=== PATIENT | male | born 1945 | race Caucasian/White ===

== ENCOUNTER 2018-11-04 13:15 | Inpatient (IN) | payer MEDICARE, OTHER ==
[~2018-11-04] VITALS: Ht 185.4 cm; Wt 93.4 kg
[2018-11-04] MEDS ORDERED: DILTIAZEM 25 MG INJ ONE (14:34)
[2018-11-04] MEDS ORDERED: SOD CHLORIDE 0.9% 500 ML IV STA (14:35)
[2018-11-04] MEDS ORDERED: ENOXAPARIN 80 MG/0.8 ML SYG SC STA (14:35)
--- NOTE | 2018-11-04 14:39 | ERD ---
ER Documentation Chief Complaint Chief Complaint PT MORE CONFUSED THAN NORMAL, A0X2, BILATERAL 2+ PITTING LLE HPI This is a 73-year-old male who has a multi-month history of gradual worsening of mental status with confusion. The says over the past couple of days he has been getting more confused. He is having a hard time doing basic activities of daily living, gets confused about what commands mean such as turn off the lig hts. Patient was found to be in A. fib with RVR here in the states that she thinks that he may have had that in the past. She is also complaining him having a chronic cough ROS All systems reviewed and are negative except as per history of present illness. Medications Home Meds Reported Medications Tamsulosin Hcl* (Tamsulosin Hcl*) 0.4 Mg Cap.er.24h, 0.8 MG PO HS, CAP 11/04/18 Discontinued Reported Medications [Unk] No Conflict Check 08/18/09 Allergies Allergies: Coded Allergies: Sulfa (Sulfonamide Antibiotics) (Verified Allergy, Mild, 11/04/18) tetracycline (Verified Allergy, Mild, 11/04/18) PMhx/Soc History of Surgery: Yes (CARDIAC STENT) Hx Neurological Disorder: No Hx Respiratory Disorders: No Hx Cardiac Disorders: Yes Hx Miscellaneous Medical Probl: No Hx Alcohol Use: Yes (OCCASIONALLY) Hx Substance Use: No Hx Tobacco Use: No FmHx Family History: No coronary disease Physical Exam Vitals Vital Signs Date Temp Pulse Resp B/P (MAP) Pulse Ox O2 O2 Flow FiO2 Time Delivery Rate 11/04/18 102 25 128/92 97 Nasal 15:00 (104) Cannula 11/04/18 106 25 137/116 100 Room Air 14:50 (123) 11/04/18 Nasal 2 14:15 Cannula 11/04/18 98.2 66 18 112/55 93 13:18 (74) Physical Exam Const: Well-developed, well-nourished Head: Atraumatic, normocephalic Eyes: Normal Conjunctiva, PERRLA, EOMI, normal sclera, no nystagmus ENT: Normal External Ears, Nose and Mouth, moist mucus membranes. Neck: Full range of motion. No meningismus, no lymphadenopathy. Resp: Clear to auscultation bilaterally, no wheezing, rhonchi, rales Cardio: Irregular rate and rhythm, no murmurs, S1 S2 present] Abd: Soft, non tender x 4, non distended. Normal bowel sounds, no guarding or rebound, no pulsitile abdominal masses or bruits Skin: No petechiae or rashes, no ecchymosis , no maculopapular rash Back: No midline or flank tenderness Ext: No cyanosis, or edema, FROM x 4, normal inspection, neurovascularly intact x 4 Neur: Awake and alert oriented but thinks it is 1989, STR 5/5 x 4, sensation intact x 4, no focal findings, cerebellum intact Psych: Normal Mood and Affect Result Diagram: 11/04/18 1443 11/04/18 1443 Results 24 hrs Laboratory Tests Test 11/04/18 14:43 White Blood Count 10.6 10^3/ul Red Blood Count 4.58 10^6/ul Hemoglobin 13.9 g/dl Hematocrit 42.9 % Mean Corpuscular Volume 93.7 fl Mean Corpuscular Hemoglobin 30.3 pg Mean Corpuscular Hemoglobin Concent 32.4 g/dl Red Cell Distribution Width 14.8 % Platelet Count 158 10^3/UL Mean Platelet Volume 11.7 fl Immature Granulocytes % 0.500 % Neutrophils % 82.2 % Lymphocytes % 6.5 % Monocytes % 10.1 % Eosinophils % 0.3 % Basophils % 0.4 % Nucleated Red Blood Cells % 0.0 /100WBC Immature Granulocytes # 0.050 10^3/ul Neutrophils # 8.8 10^3/ul Lymphocytes # 0.7 10^3/ul Monocytes # 1.1 10^3/ul Eosinophils # 0.0 10^3/ul Basophils # 0.0 10^3/ul Nucleated Red Blood Cells # 0.0 10^3/ul Prothrombin Time 16.0 Sec Prothrombin Time Ratio 1.3 INR International Normalized Ratio 1.27 Activated Partial Thromboplast Time 31.9 Sec Sodium Level 142 mmol/L Potassium Level 4.8 mmol/L Chloride Level 109 mmol/L Carbon Dioxide Level 25 mmol/L Anion Gap 8 Blood Urea Nitrogen 49 mg/dl Creatinine 1.68 mg/dl Est Glomerular Filtrat Rate mL/min mL/min Glucose Level 112 mg/dl Calcium Level 9.8 mg/dl Total Bilirubin 1.2 mg/dl Direct Bilirubin 0.00 mg/dl Indirect Bilirubin 1.2 mg/dl Aspartate Amino Transf (AST/SGOT) 23 IU/L Alanine Aminotransferase (ALT/SGPT) 37 IU/L Alkaline Phosphatase 69 IU/L Troponin I 0.026 ng/ml B-Type Natriuretic Peptide 61902 PG/ML Total Protein 6.5 g/dl Albumin 3.9 g/dl Globulin 2.60 g/dl Albumin/Globulin Ratio 1.50 Current Medications Medications Dose Sig/Karin Start Time Status Last (Trade) Ordered Route PRN Stop Time Admin Dose Reason Admin Sodium 500 ml @ Q1H STAT 11/04/18 DC 11/04/18 Chloride 500 mls/hr IV 14:35 14:48 11/04/18 15:34 Enoxaparin 90 mg ONCE STAT 11/04/18 DC 11/04/18 Sodium SC 14:35 14:47 (Lovenox) 11/04/18 14:37 Diltiazem 20 mg ONCE ONCE 11/04/18 DC 11/04/18 HCl IV 15:00 14:48 (Cardizem Iv) 11/04/18 15:01 Diltiazem 125 ml @ [id number] IV 11/04/18 11/04/18 HCl 10 mls/hr 15:00 15:40 Procedures/MDM EKG: Rate/Rhythm: A. fib with RVR QRS, ST, QT: NORMAL [place], QRS, QT] Impression: A. fib with RVR Patient: KENNEDY DUKE : 1945 Age: 73 Sex: M MR #: [id number] DOS: 11/04/18 1435 Ordering MD: MCKENZIE RUIZ DO Location: E/R Room/Bed: PROCEDURE: CT Brain without contrast. CLINICAL INDICATION: Altered mental status. TECHNIQUE: A CT of the brain without contrast was performed utilizing axial sections from the skull base through the vertex. One or more the following does reduction techniques were utilized: Automated exposure control, adjustment of the mA/ or kV according to patient's size, or use of iterative reconstruction technique. Total exam CTDIvol is 36 MGy and DLP is 634 mGy-cm. DICOM images are available. COMPARISON: None available. FINDINGS: The ventricles and sulci are mildly to moderately prominent indicative of volume loss. Partially empty sella turcica is noted. There is no intracranial hemorrhage, mass effect or midline shift. No abnormal intra-axial or extra-ax ial fluid collections are seen. The lake/white matter differentiation is preserved. Small old lacunar infarct is noted in the right lentiform nucleus. There are mild foci of hypoattenuation in the white matter, which are nonspecific in etiology but likely reflect chronic small vessel ischemic ch anges. There are mild intracranial vascular calcifications consistent with atherosclerosis. The visualized paranasal sinuses demonstrate focal mucoid secretion in the left sphenoid sinus. The mastoid air cells are essentially clear. IMPRESSION: 1. No acute intracranial hemorrhage, transcortical infarction or mass effect. 2. Mild intracranial atherosclerosis and chronic small vessel ischemic changes. 3. Partially empty sella turcica. 4. Small old lacunar infarct in the right lentiform nucleus. 5. Mild to moderate generalized cerebral volume loss. RPTAT: UU .Gregory Tsai MD, MD Date Time Electronically viewed and signed by .Gregory Tsai MD, MD on 11/04/2018 15:49 .N/ CC: MCKENZIE RUIZ DO [id number] Patient: KENNEDY DUKE : 1945 Age: 73 Sex: M MR #: [id number] DOS: 11/04/18 1435 Ordering MD: MCKENZIE RUIZ DO Location: E/R Room/Bed: PROCEDURE: XR Chest. CLINICAL INDICATION: Chest pain TECHNIQUE: A single portable view of the chest was obtained. COMPARISON: None FINDINGS: The aorta is tortuous and atherosclerotic. The cardiomediastinal silhouette is otherwise moderately enlarged. The lungs and pleural spaces are clear. The soft tissues and osseous structures demonstrate benign age related senescent changes. IMPRESSION: No acute cardiopulmonary disease. Moderate cardiomegaly. RPTAT: HPNM Marty Meraz Physician Date Time Electronically viewed and signed by Marty Meraz Physician on 11/04/2018 15:42 / CC: MCKENZIE RUIZ DO [id number] Patient be admitted for new onset A. fib with RVR as well as mental status changes. I will admit to PCP He is given Cardizem 20 mg IV bolus followed by Cardizem 10 mg an hour drip to control his heart rate. EKG: Rate/Rhythm: A. fib with RVR QRS, ST, QT: NORMAL [place], QRS, QT] Impression: A. fib with RVR EKG: Rate/Rhythm: A. fib QRS, ST, QT: NORMAL [place], QRS, QT] Impression: A. fib Departure Diagnosis: Primary Impression: Atrial fibrillation with RVR Additional Impression: Altered mental status Altered mental status type: unspecified Qualified Codes: R41.82 - Altered mental status, unspecified Condition: Stable MCKENZIE RUIZ DO Nov 04, 2018 14:39
[2018-11-04] MEDS ORDERED: DILTIAZEM 25 MG INJ IV ONE (15:00)
[2018-11-04] MEDS ORDERED: DILTIAZEM-D5W 125MG/125ML DRIP 125 ML IV SCH ×2 (15:00→18:00)
[2018-11-04] MEDS ORDERED: LOSA50TA14 PO (16:32)
[2018-11-04] MEDS ORDERED: TAMS0.4C2 PO (16:32)
[2018-11-04] MEDS ORDERED: LANS30CA PO (16:33)
[2018-11-04] MEDS ORDERED: GABA400C14 PO (16:33)
[2018-11-04] MEDS ORDERED: SIMV40TA2 PO (16:34)
[2018-11-04] MEDS ORDERED: FINA5TAB4 PO (16:34)
[2018-11-04] MEDS ORDERED: VITAMIN B12 INJ INJ (16:42)
[2018-11-04] MEDS ORDERED: METHYLPREDNISOLONE 125 MG INJ IV ONE (17:30)
[2018-11-04] MEDS ORDERED: NACL 0.9% 3 ML SYG IV SCH (17:30)
[2018-11-04] MEDS ORDERED: ONDANSETRON 4 MG TAB PO PRN (17:30)
[2018-11-04] MEDS ORDERED: ONDANSETRON 4 MG INJ IV PRN (17:30)
[2018-11-04] MEDS ORDERED: HYDROCODONE/APAP (5/325) TAB PO PRN (17:30)
[2018-11-04] MEDS ORDERED: ACETAMINOPHEN 325 MG TAB PO PRN ×2 (17:30)
--- NOTE | 2018-11-04 17:46 | HP ---
Date/Time of Note Date/Time of Note DATE: 11/04/18 TIME: 17:31 Assessment/Plan VTE Prophylaxis SCD applied (from Ns): No SCD contraindicated: low risk/ambulating Pharmacological prophylaxis: heparin Lines/Catheters IV Catheter Type (from Nrs): Saline Lock Assessment/Plan Problems: (1) Atrial fibrillation with RVR Status: Acute Comment: And had this episode last year which was brief and self-limited by the time he was seen in my office was already in normal sinus rhythm after being having been picked up at [facility]. I will have cardiology see him. Please note he does have a history of coronary disease I do not believe that this represents acute coronary syndrome. He will have echocardiogram in the evaluation. Dr. Pickett will see him in cardiac consultation (2) Altered mental status Status: Acute Comment: This is been slowly progressive over time. It has been steadily worsening and the family is now at a point where they are very concerned. He has had prior imaging studies been going to go ahead and get these repeated and have him seen in formal neurologic consultation to evaluate him and come up with a set of recommendations and plans. Qualifiers: Altered mental status type: unspecified Qualified Codes: R41.82 - Altered mental status, unspecified (3) History of subdural hematoma (post traumatic) Status: Chronic Comment: Had a traumatic brain injury with concussion at one time as well as a subdural that resolved. Then repeat his imaging studies now. (4) History of concussion Status: Chronic Comment: As above. (5) B12 deficiency Status: Chronic Comment: Has been receiving supplementation for this chronically. We will go ahead and check his level but will also give him a dose of medication. (6) Essential hypertension Status: Chronic Comment: Adequate control however we will adjust based on what we need to do for rate control for the atrial fibrillation (7) Benign prostatic hyperplasia Status: Chronic Comment: Continue with treatment. Qualifiers: Lower urinary tract symptom presence: symptoms present Lower urinary tract symptom detail: urinary hesitancy Qualified Codes: N40.1 - Benign prostatic hyperplasia with lower urinary tract symptoms; R39.11 - Hesitancy of micturition (8) Hyperlipidemia Status: Chronic Comment: Maintain statin therapy Qualifiers: Hyperlipidemia type: pure hypercholesterolemia Qualified Codes: E78.00 - Pure hypercholesterolemia, unspecified (9) Asthma, moderate persistent Status: Chronic Comment: Place him back on his medications for this he will have 1 dose of steroids. He will also be seen by pulmonary especially evaluation for this chronic cough. I have been trying to get him into pulmonary as an outpatient consultation Qualifiers: Asthma complication type: with acute exacerbation Qualified Codes: J45.41 - Moderate persistent asthma with (acute) exacerbation (10) Abnormal chest CT Status: Chronic Comment: Repeat study Result Diagram: 11/04/18 1443 11/04/18 1443 Results 24hrs Laboratory Tests Test 11/04/18 14:43 White Blood Count 10.6 Red Blood Count 4.58 L Hemoglobin 13.9 L Hematocrit 42.9 Mean Corpuscular Volume 93.7 Mean Corpuscular Hemoglobin 30.3 Mean Corpuscular Hemoglobin Concent 32.4 Red Cell Distribution Width 14.8 H Platelet Count 158 Mean Platelet Volume 11.7 H Immature Granulocytes % 0.500 H Neutrophils % 82.2 H Lymphocytes % 6.5 L Monocytes % 10.1 Eosinophils % 0.3 Basophils % 0.4 Nucleated Red Blood Cells % 0.0 Immature Granulocytes # 0.050 H Neutrophils # 8.8 H Lymphocytes # 0.7 L Monocytes # 1.1 H Eosinophils # 0.0 Basophils # 0.0 Nucleated Red Blood Cells # 0.0 Prothrombin Time 16.0 H Prothrombin Time Ratio 1.3 INR International Normalized Ratio 1.27 Activated Partial Thromboplast Time 31.9 Sodium Level 142 Potassium Level 4.8 Chloride Level 109 Carbon Dioxide Level 25 Anion Gap 8 Blood Urea Nitrogen 49 H Creatinine 1.68 H Est Glomerular Filtrat Rate mL/min Glucose Level 112 Calcium Level 9.8 Total Bilirubin 1.2 Direct Bilirubin 0.00 Indirect Bilirubin 1.2 H Aspartate Amino Transf (AST/SGOT) 23 Alanine Aminotransferase (ALT/SGPT) 37 Alkaline Phosphatase 69 Troponin I 0.026 B-Type Natriuretic Peptide 99876 H Total Protein 6.5 Albumin 3.9 Globulin 2.60 Albumin/Globulin Ratio 1.50 CC: Hal Pickett DO; KHADIJAH KU; CORBIN HERRERA MD, [facility] ; HPI/ROS Admit Date/Time Admit Date/Time November 04 2018 Hx of Present Illness This is the first recent [facility] admission for this 73-year-old right-handed male. He had a history of atrial fibrillation was actually advised of this after emergency room visit at [facility] last year. This was short lived and spontaneously resolved. In addition to this he has had persistent cough and was actually referred for pulmonary evaluation due to left lower lobe pleural thickening and subpleural nodularity with a nodular infiltrate in the right middle lobe inferior performed at [facility]. In addition to this he has had a slowly progressive decline in intellectual function and had actually been seen by [address] our [address] colleagues [address] 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 These note he did have a remote history of a modest B12 deficiency in the past which has been on regular replacement therapy. Since he is coming in with atrial fibrillation with rapid ventricular response, I am going to cease the opportunity to take care of that and trying progress with the workups of the other issues as well and is efficiently as possible ROS Constitutional: no complaints (Denies fevers chills or sweats) Eyes: no complaints ENT: no complaints Respiratory: cough (Cough and some dyspnea on exertion) Cardiovascular: palpitations Gastrointestinal: no complaints Genitourinary: other (Symptoms of prostatic hypertrophy) Musculoskeletal: no complaints Skin: no complaints Neurologic: confusion Endocrine: no complaints Lymphatic: no complaints Psychological: anxiety PMH/Family/Social Past Medical History Medical History: coronary artery disease, diverticulitis, GERD, high cholesterol, hypertension, other (History of 1 prior episode of atrial fibrillation; asthma persistent moderate; abnormal CT scan of the chest; benign prostatic hypertrophy as post fall with left rib fracture x2; recurrent staph infections of the skin; history of subdural hematoma; vitreous separation OU; psoriasis; migraine syndrome; chronic tinnitus; colonic polyposis) Medications Current Medications Diltiazem HCl 125 ml @ 10 mls/hr [id number] IV Last administered on 11/04/18at 15:40; Admin Dose 10 MLS/HR; Start 11/04/18 at 15:00 Ondansetron HCl (Zofran Inj) 4 mg ER BRIDGE PRN IV NAUSEA/VOMITING; Start 11/04/18 at 17:30; Stop 11/05/18 at 17:29 Acetaminophen (Tylenol Tab) 650 mg ER BRIDGE PRN PO .MILD PAIN 1-3 OR TEMP; Start 11/04/18 at 17:30; Stop 11/05/18 at 17:29 IV Flush (NS 3 ml) 3 ml PER PROTOCOL IV ; Start 11/04/18 at 17:30; Status UNV Lorazepam (Ativan) 0.5 mg Q8H PRN PO .ANXIETY; Start 11/04/18 at 17:30; Status UNV Ondansetron HCl (Zofran Tab) 4 mg Q6H PRN PO NAUSEA/VOMITING; Start 11/04/18 at 17:30; Status UNV Aspirin (Aspirin) 81 mg DAILY PO ; Start 11/05/18 at 09:00; Status UNV Methylprednisolone Sodium Succinate (Solu-Medrol) 60 mg ONCE ONCE IV ; Start 11/04/18 at 17:30; Stop 11/04/18 at 17:31; Status UNV Acetaminophen (Tylenol Tab) 650 mg Q6H PRN PO .PAIN 1-3 OR TEMP; Start 11/04/18 at 17:30; Status UNV Acetaminophen/ Hydrocodone Bitart (Castana (5/325)) 1 tab Q6H PRN PO .PAIN 4-6; Start 11/04/18 at 17:30; Status UNV Docusate Sodium (Colace) 100 mg Q12H PRN PO .CONSTIPATION; Start 11/04/18 at 17:30; Status UNV Famotidine (Pepcid) 20 mg Q12 PO ; Start 11/04/18 at 21:00; Status UNV Heparin Sodium (Porcine) (Heparin (5000 Units/1ml)) 5,000 unit Q12 SC ; Start 11/04/18 at 21:00; Status UNV Metoprolol Tartrate (Lopressor) 25 mg BID PO ; Start 11/04/18 at 21:00; Status UNV Finasteride (Proscar) 5 mg DAILY PO ; Start 11/05/18 at 09:00; Status UNV Gabapentin (Neurontin) 400 mg QHS PO ; Start 11/04/18 at 21:00; Status UNV Losartan Potassium (Cozaar) 50 mg DAILY PO ; Start 11/05/18 at 09:00; Status UNV Tamsulosin HCl (Flomax) 0.8 mg HS PO ; Start 11/04/18 at 21:00; Status UNV Atorvastatin Calcium (Lipitor) 40 mg QHS PO ; Start 11/04/18 at 21:00; Status UNV Cyanocobalamin (Vitamin B12 Inj) 1,000 mcg ONCE ONCE IM ; Start 11/04/18 at 17:30; Stop 11/04/18 at 17:31; Status UNV Coded Allergies: Sulfa (Sulfonamide Antibiotics) (Verified Allergy, Mild, 11/04/18) tetracycline (Verified Allergy, Mild, 11/04/18) Past Surgical History Past Surgical Hx: other (Status post right hemicolectomy; status post hemorrhoidectomy; status post PCI with stenting of 2 vessels July 2004; st atus post tonsillectomy; status post heel spur) Family History Significant Family History: heart disease, cancer (:), diabetes Social History Born in [facility]. Raised in [place]. Masters in electrical engineering. [employer] with 2-1/2 years experience. 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 Alcohol Use: rarely Smoking Status: Never smoker Drug Use: none Exam/Review of Systems Vital Signs Vitals Vital Signs Date Temp Pulse Resp B/P (MAP) Pulse Ox O2 O2 Flow FiO2 Time Delivery Rate 11/04/18 115 17 145/118 97 Room Air 17:25 (127) 11/04/18 2 14:15 11/04/18 98.2 13:18 Exam Constitutional: alert Psych: anxiety Head: normocephalic, atraumatic Eyes: nl conjunctiva, EOMI, nl lids Neck: supple, non-tender Respiratory: normal air movement, wheezing Cardiovascular: nl pulses, irregular rhythm Gastrointestinal: soft, nl liver, spleen, non-tender Neurological: [employer] II-XII intact, nl mental status, nl speech, nl strength CHRIS RUBIN MD Nov 04, 2018 17:43
--- NOTE | 2018-11-04 17:58 | CONS ---
Assessment/Plan Assessment/Plan Hospital Course (Demo Recall) Atrial fibrillation with rapid ventricular rates, improving Acute kidney injury Coronary artery disease with history of PCI Cough Hypertension Lower extremity edema -Patient presents with multiple complaints and found to be in atrial fibrillation with rapid ventricular rates. This is improved after IV Cardizem. I would increase dose of p.o. Lopressor, titrate IV Cardizem to maintain heart rate less than 110. In review of history and physical, patient with history of traumatic subdural hematoma. Will need to clarify timeframe as well as fall risk in regards to chronic anticoagulation. -Patient with lower extremity edema bilaterally, patient also with renal dysfunction. Would hold off on diuretics at the current time or any nephrotoxic medications given denies dyspnea currently, chest x-ray with no evidence of significant volume overload as well as normal oxygen saturation on room air -We will check echocardiogram. -Telemetry monitoring Consultation Date/Type/Reason Admit Date/Time November 04 2018 Type of Consult Cardiology Reason for Consultation Atrial fibrillation Date/Time of Note DATE: 11/04/18 TIME: 17:51 Hx of Present Illness This is a 73-year-old male with past medical history of coronary artery disease, brief atrial fibrillation a year ago, hypertension who presents with progressive worsening forgetfulness and mental status, fatigue and cough. Patient denies any chest pain, palpitations or dizziness. He does admit he is more forgetful. He does also complain of increased lower extremity swelling. In the emergency room, patient found to be in atrial fibrillation with rapid ventricular rates and acute kidney injury. He denies any current fevers or chills. His cough is wet but nonproductive. 12 point review of systems was performed with all pertinent positives and negatives mentioned above and all else is negative Past Medical History Subdural hematoma Medical History: coronary artery disease, GERD, hypertension Home Meds Reported Medications [Vitamin B12 Inj] No Conflict Check, 1 ML INJ DAILY INJECT 1ML-FOR 7 DAYS DAILY (LAST INJECTION 11/04/18-FOR 7 DAYS), THEN INJECT Q7D- FOR 3 WEEKS(START DAY 11/05/18),THEN ONCE A MONTH. 11/04/18 Simvastatin* (Zocor*) 40 Mg Tablet, 40 MG PO DAILY, #30 TAB 11/04/18 Finasteride* (Finasteride*) 5 Mg Tablet, 5 MG PO DAILY, TAB 11/04/18 Gabapentin* (Gabapentin*) 400 Mg Capsule, 400 MG PO QHS, #90 CAP 11/04/18 Lansoprazole* (Lansoprazole*) 30 Mg Capsule.dr, 30 MG PO DAILY, CAP 11/04/18 Losartan Potassium* (Losartan Potassium*) 50 Mg Tablet, 50 MG PO DAILY, TAB 11/04/18 Tamsulosin Hcl* (Tamsulosin Hcl*) 0.4 Mg Cap.er.24h, 0.8 MG PO HS, CAP 11/04/18 Discontinued Reported Medications [Unk] No Conflict Check 08/18/09 Medications Current Medications Diltiazem HCl 125 ml @ 10 mls/hr [id number] IV Last administered on 11/04/18at 15:40; Admin Dose 10 MLS/HR; Start 11/04/18 at 15:00 Ondansetron HCl (Zofran Inj) 4 mg ER BRIDGE PRN IV NAUSEA/VOMITING; Start 11/04/18 at 17:30; Stop 11/05/18 at 17:29 Acetaminophen (Tylenol Tab) 650 mg ER BRIDGE PRN PO .MILD PAIN 1-3 OR TEMP; Start 11/04/18 at 17:30; Stop 11/05/18 at 17:29 IV Flush (NS 3 ml) 3 ml PER PROTOCOL IV ; Start 11/04/18 at 17:30; Status UNV Lorazepam (Ativan) 0.5 mg Q8H PRN PO .ANXIETY; Start 11/04/18 at 17:30 Ondansetron HCl (Zofran Tab) 4 mg Q6H PRN PO NAUSEA/VOMITING; Start 11/04/18 at 17:30; Status UNV Aspirin (Aspirin) 81 mg DAILY PO ; Start 11/05/18 at 09:00 Methylprednisolone Sodium Succinate (Solu-Medrol) 60 mg ONCE ONCE IV ; Start 11/04/18 at 17:30; Stop 11/04/18 at 17:31; Status UNV Acetaminophen (Tylenol Tab) 650 mg Q6H PRN PO .PAIN 1-3 OR TEMP; Start 11/04/18 at 17:30 Acetaminophen/ Hydrocodone Bitart ([place] (5/325)) 1 tab Q6H PRN PO .PAIN 4-6; Start 11/04/18 at 17:30 Docusate Sodium (Colace) 100 mg Q12H PRN PO .CONSTIPATION; Start 11/04/18 at 17:30 Famotidine (Pepcid) 20 mg Q12 PO ; Start 11/04/18 at 21:00 Heparin Sodium (Porcine) (Heparin (5000 Units/1ml)) 5,000 unit Q12 SC ; Start 11/04/18 at 21:00 Metoprolol Tartrate (Lopressor) 25 mg BID PO ; Start 11/04/18 at 21:00; Status UNV Finasteride (Proscar) 5 mg DAILY PO ; Start 11/05/18 at 09:00 Gabapentin (Neurontin) 400 mg QHS PO ; Start 11/04/18 at 21:00; Status UNV Losartan Potassium (Cozaar) 50 mg DAILY PO ; Start 11/05/18 at 09:00; Status UNV Tamsulosin HCl (Flomax) 0.8 mg HS PO ; Start 11/04/18 at 21:00; Status UNV Atorvastatin Calcium (Lipitor) 40 mg QHS PO ; Start 11/04/18 at 21:00 Cyanocobalamin (Vitamin B12 Inj) 1,000 mcg ONCE ONCE IM ; Start 11/04/18 at 22: 00; Stop 11/04/18 at 22:01 Montelukast Sodium (Singulair) 10 mg QHS PO ; Start 11/04/18 at 21:00; Status UNV Fluticasone/ Vilanterol (Breo Ellipta 100-25 Mcg Inh) 1 inh DAILY INH ; Start 11/04/18 at 18:00; Status UNV Tiotropium [place] (Spiriva) 1 inh QAM INH ; Start 11/04/18 at 18:00; Status UNV Allergies: Coded Allergies: Sulfa (Sulfonamide Antibiotics) (Verified Allergy, Mild, 11/04/18) tetracycline (Verified Allergy, Mild, 11/04/18) Past Surgical History Past Surgical Hx: other (Status post right hemicolectomy; status post hemorrhoidectomy; status post PCI with stenting of 2 vessels July 2004; status post tonsillectomy; status post heel spur) Social History Alcohol Use: rarely Smoking Status: Never smoker Drug Use: none Exam/Review of Systems Vital Signs Vitals Vital Signs Date Temp Pulse Resp B/P (MAP) Pulse Ox O2 O2 Flow FiO2 Time Delivery Rate 11/04/18 115 17 145/118 97 Room Air 17:25 (127) 11/04/18 2 14:15 11/04/18 98.2 13:18 Exam Constitutional: alert, oriented (To person and place, no apparent distress, forgetful after extensive question asking) Head: normocephalic Respiratory: other (Coarse breath sounds bilaterally, no wheezing) Cardiovascular: irregular rhythm (S1-S2 heard) Gastrointestinal: soft, non-tender, bowel sounds Extremities: edema Labs Result Diagram: 11/04/18 1443 11/04/18 1443 Results 24hrs Laboratory Tests Test 11/04/18 14:43 White Blood Count 10.6 Red Blood Count 4.58 L Hemoglobin 13.9 L Hematocrit 42.9 Mean Corpuscular Volume 93.7 Mean Corpuscular Hemoglobin 30.3 Mean Corpuscular Hemoglobin Concent 32.4 Red Cell Distribution Width 14.8 H Platelet Count 158 Mean Platelet Volume 11.7 H Immature Granulocytes % 0.500 H Neutrophils % 82.2 H Lymphocytes % 6.5 L Monocytes % 10.1 Eosinophils % 0.3 Basophils % 0.4 Nucleated Red Blood Cells % 0.0 Immature Granulocytes # 0.050 H Neutrophils # 8.8 H Lymphocytes # 0.7 L Monocytes # 1.1 H Eosinophils # 0.0 Basophils # 0.0 Nucleated Red Blood Cells # 0.0 Prothrombin Time 16.0 H Prothrombin Time Ratio 1.3 INR International Normalized Ratio 1.27 Activated Partial Thromboplast Time 31.9 Sodium Level 142 Potassium Level 4.8 Chloride Level 109 Carbon Dioxide Level 25 Anion Gap 8 Blood Urea Nitrogen 49 H Creatinine 1.68 H Est Glomerular Filtrat Rate mL/min Glucose Level 112 Calcium Level 9.8 Total Bilirubin 1.2 Direct Bilirubin 0.00 Indirect Bilirubin 1.2 H Aspartate Amino Transf (AST/SGOT) 23 Alanine Aminotransferase (ALT/SGPT) 37 Alkaline Phosphatase 69 Troponin I 0.026 B-Type Natriuretic Peptide 32667 H Total Protein 6.5 Albumin 3.9 Globulin 2.60 Albumin/Globulin Ratio 1.50 Imaging Imaging ECG with atrial fibrillation with ventricular rate of 109 bpm, QRS 96 ms, nonspecific ST abnormalities Medications Medications Current Medications Diltiazem HCl 125 ml @ 10 mls/hr [id number] IV Last administered on 11/04/18at 15:40; Admin Dose 10 MLS/HR; Start 11/04/18 at 15:00 Ondansetron HCl (Zofran Inj) 4 mg ER BRIDGE PRN IV NAUSEA/VOMITING; Start 11/04/18 at 17:30; Stop 11/05/18 at 17:29 Acetaminophen (Tylenol Tab) 650 mg ER BRIDGE PRN PO .MILD PAIN 1-3 OR TEMP; Sta rt 11/04/18 at 17:30; Stop 11/05/18 at 17:29 IV Flush (NS 3 ml) 3 ml PER PROTOCOL IV ; Start 11/04/18 at 17:30; Status UNV Lorazepam (Ativan) 0.5 mg Q8H PRN PO .ANXIETY; Start 11/04/18 at 17:30 Ondansetron HCl (Zofran Tab) 4 mg Q6H PRN PO NAUSEA/VOMITING; Start 11/04/18 at 17:30; Status UNV Aspirin (Aspirin) 81 mg DAILY PO ; Start 11/05/18 at 09:00 Methylprednisolone Sodium Succinate (Solu-Medrol) 60 mg ONCE ONCE IV ; Start 11/04/18 at 17:30; Stop 11/04/18 at 17:31; Status UNV Acetaminophen (Tylenol Tab) 650 mg Q6H PRN PO .PAIN 1-3 OR TEMP; Start 11/04/18 at 17:30 Acetaminophen/ Hydrocodone Bitart ([place] (5/325)) 1 tab Q6H PRN PO .PAIN 4-6; Start 11/04/18 at 17:30 Docusate Sodium (Colace) 100 mg Q12H PRN PO .CONSTIPATION; Start 11/04/18 at 17:30 Famotidine (Pepcid) 20 mg Q12 PO ; Start 11/04/18 at 21:00 Heparin Sodium (Porcine) (Heparin (5000 Units/1ml)) 5,000 unit Q12 SC ; Start 11/04/18 at 21:00 Metoprolol Tartrate (Lopressor) 25 mg BID PO ; Start 11/04/18 at 21:00; Status UNV Finasteride (Proscar) 5 mg DAILY PO ; Start 11/05/18 at 09:00 Gabapentin (Neurontin) 400 mg QHS PO ; Start 11/04/18 at 21:00; Status UNV Losartan Potassium (Cozaar) 50 mg DAILY PO ; Start 11/05/18 at 09:00; Status UNV Tamsulosin HCl (Flomax) 0.8 mg HS PO ; Start 11/04/18 at 21:00; Status UNV Atorvastatin Calcium (Lipitor) 40 mg QHS PO ; Start 11/04/18 at 21:00 Cyanocobalamin (Vitamin B12 Inj) 1,000 mcg ONCE ONCE IM ; Start 11/04/18 at 22:00; Stop 11/04/18 at 22:01 Montelukast Sodium (Singulair) 10 mg QHS PO ; Start 11/04/18 at 21:00; Status UNV Fluticasone/ Vilanterol (Breo Ellipta 100-25 Mcg Inh) 1 inh DAILY INH ; Start 11/04/18 at 18:00; Status UNV Tiotropium [place] (Spiriva) 1 inh QAM INH ; Start 11/04/18 at 18:00; Status UNV Hal Pickett DO Nov 04, 2018 17:58
[2018-11-04] MEDS ORDERED: NICARDipine HCL 30 MG CAPSULE PO ONE (18:30)
[2018-11-04] MEDS: METOPROLOL 25 MG TAB PO SCH (18:41)
[2018-11-04] MEDS ORDERED: METOPROLOL 25 MG TAB PO SCH ×2 (21:00)
[2018-11-04] MEDS: GABAPENTIN 400 MG CAP PO SCH (21:51)
[2018-11-04] MEDS: FAMOTIDINE 20 MG TAB PO SCH (21:51)
[2018-11-04] MEDS: ATORVASTATIN 40 MG TAB PO SCH (21:51)
[2018-11-04] MEDS: MONTELUKAST 10 MG TAB PO SCH (21:51)
[2018-11-04] MEDS: TAMSULOSIN (SR) 0.4 MG CAP PO SCH (21:52)
[2018-11-04] MEDS ORDERED: CYANOCOBALAMIN 1000 MCG INJ IM ONE (22:00)
[2018-11-04] MEDS: HEPARIN 5,000 UNIT/1 ML VIAL SC SCH (23:34)
[2018-11-04] MEDS: TIOTROPIUM 18 MCG CAPSULE INHA DEV INH SCH (23:54)
[2018-11-04] MEDS: FLUTICASONE/VILANTEROL 100-25 INH SCH (23:54)
[2018-11-05] VITALS (11 sets, daily range): BP systolic 100–136; BP diastolic 59–91; PULSE 59–113; RESP 17–18; Ht 185.4 cm; Wt 93.4 kg
[2018-11-05] MEDS: METOPROLOL 25 MG TAB PO SCH ×5 (05:00→21:33)
[2018-11-05] MEDS ORDERED: LORAZEPAM 2 MG INJ ONE (05:07)
[2018-11-05] MEDS ORDERED: LORAZEPAM 2 MG INJ IV ONE (05:30)
[2018-11-05] MEDS ORDERED: HALOPERIDOL 5 MG INJ IM ONE (05:30)
[2018-11-05] MEDS: FAMOTIDINE 20 MG TAB PO SCH ×2 (09:00→20:19)
[2018-11-05] MEDS: TIOTROPIUM 18 MCG CAPSULE INHA DEV INH SCH (09:00)
[2018-11-05] MEDS: FLUTICASONE/VILANTEROL 100-25 INH SCH (09:00)
[2018-11-05] MEDS: ASPIRIN 81 MG TAB PO SCH (09:00)
[2018-11-05] MEDS: HEPARIN 5,000 UNIT/1 ML VIAL SC SCH ×2 (09:00→20:42)
[2018-11-05] MEDS: FINASTERIDE 5 MG TAB PO SCH (09:00)
[2018-11-05] MEDS: LOSARTAN 50 MG TAB PO SCH (09:00)
--- NOTE | 2018-11-05 11:11 | CONS ---
Assessment/Plan Assessment/Plan Assessment/Plan (Daily) Chest x-ray was reviewed which is totally clear. Assessment recommendations; 1. Patient admitted with confusion with a history of dementia and some shortness of breath which likely is on the basis of A. fib with RVR with significant clinical improvement after heart rate is controlled now. 2. Other comorbidities include history of dementia, hypertension, BPH, CAD. 3. Likely underlying mild chronic renal insufficiency. Continue current supportive care. Further recommendations per civil estimator. Currently there is no acute pulmonary pathology. Consultation Date/Type/Reason Admit Date/Time November 04 2018 Date of Consultation: Nov 05, 2018 Type of Consult Pulmonary Patient is a 73-year-old male who was admitted to the hospital with confusion, patient was found to be in A. fib with RVR, patient was started on Cardizem with significant reduction in heart rate. By the time I saw the patient in the room, patient is noncommunicative apparently due to underlying advanced dementia. Patient did not appear to be in any distress whatsoever. History was obtained from medical records. Past medical history; 1. History of chronic atrial fibrillation. 2. Dementia. 3. BPH. 4. Hypertension. 5. CAD. 6. History of gastroesophageal reflux disease. Medications; reviewed. Allergies; as outlined above. Family history, social history, occupational history is not available. Review of system; unable to be obtained. Patient though remains awake and responsive. Appears confused. General exam; elderly male, currently no distress. Awake and responsive but unable to provide any meaningful history by himself. Date/Time of Note DATE: 11/05/18 TIME: 11:07 Past Medical History Medical History: coronary artery disease, diverticulitis, GERD, high cholesterol, hypertension, other (History of 1 prior episode of atrial fibrillation; asthma persistent moderate; abnormal CT scan of the chest; benign prostatic hypertrophy as post fall with left rib fracture x2; recurrent staph infections of the skin; history of subdural hematoma; vitreous separation OU; psoriasis; migraine syndrome; chronic tinnitus; colonic polyposis) Home Meds Reported Medications [Vitamin B12 Inj] No Conflict Check, 1 ML INJ DAILY INJECT 1ML-FOR 7 DAYS DAILY (LAST INJECTION 11/04/18-FOR 7 DAYS), THEN INJECT Q7D- FOR 3 WEEKS(START DAY 11/05/18),THEN ONCE A MONTH. 11/04/18 Simvastatin* (Zocor*) 40 Mg Tablet, 40 MG PO DAILY, #30 TAB 11/04/18 Finasteride* (Finasteride*) 5 Mg Tablet, 5 MG PO DAILY, TAB 11/04/18 Gabapentin* (Gabapentin*) 400 Mg Capsule, 400 MG PO QHS, #90 CAP 11/04/18 Lansoprazole* (Lansoprazole*) 30 Mg Capsule.dr, 30 MG PO DAILY, CAP 11/04/18 Losartan Potassium* (Losartan Potassium*) 50 Mg Tablet, 50 MG PO DAILY, TAB 11/04/18 Tamsulosin Hcl* (Tamsulosin Hcl*) 0.4 Mg Cap.er.24h, 0.8 MG PO HS, CAP 11/04/18 Discontinued Reported Medications [Unk] No Conflict Check 08/18/09 Medications Current Medications IV Flush (NS 3 ml) 3 ml PER PROTOCOL IV ; Start 11/04/18 at 17:30 Lorazepam (Ativan) 0.5 mg Q8H PRN PO .ANXIETY; Start 11/04/18 at 17:30 Ondansetron HCl (Zofran Tab) 4 mg Q6H PRN PO NAUSEA/VOMITING; Start 11/04/18 at 17:30 Aspirin (Aspirin) 81 mg DAILY PO ; Start 11/05/18 at 09:00 Acetaminophen (Tylenol Tab) 650 mg Q6H PRN PO .PAIN 1-3 OR TEMP; Start 11/04/18 at 17:30 Acetaminophen/ Hydrocodone Bitart ([place] (5/325)) 1 tab Q6H PRN PO .PAIN 4-6; Start 11/04/18 at 17:30 Docusate Sodium (Colace) 100 mg Q12H PRN PO .CONSTIPATION; Start 11/04/18 at 17:30 Famotidine (Pepcid) 20 mg Q12 PO Last administered on 11/04/18at 21:51; Admin Dose 20 MG; Start 11/04/18 at 21:00 Heparin Sodium (Porcine) (Heparin (5000 Units/1ml)) 5,000 unit Q12 SC Last administered on 11/04/18at 23:34; Admin Dose 5,000 UNIT; Start 11/04/18 at 21:00 Finasteride (Proscar) 5 mg DAILY PO ; Start 11/05/18 at 09:00 Gabapentin (Neurontin) 400 mg QHS PO Last administered on 11/04/18 21:51; Admin Dose 400 MG; Start 11/04/18 at 21:00 Losartan Potassium (Cozaar) 50 mg DAILY PO ; Start 11/05/18 at 09:00 Tamsulosin HCl (Flomax) 0.8 mg HS PO Last administered on 11/04/18 21:52; Admin Dose 0.8 MG; Start 11/04/18 at 21:00 Atorvastatin Calcium (Lipitor) 40 mg QHS PO Last administered on 11/04/18 21:51; Admin Dose 40 MG; Start 11/04/18 at 21:00 Montelukast Sodium (Singulair) 10 mg QHS PO Last administered on 11/04/18 21:51; Admin Dose 10 MG; Start 11/04/18 at 21:00 Fluticasone/ Vilanterol (Breo Ellipta 100-25 Mcg Inh) 1 inh DAILY INH Last administered on 11/04/18at 23:54; Admin Dose 1 INH; Start 11/04/18 at 18:00 Tiotropium [place] (Spiriva) 1 inh QAM INH Last administered on 11/04/18 23:54; Admin Dose 1 INH; Start 11/04/18 at 18:00 Diltiazem HCl 125 ml @ 5 mls/hr TITRATE IV ; Start 11/04/18 at 18:00 Metoprolol Tartrate (Lopressor) 50 mg Q8 PO Last administered on 11/04/18at 18:41; Admin Dose 50 MG; Start 11/04/18 at 18:20 Miscellaneous Information Patients own medicat... BID@10,16 XX ; Start 11/05/18 at 10:00 Allergies: Coded Allergies: Sulfa (Sulfonamide Antibiotics) (Verified Allergy, Mild, 11/04/18) tetracycline (Verified Allergy, Mild, 11/04/18) Past Surgical History Past Surgical Hx: other (Status post right hemicolectomy; status post hemorrhoidectomy; status post PCI with stenting of 2 vessels July 2004; status post tonsillectomy; status post heel spur) Social History Alcohol Use: rarely Smoking Status: Never smoker Drug Use: none Exam/Review of Systems Exam Vitals Vital Signs Date Temp Pulse Resp B/P (MAP) Pulse Ox O2 O2 Flow FiO2 Time Delivery Rate 11/05/18 97.8 78 18 111/59 97 Room Air 07:12 (76) 11/05/18 2.0 00:30 Intake and Output 11/04/18 11/04/18 11/05/18 1515:00 23:00 07:00 IntakeIntake Total 365 ml BalanceBalance 365 ml Exam HEENT exam; supple neck, no JVD. No lymphadenopathy. Midline trachea. No thyromegaly. Patient has fair dentition. Chest exam; diminished but clear breath sounds. S1-S2 audible, no murmurs. Regular rhythm. Abdomen exam; soft, no organomegaly. Bowel sounds audible. Extremity exam; no peripheral edema clubbing. SENIOR JAVASCRIPT DEVELOPER exam; he is awake and moves all 4 extremities on command. No focal motor deficit. Results Result Diagram: 11/04/18 1443 11/04/18 1443 Results 24hrs Laboratory Tests Test 11/04/18 14:43 11/04/18 17:26 11/04/18 17:49 11/04/18 23:40 White Blood Count 10.6 Red Blood Count 4.58 L Hemoglobin 13.9 L Hematocrit 42.9 Mean Corpuscular 93.7 Volume Mean Corpuscular 30.3 Hemoglobin Mean Corpuscular 32.4 Hemoglobin Concent Red Cell 14.8 H Distribution Width Platelet Count 158 Mean Platelet Volume 11.7 H Immature 0.500 H Granulocytes % Neutrophils % 82.2 H Lymphocytes % 6.5 L Monocytes % 10.1 Eosinophils % 0.3 Basophils % 0.4 Nucleated Red Blood 0.0 Cells % Immature 0.050 H Granulocytes # Neutrophils # 8.8 H Lymphocytes # 0.7 L Monocytes # 1.1 H Eosinophils # 0.0 Basophils # 0.0 Nucleated Red Blood 0.0 Cells # Prothrombin Time 16.0 H Prothrombin Time 1.3 Ratio INR International 1.27 Normalized Ratio Activated 31.9 Partial Thromboplast Time Sodium Level 142 Potassium Level 4.8 Chloride Level 109 Carbon Dioxide Level 25 Anion Gap 8 Blood Urea Nitrogen 49 H Creatinine 1.68 H Est Glomerular Filtrat Rate mL/min Glucose Level 112 Calcium Level 9.8 Total Bilirubin 1.2 Direct Bilirubin 0.00 Indirect Bilirubin 1.2 H Aspartate Amino 23 Transf (AST/SGOT) Alanine 37 Aminotransferase (AL T/SGPT) Alkaline Phosphatase 69 Troponin I 0.026 0.027 0.031 B-Type Natriuretic 89451 H Peptide Total Protein 6.5 Albumin 3.9 Globulin 2.60 Albumin/Globulin 1.50 Ratio Urine Color MARIANA Urine Clarity CLEAR Urine pH 5.0 Urine Specific 1.029 [place] Urine Ketones TRACE A Urine Nitrite NEGATIVE Urine Bilirubin NEGATIVE Urine Urobilinogen 1+ H Urine Leukocyte NEGATIVE Esterase Urine Microscopic 1 RBC Urine Microscopic 1 WBC Urine Mucus FEW A Urine Hemoglobin NEGATIVE Urine Glucose NEGATIVE Urine Total Protein 2+ H Creatine Kinase 78 74 Creatine Kinase 2.2 2.1 Index Creatinine Kinase MB 1.68 1.59 (Mass) Vitamin B12 Level > 1000 H Thyroid Stimulating 1.120 Hormone (TSH) Medications Medication Current Medications IV Flush (NS 3 ml) 3 ml PER PROTOCOL IV ; Start 11/04/18 at 17:30 Lorazepam (Ativan) 0.5 mg Q8H PRN PO .ANXIETY; Start 11/04/18 at 17:30 Ondansetron HCl (Zofran Tab) 4 mg Q6H PRN PO NAUSEA/VOMITING; Start 11/04/18 at 17:30 Aspirin (Aspirin) 81 mg DAILY PO ; Start 11/05/18 at 09:00 Acetaminophen (Tylenol Tab) 650 mg Q6H PRN PO .PAIN 1-3 OR TEMP; Start 11/04/18 at 17:30 Acetaminophen/ Hydrocodone Bitart ([place] (5/325)) 1 tab Q6H PRN PO .PAIN 4-6; Start 11/04/18 at 17:30 Docusate Sodium (Colace) 100 mg Q12H PRN PO .CONSTIPATION; Start 11/04/18 at 17:30 Famotidine (Pepcid) 20 mg Q12 PO Last administered on 11/04/18at 21:51; Admin Dose 20 MG; Start 11/04/18 at 21:00 Heparin Sodium (Porcine) (Heparin (5000 Units/1ml)) 5,000 unit Q12 SC Last administered on 11/04/18at 23:34; Admin Dose 5,000 UNIT; Start 11/04/18 at 21:00 Finasteride (Proscar) 5 mg DAILY PO ; Start 11/05/18 at 09:00 Gabapentin (Neurontin) 400 mg QHS PO Last administered on 11/04/18at 21:51; Admin Dose 400 MG; Start 11/04/18 at 21:00 Losartan Potassium (Cozaar) 50 mg DAILY PO ; Start 11/05/18 at 09:00 Tamsulosin HCl (Flomax) 0.8 mg HS PO Last administered on 11/04/18 21:52; Admin Dose 0.8 MG; Start 11/04/18 at 21:00 Atorvastatin Calcium (Lipitor) 40 mg QHS PO Last administered on 11/04/18 21:51; Admin Dose 40 MG; Start 11/04/18 at 21:00 Montelukast Sodium (Singulair) 10 mg QHS PO Last administered on 11/04/18 21:51; Admin Dose 10 MG; Start 11/04/18 at 21:00 Fluticasone/ Vilanterol (Breo Ellipta 100-25 Mcg Inh) 1 inh DAILY INH Last administered on 11/04/18 23:54; Admin Dose 1 INH; Start 11/04/18 at 18:00 Tiotropium [place] (Spiriva) 1 inh QAM INH Last administered on 11/04/18 23:54; Admin Dose 1 INH; Start 11/04/18 at 18:00 Diltiazem HCl 125 ml @ 5 mls/hr TITRATE IV ; Start 11/04/18 at 18:00 Metoprolol Tartrate (Lopressor) 50 mg Q8 PO Last administered on 11/04/18at 18:41; Admin Dose 50 MG; Start 11/04/18 at 18:20 Miscellaneous Information Patients own medicat... BID@10,16 XX ; Start 11/05/18 at 10:00 DEBBIE PEARSON Nov 05, 2018 11:11
--- NOTE | 2018-11-05 12:23 | CONS ---
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 for which neurology is consulted. The clinical picture suggests a mild dementia w/ superimposed acute encephalopathy.. There is likely an underlying depression that is contributing.. CTH is notable for mild to moderate global volume loss P: Await MRI brain for further characterization TSH, B12 levels Repeat CXR to revaluate for pneumonia [place] as necessary Limit daytime sedating medications where possible PT/OT/ST as necessary Continued medical management per primary Will follow clinically, to recommend neurologic studies, as necessary Consultation Date/Type/Reason Admit Date/Time November 04 2018 Type of Consult Neurology Reason for Consultation ams Requesting Provider: CHRIS RUBIN MD Date/Time of Note DATE: 11/05/18 TIME: 12:23 Hx of Present Illness 73 yo M with hx of afib, cognitive decline, and other comorbidities who presented to the ED for evaluation of an abnormal heart rhythm History was obtained from and chart review. The endorses that his cognitive decline started around 5 years ago, where he had issues with his memory, etc. Then around 2 years ago, he began to struggle with depression, which caused him to become less active and partake in fewer activities with his . Several months ago, he reportedly started having "lung problems" for which he has some workup. The states that he initially came to the hospital for an irregularity with his heart rhythm, though notes that today that the pt is much more sleepy than usual, for which she is concerned. It is elsewhere noted: Hx of Present Illness This is the first recent [facility] admission for this 73-year-old right-handed male. He had a history of atrial fibrillation was actually advised of this after emergency room visit at [facility] last year. This was short lived and spontaneously resolved. In addition to this he has had persistent cough and was actually referred for pulmonary evaluation due to left lower lobe pleural thickening and subpleural no dularity with a nodular infiltrate in the right middle lobe inferior performed at [facility]. In addition to this he has had a slowly progressive decline in intellectual function and had actually been seen by [address] of our neurology colleagues [address]. 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 These note he did have a remote history of a modest B12 deficiency in the past which has been on regular replacement therapy. Since he is coming in with atrial fibrillation with rapid ventricular response, I am going to cease the opportunity to take care of that and trying progress with the workups of the other issues as well and is efficiently as possible unable to obtain d/t pt ams Exam/Review of Systems Exam Vitals Vital Signs Date Temp Pulse Resp B/P (MAP) Pulse Ox O2 O2 Flow FiO2 Time Delivery Rate 11/05/18 97.9 113 18 136/91 95 Nasal 11:53 (106) Cannula 11/05/18 2.0 00:30 Intake and Output 11/04/18 11/04/18 11/05/18 1515:00 23:00 07:00 IntakeIntake Total 365 ml BalanceBalance 365 ml Exam PE: Gen Appearance: No apparent distress. On 2 pt wrist restraints with sitter at bedside HEENT: Normocephalic; on nasal cannula Cardiovascular: Regular rate Respiratory: Lung sounds with crackles bilaterally; productive cough Abdomen: Soft Extremities: Dry NE: The patient was lethargic and nonverbal. Opens eyes to voice. Is able to track; unable to follow commands. Cranial nerve examination was limited by mental status. Pupils were equal and reactive to light. There was no afferent pupillary defect. Funduscopic examination was limited. Face was grossly symmetric, w/ present corneal and cough reflexes. Tone was normal. Muscle bulk was normal. I did not see fasciculations. The patient had spontaneous movement of all extremities, symmetrically. Coordination and gait testing was limited by mental status. Arm and leg reflexes were within normal limits and symmetric. Almonte's sign was absent. Plantar responses were flexor. Results Result Diagram: 11/04/18 1443 11/04/18 1443 Results 24hrs Laboratory Tests Test 11/04/18 14:43 11/04/18 17:26 11/04/18 17:49 11/04/18 23:40 White Blood Count 10.6 Red Blood Count 4.58 L Hemoglobin 13.9 L Hematocrit 42.9 Mean Corpuscular 93.7 Volume Mean Corpuscular 30.3 Hemoglobin Mean Corpuscular 32.4 Hemoglobin Concent Red Cell 14.8 H Distribution Width Platelet Count 158 Mean Platelet Volume 11.7 H Immature 0.500 H Granulocytes % Neutrophils % 82.2 H Lymphocytes % 6.5 L Monocytes % 10.1 Eosinophils % 0.3 Basophils % 0.4 Nucleated Red Blood 0.0 Cells % Immature 0.050 H Granulocytes # Neutrophils # 8.8 H Lymphocytes # 0.7 L Monocytes # 1.1 H Eosinophils # 0.0 Basophils # 0.0 Nucleated Red Blood 0.0 Cells # Prothrombin Time 16.0 H Prothrombin Time 1.3 Ratio INR International 1.27 Normalized Ratio Activated 31.9 Partial Thromboplast Time Sodium Level 142 Potassium Level 4.8 Chloride Level 109 Carbon Dioxide Level 25 Anion Gap 8 Blood Urea Nitrogen 49 H Creatinine 1.68 H Est Glomerular Filtrat Rate mL/min Glucose Level 112 Calcium Level 9.8 Total Bilirubin 1.2 Direct Bilirubin 0.00 Indirect Bilirubin 1.2 H Aspartate Amino 23 Transf (AST/SGOT) Alanine 37 Aminotransferase (AL T/SGPT) Alkaline Phosphatase 69 Troponin I 0.026 0.027 0.031 B-Type Natriuretic 01860 H Peptide Total Protein 6.5 Albumin 3.9 Globulin 2.60 Albumin/Globulin 1.50 Ratio Urine Color MARIANA Urine Clarity CLEAR Urine pH 5.0 Urine Specific 1.029 [place] Urine Ketones TRACE A Urine Nitrite NEGATIVE Urine Bilirubin NEGATIVE Urine Urobilinogen 1+ H Urine Leukocyte NEGATIVE Esterase Urine Microscopic 1 RBC Urine Microscopic 1 WBC Urine Mucus FEW A Urine Hemoglobin NEGATIVE Urine Glucose NEGATIVE Urine Total Protein 2+ H Creatine Kinase 78 74 Creatine Kinase 2.2 2.1 Index Creatinine Kinase MB 1.68 1.59 (Mass) Vitamin B12 Level > 1000 H Thyroid Stimulating 1.120 Hormone (TSH) Medications Medication Current Medications IV Flush (NS 3 ml) 3 ml PER PROTOCOL IV ; Start 11/04/18 at 17:30 Lorazepam (Ativan) 0.5 mg Q8H PRN PO .ANXIETY; Start 11/04/18 at 17:30 Ondansetron HCl (Zofran Tab) 4 mg Q6H PRN PO NAUSEA/VOMITING; Start 11/04/18 at 17:30 Aspirin (Aspirin) 81 mg DAILY PO ; Start 11/05/18 at 09:00 Acetaminophen (Tylenol Tab) 650 mg Q6H PRN PO .PAIN 1-3 OR TEMP; Start 11/04/18 at 17:30 Acetaminophen/ Hydrocodone Bitart ([place] (5/325)) 1 tab Q6H PRN PO .PAIN 4-6; Start 11/04/18 at 17:30 Docusate Sodium (Colace) 100 mg Q12H PRN PO .CONSTIPATION; Start 11/04/18 at 17:30 Famotidine (Pepcid) 20 mg Q12 PO Last administered on 11/04/18 21:51; Admin Dose 20 MG; Start 11/04/18 at 21:00 Heparin Sodium (Porcine) (Heparin (5000 Units/1ml)) 5,000 unit Q12 SC Last administered on 11/04/18 23:34; Admin Dose 5,000 UNIT; Start 11/04/18 at 21:00 Finasteride (Proscar) 5 mg DAILY PO ; Start 11/05/18 at 09:00 Gabapentin (Neurontin) 400 mg QHS PO Last administered on 11/04/18 21:51; Admin Dose 400 MG; Start 11/04/18 at 21:00 Losartan Potassium (Cozaar) 50 mg DAILY PO ; Start 11/05/18 at 09:00 Tamsulosin HCl (Flomax) 0.8 mg HS PO Last administered on 11/04/18 21:52; Admin Dose 0.8 MG; Start 11/04/18 at 21:00 Atorvastatin Calcium (Lipitor) 40 mg QHS PO Last administered on 11/04/18 21:51; Admin Dose 40 MG; Start 11/04/18 at 21:00 Montelukast Sodium (Singulair) 10 mg QHS PO Last administered on 11/04/18 21:51; Admin Dose 10 MG; Start 11/04/18 at 21:00 Fluticasone/ Vilanterol (Breo Ellipta 100-25 Mcg Inh) 1 inh DAILY INH Last administered on 11/04/18 23:54; Admin Dose 1 INH; Start 11/04/18 at 18:00 Tiotropium [place] (Spiriva) 1 inh QAM INH Last administered on 11/04/18 23:54; Admin Dose 1 INH; Start 11/04/18 at 18:00 Diltiazem HCl 125 ml @ 5 mls/hr TITRATE IV ; Start 11/04/18 at 18:00 Metoprolol Tartrate (Lopressor) 50 mg Q8 PO Last administered on 11/04/18at 18:41; Admin Dose 50 MG; Start 11/04/18 at 18:20 Miscellaneous Information Patients own medicat... BID@10,16 XX ; Start 11/05/18 at 10:00 Past Medical History reviewed Medical History: coronary artery disease, diverticulitis, GERD, high cholesterol, hypertension, other (History of 1 prior episode of atrial fibrillation; asthma persistent moderate; abnormal CT scan of the chest; benign prostatic hypertrophy as post fall with left rib fracture x2; recurrent staph infections of the skin; history of subdural hematoma; vitreous separation OU; psoriasis; migraine syndrome; chronic tinnitus; colonic polyposis) Home Meds Reported Medications [Vitamin B12 Inj] No Conflict Check, 1 ML INJ DAILY INJECT 1ML-FOR 7 DAYS DAILY (LAST INJECTION 11/04/18-FOR 7 DAYS), THEN INJECT Q7D- FOR 3 WEEKS(START DAY 11/05/18),THEN ONCE A MONTH. 11/04/18 Simvastatin* (Zocor*) 40 Mg Tablet, 40 MG PO DAILY, #30 TAB 11/04/18 Finasteride* (Finasteride*) 5 Mg Tablet, 5 MG PO DAILY, TAB 11/04/18 Gabapentin* (Gabapentin*) 400 Mg Capsule, 400 MG PO QHS, #90 CAP 11/04/18 Lansoprazole* (Lansoprazole*) 30 Mg Capsule.dr, 30 MG PO DAILY, CAP 11/04/18 Losartan Potassium* (Losartan Potassium*) 50 Mg Tablet, 50 MG PO DAILY, TAB 11/04/18 Tamsulosin Hcl* (Tamsulosin Hcl*) 0.4 Mg Cap.er.24h, 0.8 MG PO HS, CAP 11/04/18 Discontinued Reported Medications [Unk] No Conflict Check 08/18/09 Medications Current Medications IV Flush (NS 3 ml) 3 ml PER PROTOCOL IV ; Start 11/04/18 at 17:30 Lorazepam (Ativan) 0.5 mg Q8H PRN PO .ANXIETY; Start 11/04/18 at 17:30 Ondansetron HCl (Zofran Tab) 4 mg Q6H PRN PO NAUSEA/VOMITING; Start 11/04/18 at 17:30 Aspirin (Aspirin) 81 mg DAILY PO ; Start 11/05/18 at 09:00 Acetaminophen (Tylenol Tab) 650 mg Q6H PRN PO .PAIN 1-3 OR TEMP; Start 11/04/18 at 17:30 Acetaminophen/ Hydrocodone Bitart ([place] (5/325)) 1 tab Q6H PRN PO .PAIN 4-6; Start 11/04/18 at 17:30 Docusate Sodium (Colace) 100 mg Q12H PRN PO .CONSTIPATION; Start 11/04/18 at 17:30 Famotidine (Pepcid) 20 mg Q12 PO Last administered on 11/04/18 21:51; Admin Dose 20 MG; Start 11/04/18 at 21:00 Heparin Sodium (Porcine) (Heparin (5000 Units/1ml)) 5,000 unit Q12 SC Last administered on 11/04/18 23:34; Admin Dose 5,000 UNIT; Start 11/04/18 at 21:00 Finasteride (Proscar) 5 mg DAILY PO ; Start 11/05/18 at 09:00 Gabapentin (Neurontin) 400 mg QHS PO Last administered on 11/04/18 21:51; Admin Dose 400 MG; Start 11/04/18 at 21:00 Losartan Potassium (Cozaar) 50 mg DAILY PO ; Start 11/05/18 at 09:00 Tamsulosin HCl (Flomax) 0.8 mg HS PO Last administered on 11/04/18 21:52; Admin Dose 0.8 MG; Start 11/04/18 at 21:00 Atorvastatin Calcium (Lipitor) 40 mg QHS PO Last administered on 11/04/18 21:51; Admin Dose 40 MG; Start 11/04/18 at 21:00 Montelukast Sodium (Singulair) 10 mg QHS PO Last administered on 11/04/18 21:51; Admin Dose 10 MG; Start 11/04/18 at 21:00 Fluticasone/ Vilanterol (Breo Ellipta 100-25 Mcg Inh) 1 inh DAILY INH Last a dministered on 11/04/18 23:54; Admin Dose 1 INH; Start 11/04/18 at 18:00 Tiotropium [place] (Spiriva) 1 inh QAM INH Last administered on 3/26/19at 23:54; Admin Dose 1 INH; Start 11/04/18 at 18:00 Diltiazem HCl 125 ml @ 5 mls/hr TITRATE IV ; Start 11/04/18 at 18:00 Metoprolol Tartrate (Lopressor) 50 mg Q8 PO Last administered on 11/04/18at 18:41; Admin Dose 50 MG; Start 11/04/18 at 18:20 Miscellaneous Information Patients own medicat... BID@10,16 XX ; Start 11/05/18 at 10:00 Allergies: Coded Allergies: Sulfa (Sulfonamide Antibiotics) (Verified Allergy, Mild, 11/04/18) tetracycline (Verified Allergy, Mild, 11/04/18) Past Surgical History reviewed Past Surgical Hx: other (Status post right hemicolectomy; status post hemorrhoidectomy; status post PCI with stenting of 2 vessels July 2004; status post tonsillectomy; status post heel spur) Social History reviewed Alcohol Use: rarely Smoking Status: Never smoker Drug Use: none VÍCTOR MARIE NP Nov 05, 2018 12:23 KHADIJAH KU Nov 05, 2018 14:32
[2018-11-05] MEDS: ACETYLCYSTEINE 600 MG CAP PO SCH ×2 (13:30→20:20)
--- NOTE | 2018-11-05 13:33 | PN ---
Date/Time of Note Date/Time of Note DATE: 11/05/18 TIME: 13:30 Assessment/Plan VTE Prophylaxis SCD applied (from Ns): No SCD contraindicated: low risk/ambulating Pharmacological prophylaxis: LMWH, heparin Lines/Catheters IV Catheter Type (from Nrs): Saline Lock Assessment/Plan Problems: (1) Altered mental status Status: Acute Comment: CT scan of the brain and MRI scan of the brain are unrevealing. The patient is presently sedated but had been somewhat combative. 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 Rate is controlled (3) Asthma, moderate persistent Status: Chronic Comment: Adequate control, awaiting pulmonary input. In addition awaiting repeat follow-up CT scan Qualifiers: Asthma complication type: with acute exacerbation Qualified Codes: J45.41 - Moderate persistent asthma with (acute) exacerbation (4) B12 deficiency Status: Chronic Comment: Adequately replaced (5) Benign prostatic hyperplasia Status: Chronic Comment: Stable on treatment Qualifiers: Lower urinary tract symptom presence: symptoms present Lower urinary tract symptom detail: urinary hesitancy Qualified Codes: N40.1 - Benign prostatic hyperplasia with lower urinary tract symptoms; R39.11 - Hesitancy of micturition (6) Hyperlipidemia Status: Chronic Comment: On medical therapy Qualifiers: Hyperlipidemia type: pure hypercholesterolemia Qualified Codes: E78.00 - Pure hypercholesterolemia, unspecified (7) Essential hypertension Status: Chronic Comment: Adequate control (8) Abnormal chest CT Status: Chronic Comment: Awaiting follow-up CT scan Result Diagram: 11/04/18 1443 11/04/18 1443 Results 24hrs Laboratory Tests Test 11/04/18 14:43 11/04/18 17:26 11/04/18 17:49 11/04/18 23:40 White Blood Count 10.6 Red Blood Count 4.58 L Hemoglobin 13.9 L Hematocrit 42.9 Mean Corpuscular 93.7 Volume Mean Corpuscular 30.3 Hemoglobin Mean Corpuscular 32.4 Hemoglobin Concent Red Cell 14.8 H Distribution Width Platelet Count 158 Mean Platelet Volume 11.7 H Immature 0.500 H Granulocytes % Neutrophils % 82.2 H Lymphocytes % 6.5 L Monocytes % 10.1 Eosinophils % 0.3 Basophils % 0.4 Nucleated Red Blood 0.0 Cells % Immature 0.050 H Granulocytes # Neutrophils # 8.8 H Lymphocytes # 0.7 L Monocytes # 1.1 H Eosinophils # 0.0 Basophils # 0.0 Nucleated Red Blood 0.0 Cells # Prothrombin Time 16.0 H Prothrombin Time 1.3 Ratio INR International 1.27 Normalized Ratio Activated 31.9 Partial Thromboplast Time Sodium Level 142 Potassium Level 4.8 Chloride Level 109 Carbon Dioxide Level 25 Anion Gap 8 Blood Urea Nitrogen 49 H Creatinine 1.68 H Est Glomerular Filtrat Rate mL/min Glucose Level 112 Calcium Level 9.8 Total Bilirubin 1.2 Direct Bilirubin 0.00 Indirect Bilirubin 1.2 H Aspartate Amino 23 Transf (AST/SGOT) Alanine 37 Aminotransferase (AL T/SGPT) Alkaline Phosphatase 69 Troponin I 0.026 0.027 0.031 B-Type Natriuretic 60781 H Peptide Total Protein 6.5 Albumin 3.9 Globulin 2.60 Albumin/Globulin 1.50 Ratio Urine Color MARIANA Urine Clarity CLEAR Urine pH 5.0 Urine Specific 1.029 [place] Urine Ketones TRACE A Urine Nitrite NEGATIVE Urine Bilirubin NEGATIVE Urine Urobilinogen 1+ H Urine Leukocyte NEGATIVE Esterase Urine Microscopic 1 RBC Urine Microscopic 1 WBC Urine Mucus FEW A Urine Hemoglobin NEGATIVE Urine Glucose NEGATIVE Urine Total Protein 2+ H Creatine Kinase 78 74 Creatine Kinase 2.2 2.1 Index Creatinine Kinase MB 1.68 1.59 (Mass) Vitamin B12 Level > 1000 H Thyroid Stimulating 1.120 Hormone (TSH) Subjective 24 Hr Interval Summary Free Text/Dictation [facility] and is now sedated and nonverbal Exam/Review of Systems Exam Vitals Vital Signs Date Temp Pulse Resp B/P (MAP) Pulse Ox O2 O2 Flow FiO2 Time Delivery Rate 11/05/18 97.9 113 18 136/91 95 Nasal 11:53 (106) Cannula 11/05/18 2.0 00:30 Intake and Output 11/04/18 11/04/18 11/05/18 1515:00 23:00 07:00 IntakeIntake Total 365 ml BalanceBalance 365 ml Exam Sedated male Constitutional: non-verbal Respiratory: clear to auscultation, normal air movement Cardiovascular: nl pulses, irregular rhythm Gastrointestinal: soft, nl liver, spleen, non-tender Results Results 24hrs Laboratory Tests Test 11/04/18 14:43 11/04/18 17:26 11/04/18 17:49 11/04/18 23:40 White Blood Count 10.6 Red Blood Count 4.58 L Hemoglobin 13.9 L Hematocrit 42.9 Mean Corpuscular 93.7 Volume Mean Corpuscular 30.3 Hemoglobin Mean Corpuscular 32.4 Hemoglobin Concent Red Cell 14.8 H Distribution Width Platelet Count 158 Mean Platelet Volume 11.7 H Immature 0.500 H Granulocytes % Neutrophils % 82.2 H Lymphocytes % 6.5 L Monocytes % 10.1 Eosinophils % 0.3 Basophils % 0.4 Nucleated Red Blood 0.0 Cells % Immature 0.050 H Granulocytes # Neutrophils # 8.8 H Lymphocytes # 0.7 L Monocytes # 1.1 H Eosinophils # 0.0 Basophils # 0.0 Nucleated Red Blood 0.0 Cells # Prothrombin Time 16.0 H Prothrombin Time 1.3 Ratio INR International 1.27 Normalized Ratio Activated 31.9 Partial Thromboplast Time Sodium Level 142 Potassium Level 4.8 Chloride Level 109 Carbon Dioxide Level 25 Anion Gap 8 Blood Urea Nitrogen 49 H Creatinine 1.68 H Est Glomerular Filtrat Rate mL/min Glucose Level 112 Calcium Level 9.8 Total Bilirubin 1.2 Direct Bilirubin 0.00 Indirect Bilirubin 1.2 H Aspartate Amino 23 Transf (AST/SGOT) Alanine 37 Aminotransferase (AL T/SGPT) Alkaline Phosphatase 69 Troponin I 0.026 0.027 0.031 B-Type Natriuretic 87730 H Peptide Total Protein 6.5 Albumin 3.9 Globulin 2.60 Albumin/Globulin 1.50 Ratio Urine Color MARIANA Urine Clarity CLEAR Urine pH 5.0 Urine Specific 1.029 [place] Urine Ketones TRACE A Urine Nitrite NEGATIVE Urine Bilirubin NEGATIVE Urine Urobilinogen 1+ H Urine Leukocyte NEGATIVE Esterase Urine Microscopic 1 RBC Urine Microscopic 1 WBC Urine Mucus FEW A Urine Hemoglobin NEGATIVE Urine Glucose NEGATIVE Urine Total Protein 2+ H Creatine Kinase 78 74 Creatine Kinase 2.2 2.1 Index Creatinine Kinase MB 1.68 1.59 (Mass) Vitamin B12 Level > 1000 H Thyroid Stimulating 1.120 Hormone (TSH) Medications Medication Current Medications IV Flush (NS 3 ml) 3 ml PER PROTOCOL IV ; Start 11/04/18 at 17:30 Lorazepam (Ativan) 0.5 mg Q8H PRN PO .ANXIETY; Start 11/04/18 at 17:30 Ondansetron HCl (Zofran Tab) 4 mg Q6H PRN PO NAUSEA/VOMITING; Start 11/04/18 at 17:30 Aspirin (Aspirin) 81 mg DAILY PO ; Start 11/05/18 at 09:00 Acetaminophen (Tylenol Tab) 650 mg Q6H PRN PO .PAIN 1-3 OR TEMP; Start 11/04/18 at 17:30 Acetaminophen/ Hydrocodone Bitart ([place] (5/325)) 1 tab Q6H PRN PO .PAIN 4-6; Start 11/04/18 at 17:30 Docusate Sodium (Colace) 100 mg Q12H PRN PO .CONSTIPATION; Start 11/04/18 at 17:30 Famotidine (Pepcid) 20 mg Q12 PO Last administered on 11/04/18 21:51; Admin Dose 20 MG; Start 11/04/18 at 21:00 Heparin Sodium (Porcine) (Heparin (5000 Units/1ml)) 5,000 unit Q12 SC Last administered on 11/04/18 23:34; Admin Dose 5,000 UNIT; Start 11/04/18 at 21:00 Finasteride (Proscar) 5 mg DAILY PO ; Start 11/05/18 at 09:00 Gabapentin (Neurontin) 400 mg QHS PO Last administered on 11/04/18 21:51; Admin Dose 400 MG; Start 11/04/18 at 21:00 Losartan Potassium (Cozaar) 50 mg DAILY PO ; Start 11/05/18 at 09:00 Tamsulosin HCl (Flomax) 0.8 mg HS PO Last administered on 11/04/18 21:52; Admin Dose 0.8 MG; Start 11/04/18 at 21:00 Atorvastatin Calcium (Lipitor) 40 mg QHS PO Last administered on 11/04/18 21:5 1; Admin Dose 40 MG; Start 11/04/18 at 21:00 Montelukast Sodium (Singulair) 10 mg QHS PO Last administered on 11/04/18 21:51; Admin Dose 10 MG; Start 11/04/18 at 21:00 Fluticasone/ Vilanterol (Breo Ellipta 100-25 Mcg Inh) 1 inh DAILY INH Last administered on 11/04/18 23:54; Admin Dose 1 INH; Start 11/04/18 at 18:00 Tiotropium [place] (Spiriva) 1 inh QAM INH Last administered on 11/04/18at 23:5 4; Admin Dose 1 INH; Start 11/04/18 at 18:00 Diltiazem HCl 125 ml @ 5 mls/hr TITRATE IV ; Start 11/04/18 at 18:00 Metoprolol Tartrate (Lopressor) 50 mg Q8 PO Last administered on 11/04/18at 18:41; Admin Dose 50 MG; Start 11/04/18 at 18:20 Miscellaneous Information Patients own medicat... BID@10,16 XX ; Start 11/05/18 at 10:00 CHRIS RUBIN MD Nov 05, 2018 13:33
--- NOTE | 2018-11-05 13:59 | CONS ---
Assessment/Plan Assessment/Plan Hospital Course (Demo Recall) Atrial fibrillation with rapid ventricular rates, improving Acute kidney injury Coronary artery disease with history of PCI Encephalopathy Cough Hypertension Lower extremity edema -Patient with combative behavior this morning, refusing p.o. medications, pulling out IVs, refusing telemetry. He has since required sedation and one-to-one sitter -Once able to tolerate p.o., continue beta-fermin -Hold any nephrotoxic medications, chemistry panel pending -Echocardiogram pending Consultation Date/Type/Reason Admit Date/Time Nov 04, 2018 at 17:03 Initial Consult Date 11/05/18 Type of Consult Cardiology Date/Time of Note DATE: 11/05/18 TIME: 13:56 24 HR Interval Summary Free Text/Dictation Patient with increased combative behavior today requiring one-to-one sitter as well as sedation Exam/Review of Systems Vital Signs Vitals Vital Signs Date Temp Pulse Resp B/P (MAP) Pulse Ox O2 O2 Flow FiO2 Time Delivery Rate 11/05/18 97.9 113 18 136/91 95 Nasal 11:53 (106) Cannula 11/05/18 2.0 00:30 Intake and Output 11/04/18 11/04/18 11/05/18 1515:00 23:00 07:00 IntakeIntake Total 365 ml BalanceBalance 365 ml Exam Exam Sleeping and sedated, no apparent distress, sitter at bedside Head: normocephalic Respiratory: other (Coarse breath sounds bilaterally, no wheezing) Cardiovascular: irregular rhythm (S1-S2 heard) Gastrointestinal: soft, non-tender, bowel sounds Extremities: edema (Less than yesterday) Labs Result Diagram: 11/05/18 1320 11/04/18 1443 Results 24hrs Laboratory Tests Test 11/04/18 14:43 11/04/18 17:26 11/04/18 17:49 11/04/18 23:40 White Blood Count 10.6 Red Blood Count 4.58 L Hemoglobin 13.9 L Hematocrit 42.9 Mean Corpuscular 93.7 Volume Mean Corpuscular 30.3 Hemoglobin Mean Corpuscular 32.4 Hemoglobin Concent Red Cell 14.8 H Distribution Width Platelet Count 158 Mean Platelet Volume 11.7 H Immature 0.500 H Granulocytes % Neutrophils % 82.2 H Lymphocytes % 6.5 L Monocytes % 10.1 Eosinophils % 0.3 Basophils % 0.4 Nucleated Red Blood 0.0 Cells % Immature 0.050 H Granulocytes # Neutrophils # 8.8 H Lymphocytes # 0.7 L Monocytes # 1.1 H Eosinophils # 0.0 Basophils # 0.0 Nucleated Red Blood 0.0 Cells # Prothrombin Time 16.0 H Prothrombin Time 1.3 Ratio INR International 1.27 Normalized Ratio Activated 31.9 Partial Thromboplast Time Sodium Level 142 Potassium Level 4.8 Chloride Level 109 Carbon Dioxide Level 25 Anion Gap 8 Blood Urea Nitrogen 49 H Creatinine 1.68 H Est Glomerular Filtrat Rate mL/min Glucose Level 112 Calcium Level 9.8 Total Bilirubin 1.2 Direct Bilirubin 0.00 Indirect Bilirubin 1.2 H Aspartate Amino 23 Transf (AST/SGOT) Alanine 37 Aminotransferase (AL T/SGPT) Alkaline Phosphatase 69 Troponin I 0.026 0.027 0.031 B-Type Natriuretic 69488 H Peptide Total Protein 6.5 Albumin 3.9 Globulin 2.60 Albumin/Globulin 1.50 Ratio Urine Color MARIANA Urine Clarity CLEAR Urine pH 5.0 Urine Specific 1.029 [place] Urine Ketones TRACE A Urine Nitrite NEGATIVE Urine Bilirubin NEGATIVE Urine Urobilinogen 1+ H Urine Leukocyte NEGATIVE Esterase Urine Microscopic 1 RBC Urine Microscopic 1 WBC Urine Mucus FEW A Urine Hemoglobin NEGATIVE Urine Glucose NEGATIVE Urine Total Protein 2+ H Creatine Kinase 78 74 Creatine Kinase 2.2 2.1 Index Creatinine Kinase MB 1.68 1.59 (Mass) Vitamin B12 Level > 1000 H Thyroid Stimulating 1.120 Hormone (TSH) Test 11/05/18 13:20 White Blood Count 8.2 # Red Blood Count 4.21 L Hemoglobin 12.8 L Hematocrit 39.4 L Mean Corpuscular 93.6 Volume Mean Corpuscular 30.4 Hemoglobin Mean Corpuscular 32.5 Hemoglobin Concent Red Cell 14.5 Distribution Width Platelet Count 154 Mean Platelet Volume 11.8 H Immature 0.200 Granulocytes % Neutrophils % 93.5 H Lymphocytes % 2.2 L Monocytes % 4.0 Eosinophils % 0.0 Basophils % 0.1 Nucleated Red Blood 0.0 Cells % Immature 0.020 Granulocytes # Neutrophils # 7.7 H Lymphocytes # 0.2 L Monocytes # 0.3 Eosinophils # 0.0 Basophils # 0.0 Nucleated Red Blood 0.0 Cells # Medications Medications Current Medications IV Flush (NS 3 ml) 3 ml PER PROTOCOL IV ; Start 11/04/18 at 17:30 Lorazepam (Ativan) 0.5 mg Q8H PRN PO .ANXIETY; Start 11/04/18 at 17:30 Ondansetron HCl (Zofran Tab) 4 mg Q6H PRN PO NAUSEA/VOMITING; Start 11/04/18 at 17:30 Aspirin (Aspirin) 81 mg DAILY PO ; Start 11/05/18 at 09:00 Acetaminophen (Tylenol Tab) 650 mg Q6H PRN PO .PAIN 1-3 OR TEMP; Start 11/04/18 at 17:30 Acetaminophen/ Hydrocodone Bitart ([place] (5/325)) 1 tab Q6H PRN PO .PAIN 4-6; Start 11/04/18 at 17:30 Docusate Sodium (Colace) 100 mg Q12H PRN PO .CONSTIPATION; Start 11/04/18 at 17:30 Famotidine (Pepcid) 20 mg Q12 PO Last administered on 11/04/18at 21:51; Admin Dose 20 MG; Start 11/04/18 at 21:00 Heparin Sodium (Porcine) (Heparin (5000 Units/1ml)) 5,000 unit Q12 SC Last administered on 11/04/18at 23:34; Admin Dose 5,000 UNIT; Start 11/04/18 at 21:00 Finasteride (Proscar) 5 mg DAILY PO ; Start 11/05/18 at 09:00 Gabapentin (Neurontin) 400 mg QHS PO Last administered on 11/04/18 21:51; Admin Dose 400 MG; Start 11/04/18 at 21:00 Losartan Potassium (Cozaar) 50 mg DAILY PO ; Start 11/05/18 at 09:00 Tamsulosin HCl (Flomax) 0.8 mg HS PO Last administered on 11/04/18 21:52; Admin Dose 0.8 MG; Start 11/04/18 at 21:00 Atorvastatin Calcium (Lipitor) 40 mg QHS PO Last administered on 11/04/18 21:51; Admin Dose 40 MG; Start 11/04/18 at 21:00 Montelukast Sodium (Singulair) 10 mg QHS PO Last administered on 11/04/18 21:51; Admin Dose 10 MG; Start 11/04/18 at 21:00 Fluticasone/ Vilanterol (Breo Ellipta 100-25 Mcg Inh) 1 inh DAILY INH Last administered on 11/04/18at 23:54; Admin Dose 1 INH; Start 11/04/18 at 18:00 Tiotropium [place] (Spiriva) 1 inh QAM INH Last administered on 11/04/18at 23:54; Admin Dose 1 INH; Start 11/04/18 at 18:00 Diltiazem HCl 125 ml @ 5 mls/hr TITRATE IV ; Start 11/04/18 at 18:00 Metoprolol Tartrate (Lopressor) 50 mg Q8 PO Last administered on 11/04/18at 18:41; Admin Dose 50 MG; Start 11/04/18 at 18:20 Miscellaneous Information Patients own medicat... BID@10,16 XX ; Start 11/05/18 at 10:00 Acetylcysteine (Nac) 1,200 mg BID PO ; Start 11/05/18 at 13:30; Stop 11/09/18 at 13:29; Status Hal Jaime DO Nov 05, 2018 13:59
--- NOTE | 2018-11-05 15:28 | RADRPT ---
Echocardiogram Report Patient Name: KENNEDY DUKEPatient ID: [id number] : 1945 (73y 8m)Study Date: 11/05/2018 7:11:53 AM Gender: MAccession #: [id number] Tech: Mary Espino MAGAN Location: [facility] Ref.Physician: HAL PICKETT Height(Cm): BSA: Weight(Kg): Quality: GoodAccount #: Procedures: Echocardiographic Report: Transthoracic echocardiogram with complete 2D, M-Mode, and doppler examination. Indications: Atrial Fibrillation. Measurements: 2D/M Mode Doppler Measurement Value Normal Range Measurement Value Normal Range LVIDd 2D 5.3 [ 4.2 - 5.8 ] cm AV Peak Dread 1.1 [ 100.0 - 170.0 ] cm/sec LVIDs 2D 3.8 [ 2.5 - 4.0 ] cm AV Peak PG 4.0 [ 2.0 - 9.0 ] mmHg LVPWd 2D 1.3 [ 0.6 - 1.0 ] cm AI Peak PG 37.0 mmHg IVSd 2D 1.4 [ 0.6 - 1.0 ] cm AI Peak Dread 3.0 cm/sec AoR Diam 2D 3.5 [ 2.6 - 3.4 ] cm AI PHT 591.0 msec EDV 2D 135.0 [ 62.0 - 150.0 ] ml LVOT Peak Dread 0.8 [ 70.0 - 110.0 ] cm/sec ESV 2D 61.2 [ 21.0 - 61.0 ] ml LVOT Peak PG 3.0 [ 2.0 - 6.0 ] mmHg EF 2D 54.7 [ 52.0 - 72.0 ] percent MV E Peak Dread 0.6 [ 60.0 - 130.0 ] cm/sec LA Dimen 2D 3.4 [ 3.0 - 4.0 ] cm MV Decel Time 208 [ 104 - 258 ] msec TR Peak Dread 2.0 [ 100.0 - 280.0 ] cm/sec TR Peak PG 16.0 mmHg RVSP 31.0 [ 10.0 - 36.0 ] mmHg RA Pressure 15.0 mmHg Findings: Left Ventricle: Normal left ventricular systolic function. Normal left ventricular cavity size. Mild concentric left ventricular hypertrophy. Ejection fraction is visually estimated at 55 %. Abnormal Diastolic Function. Right Ventricle: Normal right ventricular size. Normal right ventricular systolic function. Left Atrium: The left atrium is normal in size. Right Atrium: There is mild enlargement of right atrium. Mitral Valve: Normal appearance of the mitral valve. Mild mitral valve regurgitation. Aortic Valve: No hemodynamically significant aortic stenosis by doppler. Aortic cusps appear mildly calcified. Mild aortic valve regurgitation. Tricuspid Valve: Normal appearance of the tricuspid valve. Estimated peak PA systolic pressure 31 mmHg. There is mild tricuspid regurgitation. Pulmonic Valve: Pulmonic valve not well visualized. Pericardium: Normal pericardium with no significant pericardial effusion. Aorta: Normal aortic root. IVC: Dilated IVC without respiratory collapse consistent with elevated right atrial pressure. Conclusions: Normal left ventricular systolic function. Normal left ventricular cavity size. Mild concentric left ventricular hypertrophy. Ejection fraction is visually estimated at 55 %. Abnormal Diastolic Function. Normal right ventricular size. Normal right ventricular systolic function. The left atrium is normal in size. There is mild enlargement of right atrium. Mild mitral valve regurgitation. No hemodynamically significant aortic stenosis by doppler. Mild aortic valve regurgitation. There is mild tricuspid regurgitation. Normal pericardium with no significant pericardial effusion. Electronically Signed By: Hal Pickett 2018-11-05 15:27:54 PDT
[2018-11-05] MEDS: TAMSULOSIN (SR) 0.4 MG CAP PO SCH (20:19)
[2018-11-05] MEDS: ATORVASTATIN 40 MG TAB PO SCH (20:19)
[2018-11-05] MEDS: MONTELUKAST 10 MG TAB PO SCH (20:20)
[2018-11-05] MEDS: GABAPENTIN 400 MG CAP PO SCH (21:33)
[2018-11-05] MEDS: LORAZEPAM 0.5 MG TAB PO PRN (21:33)
[2018-11-06] VITALS (12 sets, daily range): BP systolic 97–137; BP diastolic 71–99; PULSE 74–144; RESP 19–21
[2018-11-06] MEDS: METOPROLOL 25 MG TAB PO SCH ×3 (05:39→20:42)
[2018-11-06] MEDS: FAMOTIDINE 20 MG TAB PO SCH ×2 (08:48→20:39)
[2018-11-06] MEDS: FINASTERIDE 5 MG TAB PO SCH (08:48)
[2018-11-06] MEDS: ASPIRIN 81 MG TAB PO SCH (08:48)
[2018-11-06] MEDS: LOSARTAN 50 MG TAB PO SCH (08:48)
[2018-11-06] MEDS: ACETYLCYSTEINE 600 MG CAP PO SCH ×2 (08:48→20:39)
[2018-11-06] MEDS: FLUTICASONE/VILANTEROL 100-25 INH SCH (08:49)
[2018-11-06] MEDS: TIOTROPIUM 18 MCG CAPSULE INHA DEV INH SCH (08:49)
[2018-11-06] MEDS: HEPARIN 5,000 UNIT/1 ML VIAL SC SCH ×2 (08:58→20:51)
--- NOTE | 2018-11-06 11:48 | CONS ---
Assessment/Plan Assessment/Plan Assessment/Plan (Daily) Assessment and recommendations; 1. Patient admitted with shortness of breath due to onset of A. fib with RVR with rate now well controlled. 2. The patient now complaining of some chest congestion and coughing, 3. Significant improvement in mental status over the last 24 hours. 4. History of BPH and hypertension. Add DuoNeb every 6 hours. Continue other supportive care. Consultation Date/Type/Reason Admit Date/Time Nov 04, 2018 at 17:03 Initial Consult Date 11/05/18 Type of Consult Pulmonary Patient is a 73-year-old male who was admitted to the hospital with confusion, patient was found to be in A. fib with RVR, patient was started on Cardizem with significant reduction in heart rate. By the time I saw the patient in the room, patient is noncommunicative apparently due to underlying advanced dementia. Patient did not appear to be in any distress whatsoever. History was obtained from medical records. Past medical history; 1. History of chronic atrial fibrillation. 2. Dementia. 3. BPH. 4. Hypertension. 5. CAD. 6. History of gastroesophageal reflux disease. Medications; reviewed. Allergies; as outlined above. Family history, social history, occupational history is not available. Review of system; unable to be obtained. Patient though remains awake and responsive. Appears confused. General exam; elderly male, currently no distress. Awake and responsive but unable to provide any meaningful history by himself. Requesting Provider: CHRIS RUBIN MD Date/Time of Note DATE: 11/06/18 TIME: 11:45 24 HR Interval Summary Free Text/Dictation Patient's condition is significantly improved over the last 24 hours. Mental status is markedly improved. Patient has no complain of some cough and chest congestion. Denies any chest pain. General exam; elderly male, awake alert, currently in no distress. Exam/Review of Systems Exam Vitals Vital Signs Date Temp Pulse Resp B/P (MAP) Pulse Ox O2 O2 Flow FiO2 Time Delivery Rate 11/06/18 98.0 89 19 128/99 94 11:13 (109) 11/06/18 Nasal 2.0 08:30 Cannula Intake and Output 11/05/18 11/05/18 11/06/18 1515:00 23:00 07:00 IntakeIntake Total 240 ml 240 ml BalanceBalance 240 ml 240 ml Exam HEENT exam; supple neck, no JVD. No lymphadenopathy. Midline trachea. No thyromegaly. Patient has carious teeth. Currently on 2 L nasal cannula. Chest exam; diminished breath sounds bilaterally. No added sounds. S1-S2 audible, no murmurs. Irregular rhythm. Abdomen exam; soft, nondistended. No organomegaly. Bowel sounds audible. Extremity exam; peripheral edema clubbing. [employer] exam; no focal deficit. Results Result Diagram: 11/05/18 1320 11/06/18 0713 Results 24hrs Laboratory Tests Test 11/05/18 13:20 11/06/18 07:13 White Blood Count 8.2 # Red Blood Count 4.21 L Hemoglobin 12.8 L Hematocrit 39.4 L Mean Corpuscular Volume 93.6 Mean Corpuscular Hemoglobin 30.4 Mean Corpuscular Hemoglobin Concent 32.5 Red Cell Distribution Width 14.5 Platelet Count 154 Mean Platelet Volume 11.8 H Immature Granulocytes % 0.200 Neutrophils % 93.5 H Lymphocytes % 2.2 L Monocytes % 4.0 Eosinophils % 0.0 Basophils % 0.1 Nucleated Red Blood Cells % 0.0 Immature Granulocytes # 0.020 Neutrophils # 7.7 H Lymphocytes # 0.2 L Monocytes # 0.3 Eosinophils # 0.0 Basophils # 0.0 Nucleated Red Blood Cells # 0.0 Sodium Level 142 143 Potassium Level 4.1 4.7 Chloride Level 106 107 Carbon Dioxide Level 22 26 Anion Gap 14 H 10 Blood Urea Nitrogen 49 H 52 H Creatinine 1.23 1.47 H Est Glomerular Filtrat Rate mL/min Glucose Level 117 96 Hemoglobin A1c 5.6 Calcium Level 8.9 9.1 Magnesium Level 2.1 Total Bilirubin 0.9 0.5 Direct Bilirubin 0.00 0.00 Indirect Bilirubin 0.9 0.5 Aspartate Amino Transf (AST/SGOT) 18 18 Alanine Aminotransferase (ALT/SGPT) 24 29 Alkaline Phosphatase 60 63 Total Protein 6.0 L 5.8 L Albumin 3.6 3.4 Globulin 2.40 2.40 Albumin/Globulin Ratio 1.50 1.41 Medications Medication Current Medications IV Flush (NS 3 ml) 3 ml PER PROTOCOL IV ; Start 11/04/18 at 17:30 Lorazepam (Ativan) 0.5 mg Q8H PRN PO .ANXIETY Last administered on 11/05/18 21:33; Admin Dose 0.5 MG; Start 11/04/18 at 17:30 Ondansetron HCl (Zofran Tab) 4 mg Q6H PRN PO NAUSEA/VOMITING; Start 11/04/18 at 17:30 Aspirin (Aspirin) 81 mg DAILY PO Last administered on 11/06/18 08:48; Admin Dose 81 MG; Start 11/05/18 at 09:00 Acetaminophen (Tylenol Tab) 650 mg Q6H PRN PO .PAIN 1-3 OR TEMP; Start 11/04/18 at 17:30 Acetaminophen/ Hydrocodone Bitart ([place] (5/325)) 1 tab Q6H PRN PO .PAIN 4-6; Start 11/04/18 at 17:30 Docusate Sodium (Colace) 100 mg Q12H PRN PO .CONSTIPATION; Start 11/04/18 at 17:30 Famotidine (Pepcid) 20 mg Q12 PO Last administered on 11/06/18 08:48; Admin Dose 20 MG; Start 11/04/18 at 21:00 Heparin Sodium (Porcine) (Heparin (5000 Units/1ml)) 5,000 unit Q12 SC Last administered on 11/06/18 08:58; Admin Dose 5,000 UNIT; Start 11/04/18 at 21:00 Finasteride (Proscar) 5 mg DAILY PO Last administered on 11/06/18 08:48; Admin Dose 5 MG; Start 11/05/18 at 09:00 Gabapentin (Neurontin) 400 mg QHS PO Last administered on 11/05/18 21:33; Admin Dose 400 MG; Start 11/04/18 at 21:00 Losartan Potassium (Cozaar) 50 mg DAILY PO Last administered on 11/06/18 08:48; Admin Dose 50 MG; Start 11/05/18 at 09:00 Tamsulosin HCl (Flomax) 0.8 mg HS PO Last administered on 11/05/18 20:19; Admi n Dose 0.8 MG; Start 11/04/18 at 21:00 Atorvastatin Calcium (Lipitor) 40 mg QHS PO Last administered on 11/05/18 20:19; Admin Dose 40 MG; Start 11/04/18 at 21:00 Montelukast Sodium (Singulair) 10 mg QHS PO Last administered on 11/05/18 20:20; Admin Dose 10 MG; Start 11/04/18 at 21:00 Fluticasone/ Vilanterol (Breo Ellipta 100-25 Mcg Inh) 1 inh DAILY INH Last administered on 11/06/18 08:49; Admin Dose 1 INH; Start 11/04/18 at 18:00 Tiotropium [place] (Spiriva) 1 inh QAM INH Last administered on 11/06/18 08:49; Admin Dose 1 INH; Start 11/04/18 at 18:00 Diltiazem HCl 125 ml @ 5 mls/hr TITRATE IV ; Start 11/04/18 at 18:00 Metoprolol Tartrate (Lopressor) 50 mg Q8 PO Last administered on 11/06/18at 05:39; Admin Dose 50 MG; Start 11/04/18 at 18:20 Miscellaneous Information Patients own medicat... BID@10,16 XX ; Start 11/05/18 at 10:00 Acetylcysteine (Nac) 1,200 mg BID PO Last administered on 11/06/18at 08:48; Admin Dose 1,200 MG; Start 11/05/18 at 13:30; Stop 11/09/18 at 13:29 DEBBIE PEARSON 28, 2019 11:48
[2018-11-06] MEDS ORDERED: ALBUTEROL/IPRATROPIUM (NEB) 3 ML AMP HHN PRN (12:00)
[2018-11-06] MEDS ORDERED: LACTATED RINGER'S 500 ML IV ONE (13:30)
--- NOTE | 2018-11-06 14:12 | PN ---
Date/Time of Note Date/Time of Note DATE: 11/06/18 TIME: 14:10 Assessment/Plan VTE Prophylaxis Risk score (from [facility] [place]0 risk: 4 SCD applied (from Ns): Yes Pharmacological prophylaxis: LMWH Lines/Catheters IV Catheter Type (from [facility]): Saline Lock Assessment/Plan Problems: (1) Right lower lobe pneumonia Status: Acute Comment: On antibiotics now to help cover for this. Appreciate pulmonary to put in formalized evaluation in detail on this. Qualifiers: Pneumonia type: due to unspecified organism Qualified Codes: J18.1 - Lobar pneumonia, unspecified organism (2) Atrial fibrillation with RVR Status: Acute Comment: Fair rate control adjust medication (3) Altered mental status Status: Acute Comment: His mental status is better than yesterday but is not ideal. Awaiting follow-up from neurology but I am going to go ahead and get him started on Aricept and Namenda Qualifiers: Altered mental status type: unspecified Qualified Codes: R41.82 - Altered mental status, unspecified (4) Essential hypertension Status: Chronic Comment: Adequate control (5) Benign prostatic hyperplasia Status: Chronic Comment: Adequate control Qualifiers: Lower urinary tract symptom presence: symptoms present Lower urinary tract symptom detail: urinary hesitancy Qualified Codes: N40.1 - Benign prostatic hyperplasia with lower urinary tract symptoms; R39.11 - Hesitancy of micturition (6) Hyperlipidemia Status: Chronic Comment: On treatment Qualifiers: Hyperlipidemia type: pure hypercholesterolemia Qualified Codes: E78.00 - Pure hypercholesterolemia, unspecified (7) Abnormal chest CT Status: Chronic Comment: Repeat CT here was not quite as worrisome as the outpatient CT performed at the [facility]. Pulmonology will help assist Result Diagram: 11/05/18 1320 11/06/18 0713 Results 24hrs Laboratory Tests Test 11/06/18 07:13 Sodium Level 143 Potassium Level 4.7 Chloride Level 107 Carbon Dioxide Level 26 Anion Gap 10 Blood Urea Nitrogen 52 H Creatinine 1.47 H Est Glomerular Filtrat Rate mL/min Glucose Level 96 Calcium Level 9.1 Total Bilirubin 0.5 Direct Bilirubin 0.00 Indirect Bilirubin 0.5 Aspartate Amino Transf (AST/SGOT) 18 Alanine Aminotransferase (ALT/SGPT) 29 Alkaline Phosphatase 63 Total Protein 5.8 L Albumin 3.4 Globulin 2.40 Albumin/Globulin Ratio 1.41 Subjective 24 Hr Interval Summary Free Text/Dictation Patient much more calm today. Constitutional: no complaints (No fevers chills or sweats) Respiratory: cough Cardiovascular: no complaints Gastrointestinal: no complaints Genitourinary: no complaints Exam/Review of Systems Exam Vitals Vital Signs Date Temp Pulse Resp B/P (MAP) Pulse Ox O2 O2 Flow FiO2 Time Delivery Rate 11/06/18 138 12:37 11/06/18 98.0 19 128/99 94 11:13 (109) 11/06/18 Nasal 2.0 08:30 Cannula Intake and Output 11/05/18 11/05/18 11/06/18 1515:00 23:00 07:00 IntakeIntake Total 240 ml 240 ml BalanceBalance 240 ml 240 ml Exam Oriented times person and place Constitutional: alert Respiratory: normal air movement, crackles/rales (Right basilar crackles), wheezing (Wheezing improved) Cardiovascular: nl pulses, irregular rhythm Gastrointestinal: soft, nl liver, spleen, non-tender Results Results 24hrs Laboratory Tests Test 11/06/18 07:13 Sodium Level 143 Potassium Level 4.7 Chloride Level 107 Carbon Dioxide Level 26 Anion Gap 10 Blood Urea Nitrogen 52 H Creatinine 1.47 H Est Glomerular Filtrat Rate mL/min Glucose Level 96 Calcium Level 9.1 Total Bilirubin 0.5 Direct Bilirubin 0.00 Indirect Bilirubin 0.5 Aspartate Amino Transf (AST/SGOT) 18 Alanine Aminotransferase (ALT/SGPT) 29 Alkaline Phosphatase 63 Total Protein 5.8 L Albumin 3.4 Globulin 2.40 Albumin/Globulin Ratio 1.41 Medications Medication Current Medications IV Flush (NS 3 ml) 3 ml PER PROTOCOL IV ; Start 11/04/18 at 17:30 Lorazepam (Ativan) 0.5 mg Q8H PRN PO .ANXIETY Last administered on 11/05/18at 21:33; Admin Dose 0.5 MG; Start 11/04/18 at 17:30 Ondansetron HCl (Zofran Tab) 4 mg Q6H PRN PO NAUSEA/VOMITING; Start 11/04/18 at 17:30 Aspirin (Aspirin) 81 mg DAILY PO Last administered on 11/06/18at 08:48; Admin Dose 81 MG; Start 11/05/18 at 09:00 Acetaminophen (Tylenol Tab) 650 mg Q6H PRN PO .PAIN 1-3 OR TEMP; Start 11/04/18 at 17:30 Acetaminophen/ Hydrocodone Bitart ([place] (5/325)) 1 tab Q6H PRN PO .PAIN 4-6; Start 11/04/18 at 17:30 Docusate Sodium (Colace) 100 mg Q12H PRN PO .CONSTIPATION; Start 11/04/18 at 17:30 Famotidine (Pepcid) 20 mg Q12 PO Last administered on 11/06/18 08:48; Admin Dose 20 MG; Start 11/04/18 at 21:00 Heparin Sodium (Porcine) (Heparin (5000 Units/1ml)) 5,000 unit Q12 SC Last administered on 11/06/18 08:58; Admin Dose 5,000 UNIT; Start 11/04/18 at 21:00 Finasteride (Proscar) 5 mg DAILY PO Last administered on 11/06/18 08:48; Admin Dose 5 MG; Start 11/05/18 at 09:00 Gabapentin (Neurontin) 400 mg QHS PO Last administered on 11/05/18 21:33; Admin Dose 400 MG; Start 11/04/18 at 21:00 Losartan Potassium (Cozaar) 50 mg DAILY PO Last administered on 11/06/18 08:48; Admin Dose 50 MG; Start 11/05/18 at 09:00 Tamsulosin HCl (Flomax) 0.8 mg HS PO Last administered on 11/05/18 20:19; Admin Dose 0.8 MG; Start 11/04/18 at 21:00 Atorvastatin Calcium (Lipitor) 40 mg QHS PO Last administered on 11/05/18 20:19; Admin Dose 40 MG; Start 11/04/18 at 21:00 Montelukast Sodium (Singulair) 10 mg QHS PO Last administered on 11/05/18 20:20; Admin Dose 10 MG; Start 11/04/18 at 21:00 Fluticasone/ Vilanterol (Breo Ellipta 100-25 Mcg Inh) 1 inh DAILY INH Last administered on 11/06/18 08:49; Admin Dose 1 INH; Start 11/04/18 at 18:00 Tiotropium [place] (Spiriva) 1 inh QAM INH Last administered on 11/06/18 08:49; Admin Dose 1 INH; Start 11/04/18 at 18:00 Diltiazem HCl 125 ml @ 5 mls/hr TITRATE IV ; Start 11/04/18 at 18:00 Metoprolol Tartrate (Lopressor) 50 mg Q8 PO Last administered on 11/06/18at 14:02; Admin Dose 50 MG; Start 11/04/18 at 18:20 Miscellaneous Information Patients own medicat... BID@10,16 XX ; Start 11/05/18 at 10:00 Acetylcysteine (Nac) 1,200 mg BID PO Last administered on 11/06/18at 08:48; Admin Dose 1,200 MG; Start 11/05/18 at 13:30; Stop 11/09/18 at 13:29 Albuterol/ Ipratropium (Duoneb) 3 ml Q6H RESP THERAPY PRN HHN SHORTNESS OF BREATH; Start 11/06/18 at 12:00 Azithromycin (Zithromax) 2,000 mg ONCE ONCE PO ; Start 11/06/18 at 15:00; Stop 11/06/18 at 15:01 Levofloxacin (Levaquin) 500 mg DAILY@06 PO ; Start 11/07/18 at 06:00; Stop 11/14/18 at 05:59 Lactated Ringer's 500 ml @ 500 mls/hr Q1H ONCE IV Last administered on 11/06/18at 14:00; Admin Dose 500 MLS/HR; Start 11/06/18 at 13:30; Stop 11/06/18 at 14:29 CHRIS RUBIN MD Nov 06, 2018 14:12
[2018-11-06] MEDS: LORAZEPAM 0.5 MG TAB PO PRN ×2 (14:37→23:09)
[2018-11-06] MEDS: DONEPEZIL 10 MG TAB PO SCH (14:37)
[2018-11-06] MEDS ORDERED: AZITHROMYCIN 500 MG TAB PO ONE (15:00)
--- NOTE | 2018-11-06 17:32 | CONS ---
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 for which neurology is consulted. The clinical picture suggests a mild dementia w/ superimposed acute encephalopathy.. There is likely an underlying depression that is contributing.. MRI brain is without acute intracranial pathology, though is notable for generalized atrophy, as can be seen in dementia. CXR c/f PNA NAZIA + B12, TSH nl, RPR neg P: Infectious and other medical management per primary OK to continue Aricept/Namenda (though prefer to initiate sequentially), to be titrated slowly to effect as tolerated.. Reorient as necessary Limit daytime sedating medications where possible PT/OT/ST as necessary Will follow clinically Consultation Date/Type/Reason Admit Date/Time Nov 04, 2018 at 17:03 Type of Consult Neurology Reason for Consultation ams Requesting Provider: CHRIS RUBIN MD Date/Time of Note DATE: 11/06/18 TIME: 17:28 24 HR Interval Summary Free Text/Dictation Continues acute care. Pt reportedly received ativan today for agitation. Exam Vital Signs Vitals Vital Signs Date Temp Pulse Resp B/P (MAP) Pulse Ox O2 O2 Flow FiO2 Time Delivery Rate 11/06/18 130 16:31 11/06/18 98.0 19 101/82 94 16:30 (88) 11/06/18 Nasal 2.0 08:30 Cannula Intake and Output 11/05/18 11/05/18 11/06/18 1515:00 23:00 07:00 IntakeIntake Total 240 ml 240 ml BalanceBalance 240 ml 240 ml Exam PE: Gen Appearance: No Apparent Distress HEENT: Normocephalic Cardiovascular: Regular rate Abdomen: Soft Extremities: Dry NE: The patient was awake, alert, though disoriented. Language was dysarthric. Difficult to direct/redirect. Fund of knowledge was limited. Cranial nerve examination was limited by mental status. Pupils were equal and reactive to light. There was no afferent pupillary defect. Funduscopic examination was limited. Face was grossly symmetric, w/ present corneal and cough reflexes. Tone was normal. Muscle bulk was normal. I did not see fasciculations. The patient had spontaneous movement of his extremities, symmetrically. Coordination and gait testing was limited by mental status. Arm and leg reflexes were within normal limits and symmetric. Almonte's sign was absent. Plantar responses were flexor. VÍCTOR MARIE NP Nov 06, 2018 17:32 KHADIJAH KU Nov 06, 2018 22:09
--- NOTE | 2018-11-06 17:51 | CONS ---
Assessment/Plan Assessment/Plan Hospital Course (Demo Recall) Atrial fibrillation with rapid ventricular rates, improving Preserved ejection fraction Pneumonia Acute kidney injury Coronary artery disease with history of PCI Encephalopathy Hypertension Lower extremity edema -Continue beta-fermin as tolerated -Hold any nephrotoxic medications -Antibiotics as per primary team Consultation Date/Type/Reason Admit Date/Time Nov 04, 2018 at 17:03 Initial Consult Date 11/05/18 Type of Consult Cardiology Requesting Provider: CHRIS RUBIN MD Date/Time of Note DATE: 11/06/18 TIME: 17:49 24 HR Interval Summary Free Text/Dictation Patient's mental status slightly improved as per but still not at his baseline. Patient denies any chest pain or shortness of breath Exam/Review of Systems Vital Signs Vitals Vital Signs Date Temp Pulse Resp B/P (MAP) Pulse Ox O2 O2 Flow FiO2 Time Delivery Rate 11/06/18 130 16:31 11/06/18 98.0 19 101/82 94 16:30 (88) 11/06/18 Nasal 2.0 08:30 Cannula Intake and Output 11/05/18 11/05/18 11/06/18 1515:00 23:00 07:00 IntakeIntake Total 240 ml 240 ml BalanceBalance 240 ml 240 ml Exam Exam Sleeping but arousable, follows some commands alert and oriented to person and place Head: normocephalic Respiratory: other (Coarse breath sounds bilaterally, no wheezing) Cardiovascular: irregular rhythm (S1-S2 heard) Gastrointestinal: soft, non-tender, bowel sounds Extremities: edema Labs Result Diagram: 11/05/18 1320 11/06/18 0713 Results 24hrs Laboratory Tests Test 11/06/18 07:13 Sodium Level 143 Potassium Level 4.7 Chloride Level 107 Carbon Dioxide Level 26 Anion Gap 10 Blood Urea Nitrogen 52 H Creatinine 1.47 H Est Glomerular Filtrat Rate mL/min Glucose Level 96 Calcium Level 9.1 Total Bilirubin 0.5 Direct Bilirubin 0.00 Indirect Bilirubin 0.5 Aspartate Amino Transf (AST/SGOT) 18 Alanine Aminotransferase (ALT/SGPT) 29 Alkaline Phosphatase 63 Total Protein 5.8 L Albumin 3.4 Globulin 2.40 Albumin/Globulin Ratio 1.41 Medications Medications Current Medications IV Flush (NS 3 ml) 3 ml PER PROTOCOL IV ; Start 11/04/18 at 17:30 Lorazepam (Ativan) 0.5 mg Q8H PRN PO .ANXIETY Last administered on 11/06/18 14:37; Admin Dose 0.5 MG; Start 11/04/18 at 17:30 Ondansetron HCl (Zofran Tab) 4 mg Q6H PRN PO NAUSEA/VOMITING; Start 11/04/18 at 17:30 Aspirin (Aspirin) 81 mg DAILY PO Last administered on 11/06/18 08:48; Admin Dose 81 MG; Start 11/05/18 at 09:00 Acetaminophen (Tylenol Tab) 650 mg Q6H PRN PO .PAIN 1-3 OR TEMP; Start 11/04/18 at 17:30 Acetaminophen/ Hydrocodone Bitart ([place] (5/325)) 1 tab Q6H PRN PO .PAIN 4-6; Start 11/04/18 at 17:30 Docusate Sodium (Colace) 100 mg Q12H PRN PO .CONSTIPATION; Start 11/04/18 at 17:30 Famotidine (Pepcid) 20 mg Q12 PO Last administered on 11/06/18 08:48; Admin Dose 20 MG; Start 11/04/18 at 21:00 Heparin Sodium (Porcine) (Heparin (5000 Units/1ml)) 5,000 unit Q12 SC Last administered on 11/06/18 08:58; Admin Dose 5,000 UNIT; Start 11/04/18 at 21:00 Finasteride (Proscar) 5 mg DAILY PO Last administered on 11/06/18 08:48; Admin Dose 5 MG; Start 11/05/18 at 09:00 Gabapentin (Neurontin) 400 mg QHS PO Last administered on 11/05/18 21:33; Ad min Dose 400 MG; Start 11/04/18 at 21:00 Losartan Potassium (Cozaar) 50 mg DAILY PO Last administered on 11/06/18 08:48; Admin Dose 50 MG; Start 11/05/18 at 09:00 Tamsulosin HCl (Flomax) 0.8 mg HS PO Last administered on 11/05/18 20:19; Admin Dose 0.8 MG; Start 11/04/18 at 21:00 Atorvastatin Calcium (Lipitor) 40 mg QHS PO Last administered on 11/05/18 20:19; Admin Dose 40 MG; Start 11/04/18 at 21:00 Montelukast Sodium (Singulair) 10 mg QHS PO Last administered on 11/05/18at 20:20; Admin Dose 10 MG; Start 11/04/18 at 21:00 Fluticasone/ Vilanterol (Breo Ellipta 100-25 Mcg Inh) 1 inh DAILY INH Last administered on 11/06/18 08:49; Admin Dose 1 INH; Start 11/04/18 at 18:00 Tiotropium [place] (Spiriva) 1 inh QAM INH Last administered on 11/06/18at 08:49; Admin Dose 1 INH; Start 11/04/18 at 18:00 Diltiazem HCl 125 ml @ 5 mls/hr TITRATE IV ; Start 11/04/18 at 18:00 Miscellaneous Information Patients own medicat... BID@10,16 XX ; Start 11/05/18 at 10:00 Acetylcysteine (Nac) 1,200 mg BID PO Last administered on 11/06/18 08:48; Admin Dose 1,200 MG; Start 11/05/18 at 13:30; Stop 11/09/18 at 13:29 Albuterol/ Ipratropium (Duoneb) 3 ml Q6H RESP THERAPY PRN HHN SHORTNESS OF BREATH; Start 11/06/18 at 12:00 Levofloxacin (Levaquin) 500 mg DAILY@06 PO ; Start 11/07/18 at 06:00; Stop at 05:59 Donepezil HCl (Aricept) 10 mg DAILY PO Last administered on 11/06/18at 14:37; Admin Dose 10 MG; Start 11/06/18 at 14:30 Memantine (Namenda) 5 mg DAILY PO ; Start 11/07/18 at 09:00 Metoprolol Tartrate (Lopressor) 100 mg Q12 PO ; Start 11/06/18 at 21:00 Hal Pickett DO Nov 06, 2018 17:51
[2018-11-06] MEDS: GABAPENTIN 400 MG CAP PO SCH (20:39)
[2018-11-06] MEDS: ATORVASTATIN 40 MG TAB PO SCH (20:39)
[2018-11-06] MEDS: TAMSULOSIN (SR) 0.4 MG CAP PO SCH (20:39)
[2018-11-06] MEDS: MONTELUKAST 10 MG TAB PO SCH (20:39)
[2018-11-07] VITALS (15 sets, daily range): BP systolic 97–143; BP diastolic 66–107; PULSE 70–173; RESP 21–25
[2018-11-07] MEDS ORDERED: LORAZEPAM 2 MG INJ IV ONE (03:53)
[2018-11-07] MEDS: LEVOFLOXACIN 500 MG TAB PO SCH (08:11)
[2018-11-07] MEDS: ACETYLCYSTEINE 600 MG CAP PO SCH ×2 (08:11→20:20)
[2018-11-07] MEDS: DONEPEZIL 10 MG TAB PO SCH ×2 (08:11→20:22)
[2018-11-07] MEDS: FINASTERIDE 5 MG TAB PO SCH (08:11)
[2018-11-07] MEDS: FAMOTIDINE 20 MG TAB PO SCH ×2 (08:12→20:21)
[2018-11-07] MEDS: ASPIRIN 81 MG TAB PO SCH (08:12)
[2018-11-07] MEDS: MEMANTINE 5 MG TAB PO SCH (08:12)
[2018-11-07] MEDS: LOSARTAN 50 MG TAB PO SCH (08:12)
[2018-11-07] MEDS: METOPROLOL 25 MG TAB PO SCH ×2 (08:13→20:22)
[2018-11-07] MEDS: HEPARIN 5,000 UNIT/1 ML VIAL SC SCH ×2 (08:21→20:38)
[2018-11-07] MEDS: TIOTROPIUM 18 MCG CAPSULE INHA DEV INH SCH (08:22)
[2018-11-07] MEDS: FLUTICASONE/VILANTEROL 100-25 INH SCH (08:22)
[2018-11-07] MEDS ORDERED: LACTATED RINGER'S 500 ML IV ONE ×2 (09:00→14:00)
--- NOTE | 2018-11-07 11:34 | CONS ---
Assessment/Plan Assessment/Plan Hospital Course (Demo Recall) Atrial fibrillation with rapid ventricular rates Preserved ejection fraction Pneumonia Acute kidney injury Coronary artery disease with history of PCI Encephalopathy Hypertension Lower extremity edema -Patient with continued confusion and agitation, trying to get out of bed and taking off telemetry. This is likely the contributing etiologies to his tachycardia -Continue beta-fermin as tolerated -Hold any nephrotoxic medications -Antibiotics as per primary team Consultation Date/Type/Reason Admit Date/Time Nov 04, 2018 at 17:03 Initial Consult Date 11/05/18 Type of Consult Cardiology Requesting Provider: CHRIS RUBIN MD Date/Time of Note DATE: 11/07/18 TIME: 11:32 24 HR Interval Summary Free Text/Dictation Patient seen and examined. Denies any current chest pain or palpitations. Trying to get out of the bed multiple times during history taking and examination Exam/Review of Systems Vital Signs Vitals Vital Signs Date Temp Pulse Resp B/P (MAP) Pulse Ox O2 O2 Flow FiO2 Time Delivery Rate 11/07/18 Nasal 2.0 11:05 Cannula 11/07/18 127 08:38 11/07/18 98.1 25 111/91 98 07:57 (98) Intake and Output 11/06/18 11/06/18 11/07/18 1515:00 23:00 07:00 IntakeIntake Total 300 ml 250 ml BalanceBalance 300 ml 250 ml Exam Exam Confused at times, trying to get out of bed during exam taking Constitutional: alert Head: normocephalic Respiratory: other (Coarse breath sounds bilaterally, no wheezing) Cardiovascular: irregular rhythm (S1-S2 heard) Gastrointestinal: soft, non-tender, bowel sounds Extremities: edema Labs Result Diagram: 11/07/18 0633 11/07/18 0633 Results 24hrs Laboratory Tests Test 11/07/18 06:33 White Blood Count 8.0 Red Blood Count 4.11 L Hemoglobin 12.3 L Hematocrit 38.3 L Mean Corpuscular Volume 93.2 Mean Corpuscular Hemoglobin 29.9 Mean Corpuscular Hemoglobin Concent 32.1 Red Cell Distribution Width 14.6 H Platelet Count 166 Mean Platelet Volume 11.0 H Immature Granulocytes % 0.400 Neutrophils % 81.5 H Lymphocytes % 8.3 L Monocytes % 8.8 Eosinophils % 0.9 Basophils % 0.1 Nucleated Red Blood Cells % 0.0 Immature Granulocytes # 0.030 Neutrophils # 6.6 Lymphocytes # 0.7 L Monocytes # 0.7 Eosinophils # 0.1 Basophils # 0.0 Nucleated Red Blood Cells # 0.0 Sodium Level 140 Potassium Level 4.2 Chloride Level 109 Carbon Dioxide Level 22 Anion Gap 9 Blood Urea Nitrogen 58 H Creatinine 1.32 H Est Glomerular Filtrat Rate mL/min Glucose Level 100 Calcium Level 8.7 Total Bilirubin 0.4 Direct Bilirubin 0.00 Indirect Bilirubin 0.4 Aspartate Amino Transf (AST/SGOT) 19 Alanine Aminotransferase (ALT/SGPT) 30 Alkaline Phosphatase 58 Total Protein 5.1 L Albumin 2.9 L Globulin 2.20 Albumin/Globulin Ratio 1.31 Medications Medications Current Medications IV Flush (NS 3 ml) 3 ml PER PROTOCOL IV ; Start 11/04/18 at 17:30 Lorazepam (Ativan) 0.5 mg Q8H PRN PO .ANXIETY Last administered on 11/06/18at 23:09; Admin Dose 0.5 MG; Start 11/04/18 at 17:30 Ondansetron HCl (Zofran Tab) 4 mg Q6H PRN PO NAUSEA/VOMITING; Start 11/04/18 at 17:30 Aspirin (Aspirin) 81 mg DAILY PO Last administered on 11/07/18at 08:12; Admin Dose 81 MG; Start 11/05/18 at 09:00 Acetaminophen (Tylenol Tab) 650 mg Q6H PRN PO .PAIN 1-3 OR TEMP; Start 11/04/18 at 17:30 Acetaminophen/ Hydrocodone Bitart ([place] (5/325)) 1 tab Q6H PRN PO .PAIN 4-6; Start 11/04/18 at 17:30 Docusate Sodium (Colace) 100 mg Q12H PRN PO .CONSTIPATION; Start 11/04/18 at 17:30 Famotidine (Pepcid) 20 mg Q12 PO Last administered on 11/07/18at 08:12; Admin Dose 20 MG; Start 11/04/18 at 21:00 Heparin Sodium (Porcine) (Heparin (5000 Units/1ml)) 5,000 unit Q12 SC Last administered on 11/07/18 08:21; Admin Dose 5,000 UNIT; Start 11/04/18 at 21:00 Finasteride (Proscar) 5 mg DAILY PO Last administered on 11/07/18 08:11; Admin Dose 5 MG; Start 11/05/18 at 09:00 Gabapentin (Neurontin) 400 mg QHS PO Last administered on 11/06/18 20:39; Admin Dose 400 MG; Start 11/04/18 at 21:00 Losartan Potassium (Cozaar) 50 mg DAILY PO Last administered on 11/07/18 08:12; Admin Dose 50 MG; Start 11/05/18 at 09:00 Tamsulosin HCl (Flomax) 0.8 mg HS PO Last administered on 11/06/18 20:39; Admin Dose 0.8 MG; Start 11/04/18 at 21:00 Atorvastatin Calcium (Lipitor) 40 mg QHS PO Last administered on 11/06/18 20:39; Admin Dose 40 MG; Start 11/04/18 at 21:00 Montelukast Sodium (Singulair) 10 mg QHS PO Last administered on 11/06/18 20:39; Admin Dose 10 MG; Start 11/04/18 at 21:00 Fluticasone/ Vilanterol (Breo Ellipta 100-25 Mcg Inh) 1 inh DAILY INH Last administered on 11/07/18 08:22; Admin Dose 1 INH; Start 11/04/18 at 18:00 Tiotropium [place] (Spiriva) 1 inh QAM INH Last administered on 11/07/18 08:22; Admin Dose 1 INH; Start 11/04/18 at 18:00 Diltiazem HCl 125 ml @ 5 mls/hr TITRATE IV ; Start 11/04/18 at 18:00 Miscellaneous Information Patients own medicat... BID@10,16 XX ; Start 11/05/18 at 10:00 Acetylcysteine (Nac) 1,200 mg BID PO Last administered on 11/07/18 08:11; Admin Dose 1,200 MG; Start 11/05/18 at 13:30; Stop 11/09/18 at 13:29 Albuterol/ Ipratropium (Duoneb) 3 ml Q6H RESP THERAPY PRN HHN SHORTNESS OF BREATH; Start 11/06/18 at 12:00 Levofloxacin (Levaquin) 500 mg DAILY@06 PO Last administered on 11/07/18 08:11; Admin Dose 500 MG; Start 11/07/18 at 06:00; Stop 11/14/18 at 05:59 Donepezil HCl (Aricept) 10 mg DAILY PO Last administered on 11/07/18at 08:11; Admin Dose 10 MG; Start 11/06/18 at 14:30 Memantine (Namenda) 5 mg DAILY PO Last administered on 11/07/18at 08:12; Admin Dose 5 MG; Start 11/07/18 at 09:00 Metoprolol Tartrate (Lopressor) 100 mg Q12 PO Last administered on 11/07/18at 08:13; Admin Dose 100 MG; Start 11/06/18 at 21:00 Hal Pickett DO Nov 07, 2018 11:34
--- NOTE | 2018-11-07 12:04 | CONS ---
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 for which neurology is consulted. The clinical picture suggests a mild dementia w/ superimposed acute encephalopathy.. There is likely an underlying depression that is contributing.. MRI brain is without acute intracranial pathology, though is notable for generalized atrophy, as can be seen in dementia. CXR c/f PNA NAZIA + B12, TSH nl, RPR neg P: Infectious and other medical management per primary OK to continue Aricept/Namenda (though prefer to initiate sequentially), to be titrated slowly to effect as tolerated.. Add seroquel 12.5mg qhs Reorient as necessary Limit daytime sedating medications where possible PT/OT/ST as necessary Will follow clinically Consultation Date/Type/Reason Admit Date/Time Nov 04, 2018 at 17:03 Type of Consult Neurology Requesting Provider: CHRIS RUBIN MD Date/Time of Note DATE: 11/07/18 TIME: 12:04 24 HR Interval Summary Free Text/Dictation Continues acute care. Pt reportedly still confused today. Sitter at bedside. Exam Vital Signs Vitals Vital Signs Date Temp Pulse Resp B/P (MAP) Pulse Ox O2 O2 Flow FiO2 Time Delivery Rate 11/07/18 98.0 118 23 110/78 100 11:32 (89) 11/07/18 Nasal 2.0 11:05 Cannula Intake and Output 11/06/18 11/06/18 11/07/18 1515:00 23:00 07:00 IntakeIntake Total 300 ml 250 ml BalanceBalance 300 ml 250 ml Exam PE: Gen Appearance: No Apparent Distress HEENT: Normocephalic Cardiovascular: Regular rate Abdomen: Soft Extremities: Dry NE: The patient was awake, alert, though disoriented. Language was normal. Difficult to direct/redirect. Fund of knowledge was limited. Cranial nerve examination was limited by mental status. Pupils were equal and reactive to light. There was no afferent pupillary defect. Funduscopic examination was limited. Face was grossly symmetric, w/ present corneal and cough reflexes. Tone was normal. Muscle bulk was normal. I did not see fasciculations. The patient had spontaneous movement of his extremities, symmetrically. Coordination and gait testing was limited by mental status. Arm and leg reflexes were within normal limits and symmetric. Almonte's sign was absent. Plantar responses were flexor. VÍCTOR MARIE NP Nov 07, 2018 12:04
[2018-11-07] MEDS ORDERED: DIGOXIN 500 MCG INJ IV ONE (14:00)
--- NOTE | 2018-11-07 14:00 | PN ---
Date/Time of Note Date/Time of Note DATE: 11/07/18 TIME: 13:54 Assessment/Plan VTE Prophylaxis Risk score (from Ns)>0 risk: 2 SCD applied (from Ns): Yes SCD contraindicated: low risk/ambulating Pharmacological prophylaxis: rivaroxaban Lines/Catheters IV C[facility]ter [facility]from [facility] Saline Lock Assessment/Plan Problems: (1) Right lower lobe pneumonia Status: Acute Comment: Clinically he is improving with much less cough better oxygenation and improving mental status. Continue with antibiotic therapy. Qualifiers: Pneumonia type: due to unspecified organism Qualified Codes: J18.1 - Lobar pneumonia, unspecified organism (2) Altered mental status Status: Acute Comment: Improving. He is a little bit somnolent today somewhat hold back on the Namenda and follow him along. I do not wish to use Seroquel in this gentleman but is a mood stabilizing agent we will go ahead and use lamotrigine Qualifiers: Altered mental status type: unspecified Qualified Codes: R41.82 - Altered mental status, unspecified (3) Atrial fibrillation with RVR Status: Acute Comment: And adequately rate controlled. Given his underlying reactive airways disease had a 1 push the beta-fermin much more used digoxin as an AV meet blocking agent (4) Asthma, moderate persistent Status: Chronic Comment: Adequate control at the present time. Discontinue the Tiotropium as the anticholinergic effect may have an effect on his mental status Qualifiers: Asthma complication type: with acute exacerbation Qualified Codes: J45.41 - Moderate persistent asthma with (acute) exacerbation (5) Benign prostatic hyperplasia Status: Chronic Comment: Adequate control Qualifiers: Lower urinary tract symptom presence: symptoms present Lower urinary tract symptom detail: urinary hesitancy Qualified Codes: N40.1 - Benign prostatic hyperplasia with lower urinary tract symptoms; R39.11 - Hesitancy of micturition (6) Essential hypertension Status: Chronic Comment: Adequate control (7) Hyperlipidemia Status: Chronic Comment: On treatment Qualifiers: Hyperlipidemia type: pure hypercholesterolemia Qualified Codes: E78.00 - Pure hypercholesterolemia, unspecified (8) Diastolic dysfunction Status: Chronic Comment: Control blood pressure Result Diagram: 11/07/18 0633 11/07/18 0633 Results 24hrs Laboratory Tests Test 11/07/18 06:33 White Blood Count 8.0 Red Blood Count 4.11 L Hemoglobin 12.3 L Hematocrit 38.3 L Mean Corpuscular Volume 93.2 Mean Corpuscular Hemoglobin 29.9 Mean Corpuscular Hemoglobin Concent 32.1 Red Cell Distribution Width 14.6 H Platelet Count 166 Mean Platelet Volume 11.0 H Immature Granulocytes % 0.400 Neutrophils % 81.5 H Lymphocytes % 8.3 L Monocytes % 8.8 Eosinophils % 0.9 Basophils % 0.1 Nucleated Red Blood Cells % 0.0 Immature Granulocytes # 0.030 Neutrophils # 6.6 Lymphocytes # 0.7 L Monocytes # 0.7 Eosinophils # 0.1 Basophils # 0.0 Nucleated Red Blood Cells # 0.0 Sodium Level 140 Potassium Level 4.2 Chloride Level 109 Carbon Dioxide Level 22 Anion Gap 9 Blood Urea Nitrogen 58 H Creatinine 1.32 H Est Glomerular Filtrat Rate mL/min Glucose Level 100 Calcium Level 8.7 Total Bilirubin 0.4 Direct Bilirubin 0.00 Indirect Bilirubin 0.4 Aspartate Amino Transf (AST/SGOT) 19 Alanine Aminotransferase (ALT/SGPT) 30 Alkaline Phosphatase 58 Total Protein 5.1 L Albumin 2.9 L Globulin 2.20 Albumin/Globulin Ratio 1.31 Subjective 24 Hr Interval Summary Free Text/Dictation Patient is somewhat drowsy but much more alert and oriented today. Constitutional: no complaints (No fevers chills or sweats) Respiratory: no complaints (Reports his cough is much better) Cardiovascular: palpitations Gastrointestinal: no complaints Genitourinary: no complaints Exam/Review of Systems Exam Vitals Vital Signs Date Temp Pulse Resp B/P (MAP) Pulse Ox O2 O2 Flow FiO2 Time Delivery Rate 11/07/18 143 12:08 11/07/18 98.0 23 110/78 100 11:32 (89) 11/07/18 Nasal 2.0 11:05 Cannula Intake and Output 11/06/18 11/06/18 11/07/18 1515:00 23:00 07:00 IntakeIntake Total 300 ml 250 ml BalanceBalance 300 ml 250 ml Constitutional: alert, oriented Respiratory: normal air movement, crackles/rales (Right basilar) Cardiovascular: nl pulses, irregular rhythm Gastrointestinal: soft, nl liver, spleen, non-tender Extremities: normal pulses Results Results 24hrs Laboratory Tests Test 11/07/18 06:33 White Blood Count 8.0 Red Blood Count 4.11 L Hemoglobin 12.3 L Hematocrit 38.3 L Mean Corpuscular Volume 93.2 Mean Corpuscular Hemoglobin 29.9 Mean Corpuscular Hemoglobin Concent 32.1 Red Cell Distribution Width 14.6 H Platelet Count 166 Mean Platelet Volume 11.0 H Immature Granulocytes % 0.400 Neutrophils % 81.5 H Lymphocytes % 8.3 L Monocytes % 8.8 Eosinophils % 0.9 Basophils % 0.1 Nucleated Red Blood Cells % 0.0 Immature Granulocytes # 0.030 Neutrophils # 6.6 Lymphocytes # 0.7 L Monocytes # 0.7 Eosinophils # 0.1 Basophils # 0.0 Nucleated Red Blood Cells # 0.0 Sodium Level 140 Potassium Level 4.2 Chloride Level 109 Carbon Dioxide Level 22 Anion Gap 9 Blood Urea Nitrogen 58 H Creatinine 1.32 H Est Glomerular Filtrat Rate mL/min Glucose Level 100 Calcium Level 8.7 Total Bilirubin 0.4 Direct Bilirubin 0.00 Indirect Bilirubin 0.4 Aspartate Amino Transf (AST/SGOT) 19 Alanine Aminotransferase (ALT/SGPT) 30 Alkaline Phosphatase 58 Total Protein 5.1 L Albumin 2.9 L Globulin 2.20 Albumin/Globulin Ratio 1.31 Medications Medication Current Medications IV Flush (NS 3 ml) 3 ml PER PROTOCOL IV ; Start 11/04/18 at 17:30 Ondansetron HCl (Zofran Tab) 4 mg Q6H PRN PO NAUSEA/VOMITING; Start 11/04/18 at 17:30 Aspirin (Aspirin) 81 mg DAILY PO Last administered on 11/07/18at 08:12; Admin Dose 81 MG; Start 11/05/18 at 09:00 Acetaminophen (Tylenol Tab) 650 mg Q6H PRN PO .PAIN 1-3 OR TEMP; Start 11/04/18 at 17:30 Acetaminophen/ Hydrocodone Bitart ([place] (5/325)) 1 tab Q6H PRN PO .PAIN 4-6; Start 11/04/18 at 17:30 Docusate Sodium (Colace) 100 mg Q12H PRN PO .CONSTIPATION; Start 11/04/18 at 17:30 Famotidine (Pepcid) 20 mg Q12 PO Last administered on 11/07/18at 08:12; Admin Dose 20 MG; Start 11/04/18 at 21:00 Heparin Sodium (Porcine) (Heparin (5000 Units/1ml)) 5,000 unit Q12 SC Last administered on 11/07/18 08:21; Admin Dose 5,000 UNIT; Start 11/04/18 at 21:00 Finasteride (Proscar) 5 mg DAILY PO Last administered on 11/07/18 08:11; Admin Dose 5 MG; Start 11/05/18 at 09:00 Gabapentin (Neurontin) 400 mg QHS PO Last administered on 11/06/18 20:39; Admin Dose 400 MG; Start 11/04/18 at 21:00 Losartan Potassium (Cozaar) 50 mg DAILY PO Last administered on 11/07/18 08:12; Admin Dose 50 MG; Start 11/05/18 at 09:00 Tamsulosin HCl (Flomax) 0.8 mg HS PO Last administered on 11/06/18 20:39; Admin Dose 0.8 MG; Start 11/04/18 at 21:00 Atorvastatin Calcium (Lipitor) 40 mg QHS PO Last administered on 11/06/18 20:39; Admin Dose 40 MG; Start 11/04/18 at 21:00 Montelukast Sodium (Singulair) 10 mg QHS PO Last administered on 11/06/18 20:39; Admin Dose 10 MG; Start 11/04/18 at 21:00 Fluticasone/ Vilanterol (Breo Ellipta 100-25 Mcg Inh) 1 inh DAILY INH Last administered on 11/07/18 08:22; Admin Dose 1 INH; Start 11/04/18 at 18:00 Tiotropium [place] (Spiriva) 1 inh QAM INH Last administered on 11/07/18 08:22; Admin Dose 1 INH; Start 11/04/18 at 18:00 Diltiazem HCl 125 ml @ 5 mls/hr TITRATE IV ; Start 11/04/18 at 18:00 Miscellaneous Information Patients own medicat... BID@10,16 XX ; Start 11/05/18 at 10:00 Acetylcysteine (Nac) 1,200 mg BID PO Last administered on 11/07/18 08:11; Admin Dose 1,200 MG; Start 11/05/18 at 13:30; Stop 11/09/18 at 13:29 Albuterol/ Ipratropium (Duoneb) 3 ml Q6H RESP THERAPY PRN HHN SHORTNESS OF BREATH; Start 11/06/18 at 12:00 Levofloxacin (Levaquin) 500 mg DAILY@06 PO Last administered on 11/07/18at 08:11; Admin Dose 500 MG; Start 11/07/18 at 06:00; Stop 11/14/18 at 05:59 Memantine (Namenda) 5 mg DAILY PO Last administered on 11/07/18at 08:12; Admin Dose 5 MG; Start 11/07/18 at 09:00 Metoprolol Tartrate (Lopressor) 100 mg Q12 PO Last administered on 11/07/18at 08:13; Admin Dose 100 MG; Start 11/06/18 at 21:00 Donepezil HCl (Aricept) 5 mg HS PO ; Start 11/07/18 at 21:00 Quetiapine Fumarate (Seroquel) 12.5 mg HS PO ; Start 11/07/18 at 21:00 CHRIS RUBIN MD Nov 07, 2018 14:00
[2018-11-07] MEDS: LAMOTRIGINE 25 MG TAB PO SCH ×2 (14:38→23:46)
[2018-11-07] MEDS ORDERED: DILTIAZEM 25 MG INJ IV PRN (16:00)
[2018-11-07] MEDS: RIVAROXABAN 20 MG TABLET PO SCH (18:09)
[2018-11-07] MEDS: TAMSULOSIN (SR) 0.4 MG CAP PO SCH (20:20)
[2018-11-07] MEDS: ATORVASTATIN 40 MG TAB PO SCH (20:20)
[2018-11-07] MEDS: GABAPENTIN 400 MG CAP PO SCH (20:21)
[2018-11-07] MEDS: MONTELUKAST 10 MG TAB PO SCH (20:21)
[2018-11-07] MEDS ORDERED: QUETIAPINE 25 MG TAB PO SCH (21:00)
[2018-11-08] VITALS (15 sets, daily range): BP systolic 130–209; BP diastolic 95–115; PULSE 71–139; RESP 19–20
[2018-11-08] MEDS ORDERED: QUETIAPINE 25 MG TAB PO ONE (04:00)
[2018-11-08] MEDS: LEVOFLOXACIN 500 MG TAB PO SCH (06:08)
[2018-11-08] MEDS: ASPIRIN 81 MG TAB PO SCH ×2 (08:30→09:00)
--- NOTE | 2018-11-08 08:39 | CONS ---
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 for which neurology is consulted. The clinical picture suggests a mild dementia w/ superimposed acute encephalopathy.. There is likely an underlying depression that is contributing.. MRI brain is without acute intracranial pathology, though is notable for generalized atrophy, as can be seen in dementia. CXR c/f PNA NAZIA + B12, TSH nl, RPR neg P: Infectious and other medical management per primary OK to continue Aricept/Namenda (though prefer to initiate sequentially), to be titrated slowly to effect as tolerated.. Reorient as necessary Limit daytime sedating medications where possible PT/OT/ST as necessary Will follow clinically Consultation Date/Type/Reason Admit Date/Time Nov 04, 2018 at 17:03 Type of Consult Neurology Requesting Provider: CHRIS RUBIN MD Date/Time of Note DATE: 11/08/18 TIME: 08:39 24 HR Interval Summary Free Text/Dictation Continues acute care. Pt reportedly agitated overnight. Exam Vital Signs Vitals Vital Signs Date Temp Pulse Resp B/P (MAP) Pulse Ox O2 O2 Flow FiO2 Time Delivery Rate 11/08/18 106 08:21 11/08/18 97.6 20 130/97 96 07:15 (108) 11/07/18 Nasal 2.0 20:00 Cannula Intake and Output 11/07/18 11/07/18 11/08/18 1414:59 22:59 06:59 IntakeIntake Total 500 ml 400 ml BalanceBalance 500 ml 400 ml Exam PE: Gen Appearance: No Apparent Distress HEENT: Normocephalic Cardiovascular: Regular rate Abdomen: Soft Extremities: Dry NE: The patient was sedated and sparsely verbal. Unable to follow any commands. Cranial nerve examination was limited by mental status. Pupils were equal and reactive to light. There was no afferent pupillary defect. Funduscopic examination was limited. Face was grossly symmetric, w/ present corneal and cough reflexes. Tone was normal. Muscle bulk was normal. I did not see fasciculations. The patient withdrew his extremities to noxious stimuli. Coordination and gait testing was limited by mental status. Arm and leg reflexes were within normal limits and symmetric. Almonte's sign was absent. Plantar responses were flexor. VÍCTOR MARIE NP Nov 08, 2018 08:39
[2018-11-08] MEDS: FINASTERIDE 5 MG TAB PO SCH (09:00)
[2018-11-08] MEDS: FLUTICASONE/VILANTEROL 100-25 INH SCH (09:00)
[2018-11-08] MEDS: FAMOTIDINE 20 MG TAB PO SCH ×2 (09:00→20:12)
[2018-11-08] MEDS: LAMOTRIGINE 25 MG TAB PO SCH ×2 (09:32→22:08)
[2018-11-08] MEDS: LOSARTAN 50 MG TAB PO SCH (09:33)
[2018-11-08] MEDS: METOPROLOL 25 MG TAB PO SCH (09:34)
[2018-11-08] MEDS: HEPARIN 5,000 UNIT/1 ML VIAL SC SCH ×2 (09:51→21:30)
[2018-11-08] MEDS: ACETYLCYSTEINE 600 MG CAP PO SCH ×2 (10:51→20:12)
--- NOTE | 2018-11-08 12:35 | PN ---
Date/Time of Note Date/Time of Note DATE: 11/08/18 TIME: 12:33 Assessment/Plan VTE Prophylaxis Risk score (from [facility])>0 risk: 4 SCD applied (from [facility]): No SCD contraindicated: patient refusal Pharmacological prophylaxis: heparin Lines/Catheters IV Catheter Type (from [facility] Saline Lock Assessment/Plan Problems: (1) Right lower lobe pneumonia Status: Acute Comment: Clinically he has been improving with this. QuantiFERON gold is also negative fortunately. Continue his care and repeat chest x-ray. Qualifiers: Pneumonia type: due to unspecified organism Qualified Codes: J18.1 - Lobar pneumonia, unspecified organism (2) Atrial fibrillation with RVR Status: Acute Comment: Attempting to control response rate. (3) Altered mental status Status: Acute Comment: Due to poor sleep this is worse. If this is a bit of encephalopathy but this is also chronic progressive dementia Qualifiers: Altered mental status type: unspecified Qualified Codes: R41.82 - Altered mental status, unspecified (4) Essential hypertension Status: Chronic Comment: Adequate control (5) Hyperlipidemia Status: Chronic Qualifiers: Hyperlipidemia type: pure hypercholesterolemia Qualified Codes: E78.00 - Pure hypercholesterolemia, unspecified (6) Benign prostatic hyperplasia Status: Chronic Comment: Stable on treatment Qualifiers: Lower urinary tract symptom presence: symptoms present Lower urinary tract symptom detail: urinary hesitancy Qualified Codes: N40.1 - Benign prostatic hyperplasia with lower urinary tract symptoms; R39.11 - Hesitancy of micturition (7) Diastolic dysfunction Status: Chronic Comment: Stable control blood pressure Result Diagram: 11/08/18 0509 11/08/18 0509 Results 24hrs Laboratory Tests Test 11/08/18 05:09 White Blood Count 7.4 Red Blood Count 4.15 L Hemoglobin 12.3 L Hematocrit 38.8 L Mean Corpuscular Volume 93.5 Mean Corpuscular Hemoglobin 29.6 Mean Corpuscular Hemoglobin Concent 31.7 L Red Cell Distribution Width 14.4 Platelet Count 169 Mean Platelet Volume 11.0 H Immature Granulocytes % 0.400 Neutrophils % 75.9 Lymphocytes % 11.5 L Monocytes % 10.0 Eosinophils % 1.9 Basophils % 0.3 Nucleated Red Blood Cells % 0.0 Immature Granulocytes # 0.030 Neutrophils # 5.6 Lymphocytes # 0.9 Monocytes # 0.7 Eosinophils # 0.1 Basophils # 0.0 Nucleated Red Blood Cells # 0.0 Erythrocyte Sedimentation Rate 2 Sodium Level 140 Potassium Level 4.0 Chloride Level 108 Carbon Dioxide Level 26 Anion Gap 6 Blood Urea Nitrogen 48 H Creatinine 1.25 H Est Glomerular Filtrat Rate mL/min Glucose Level 99 Calcium Level 8.8 Total Bilirubin 0.8 Direct Bilirubin 0.00 Indirect Bilirubin 0.8 Aspartate Amino Transf (AST/SGOT) 21 Alanine Aminotransferase (ALT/SGPT) 35 Alkaline Phosphatase 61 Total Protein 5.2 L Albumin 3.0 L Globulin 2.20 Albumin/Globulin Ratio 1.36 Subjective 24 Hr Interval Summary Free Text/Dictation Patient is more confused today and less oriented pulling at his clothing. These note he did not get a good night sleep Constitutional: no complaints Respiratory: no complaints Exam/Review of Systems Exam Vitals Vital Signs Date Temp Pulse Resp B/P (MAP) Pulse Ox O2 O2 Flow FiO2 Time Delivery Rate 11/08/18 107 12:05 11/08/18 Nasal 2.0 08:05 Cannula 11/08/18 97.6 20 130/97 96 07:15 (108) Intake and Output 11/07/18 11/07/18 11/08/18 1515:00 23:00 07:00 IntakeIntake Total 500 ml 400 ml BalanceBalance 500 ml 400 ml Constitutional: alert, oriented Neck: supple, non-tender Respiratory: clear to auscultation, normal air movement Cardiovascular: regular rate and rhythm, nl pulses Results Results 24hrs Laboratory Tests Test 11/08/18 05:09 White Blood Count 7.4 Red Blood Count 4.15 L Hemoglobin 12.3 L Hematocrit 38.8 L Mean Corpuscular Volume 93.5 Mean Corpuscular Hemoglobin 29.6 Mean Corpuscular Hemoglobin Concent 31.7 L Red Cell Distribution Width 14.4 Platelet Count 169 Mean Platelet Volume 11.0 H Immature Granulocytes % 0.400 Neutrophils % 75.9 Lymphocytes % 11.5 L Monocytes % 10.0 Eosinophils % 1.9 Basophils % 0.3 Nucleated Red Blood Cells % 0.0 Immature Granulocytes # 0.030 Neutrophils # 5.6 Lymphocytes # 0.9 Monocytes # 0.7 Eosinophils # 0.1 Basophils # 0.0 Nucleated Red Blood Cells # 0.0 Erythrocyte Sedimentation Rate 2 Sodium Level 140 Potassium Level 4.0 Chloride Level 108 Carbon Dioxide Level 26 Anion Gap 6 Blood Urea Nitrogen 48 H Creatinine 1.25 H Est Glomerular Filtrat Rate mL/min Glucose Level 99 Calcium Level 8.8 Total Bilirubin 0.8 Direct Bilirubin 0.00 Indirect Bilirubin 0.8 Aspartate Amino Transf (AST/SGOT) 21 Alanine Aminotransferase (ALT/SGPT) 35 Alkaline Phosphatase 61 Total Protein 5.2 L Albumin 3.0 L Globulin 2.20 Albumin/Globulin Ratio 1.36 Medications Medication Current Medications IV Flush (NS 3 ml) 3 ml PER PROTOCOL IV ; Start 11/04/18 at 17:30 Ondansetron HCl (Zofran Tab) 4 mg Q6H PRN PO NAUSEA/VOMITING; Start 11/04/18 at 17:30 Aspirin (Aspirin) 81 mg DAILY PO Last administered on 11/07/18at 08:12; Admin Dose 81 MG; Start 11/05/18 at 09:00 Acetaminophen (Tylenol Tab) 650 mg Q6H PRN PO .PAIN 1-3 OR TEMP; Start 11/04/18 at 17:30 Acetaminophen/ Hydrocodone Bitart ([place] (5/325)) 1 tab Q6H PRN PO .PAIN 4-6; Start 11/04/18 at 17:30 Docusate Sodium (Colace) 100 mg Q12H PRN PO .CONSTIPATION; Start 11/04/18 at 17:30 Famotidine (Pepcid) 20 mg Q12 PO Last administered on 11/07/18at 20:21; Admin Dose 20 MG; Start 11/04/18 at 21:00 Heparin Sodium (Porcine) (Heparin (5000 Units/1ml)) 5,000 unit Q12 SC Last administered on 11/08/18 09:51; Admin Dose 5,000 UNIT; Start 11/04/18 at 21:00 Finasteride (Proscar) 5 mg DAILY PO Last administered on 11/07/18 08:11; Admin Dose 5 MG; Start 11/05/18 at 09:00 Gabapentin (Neurontin) 400 mg QHS PO Last administered on 11/07/18 20:21; Admin Dose 400 MG; Start 11/04/18 at 21:00 Losartan Potassium (Cozaar) 50 mg DAILY PO Last administered on 11/08/18at 0 9:33; Admin Dose 50 MG; Start 11/05/18 at 09:00 Tamsulosin HCl (Flomax) 0.8 mg HS PO Last administered on 11/07/18 20:20; Admin Dose 0.8 MG; Start 11/04/18 at 21:00 Atorvastatin Calcium (Lipitor) 40 mg QHS PO Last administered on 11/07/18 20:20; Admin Dose 40 MG; Start 11/04/18 at 21:00 Montelukast Sodium (Singulair) 10 mg QHS PO Last administered on 11/07/18 20:21; Admin Dose 10 MG; Start 11/04/18 at 21:00 Fluticasone/ Vilanterol (Breo Ellipta 100-25 Mcg Inh) 1 inh DAILY INH Last administered on 11/08/18 09:00; Admin Dose 1 INH; Start 11/04/18 at 18:00 Tiotropium [place] (Spiriva) 1 inh QAM INH Last administered on 11/07/18 08:22; Admin Dose 1 INH; Start 11/04/18 at 18:00; Status Hold Miscellaneous Information Patients own medicat... BID@10,16 XX ; Start 11/05/18 at 10:00 Acetylcysteine (Nac) 1,200 mg BID PO Last administered on 11/08/18 10:51; Admin Dose 1,200 MG; Start 11/05/18 at 13:30; Stop 11/09/18 at 13:29 Albuterol/ Ipratropium (Duoneb) 3 ml Q6H RESP THERAPY PRN HHN SHORTNESS OF BREATH; Start 11/06/18 at 12:00 Levofloxacin (Levaquin) 500 mg DAILY@06 PO Last administered on 11/08/18 06:08; Admin Dose 500 MG; Start 11/07/18 at 06:00; Stop 11/14/18 at 05:59 Memantine (Namenda) 5 mg DAILY PO Last administered on 11/07/18 08:12; Admin Dose 5 MG; Start 11/07/18 at 09:00; Status Hold Metoprolol Tartrate (Lopressor) 100 mg Q12 PO Last administered on 11/08/18 09:34; Admin Dose 100 MG; Start 11/06/18 at 21:00 Donepezil HCl (Aricept) 5 mg HS PO Last administered on 11/07/18 20:22; Admin Dose 5 MG; Start 11/07/18 at 21:00 Lamotrigine (Lamictal) 25 mg BID PO Last administered on 11/08/18at 09:32; Admin Dose 25 MG; Start 11/07/18 at 15:00 Digoxin (Digoxin) 0.25 mg DAILY@13 PO ; Start 11/08/18 at 13:00 Rivaroxaban (Xarelto) 20 mg WITH DINNER PO Last administered on 11/07/18at 18:09; Admin Dose 20 MG; Start 11/07/18 at 18:00 Diltiazem HCl (Cardizem Iv) 15 mg Q2H PRN IV sustained hr>130; Start 11/07/18 at 16:00 Quetiapine Fumarate (Seroquel) 25 mg PC DINNER PO ; Start 11/08/18 at 19:00 CHRIS RUBIN MD Nov 08, 2018 12:35
[2018-11-08] MEDS: DIGOXIN 0.25 MG TAB PO SCH (12:52)
[2018-11-08] MEDS: RIVAROXABAN 20 MG TABLET PO SCH (17:10)
--- NOTE | 2018-11-08 17:13 | CONS ---
Consult Date/Type/Reason Admit Date/Time Nov 04, 2018 at 17:03 Initial Consult Date 11/05/18 Type of Consultation: CV Requesting Provider: CHRIS RUBIN MD Date/Time of Note DATE: 11/08/18 TIME: 17:10 Subjective CARDIOLOGY FOLLOW UP S D/W STAFF tele was reviewed pt remains in AFIB with RVR when awake still agitated and confused O HEENT NCAT CV irregularly irregualr pulm + rhocnhi GI soft NT ext trace edema neuro awake Ox 2 pych agitated Objective Vitals Vital Signs Date Temp Pulse Resp B/P (MAP) Pulse Ox O2 O2 Flow FiO2 Time Delivery Rate 11/08/18 120 16:24 11/08/18 98.4 20 165/115 97 15:48 (132) 11/08/18 Nasal 2.0 08:05 Cannula Intake and Output 11/07/18 11/07/18 11/08/18 1515:00 23:00 07:00 IntakeIntake Total 500 ml 400 ml BalanceBalance 500 ml 400 ml Results/Medications Result Diagram: 11/08/18 0509 11/08/18 0509 Results 24 hrs Laboratory Tests Test 11/08/18 05:09 White Blood Count 7.4 Red Blood Count 4.15 L Hemoglobin 12.3 L Hematocrit 38.8 L Mean Corpuscular Volume 93.5 Mean Corpuscular Hemoglobin 29.6 Mean Corpuscular Hemoglobin Concent 31.7 L Red Cell Distribution Width 14.4 Platelet Count 169 Mean Platelet Volume 11.0 H Immature Granulocytes % 0.400 Neutrophils % 75.9 Lymphocytes % 11.5 L Monocytes % 10.0 Eosinophils % 1.9 Basophils % 0.3 Nucleated Red Blood Cells % 0.0 Immature Granulocytes # 0.030 Neutrophils # 5.6 Lymphocytes # 0.9 Monocytes # 0.7 Eosinophils # 0.1 Basophils # 0.0 Nucleated Red Blood Cells # 0.0 Erythrocyte Sedimentation Rate 2 Sodium Level 140 Potassium Level 4.0 Chloride Level 108 Carbon Dioxide Level 26 Anion Gap 6 Blood Urea Nitrogen 48 H Creatinine 1.25 H Est Glomerular Filtrat Rate mL/min Glucose Level 99 Calcium Level 8.8 Total Bilirubin 0.8 Direct Bilirubin 0.00 Indirect Bilirubin 0.8 Aspartate Amino Transf (AST/SGOT) 21 Alanine Aminotransferase (ALT/SGPT) 35 Alkaline Phosphatase 61 Total Protein 5.2 L Albumin 3.0 L Globulin 2.20 Albumin/Globulin Ratio 1.36 Home Meds Reported Medications [Vitamin B12 Inj] No Conflict Check, 1 ML INJ DAILY INJECT 1ML-FOR 7 DAYS DAILY (LAST INJECTION 11/04/18-FOR 7 DAYS), THEN INJECT Q7D- FOR 3 WEEKS(START DAY 11/05/18),THEN ONCE A MONTH. 11/04/18 Simvastatin* (Zocor*) 40 Mg Tablet, 40 MG PO DAILY, #30 TAB 11/04/18 Finasteride* (Finasteride*) 5 Mg Tablet, 5 MG PO DAILY, TAB 11/04/18 Gabapentin* (Gabapentin*) 400 Mg Capsule, 400 MG PO QHS, #90 CAP 11/04/18 Lansoprazole* (Lansoprazole*) 30 Mg Capsule.dr, 30 MG PO DAILY, CAP 11/04/18 Losartan Potassium* (Losartan Potassium*) 50 Mg Tablet, 50 MG PO DAILY, TAB 11/04/18 Tamsulosin Hcl* (Tamsulosin Hcl*) 0.4 Mg Cap.er.24h, 0.8 MG PO HS, CAP 11/04/18 Discontinued Reported Medications [Unk] No Conflict Check 08/18/09 Medications Current Medications IV Flush (NS 3 ml) 3 ml PER PROTOCOL IV ; Start 11/04/18 at 17:30 Ondansetron HCl (Zofran Tab) 4 mg Q6H PRN PO NAUSEA/VOMITING; Start 11/04/18 at 17:30 Aspirin (Aspirin) 81 mg DAILY PO Last administered on 11/07/18at 08:12; Admin Dose 81 MG; Start 11/05/18 at 09:00 Acetaminophen (Tylenol Tab) 650 mg Q6H PRN PO .PAIN 1-3 OR TEMP; Start 11/04/18 at 17:30 Acetaminophen/ Hydrocodone Bitart ([place] (5/325)) 1 tab Q6H PRN PO .PAIN 4-6; Start 11/04/18 at 17:30 Docusate Sodium (Colace) 100 mg Q12H PRN PO .CONSTIPATION; Start 11/04/18 at 17:30 Famotidine (Pepcid) 20 mg Q12 PO Last administered on 11/07/18at 20:21; Admin Dose 20 MG; Start 11/04/18 at 21:00 Heparin Sodium (Porcine) (Heparin (5000 Units/1ml)) 5,000 unit Q12 SC Last administered on 11/08/18 09:51; Admin Dose 5,000 UNIT; Start 11/04/18 at 21:00 Finasteride (Proscar) 5 mg DAILY PO Last administered on 11/07/18 08:11; Admin Dose 5 MG; Start 11/05/18 at 09:00 Gabapentin (Neurontin) 400 mg QHS PO Last administered on 11/07/18 20:21; Admin Dose 400 MG; Start 11/04/18 at 21:00 Losartan Potassium (Cozaar) 50 mg DAILY PO Last administered on 11/08/18 09:33; Admin Dose 50 MG; Start 11/05/18 at 09:00 Tamsulosin HCl (Flomax) 0.8 mg HS PO Last administered on 11/07/18 20:20; Admin Dose 0.8 MG; Start 11/04/18 at 21:00 Atorvastatin Calcium (Lipitor) 40 mg QHS PO Last administered on 11/07/18 20:20; Admin Dose 40 MG; Start 11/04/18 at 21:00 Montelukast Sodium (Singulair) 10 mg QHS PO Last administered on 11/07/18 20:21; Admin Dose 10 MG; Start 11/04/18 at 21:00 Fluticasone/ Vilanterol (Breo Ellipta 100-25 Mcg Inh) 1 inh DAILY INH Last administered on 11/08/18 09:00; Admin Dose 1 INH; Start 11/04/18 at 18:00 Tiotropium [place] (Spiriva) 1 inh QAM INH Last administered on 11/07/18 08:22; Admin Dose 1 INH; Start 11/04/18 at 18:00; Status Hold Miscellaneous Information Patients own medicat... BID@10,16 XX ; Start 11/05/18 at 10:00 Acetylcysteine (Nac) 1,200 mg BID PO Last administered on 11/08/18 10:51; Admin Dose 1,200 MG; Start 11/05/18 at 13:30; Stop 11/09/18 at 13:29 Albuterol/ Ipratropium (Duoneb) 3 ml Q6H RESP THERAPY PRN HHN SHORTNESS OF BREATH; Start 11/06/18 at 12:00 Levofloxacin (Levaquin) 500 mg DAILY@06 PO Last administered on 11/08/18 06:08; Admin Dose 500 MG; Start 11/07/18 at 06:00; Stop 11/14/18 at 05:59 Memantine (Namenda) 5 mg DAILY PO Last administered on 11/07/18 08:12; Admin Dose 5 MG; Start 11/07/18 at 09:00; Status Hold Donepezil HCl (Aricept) 5 mg HS PO Last administered on 11/07/18at 20:22; Admin Dose 5 MG; Start 11/07/18 at 21:00 Lamotrigine (Lamictal) 25 mg BID PO Last administered on 11/08/18 09:32; Admin Dose 25 MG; Start 11/07/18 at 15:00 Digoxin (Digoxin) 0.25 mg DAILY@13 PO Last administered on 11/08/18at 12:52; Admin Dose 0.25 MG; Start 11/08/18 at 13:00 Rivaroxaban (Xarelto) 20 mg WITH DINNER PO Last administered on 11/07/18at 18:09; Admin Dose 20 MG; Start 11/07/18 at 18:00 Diltiazem HCl (Cardizem Iv) 15 mg Q2H PRN IV sustained hr>130; Start 11/07/18 at 16:00 Quetiapine Fumarate (Seroquel) 25 mg PC DINNER PO ; Start 11/08/18 at 19:00 Atenolol (Tenormin) 50 mg BID PO ; Start 11/08/18 at 21:00 Assessment/Plan Hospital Course (Demo Recall) Atrial fibrillation with rapid ventricular rates with Preserved ejection fraction Pneumonia Acute kidney injury Coronary artery disease with history of PCI Encephalopathy Hypertension Lower extremity edema REC -Patient with continued confusion and agitation, trying to get out of bed and taking off telemetry. This is likely the contributing etiologies to his tachycardia -Continue beta-fermin as tolerated -Hold any nephrotoxic medications -Antibiotics as per primary team CHECK DIG LEVEL and if > 1.0, decrease dig dose. THANK YOU DAWSON OROZCO MD Nov 08, 2018 17:13
--- NOTE | 2018-11-08 18:02 | RADRPT ---
Vent Rate: 124 bpm RR Interval: 0 msec WV Interval: 0 msec QRS Duration: 88 msec QT Interval: 322 msec QTC Interval: 462 msec P-R-T [place]: 0 - 41 - 85 degrees Atrial fibrillation with rapid ventricular response Nonspecific T wave abnormality Abnormal ECG Electronically Signed By: Elkin Blue
[2018-11-08] MEDS: QUETIAPINE 25 MG TAB PO SCH (19:06)
[2018-11-08] MEDS: DONEPEZIL 10 MG TAB PO SCH (20:11)
[2018-11-08] MEDS: TAMSULOSIN (SR) 0.4 MG CAP PO SCH (20:11)
[2018-11-08] MEDS: GABAPENTIN 400 MG CAP PO SCH (20:11)
[2018-11-08] MEDS: ATENOLOL 50 MG TAB PO SCH (20:12)
[2018-11-08] MEDS: MONTELUKAST 10 MG TAB PO SCH (20:12)
[2018-11-08] MEDS: ATORVASTATIN 40 MG TAB PO SCH (20:12)
[2018-11-09] VITALS (13 sets, daily range): BP systolic 126–175; BP diastolic 80–107; PULSE 61–134; RESP 18–26
[2018-11-09] MEDS: LEVOFLOXACIN 500 MG TAB PO SCH (06:13)
[2018-11-09] MEDS: FLUTICASONE/VILANTEROL 100-25 INH SCH (08:14)
[2018-11-09] MEDS: LOSARTAN 50 MG TAB PO SCH (08:15)
[2018-11-09] MEDS: ATENOLOL 50 MG TAB PO SCH ×2 (08:15→21:30)
[2018-11-09] MEDS: FINASTERIDE 5 MG TAB PO SCH (08:15)
[2018-11-09] MEDS: LAMOTRIGINE 25 MG TAB PO SCH ×2 (08:15→21:30)
[2018-11-09] MEDS: ACETYLCYSTEINE 600 MG CAP PO SCH (08:15)
[2018-11-09] MEDS: ASPIRIN 81 MG TAB PO SCH (08:15)
[2018-11-09] MEDS: FAMOTIDINE 20 MG TAB PO SCH ×2 (08:21→21:30)
[2018-11-09] MEDS: HEPARIN 5,000 UNIT/1 ML VIAL SC SCH ×2 (08:25→23:38)
--- NOTE | 2018-11-09 09:50 | CONS ---
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 for which neurology is consulted. The clinical picture suggests a mild dementia w/ superimposed acute encephalopathy.. There is likely an underlying depression that is contributing.. MRI brain is without acute intracranial pathology, though is notable for generalized atrophy, as can be seen in dementia. CXR c/f PNA NAZIA + B12, TSH nl, RPR neg P: Infectious and other medical management per primary Reorient as necessary Limit daytime sedating medications where possible PT/OT/ST as necessary Will follow clinically Consultation Date/Type/Reason Admit Date/Time Nov 04, 2018 at 17:03 Type of Consult Neurology Reason for Consultation ams Requesting Provider: CHRIS RUBIN MD Date/Time of Note DATE: 11/09/18 TIME: 09:49 24 HR Interval Summary Free Text/Dictation Continues acute care. Pt remains confused, trying to get out of bed and pulling off clothes. Off namenda. Exam Vital Signs Vitals Vital Signs Date Temp Pulse Resp B/P (MAP) Pulse Ox O2 O2 Flow FiO2 Time Delivery Rate 11/09/18 134 08:41 11/09/18 98.3 21 131/90 91 08:07 (104) 11/09/18 Nasal 2.0 07:54 Cannula Intake and Output 11/08/18 11/08/18 11/09/18 1515:00 23:00 07:00 IntakeIntake Total 300 ml BalanceBalance 300 ml Exam PE: Gen Appearance: No Apparent Distress HEENT: Normocephalic Cardiovascular: Regular rate Abdomen: Soft Extremities: Dry NE: The patient was awake, alert and sparsely verbal. Disoriented Unable to follow any commands. Cranial nerve examination was limited by mental status. Pupils were equal and reactive to light. There was no afferent pupillary defect. Funduscopic examination was limited. Face was grossly symmetric, w/ present corneal and cough reflexes. Tone was normal. Muscle bulk was normal. I did not see fasciculations. The patient had spontaneous movement of all extremities. Coordination and gait testing was limited by mental status. Arm and leg reflexes were within normal limits and symmetric. Almonte's sign was absent. Plantar responses were flexor. [employer] Nov 09, 2018 09:50 KHADIJAH KU Nov 10, 2018 21:14
--- NOTE | 2018-11-09 10:08 | CONS ---
Assessment/Plan Assessment/Plan Assessment/Plan (Daily) Assessment recommendations; 1. Patient admitted for A. fib with RVR with rate well controlled now. 2. Advanced dementia, patient exhibiting significant agitation today. Likely hospital-induced psychosis. 3. History of BPH, hypertension. 4. Acute renal injury with continually improving renal function. Continue on supportive care. Administer Ativan 1 mg IV every 6 hours as needed. Consultation Date/Type/Reason Admit Date/Time Nov 04, 2018 at 17:03 Initial Consult Date 11/05/18 Type of Consult Pulmonary Patient is a 73-year-old male who was admitted to the hospital with confusion, patient was found to be in A. fib with RVR, patient was started on Cardizem with significant reduction in heart rate. By the time I saw the patient in the room, patient is noncommunicative apparently due to underlying advanced dementia. Patient did not appear to be in any distress whatsoever. History was obtained from medical records. Past medical history; 1. History of chronic atrial fibrillation. 2. Dementia. 3. BPH. 4. Hypertension. 5. CAD. 6. History of gastroesophageal reflux disease. Medications; reviewed. Allergies; as outlined above. Family history, social history, occupational history is not available. Review of system; unable to be obtained. Patient though remains awake and responsive. Appears confused. General exam; elderly male, currently no distress. Awake and responsive but unable to provide any meaningful history by himself. Requesting Provider: CHRIS RUBIN MD Date/Time of Note DATE: 11/09/18 TIME: 10:06 24 HR Interval Summary Free Text/Dictation Patient's condition is unstable, patient exhibiting severe agitation rubbing his clothes off and trying to pull various lines and catheters. General exam; elderly male, very agitated. Noncommunicative. Exam/Review of Systems Exam Vitals Vital Signs Date Temp Pulse Resp B/P (MAP) Pulse Ox O2 O2 Flow FiO2 Time Delivery Rate 11/09/18 134 08:41 11/09/18 98.3 21 131/90 91 08:07 (104) 11/09/18 Nasal 2.0 07:54 Cannula Intake and Output 11/08/18 11/08/18 11/09/18 1515:00 23:00 07:00 IntakeIntake Total 300 ml BalanceBalance 300 ml Exam HEENT exam; supple neck, no JVD. No lymphadenopathy. Midline trachea. No thyr omegaly. Patient has carious teeth. Chest exam; diminished but clear breath sounds. S1-S2 audible, irregular rhythm. Abdomen exam; soft, no organomegaly. Bowel sounds audible. Extremity exam; peripheral edema. INSTRUMENT TECHNICIAN exam; patient is agitated. Results Result Diagram: 11/09/18 0525 11/09/18 0525 Results 24hrs Laboratory Tests Test 11/09/18 05:25 White Blood Count 9.8 # Red Blood Count 4.81 Hemoglobin 14.4 Hematocrit 44.9 Mean Corpuscular Volume 93.3 Mean Corpuscular Hemoglobin 29.9 Mean Corpuscular Hemoglobin Concent 32.1 Red Cell Distribution Width 14.4 Platelet Count 205 # Mean Platelet Volume 11.3 H Immature Granulocytes % 0.400 Neutrophils % 79.6 H Lymphocytes % 9.5 L Monocytes % 8.0 Eosinophils % 2.2 Basophils % 0.3 Nucleated Red Blood Cells % 0.0 Immature Granulocytes # 0.040 H Neutrophils # 7.8 H Lymphocytes # 0.9 Monocytes # 0.8 Eosinophils # 0.2 Basophils # 0.0 Nucleated Red Blood Cells # 0.0 Sodium Level 142 Potassium Level 4.5 Chloride Level 109 Carbon Dioxide Level 25 Anion Gap 8 Blood Urea Nitrogen 40 H Creatinine 1.19 Est Glomerular Filtrat Rate mL/min Glucose Level 103 Calcium Level 9.3 Magnesium Level 2.2 Total Bilirubin 1.2 Direct Bilirubin 0.00 Indirect Bilirubin 1.2 H Aspartate Amino Transf (AST/SGOT) 26 Alanine Aminotransferase (ALT/SGPT) 27 Alkaline Phosphatase 73 Total Protein 6.1 Albumin 3.6 Globulin 2.50 Albumin/Globulin Ratio 1.44 Digoxin Level 0.7 L Medications Medication Current Medications IV Flush (NS 3 ml) 3 ml PER PROTOCOL IV ; Start 11/04/18 at 17:30 Ondansetron HCl (Zofran Tab) 4 mg Q6H PRN PO NAUSEA/VOMITING; Start 11/04/18 at 17:30 Aspirin (Aspirin) 81 mg DAILY PO Last administered on 11/09/18at 08:15; Admin Dose 81 MG; Start 11/05/18 at 09:00 Acetaminophen (Tylenol Tab) 650 mg Q6H PRN PO .PAIN 1-3 OR TEMP; Start 11/04/18 at 17:30 Acetaminophen/ Hydrocodone Bitart ([place] (5/325)) 1 tab Q6H PRN PO .PAIN 4-6; Start 11/04/18 at 17:30 Docusate Sodium (Colace) 100 mg Q12H PRN PO .CONSTIPATION; Start 11/04/18 at 17:30 Famotidine (Pepcid) 20 mg Q12 PO Last administered on 11/09/18 08:21; Admin Dose 20 MG; Start 11/04/18 at 21:00 Heparin Sodium (Porcine) (Heparin (5000 Units/1ml)) 5,000 unit Q12 SC Last administered on 11/09/18 08:25; Admin Dose 5,000 UNIT; Start 11/04/18 at 21:00 Finasteride (Proscar) 5 mg DAILY PO Last administered on 11/09/18 08:15; Admin Dose 5 MG; Start 11/05/18 at 09:00 Gabapentin (Neurontin) 400 mg QHS PO Last administered on 11/08/18 20:11; Admin Dose 400 MG; Start 11/04/18 at 21:00 Losartan Potassium (Cozaar) 50 mg DAILY PO Last administered on 11/09/18 08:15; Admin Dose 50 MG; Start 11/05/18 at 09:00 Tamsulosin HCl (Flomax) 0.8 mg HS PO Last administered on 11/08/18 20:11; Admin Dose 0.8 MG; Start 11/04/18 at 21:00 Atorvastatin Calcium (Lipitor) 40 mg QHS PO Last administered on 11/08/18 20:12; Admin Dose 40 MG; Start 11/04/18 at 21:00 Montelukast Sodium (Singulair) 10 mg QHS PO Last administered on 11/08/18 20:12; Admin Dose 10 MG; Start 11/04/18 at 21:00 Fluticasone/ Vilanterol (Breo Ellipta 100-25 Mcg Inh) 1 inh DAILY INH Last administered on 11/09/18 08:14; Admin Dose 1 INH; Start 11/04/18 at 18:00 Tiotropium [place] (Spiriva) 1 inh QAM INH Last administered on 11/07/18 08:22; Admin Dose 1 INH; Start 11/04/18 at 18:00; Status Hold Miscellaneous Information Patients own medicat... BID@10,16 XX ; Start 11/05/18 at 10:00 Acetylcysteine (Nac) 1,200 mg BID PO Last administered on 11/09/18 08:15; Admin Dose 1,200 MG; Start 11/05/18 at 13:30; Stop 11/09/18 at 13:29 Albuterol/ Ipratropium (Duoneb) 3 ml Q6H RESP THERAPY PRN HHN SHORTNESS OF BREATH; Start 11/06/18 at 12:00 Levofloxacin (Levaquin) 500 mg DAILY@06 PO Last administered on 11/09/18 06:13; Admin Dose 500 MG; Start 11/07/18 at 06:00; Stop 11/14/18 at 05:59 Memantine (Namenda) 5 mg DAILY PO Last administered on 11/07/18 08:12; Admin Dose 5 MG; Start 11/07/18 at 09:00; Status Hold Donepezil HCl (Aricept) 5 mg HS PO Last administered on 11/08/18 20:11; Admin Dose 5 MG; Start 11/07/18 at 21:00 Lamotrigine (Lamictal) 25 mg BID PO Last administered on 11/09/18 08:15; Admin Dose 25 MG; Start 11/07/18 at 15:00 Digoxin (Digoxin) 0.25 mg DAILY@13 PO Last administered on 11/08/18 12:52; Admin Dose 0.25 MG; Start 11/08/18 at 13:00 Rivaroxaban (Xarelto) 20 mg WITH DINNER PO Last administered on 11/08/18 17:10; Admin Dose 20 MG; Start 11/07/18 at 18:00 Diltiazem HCl (Cardizem Iv) 15 mg Q2H PRN IV sustained hr>130; Start 11/07/18 at 16:00 Quetiapine Fumarate (Seroquel) 25 mg PC DINNER PO Last administered on 11/08/18 19:06; Admin Dose 25 MG; Start 11/08/18 at 19:00 Atenolol (Tenormin) 50 mg BID PO Last administered on 11/09/18 08:15; Admin Dose 50 MG; Start 11/08/18 at 21:00 DEBBIE PEARSON 31, 2020 10:08
[2018-11-09] MEDS ORDERED: LORAZEPAM 2 MG INJ IV PRN (10:30)
[2018-11-09] MEDS: DIGOXIN 0.25 MG TAB PO SCH (12:18)
--- NOTE | 2018-11-09 12:23 | PN ---
Date/Time of Note Date/Time of Note DATE: 11/09/18 TIME: 12:20 Assessment/Plan VTE Prophylaxis Risk score (from [facility])>0 risk: 6 SCD applied (from [facility]): No SCD contraindicated: patient refusal Pharmacological prophylaxis: rivaroxaban Lines/Catheters IV Catheter Type (from [facility]): [place] Lock Urinary Cath still in place: No Assessment/Plan Problems: (1) Altered mental status Status: Acute Comment: He continues to be rather altered. He was given sedating medications today during the daytime and as such we is now somewhat difficult to interview. I am going to aim to use some medications that can sedate him at bedtime so that he will actually be able to sleep. He is not sleeping overnight so far. Please note that the metabolic derangements are coming into line nicely. Qualifiers: Altered mental status type: unspecified Qualified Codes: R41.82 - Altered mental status, unspecified (2) Atrial fibrillation with RVR Status: Acute Comment: Rate control still remains modestly difficult. We will give 1 additi onal dosage of digoxin to bring the levels up (3) Essential hypertension Status: Chronic Comment: Adequate control (4) Diastolic dysfunction Status: Chronic Comment: Control of blood pressure (5) Right lower lobe pneumonia Status: Acute Comment: Responding to antibiotics and the cough is resolved Qualifiers: Pneumonia type: due to unspecified organism Qualified Codes: J18.1 - Lobar pneumonia, unspecified organism (6) Hyperlipidemia Status: Chronic Comment: On statin therapy Qualifiers: Hyperlipidemia type: pure hypercholesterolemia Qualified Codes: E78.00 - Pure hypercholesterolemia, unspecified (7) Benign prostatic hyperplasia Status: Chronic Qualifiers: Lower urinary tract symptom presence: symptoms present Lower urinary tract symptom detail: urinary hesitancy Qualified Codes: N40.1 - Benign prostatic hyperplasia with lower urinary tract symptoms; R39.11 - Hesitancy of micturition Result Diagram: 11/09/1852411/09/18524 Results 24hrs Laboratory Tests Test 11/09/18 05:25 White Blood Count 9.8 # Red Blood Count 4.81 Hemoglobin 14.4 Hematocrit 44.9 Mean Corpuscular Volume 93.3 Mean Corpuscular Hemoglobin 29.9 Mean Corpuscular Hemoglobin Concent 32.1 Red Cell Distribution Width 14.4 Platelet Count 205 # Mean Platelet Volume 11.3 H Immature Granulocytes % 0.400 Neutrophils % 79.6 H Lymphocytes % 9.5 L Monocytes % 8.0 Eosinophils % 2.2 Basophils % 0.3 Nucleated Red Blood Cells % 0.0 Immature Granulocytes # 0.040 H Neutrophils # 7.8 H Lymphocytes # 0.9 Monocytes # 0.8 Eosinophils # 0.2 Basophils # 0.0 Nucleated Red Blood Cells # 0.0 Sodium Level 142 Potassium Level 4.5 Chloride Level 109 Carbon Dioxide Level 25 Anion Gap 8 Blood Urea Nitrogen 40 H Creatinine 1.19 Est Glomerular Filtrat Rate mL/min Glucose Level 103 Calcium Level 9.3 Magnesium Level 2.2 Total Bilirubin 1.2 Direct Bilirubin 0.00 Indirect Bilirubin 1.2 H Aspartate Amino Transf (AST/SGOT) 26 Alanine Aminotransferase (ALT/SGPT) 27 Alkaline Phosphatase 73 Total Protein 6.1 Albumin 3.6 Globulin 2.50 Albumin/Globulin Ratio 1.44 Digoxin Level 0.7 L Subjective 24 Hr Interval Summary Free Text/Dictation Patient is received a dose of lorazepam and is now more confused and agitated. Constitutional: disoriented Exam/Review of Systems Exam Vitals Vital Signs Date Temp Pulse Resp B/P (MAP) Pulse Ox O2 O2 Flow FiO2 Time Delivery Rate 11/09/18 134 12:19 11/09/18 126/80 12:00 (95) 11/09/18 98.0 20 90 11:37 11/09/18 Nasal 2.0 07:54 Cannula Intake and Output 11/08/18 11/08/18 11/09/18 1515:00 23:00 07:00 IntakeIntake Total 300 ml BalanceBalance 300 ml Constitutional: non-verbal Respiratory: clear to auscultation, normal air movement Cardiovascular: nl pulses, irregular rhythm Gastrointestinal: soft, nl liver, spleen, non-tender Results Results 24hrs Laboratory Tests Test 11/09/18 05:25 White Blood Count 9.8 # Red Blood Count 4.81 Hemoglobin 14.4 Hematocrit 44.9 Mean Corpuscular Volume 93.3 Mean Corpuscular Hemoglobin 29.9 Mean Corpuscular Hemoglobin Concent 32.1 Red Cell Distribution Width 14.4 Platelet Count 205 # Mean Platelet Volume 11.3 H Immature Granulocytes % 0.400 Neutrophils % 79.6 H Lymphocytes % 9.5 L Monocytes % 8.0 Eosinophils % 2.2 Basophils % 0.3 Nucleated Red Blood Cells % 0.0 Immature Granulocytes # 0.040 H Neutrophils # 7.8 H Lymphocytes # 0.9 Monocytes # 0.8 Eosinophils # 0.2 Basophils # 0.0 Nucleated Red Blood Cells # 0.0 Sodium Level 142 Potassium Level 4.5 Chloride Level 109 Carbon Dioxide Level 25 Anion Gap 8 Blood Urea Nitrogen 40 H Creatinine 1.19 Est Glomerular Filtrat Rate mL/min Glucose Level 103 Calcium Level 9.3 Magnesium Level 2.2 Total Bilirubin 1.2 Direct Bilirubin 0.00 Indirect Bilirubin 1.2 H Aspartate Amino Transf (AST/SGOT) 26 Alanine Aminotransferase (ALT/SGPT) 27 Alkaline Phosphatase 73 Total Protein 6.1 Albumin 3.6 Globulin 2.50 Albumin/Globulin Ratio 1.44 Digoxin Level 0.7 L Medications Medication Current Medications IV Flush (NS 3 ml) 3 ml PER PROTOCOL IV ; Start 11/04/18 at 17:30 Ondansetron HCl (Zofran Tab) 4 mg Q6H PRN PO NAUSEA/VOMITING; Start 11/04/18 at 17:30 Aspirin (Aspirin) 81 mg DAILY PO Last administered on 11/09/18 08:15; Admin Dose 81 MG; Start 11/05/18 at 09:00 Acetaminophen (Tylenol Tab) 650 mg Q6H PRN PO .PAIN 1-3 OR TEMP; Start 11/04/18 at 17:30 Acetaminophen/ Hydrocodone Bitart ([place] (5/325)) 1 tab Q6H PRN PO .PAIN 4-6; Start 11/04/18 at 17:30 Docusate Sodium (Colace) 100 mg Q12H PRN PO .CONSTIPATION; Start 11/04/18 at 17:30 Famotidine (Pepcid) 20 mg Q12 PO Last administered on 11/09/18 08:21; Admin Dose 20 MG; Start 11/04/18 at 21:00 Heparin Sodium (Porcine) (Heparin (5000 Units/1ml)) 5,000 unit Q12 SC Last administered on 11/09/18 08:25; Admin Dose 5,000 UNIT; Start 11/04/18 at 21:00 Finasteride (Proscar) 5 mg DAILY PO Last administered on 11/09/18 08:15; Admin Dose 5 MG; Start 11/05/18 at 09:00 Losartan Potassium (Cozaar) 50 mg DAILY PO Last administered on 11/09/18 08:15; Admin Dose 50 MG; Start 11/05/18 at 09:00 Tamsulosin HCl (Flomax) 0.8 mg HS PO Last administered on 11/08/18 20:11; Admin Dose 0.8 MG; Start 11/04/18 at 21:00 Atorvastatin Calcium (Lipitor) 40 mg QHS PO Last administered on 11/08/18 20:12; Admin Dose 40 MG; Start 11/04/18 at 21:00 Montelukast Sodium (Singulair) 10 mg QHS PO Last administered on 11/08/18 20:12; Admin Dose 10 MG; Start 11/04/18 at 21:00 Fluticasone/ Vilanterol (Breo Ellipta 100-25 Mcg Inh) 1 inh DAILY INH Last administered on 11/09/18 08:14; Admin Dose 1 INH; Start 11/04/18 at 18:00 Tiotropium [place] (Spiriva) 1 inh QAM INH Last administered on 11/07/18 08:22; Admin Dose 1 INH; Start 11/04/18 at 18:00; Status Hold Miscellaneous Information Patients own medicat... BID@10,16 XX ; Start 11/05/18 at 10:00 Acetylcysteine (Nac) 1,200 mg BID PO Last administered on 11/09/18 08:15; Admin Dose 1,200 MG; Start 11/05/18 at 13:30; Stop 11/09/18 at 13:29 Albuterol/ Ipratropium (Duoneb) 3 ml Q6H RESP THERAPY PRN HHN SHORTNESS OF BREATH; Start 11/06/18 at 12:00 Levofloxacin (Levaquin) 500 mg DAILY@06 PO Last administered on 11/09/18 06:13; Admin Dose 500 MG; Start 11/07/18 at 06:00; Stop 11/14/18 at 05:59 Memantine (Namenda) 5 mg DAILY PO Last administered on 11/07/18 08:12; Admin Dose 5 MG; Start 11/07/18 at 09:00; Status Hold Lamotrigine (Lamictal) 25 mg BID PO Last administered on 11/09/18 08:15; Admin Dose 25 MG; Start 11/07/18 at 15:00 Digoxin (Digoxin) 0.25 mg DAILY@13 PO Last administered on 11/08/18at 12:52; Admin Dose 0.25 MG; Start 11/08/18 at 13:00 Rivaroxaban (Xarelto) 20 mg WITH DINNER PO Last administered on 11/08/18at 17:10; Admin Dose 20 MG; Start 11/07/18 at 18:00 Diltiazem HCl (Cardizem Iv) 15 mg Q2H PRN IV sustained hr>130; Start 11/07/18 at 16:00 Quetiapine Fumarate (Seroquel) 25 mg PC DINNER PO Last administered on 11/08/18at 19:06; Admin Dose 25 MG; Start 11/08/18 at 19:00 Atenolol (Tenormin) 50 mg BID PO Last administered on 11/09/18at 08:15; Admin Dose 50 MG; Start 11/08/18 at 21:00 Lorazepam (Ativan) 1 mg Q6H PRN IV ANXIETY Last administered on 11/09/18at 10:32; Admin Dose 1 MG; Start 11/09/18 at 10:30 Gabapentin (Neurontin) 600 mg QHS PO ; Start 11/09/18 at 21:00 Alprazolam (Xanax) 0.25 mg PC DINNER PO ; Start 11/09/18 at 19:00 Lactated Ringer's 500 ml @ 500 mls/hr Q1H ONCE IV ; Start 11/09/18 at 12:30; Stop 11/09/18 at 13:29 Donepezil HCl (Aricept) 10 mg HS PO ; Start 11/09/18 at 21:00; Status CHRIS CARLSON MD Nov 09, 2018 12:23
[2018-11-09] MEDS ORDERED: LACTATED RINGER'S 500 ML IV ONE (12:30)
[2018-11-09] MEDS ORDERED: DIGOXIN 500 MCG INJ IV ONE (12:30)
[2018-11-09] MEDS: RIVAROXABAN 20 MG TABLET PO SCH (17:30)
[2018-11-09] MEDS: ALPRAZOLAM 0.25 MG TAB PO SCH (18:03)
[2018-11-09] MEDS: QUETIAPINE 25 MG TAB PO SCH (18:03)
[2018-11-09] MEDS ORDERED: DONEPEZIL 10 MG TAB PO SCH (21:00)
[2018-11-09] MEDS ORDERED: GABAPENTIN 300 MG CAP PO SCH (21:00)
[2018-11-09] MEDS: MONTELUKAST 10 MG TAB PO SCH (21:30)
[2018-11-09] MEDS: ATORVASTATIN 40 MG TAB PO SCH (21:30)
[2018-11-09] MEDS: TAMSULOSIN (SR) 0.4 MG CAP PO SCH (21:30)
[2018-11-10] VITALS (16 sets, daily range): BP systolic 127–187; BP diastolic 83–120; PULSE 81–163; RESP 18–22
[2018-11-10] MEDS ORDERED: ALPRAZOLAM 0.25 MG TAB PO ONE (01:00)
[2018-11-10] MEDS: LEVOFLOXACIN 500 MG TAB PO SCH (05:30)
[2018-11-10] MEDS: FLUTICASONE/VILANTEROL 100-25 INH SCH (09:00)
--- NOTE | 2018-11-10 11:42 | CONS ---
Assessment/Plan Assessment/Plan Hospital Course (Demo Recall) Atrial fibrillation with rapid ventricular rates Preserved ejection fraction Pneumonia Acute kidney injury Coronary artery disease with history of PCI Encephalopathy Hypertension Lower extremity edema -Patient with continued confusion and agitation, trying to get out of bed and taking off telemetry. This is likely the contributing etiologies to his tachycardia. Furthermore, he is refusing medications and has pulled out his IV multiple times as per nursing staff. Concern for possible beta-fermin could affect his mental status, given preserved ejection fraction, could try Cardizem for heart rate control. But of primary importance is his overall mental state. He does have IV Cardizem as needed for sustained tachycardia. Would also order oral Cardizem once patient able to take p.o. -Hold any nephrotoxic medications -Antibiotics as per primary team Consultation Date/Type/Reason Admit Date/Time Nov 04, 2018 at 17:03 Initial Consult Date 11/05/18 Type of Consult Cardiology Requesting Provider: CHRIS RUBIN MD Date/Time of Note DATE: 11/10/18 TIME: 11:39 24 HR Interval Summary Free Text/Dictation Patient more confused. In discussion with nursing staff, has become combative, pulling out IV and refusing medications Exam/Review of Systems Vital Signs Vitals Vital Signs Date Temp Pulse Resp B/P (MAP) Pulse Ox O2 O2 Flow FiO2 Time Delivery Rate 11/10/18 97.5 112 18 145/102 90 Room Air 11:34 (116) 11/10/18 2.0 04:01 Intake and Output 11/09/18 11/09/18 11/10/18 1515:00 23:00 07:00 IntakeIntake Total 500 ml 200 ml 200 ml OutputOutput Total 150 ml BalanceBalance 500 ml 50 ml 200 ml Exam Exam Sleeping but arousable, following occasional commands but falls asleep, nursing staff at bedside Head: normocephalic Respiratory: other (Coarse breath sounds bilaterally, no wheezing) Cardiovascular: regular rate and rhythm (S1-S2 heard) Gastrointestinal: soft, non-tender, bowel sounds Extremities: edema Labs Result Diagram: 11/09/18 0525 11/10/18 0550 Results 24hrs Laboratory Tests Test 11/10/18 05:50 Sodium Level 143 Potassium Level 4.3 Chloride Level 110 Carbon Dioxide Level 27 Anion Gap 6 Blood Urea Nitrogen 33 H Creatinine 1.13 Est Glomerular Filtrat Rate mL/min Glucose Level 89 Calcium Level 9.3 Digoxin Level 1.1 # Medications Medications Current Medications IV Flush (NS 3 ml) 3 ml PER PROTOCOL IV ; Start 11/04/18 at 17:30 Ondansetron HCl (Zofran Tab) 4 mg Q6H PRN PO NAUSEA/VOMITING; Start 11/04/18 at 17:30 Aspirin (Aspirin) 81 mg DAILY PO Last administered on 11/09/18 08:15; Admin Dose 81 MG; Start 11/05/18 at 09:00 Acetaminophen (Tylenol Tab) 650 mg Q6H PRN PO .PAIN 1-3 OR TEMP; Start 11/04/18 at 17:30 Acetaminophen/ Hydrocodone Bitart ([place] (5/325)) 1 tab Q6H PRN PO .PAIN 4-6; Start 11/04/18 at 17:30 Docusate Sodium (Colace) 100 mg Q12H PRN PO .CONSTIPATION; Start 11/04/18 at 17:30 Famotidine (Pepcid) 20 mg Q12 PO Last administered on 11/09/18 08:21; Admin Dose 20 MG; Start 11/04/18 at 21:00 Heparin Sodium (Porcine) (Heparin (5000 Units/1ml)) 5,000 unit Q12 SC Last administered on 11/09/18 23:38; Admin Dose 5,000 UNIT; Start 11/04/18 at 21:00 Finasteride (Proscar) 5 mg DAILY PO Last administered on 11/09/18 08:15; Admin Dose 5 MG; Start 11/05/18 at 09:00 Losartan Potassium (Cozaar) 50 mg DAILY PO Last administered on 11/09/18 08:15; Admin Dose 50 MG; Start 11/05/18 at 09:00 Tamsulosin HCl (Flomax) 0.8 mg HS PO Last administered on 11/08/18 20:11; Admin Dose 0.8 MG; Start 11/04/18 at 21:00 Atorvastatin Calcium (Lipitor) 40 mg QHS PO Last administered on 11/08/18 20:12; Admin Dose 40 MG; Start 11/04/18 at 21:00 Montelukast Sodium (Singulair) 10 mg QHS PO Last administered on 11/08/18 20:12; Admin Dose 10 MG; Start 11/04/18 at 21:00 Fluticasone/ Vilanterol (Breo Ellipta 100-25 Mcg Inh) 1 inh DAILY INH Last administered on 11/09/18 08:14; Admin Dose 1 INH; Start 11/04/18 at 18:00 Tiotropium [place] (Spiriva) 1 inh QAM INH Last administered on 11/07/18 08:22; Admin Dose 1 INH; Start 11/04/18 at 18:00; Status Hold Miscellaneous Information Patients own medicat... BID@10,16 XX ; Start 11/05/18 at 10:00 Albuterol/ Ipratropium (Duoneb) 3 ml Q6H RESP THERAPY PRN HHN SHORTNESS OF BREATH Last administered on 11/09/18 20:03; Admin Dose 3 ML; Start 11/06/18 at 12:00 Levofloxacin (Levaquin) 500 mg DAILY@06 PO Last administered on 11/09/18 06:13; Admin Dose 500 MG; Start 11/07/18 at 06:00; Stop 11/14/18 at 05:59 Memantine (Namenda) 5 mg DAILY PO Last administered on 11/07/18 08:12; Admin Dose 5 MG; Start 11/07/18 at 09:00 Lamotrigine (Lamictal) 25 mg BID PO Last administered on 11/09/18 08:15; Admin Dose 25 MG; Start 11/07/18 at 15:00 Digoxin (Digoxin) 0.25 mg DAILY@13 PO Last administered on 11/09/18 12:18; Admin Dose 0.25 MG; Start 11/08/18 at 13:00 Rivaroxaban (Xarelto) 20 mg WITH DINNER PO Last administered on 11/09/18 17:30; Admin Dose 20 MG; Start 11/07/18 at 18:00 Diltiazem HCl (Cardizem Iv) 15 mg Q2H PRN IV sustained hr>130 Last administered on 11/09/18 12:17; Admin Dose 15 MG; Start 11/07/18 at 16:00 Quetiapine Fumarate (Seroquel) 25 mg PC DINNER PO Last administered on 11/09/18 18:03; Admin Dose 25 MG; Start 11/08/18 at 19:00 Atenolol (Tenormin) 50 mg BID PO Last administered on 11/09/18at 08:15; Admin Dose 50 MG; Start 11/08/18 at 21:00 Lorazepam (Ativan) 1 mg Q6H PRN IV ANXIETY Last administered on 11/09/18at 10:32; Admin Dose 1 MG; Start 11/09/18 at 10:30; Status Hold Gabapentin (Neurontin) 600 mg QHS PO ; Start 11/09/18 at 21:00 Alprazolam (Xanax) 0.25 mg PC DINNER PO Last administered on 11/09/18at 18:03; Admin Dose 0.25 MG; Start 11/09/18 at 19:00 Donepezil HCl (Aricept) 10 mg HS PO ; Start 11/09/18 at 21:00 Hal Pickett DO Nov 10, 2018 11:42
--- NOTE | 2018-11-10 12:54 | CONS ---
Consult Date/Type/Reason Admit Date/Time Nov 04, 2018 at 17:03 Initial Consult Date 11/05/18 Type of Consult Pulmonary Requesting Provider: CHRIS RUBIN MD Date/Time of Note DATE: 11/10/18 TIME: 12:52 Subjective Still remains confused and agitated No evidence of respiratory distress however Objective Vital Signs Date Temp Pulse Resp B/P (MAP) Pulse Ox O2 O2 Flow FiO2 Time Delivery Rate 11/10/18 97.5 112 18 145/102 90 Room Air 11:34 (116) 11/10/18 2.0 04:01 Intake and Output 11/09/18 11/09/18 11/10/18 1515:00 23:00 07:00 IntakeIntake Total 500 ml 200 ml 200 ml OutputOutput Total 150 ml BalanceBalance 500 ml 50 ml 200 ml Exam GENERAL: Elderly gentleman confused VITAL SIGNS: per chart NECK: Supple. No JVD or lymphadenopathy. CARDIAC EXAM: S1, S2. No added sounds or murmurs. CHEST: Diminished air entry right base ABDOMEN: Soft, nontender. No guarding or rebound. EXTREMITIES: No cyanosis, clubbing or edema. NEUROLOGIC: Generalized weakness. No focal deficits. Results/Medications Result Diagram: 11/09/18 0525 11/10/18 0550 Results 24 hrs Laboratory Tests Test 11/10/18 05:50 Sodium Level 143 Potassium Level 4.3 Chloride Level 110 Carbon Dioxide Level 27 Anion Gap 6 Blood Urea Nitrogen 33 H Creatinine 1.13 Est Glomerular Filtrat Rate mL/min Glucose Level 89 Calcium Level 9.3 Digoxin Level 1.1 # Medications Current Medications IV Flush (NS 3 ml) 3 ml PER PROTOCOL IV ; Start 11/04/18 at 17:30 Ondansetron HCl (Zofran Tab) 4 mg Q6H PRN PO NAUSEA/VOMITING; Start 11/04/18 at 17:30 Aspirin (Aspirin) 81 mg DAILY PO Last administered on 11/09/18at 08:15; Admin Dose 81 MG; Start 11/05/18 at 09:00 Acetaminophen (Tylenol Tab) 650 mg Q6H PRN PO .PAIN 1-3 OR TEMP; Start 11/04/18 at 17:30 Acetaminophen/ Hydrocodone Bitart ([place] (5/325)) 1 tab Q6H PRN PO .PAIN 4-6; Start 11/04/18 at 17:30 Docusate Sodium (Colace) 100 mg Q12H PRN PO .CONSTIPATION; Start 11/04/18 at 17:30 Famotidine (Pepcid) 20 mg Q12 PO Last administered on 11/09/18 08:21; Admin Dose 20 MG; Start 11/04/18 at 21:00 Heparin Sodium (Porcine) (Heparin (5000 Units/1ml)) 5,000 unit Q12 SC Last administered on 11/09/18 23:38; Admin Dose 5,000 UNIT; Start 11/04/18 at 21:00 Finasteride (Proscar) 5 mg DAILY PO Last administered on 11/09/18 08:15; Admin Dose 5 MG; Start 11/05/18 at 09:00 Losartan Potassium (Cozaar) 50 mg DAILY PO Last administered on 11/09/18 08:15; Admin Dose 50 MG; Start 11/05/18 at 09:00 Tamsulosin HCl (Flomax) 0.8 mg HS PO Last administered on 11/08/18 20:11; Admin Dose 0.8 MG; Start 11/04/18 at 21:00 Atorvastatin Calcium (Lipitor) 40 mg QHS PO Last administered on 11/08/18 20:12; Admin Dose 40 MG; Start 11/04/18 at 21:00 Montelukast Sodium (Singulair) 10 mg QHS PO Last administered on 11/08/18 20:12; Admin Dose 10 MG; Start 11/04/18 at 21:00 Fluticasone/ Vilanterol (Breo Ellipta 100-25 Mcg Inh) 1 inh DAILY INH Last administered on 11/09/18 08:14; Admin Dose 1 INH; Start 11/04/18 at 18:00 Tiotropium [place] (Spiriva) 1 inh QAM INH Last administered on 11/07/18 08:22; Admin Dose 1 INH; Start 11/04/18 at 18:00; Status Hold Miscellaneous Information Patients own medicat... BID@10,16 XX ; Start 11/05/18 at 10:00 Albuterol/ Ipratropium (Duoneb) 3 ml Q6H RESP THERAPY PRN HHN SHORTNESS OF BREATH Last administered on 11/09/18 20:03; Admin Dose 3 ML; Start 11/06/18 at 12:00 Levofloxacin (Levaquin) 500 mg DAILY@06 PO Last administered on 11/09/18 06:13; Admin Dose 500 MG; Start 11/07/18 at 06:00; Stop 11/14/18 at 05:59 Memantine (Namenda) 5 mg DAILY PO Last administered on 11/07/18 08:12; Admin Dose 5 MG; Start 11/07/18 at 09:00 Lamotrigine (Lamictal) 25 mg BID PO Last administered on 11/09/18 08:15; Admin Dose 25 MG; Start 11/07/18 at 15:00 Digoxin (Digoxin) 0.25 mg DAILY@13 PO Last administered on 11/09/18 12:18; Admin Dose 0.25 MG; Start 11/08/18 at 13:00 Rivaroxaban (Xarelto) 20 mg WITH DINNER PO Last administered on 11/09/18 17:30; Admin Dose 20 MG; Start 11/07/18 at 18:00 Diltiazem HCl (Cardizem Iv) 15 mg Q2H PRN IV sustained hr>130 Last administered on 11/09/18 12:17; Admin Dose 15 MG; Start 11/07/18 at 16:00 Quetiapine Fumarate (Seroquel) 25 mg PC DINNER PO Last administered on 11/09/18 18:03; Admin Dose 25 MG; Start 11/08/18 at 19:00 Lorazepam (Ativan) 1 mg Q6H PRN IV ANXIETY Last administered on 11/09/18 10:32; Admin Dose 1 MG; Start 11/09/18 at 10:30; Status Hold Gabapentin (Neurontin) 600 mg QHS PO ; Start 11/09/18 at 21:00 Alprazolam (Xanax) 0.25 mg PC DINNER PO Last administered on 11/09/18 18:03; Admin Dose 0.25 MG; Start 11/09/18 at 19:00 Donepezil HCl (Aricept) 10 mg HS PO ; Start 11/09/18 at 21:00 Diltiazem HCl (Cardizem Cd) 120 mg BID PO ; Start 11/10/18 at 21:00 Assessment/Plan Hospital Course (Demo Recall) Assessment 1. Aspiration versus community acquired pneumonia 2. Encephalopathy toxic metabolic 3. Atrial fibrillation rapid ventricular rate Plan 1. Continue antibiotics 2. Aspiration fall precautions 3. Rate control per cardiology CORBIN HERRERA MD, [facility] Nov 10, 2018 12:54
--- NOTE | 2018-11-10 14:03 | PN ---
Date/Time of Note Date/Time of Note DATE: 11/10/18 TIME: 13:57 Assessment/Plan VTE Prophylaxis Risk score (from [facility] [place])>0 risk: 3 SCD applied (from [facility] [place]): No SCD contraindicated: patient refusal Pharmacological prophylaxis: heparin Lines/Catheters IV [facility]from [facility] Saline Lock Urinary Cath still in place: No Assessment/Plan Problems: (1) Altered mental status Status: Acute Comment: Would appreciate further neurology input. In addition I will have this persistent is actually quite distressing. Neurology has seen the patient and we are trying to work forward with this. Were avoiding sedatives during the daytime but he is being a bit of a handful for the nursing staff. Neurology has not commented but it may be a consideration to do a spinal tap looking for unusual issues, and also do urine heavy metal screen. Psychiatry see him as well. And would appreciate neurology input for further steps in the evaluation Qualifiers: Altered mental status type: unspecified Qualified Codes: R41.82 - Altered mental status, unspecified (2) Atrial fibrillation with RVR Status: Acute Comment: Cardiology is taken off the beta-blockade and we can use calcium channel fermin. (3) Right lower lobe pneumonia Status: Acute Comment: He remains on antibiotics for this and clinically has improved. We will recheck chest x-ray Qualifiers: Pneumonia type: due to unspecified organism Qualified Codes: J18.1 - Lobar pneumonia, unspecified organism (4) Essential hypertension Status: Chronic Comment: Adequate control (5) Benign prostatic hyperplasia Status: Chronic Comment: On treatment Qualifiers: Lower urinary tract symptom presence: symptoms present Lower urinary tract symptom detail: urinary hesitancy Qualified Codes: N40.1 - Benign prostatic hyperplasia with lower urinary tract symptoms; R39.11 - Hesitancy of micturition (6) Hyperlipidemia Status: Chronic Comment: On treatment Qualifiers: Hyperlipidemia type: pure hypercholesterolemia Qualified Codes: E78.00 - Pure hypercholesterolemia, unspecified (7) Diastolic dysfunction Status: Chronic Comment: Stable blood pressure Result Diagram: 11/09/18 0525 11/10/18 0550 Results 24hrs Laboratory Tests Test 11/10/18 05:50 Sodium Level 143 Potassium Level 4.3 Chloride Level 110 Carbon Dioxide Level 27 Anion Gap 6 Blood Urea Nitrogen 33 H Creatinine 1.13 Est Glomerular Filtrat Rate mL/min Glucose Level 89 Calcium Level 9.3 Digoxin Level 1.1 # Subjective 24 Hr Interval Summary Free Text/Dictation He recognizes me today, but his orientation has limitations. He does not remember events of yesterday. He is oriented to person place and time are not oriented Constitutional: no complaints (No fevers chills or sweats) Respiratory: cough (Cough is reduced), shortness of breath (No shortness of breath) Cardiovascular: palpitations Gastrointestinal: no complaints Exam/Review of Systems Exam Vitals Vital Signs Date Temp Pulse Resp B/P (MAP) Pulse Ox O2 O2 Flow FiO2 Time Delivery Rate 11/10/18 97.5 112 18 145/102 90 Room Air 11:34 (116) 11/10/18 2.0 04:01 Intake and Output 11/09/18 11/09/18 11/10/18 1515:00 23:00 07:00 IntakeIntake Total 500 ml 200 ml 200 ml OutputOutput Total 150 ml BalanceBalance 500 ml 50 ml 200 ml Exam Able to converse with me. Psych: anxiety, confusion Head: normocephalic, atraumatic Respiratory: clear to auscultation, normal air movement Cardiovascular: nl pulses, irregular rhythm (April) Gastrointestinal: soft, nl liver, spleen, non-tender (Sounds like a plan to me not to do anything extreme declining there but this is try aside with a 1 face if I asked for cath urine specimen for 8 is thank you for me to go looking for toxins is no all clips in the right) Results Results 24hrs Laboratory Tests Test 11/10/18 05:50 Sodium Level 143 Potassium Level 4.3 Chloride Level 110 Carbon Dioxide Level 27 Anion Gap 6 Blood Urea Nitrogen 33 H Creatinine 1.13 Est Glomerular Filtrat Rate mL/min Glucose Level 89 Calcium Level 9.3 Digoxin Level 1.1 # Medications Medication Current Medications IV Flush (NS 3 ml) 3 ml PER PROTOCOL IV ; Start 11/04/18 at 17:30 Ondansetron HCl (Zofran Tab) 4 mg Q6H PRN PO NAUSEA/VOMITING; Start 11/04/18 at 17:30 Aspirin (Aspirin) 81 mg DAILY PO Last administered on 11/09/18at 08:15; Admin Dose 81 MG; Start 11/05/18 at 09:00 Acetaminophen (Tylenol Tab) 650 mg Q6H PRN PO .PAIN 1-3 OR TEMP; Start 11/04/18 at 17:30 Acetaminophen/ Hydrocodone Bitart ([place] (5/325)) 1 tab Q6H PRN PO .PAIN 4-6; Start 11/04/18 at 17:30 Docusate Sodium (Colace) 100 mg Q12H PRN PO .CONSTIPATION; Start 11/04/18 at 1 7:30 Famotidine (Pepcid) 20 mg Q12 PO Last administered on 11/09/18 08:21; Admin Dose 20 MG; Start 11/04/18 at 21:00 Heparin Sodium (Porcine) (Heparin (5000 Units/1ml)) 5,000 unit Q12 SC Last administered on 11/09/18 23:38; Admin Dose 5,000 UNIT; Start 11/04/18 at 21:00 Finasteride (Proscar) 5 mg DAILY PO Last administered on 11/09/18 08:15; Admin Dose 5 MG; Start 11/05/18 at 09:00 Losartan Potassium (Cozaar) 50 mg DAILY PO Last administered on 11/09/18 08:15; Admin Dose 50 MG; Start 11/05/18 at 09:00 Tamsulosin HCl (Flomax) 0.8 mg HS PO Last administered on 11/08/18 20:11; Admin Dose 0.8 MG; Start 11/04/18 at 21:00 Atorvastatin Calcium (Lipitor) 40 mg QHS PO Last administered on 11/08/18 20:12; Admin Dose 40 MG; Start 11/04/18 at 21:00 Montelukast Sodium (Singulair) 10 mg QHS PO Last administered on 11/08/18 20:12; Admin Dose 10 MG; Start 11/04/18 at 21:00 Fluticasone/ Vilanterol (Breo Ellipta 100-25 Mcg Inh) 1 inh DAILY INH Last administered on 11/09/18 08:14; Admin Dose 1 INH; Start 11/04/18 at 18:[address] [place] (Spiriva) 1 inh QAM INH Last administered on 11/07/18 08:22; Admin Dose 1 INH; Start 11/04/18 at 18:00; Status Hold Miscellaneous Information Patients own medicat... BID@10,16 XX ; Start 11/05/18 at 10:00 Albuterol/ Ipratropium (Duoneb) 3 ml Q6H RESP THERAPY PRN HHN SHORTNESS OF BREATH Last administered on 11/09/18 20:03; Admin Dose 3 ML; Start 11/06/18 at 12:00 Levofloxacin (Levaquin) 500 mg DAILY@06 PO Last administered on 11/09/18 06:13; Admin Dose 500 MG; Start 11/07/18 at 06:00; Stop 11/14/18 at 05:59 Memantine (Namenda) 5 mg DAILY PO Last administered on 11/07/18 08:12; Admin Dose 5 MG; Start 11/07/18 at 09:00 Lamotrigine (Lamictal) 25 mg BID PO Last administered on 11/09/18 08:15; Admin Dose 25 MG; Start 11/07/18 at 15:00 Digoxin (Digoxin) 0.25 mg DAILY@13 PO Last administered on 11/09/18 12:18; Admin Dose 0.25 MG; Start 11/08/18 at 13:00 Rivaroxaban (Xarelto) 20 mg WITH DINNER PO Last administered on 11/09/18 17:30; Admin Dose 20 MG; Start 11/07/18 at 18:00 Diltiazem HCl (Cardizem Iv) 15 mg Q2H PRN IV sustained hr>130 Last administered on 11/09/18 12:17; Admin Dose 15 MG; Start 11/07/18 at 16:00 Quetiapine Fumarate (Seroquel) 25 mg PC DINNER PO Last administered on 11/09/18 18:03; Admin Dose 25 MG; Start 11/08/18 at 19:00 Lorazepam (Ativan) 1 mg Q6H PRN IV ANXIETY Last administered on 11/09/18 10:32; Admin Dose 1 MG; Start 11/09/18 at 10:30; Status Hold Gabapentin (Neurontin) 600 mg QHS PO ; Start 11/09/18 at 21:00 Alprazolam (Xanax) 0.25 mg PC DINNER PO Last administered on 11/09/18 18:03; Admin Dose 0.25 MG; Start 11/09/18 at 19:00 Donepezil HCl (Aricept) 10 mg HS PO ; Start 11/09/18 at 21:00 Diltiazem HCl (Cardizem Cd) 180 mg BID PO ; Start 11/10/18 at 21:00; Status UNCHRIS MANUEL MD Nov 10, 2018 14:03
[2018-11-10] MEDS: LAMOTRIGINE 25 MG TAB PO SCH (14:10)
[2018-11-10] MEDS: FAMOTIDINE 20 MG TAB PO SCH ×2 (14:10→21:29)
[2018-11-10] MEDS: FINASTERIDE 5 MG TAB PO SCH (14:10)
[2018-11-10] MEDS: DIGOXIN 0.25 MG TAB PO SCH (14:10)
[2018-11-10] MEDS: ASPIRIN 81 MG TAB PO SCH (14:11)
[2018-11-10] MEDS: HEPARIN 5,000 UNIT/1 ML VIAL SC SCH ×2 (14:22→21:35)
[2018-11-10] MEDS: LOSARTAN 50 MG TAB PO SCH (14:30)
[2018-11-10] MEDS: MEMANTINE 5 MG TAB PO SCH (14:30)
--- NOTE | 2018-11-10 16:08 | CONS ---
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 for which neurology is consulted. Now in Afib w/ rvr.. The clinical picture suggests a mild dementia w/ superimposed acute toxic- metabolic encephalopathy.. Subclinical seizure is possible Encephalitis is unlikely. MRI brain on 11/04 was without acute intracranial pathology, though notable for generalized atrophy. CXR c/f PNA NAZIA + B12, TSH nl, RPR neg P: Add low dose seroquel q8hr prn; Agree w/ hs seroquel Hold all other psychotropics for now Baseline EEG for further characterization Repeat HCT to evaluate for interval change in light of afib.. Reorient as necessary PT/OT/ST as necessary Other management per primary Will follow clinically Consultation Date/Type/Reason Admit Date/Time Nov 04, 2018 at 17:03 Type of Consult Neurology Reason for Consultation ams Requesting Provider: CHRIS RUBIN MD Date/Time of Note DATE: 11/10/18 TIME: 16:07 24 HR Interval Summary Free Text/Dictation Continues acute care. Exam Vital Signs Vitals Vital Signs Date Temp Pulse Resp B/P (MAP) Pulse Ox O2 O2 Flow FiO2 Time Delivery Rate 11/10/18 98.2 115 20 164/120 98 15:48 (135) 11/10/18 Room Air 11:34 11/10/18 2.0 04:01 Intake and Output 11/09/18 11/09/18 11/10/18 1515:00 23:00 07:00 IntakeIntake Total 500 ml 200 ml 200 ml OutputOutput Total 150 ml BalanceBalance 500 ml 50 ml 200 ml Exam PE: Gen Appearance: No Apparent Distress HEENT: Normocephalic Cardiovascular: Regular rate Abdomen: Soft Extremities: Dry NE: The patient was awake, alert and sparsely verbal. Disoriented. Unable to follow any commands. Cranial nerve examination was limited by mental status. Pupils were equal and reactive to light. There was no afferent pupillary defect. Funduscopic examination was limited. Face was grossly symmetric, w/ present corneal and cough reflexes. Tone was normal. Muscle bulk was normal. I did not see fasciculations. The patient had spontaneous movement of all extremities. Coordination and gait testing was limited by mental status. Arm and leg reflexes were within normal limits and symmetric. Almonte's sign was absent. Plantar responses were flexor. VÍCTOR MARIE NP Nov 10, 2018 16:08 KHADIJAH KU Nov 10, 2018 21:11
[2018-11-10] MEDS ORDERED: CLONIDINE 0.2 MG/24 HR PATCH TRANSDERM SCH (17:30)
[2018-11-10] MEDS: ALPRAZOLAM 0.25 MG TAB PO SCH (18:06)
[2018-11-10] MEDS: QUETIAPINE 25 MG TAB PO SCH (18:06)
[2018-11-10] MEDS: RIVAROXABAN 20 MG TABLET PO SCH (18:06)
[2018-11-10] MEDS ORDERED: DILTIAZEM (CD) 120 MG CAP PO SCH (21:00)
[2018-11-10] MEDS: TAMSULOSIN (SR) 0.4 MG CAP PO SCH (21:29)
[2018-11-10] MEDS: MONTELUKAST 10 MG TAB PO SCH (21:29)
[2018-11-10] MEDS: ATORVASTATIN 40 MG TAB PO SCH (21:29)
[2018-11-10] MEDS ORDERED: QUETIAPINE 25 MG TAB PO PRN (21:30)
[2018-11-10] MEDS: DILTIAZEM (CD) 180 MG CAP PO SCH (21:30)
[2018-11-11] VITALS (18 sets, daily range): BP systolic 108–171; BP diastolic 78–110; PULSE 18–146; RESP 18–22
[2018-11-11] MEDS: LEVOFLOXACIN 500 MG TAB PO SCH (06:14)
[2018-11-11] MEDS: ASPIRIN 81 MG TAB PO SCH (09:26)
[2018-11-11] MEDS: FINASTERIDE 5 MG TAB PO SCH (09:26)
[2018-11-11] MEDS: DILTIAZEM (CD) 180 MG CAP PO SCH (09:27)
[2018-11-11] MEDS: LOSARTAN 50 MG TAB PO SCH (09:27)
[2018-11-11] MEDS: FAMOTIDINE 20 MG TAB PO SCH ×2 (09:27→21:46)
[2018-11-11] MEDS: HEPARIN 5,000 UNIT/1 ML VIAL SC SCH ×2 (09:33→21:59)
[2018-11-11] MEDS: FLUTICASONE/VILANTEROL 100-25 INH SCH (09:43)
[2018-11-11] MEDS: DIGOXIN 0.25 MG TAB PO SCH (12:29)
--- NOTE | 2018-11-11 13:16 | PN ---
Date/Time of Note Date/Time of Note DATE: 11/11/18 TIME: 13:13 Assessment/Plan VTE Prophylaxis [place] [facility] [place]: 3 [place] [facility] [place] Yes Pharmacological prophylaxis: heparin Lines/Catheters IV [facility] Type (from [facility] Saline Lock Urinary Cath still in place: No Assessment/Plan Problems: (1) Right lower lobe pneumonia Status: Acute Comment: Improving clinically and on chest x-ray Qualifiers: Pneumonia type: due to unspecified organism Qualified Codes: J18.1 - Lobar pneumonia, unspecified organism (2) Altered mental status Status: Acute Comment: From metabolic standpoint many of the issues are improved. His mental status is improved and neurology is actively being of help with us in this workup. I concur with the suggestion to repeat a CT scan. In addition his Aricept and Namenda were held. After that is when he now recognizes me. Continue to observe him carefully and hope for the best Qualifiers: Altered mental status type: unspecified Qualified Codes: R41.82 - Altered mental status, unspecified (3) Atrial fibrillation with RVR Status: Acute Comment: Better rate control, continue to adjust rate controlling medicines (4) Benign prostatic hyperplasia Status: Chronic Comment: Noted and stable Qualifiers: Lower urinary tract symptom presence: symptoms present Lower urinary tract symptom detail: urinary hesitancy Qualified Codes: N40.1 - Benign prostatic h yperplasia with lower urinary tract symptoms; R39.11 - Hesitancy of micturition (5) Essential hypertension Status: Chronic Comment: Fair control adjust rate controlling medications which will also lower blood pressure (6) Hyperlipidemia Status: Chronic Comment: On statin therapy Qualifiers: Hyperlipidemia type: pure hypercholesterolemia Qualified Codes: E78.00 - Pure hypercholesterolemia, unspecified (7) Diastolic dysfunction Status: Chronic Comment: Adequately controlled Result Diagram: 11/09/18 0525 11/10/18 0550 Subjective 24 Hr Interval Summary Free Text/Dictation Is sleeping in bed but wakes up and actually is much more oriented. Please note change in medicine withdrawal of Aricept and Namenda Constitutional: no complaints (Eyes fevers chills or sweats) Respiratory: cough Exam/Review of Systems Exam Vitals Vital Signs Date Temp Pulse Resp B/P (MAP) Pulse Ox O2 O2 Flow FiO2 Time Delivery Rate 11/11/18 87 12:26 11/11/18 98.2 20 150/97 95 Nasal 10:00 (114) Cannula 11/11/18 2.0 08:00 Intake and Output 11/10/18 11/10/18 11/11/18 1515:00 23:00 07:00 IntakeIntake Total 720 ml BalanceBalance 720 ml Exam Oriented to himself oriented to place not oriented to time and is able to tell me details about his years of relationship with my office Constitutional: alert Neck: supple, non-tender Respiratory: clear to auscultation, normal air movement Cardiovascular: nl pulses, irregular rhythm Gastrointestinal: soft, nl liver, spleen, non-tender Medications Medication Current Medications IV Flush (NS 3 ml) 3 ml PER PROTOCOL IV ; Start 11/04/18 at 17:30 Ondansetron HCl (Zofran Tab) 4 mg Q6H PRN PO NAUSEA/VOMITING; Start 11/04/18 at 17:30 Aspirin (Aspirin) 81 mg DAILY PO Last administered on 11/11/18:; Admin Dose 81 MG; Start 11/05/18 at 09:00 Acetaminophen (Tylenol Tab) 650 mg Q6H PRN PO .PAIN 1-3 OR TEMP; Start 11/04/18 at 17:30 Acetaminophen/ Hydrocodone Bitart ([place] (5/325)) 1 tab Q6H PRN PO .PAIN 4-6; Start 11/04/18 at 17:30 Docusate Sodium (Colace) 100 mg Q12H PRN PO .CONSTIPATION; Start 11/04/18 at 17:30 Famotidine (Pepcid) 20 mg Q12 PO Last administered on 11/11/18:27; Admin Dose 20 MG; Start 11/04/18 at 21:00 Heparin Sodium (Porcine) (Heparin (5000 Units/1ml)) 5,000 unit Q12 SC Last administered on 11/11/18 09:33; Admin Dose 5,000 UNIT; Start 11/04/18 at 21:00 Finasteride (Proscar) 5 mg DAILY PO Last administered on 11/11/18:26; Admin Dose 5 MG; Start 11/05/18 at 09:00 Losartan Potassium (Cozaar) 50 mg DAILY PO Last administered on 11/11/18:; Admin Dose 50 MG; Start 11/05/18 at 09:00 Tamsulosin HCl (Flomax) 0.8 mg HS PO Last administered on 11/10/18 21:29; Admin Dose 0.8 MG; Start 11/04/18 at 21:00 Atorvastatin Calcium (Lipitor) 40 mg QHS PO Last administered on 11/10/18 21:29; Admin Dose 40 MG; Start 11/04/18 at 21:00 Montelukast Sodium (Singulair) 10 mg QHS PO Last administered on 11/10/18 21:29 ; Admin Dose 10 MG; Start 11/04/18 at 21:00 Fluticasone/ Vilanterol (Breo Ellipta 100-25 Mcg Inh) 1 inh DAILY INH Last administered on 11/11/18 09:43; Admin Dose 1 INH; Start 11/04/18 at 18:00 Miscellaneous Information Patients own medicat... BID@10,16 XX ; Start 11/05/18 at 10:00 Albuterol/ Ipratropium (Duoneb) 3 ml Q6H RESP THERAPY PRN HHN SHORTNESS OF BREATH Last administered on 11/09/18 20:03; Admin Dose 3 ML; Start 11/06/18 at 12:00 Levofloxacin (Levaquin) 500 mg DAILY@06 PO Last administered on 11/11/18 06:14; Admin Dose 500 MG; Start 11/07/18 at 06:00; Stop 11/14/18 at 05:59 Digoxin (Digoxin) 0.25 mg DAILY@13 PO Last administered on 11/11/18 12:29; Admin Dose 0.25 MG; Start 11/08/18 at 13:00 Rivaroxaban (Xarelto) 20 mg WITH DINNER PO Last administered on 11/10/18 18:06; Admin Dose 20 MG; Start 11/07/18 at 18:00 Diltiazem HCl (Cardizem Iv) 15 mg Q2H PRN IV sustained hr>130 Last administered on 11/09/18 12:17; Admin Dose 15 MG; Start 11/07/18 at 16:00 Lorazepam (Ativan) 1 mg Q6H PRN IV ANXIETY Last administered on 11/09/18 10:32; Admin Dose 1 MG; Start 11/09/18 at 10:30; Status Hold Diltiazem HCl (Cardizem Cd) 180 mg BID PO Last administered on 11/11/18at 09:27; Admin Dose 180 MG; Start 11/10/18 at 21:00 Clonidine HCl (Catapres-Tts 2 Patch) 1 patch Q7D TRANSDERM Last administered on 11/10/18at 23:05; Admin Dose 1 PATCH; Start 11/10/18 at 17:30 Quetiapine Fumarate (Seroquel) 50 mg PC DINNER PO ; Start 11/11/18 at 19:00 Quetiapine Fumarate (Seroquel) 12.5 mg Q8 PRN PO restlessness/agitation; Start 11/10/18 at 21:30 CHRIS RUBIN MD Nov 11, 2018 13:16
--- NOTE | 2018-11-11 13:32 | CONS ---
Consult Date/Type/Reason Admit Date/Time Nov 04, 2018 at 17:03 Initial Consult Date 11/05/18 Type of Consult Pulmonary Requesting Provider: CHRIS RUBIN MD Date/Time of Note DATE: 11/11/18 TIME: 13:32 Subjective Patient stable this morning no respiratory distress. Still confused. Objective Vital Signs Date Temp Pulse Resp B/P (MAP) Pulse Ox O2 O2 Flow FiO2 Time Delivery Rate 11/11/18 87 12:26 11/11/18 98.2 20 150/97 95 Nasal 10:00 (114) Cannula 11/11/18 2.0 08:00 Intake and Output 11/10/18 11/10/18 11/11/18 1515:00 23:00 07:00 IntakeIntake Total 720 ml BalanceBalance 720 ml Exam GENERAL: Elderly gentleman confused VITAL SIGNS: per chart NECK: Supple. No JVD or lymphadenopathy. CARDIAC EXAM: S1, S2. No added sounds or murmurs. CHEST: Diminished air entry right base ABDOMEN: Soft, nontender. No guarding or rebound. EXTREMITIES: No cyanosis, clubbing or edema. NEUROLOGIC: Generalized weakness. No focal deficits. Results/Medications Result Diagram: 11/09/18 0525 11/10/18 0550 Medications Current Medications IV Flush (NS 3 ml) 3 ml PER PROTOCOL IV ; Start 11/04/18 at 17:30 Ondansetron HCl (Zofran Tab) 4 mg Q6H PRN PO NAUSEA/VOMITING; Start 11/04/18 at 17:30 Aspirin (Aspirin) 81 mg DAILY PO Last administered on 11/11/18at 09:26; Admin Dose 81 MG; Start 11/05/18 at 09:00 Acetaminophen (Tylenol Tab) 650 mg Q6H PRN PO .PAIN 1-3 OR TEMP; Start 11/04/18 at 17:30 Acetaminophen/ Hydrocodone Bitart ([place] (5/325)) 1 tab Q6H PRN PO .PAIN 4-6; Start 11/04/18 at 17:30 Docusate Sodium (Colace) 100 mg Q12H PRN PO .CONSTIPATION; Start 11/04/18 at 17:30 Famotidine (Pepcid) 20 mg Q12 PO Last administered on 11/11/18at 09:27; Admin Dose 20 MG; Start 11/04/18 at 21:00 Heparin Sodium (Porcine) (Heparin (5000 Units/1ml)) 5,000 unit Q12 SC Last administered on 11/11/18 09:33; Admin Dose 5,000 UNIT; Start 11/04/18 at 21:00 Finasteride (Proscar) 5 mg DAILY PO Last administered on 11/11/18 09:26; Admin Dose 5 MG; Start 11/05/18 at 09:00 Losartan Potassium (Cozaar) 50 mg DAILY PO Last administered on 11/11/18 09:27; Admin Dose 50 MG; Start 11/05/18 at 09:00 Tamsulosin HCl (Flomax) 0.8 mg HS PO Last administered on 11/10/18 21:29; Admin Dose 0.8 MG; Start 11/04/18 at 21:00 Atorvastatin Calcium (Lipitor) 40 mg QHS PO Last administered on 11/10/18 21:29 ; Admin Dose 40 MG; Start 11/04/18 at 21:00 Montelukast Sodium (Singulair) 10 mg QHS PO Last administered on 11/10/18 21:29; Admin Dose 10 MG; Start 11/04/18 at 21:00 Fluticasone/ Vilanterol (Breo Ellipta 100-25 Mcg Inh) 1 inh DAILY INH Last administered on 11/11/18 09:43; Admin Dose 1 INH; Start 11/04/18 at 18:00 Miscellaneous Information Patients own medicat... BID@10,16 XX ; Start 11/05/18 at 10:00 Albuterol/ Ipratropium (Duoneb) 3 ml Q6H RESP THERAPY PRN HHN SHORTNESS OF BREATH Last administered on 11/09/18 20:03; Admin Dose 3 ML; Start 11/06/18 at 12:00 Levofloxacin (Levaquin) 500 mg DAILY@06 PO Last administered on 11/11/18 06:14; Admin Dose 500 MG; Start 11/07/18 at 06:00; Stop 11/14/18 at 05:59 Digoxin (Digoxin) 0.25 mg DAILY@13 PO Last administered on 11/11/18 12:29; Admin Dose 0.25 MG; Start 11/08/18 at 13:00 Rivaroxaban (Xarelto) 20 mg WITH DINNER PO Last administered on 11/10/18at 18:06; Admin Dose 20 MG; Start 11/07/18 at 18:00 Diltiazem HCl (Cardizem Iv) 15 mg Q2H PRN IV sustained hr>130 Last administered on 11/09/18at 12:17; Admin Dose 15 MG; Start 11/07/18 at 16:00 Lorazepam (Ativan) 1 mg Q6H PRN IV ANXIETY Last administered on 11/09/18at 10:32; Admin Dose 1 MG; Start 11/09/18 at 10:30; Status Hold Clonidine HCl (Catapres-Tts 2 Patch) 1 patch Q7D TRANSDERM Last administered on 11/10/18at 23:05; Admin Dose 1 PATCH; Start 11/10/18 at 17:30 Quetiapine Fumarate (Seroquel) 50 mg PC DINNER PO ; Start 11/11/18 at 19:00 Quetiapine Fumarate (Seroquel) 12.5 mg Q8 PRN PO restlessness/agitation; Start 11/10/18 at 21:30 Diltiazem HCl (Cardizem Cd) 240 mg BID PO ; Start 11/11/18 at 21:00 Assessment/Plan Hospital Course (Demo Recall) Assessment 1. Aspiration versus community acquired pneumonia 2. Encephalopathy toxic metabolic 3. Atrial fibrillation rapid ventricular rate Plan 1. Continue antibiotics 2. Aspiration fall precautions 3. Rate control per cardiology [facility]A MD[facility] Nov 11, 2018 13:32
--- NOTE | 2018-11-11 15:52 | CONS ---
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 for which neurology is consulted. Now in Afib w/ rvr.. The clinical picture suggests a mild dementia w/ superimposed acute toxic- metabolic encephalopathy.. Subclinical seizure is possible Encephalitis is unlikely. MRI brain on 11/04 was without acute intracranial pathology, though notable for generalized atrophy. CXR c/f PNA NAZIA + B12, TSH nl, RPR neg P: Continue low dose seroquel q8hr prn; Agree w/ hs seroquel Hold all other psychotropics for now Await baseline EEG for further characterization Await repeat HCT to evaluate for interval change in light of afib.. Reorient as necessary PT/OT/ST as necessary Other medical management per primary Will follow Consultation Date/Type/Reason Admit Date/Time Nov 04, 2018 at 17:03 Type of Consult Neurology Requesting Provider: CHRIS RUBIN MD Date/Time of Note DATE: 11/11/18 TIME: 15:52 24 HR Interval Summary Free Text/Dictation Continues acute care. Pt's RN and both endorse that the pt is significantly better than yesterday. Exam Vital Signs Vitals Vital Signs Date Temp Pulse Resp B/P (MAP) Pulse Ox O2 O2 Flow FiO2 Time Delivery Rate 11/11/18 98.0 18 18 108/78 98 15:32 (88) 11/11/18 Nasal 12:05 Cannula 11/11/18 2.0 08:00 Intake and Output 11/10/18 11/10/18 11/11/18 1515:00 23:00 07:00 IntakeIntake Total 720 ml BalanceBalance 720 ml Exam PE: Gen Appearance: No Apparent Distress. 2pt wrist restraints HEENT: Normocephalic Cardiovascular: Regular rate Abdomen: Soft Extremities: Dry NE: The patient was asleep though arousable to voice; oriented to self, birthday. Able to follow simple axial and appendicular commands intermittently. Cranial nerve examination was limited by mental status. Pupils were equal and reactive to light. There was no afferent pupillary defect. Funduscopic examination was limited. Face was grossly symmetric, w/ present corneal and cough reflexes. Tone was normal. Muscle bulk was normal. I did not see fasciculations. The patient had spontaneous movement of all extremities, symmetrically. Coordination and gait testing was limited by mental status. Arm and leg reflexes were within normal limits and symmetric. Almonte's sign was absent. Plantar responses were flexor. VÍCTOR MARIE NP Nov 11, 2018 15:52
[2018-11-11] MEDS: RIVAROXABAN 20 MG TABLET PO SCH (18:17)
[2018-11-11] MEDS ORDERED: QUETIAPINE 25 MG TAB PO SCH (19:00)
--- NOTE | 2018-11-11 21:17 | CONS ---
Assessment/Plan Assessment/Plan Hospital Course (Demo Recall) Atrial fibrillation with rapid ventricular rates, improved Preserved ejection fraction Pneumonia Acute kidney injury Coronary artery disease with history of PCI Encephalopathy Hypertension Lower extremity edema -Mental status improved -HR trend better _Was put on clonidine patch, given central acting anti-HTN, watch for any further AMS -Hold any nephrotoxic medications -Antibiotics as per primary team Consultation Date/Type/Reason Admit Date/Time Nov 04, 2018 at 17:03 Initial Consult Date 11/05/18 Type of Consult Cardiology Requesting Provider: CHRIS RUBIN MD Date/Time of Note DATE: 11/11/18 TIME: 21:15 24 HR Interval Summary Free Text/Dictation mental status improved, no sob, palp Exam/Review of Systems Vital Signs Vitals Vital Signs Date Temp Pulse Resp B/P (MAP) Pulse Ox O2 O2 Flow FiO2 Time Delivery Rate 11/11/18 98.0 82 20 152/98 98 20:21 (116) 11/11/18 2.0 18:25 11/11/18 Nasal 12:05 Cannula Intake and Output 11/10/18 11/10/18 11/11/18 1515:00 23:00 07:00 IntakeIntake Total 720 ml BalanceBalance 720 ml Exam Exam follows some commands, at bedside Constitutional: alert Head: normocephalic Respiratory: other (course bs, no wheeze) Cardiovascular: irregular rhythm (s1s2) Gastrointestinal: soft, non-tender, bowel sounds Extremities: edema Labs Result Diagram: 11/09/18 0525 11/10/18 0550 Medications Medications Current Medications IV Flush (NS 3 ml) 3 ml PER PROTOCOL IV ; Start 11/04/18 at 17:30 Ondansetron HCl (Zofran Tab) 4 mg Q6H PRN PO NAUSEA/VOMITING; Start 11/04/18 at 17:30 Aspirin (Aspirin) 81 mg DAILY PO Last administered on 11/11/18at 09:26; Admin Dose 81 MG; Start 11/05/18 at 09:00 Acetaminophen (Tylenol Tab) 650 mg Q6H PRN PO .PAIN 1-3 OR TEMP; Start 11/04/18 at 17:30 Acetaminophen/ Hydrocodone Bitart ([place] (5/325)) 1 tab Q6H PRN PO .PAIN 4-6; Start 11/04/18 at 17:30 Docusate Sodium (Colace) 100 mg Q12H PRN PO .CONSTIPATION; Start 11/04/18 at 17:30 Famotidine (Pepcid) 20 mg Q12 PO Last administered on 11/11/18 09:27; Admin Dose 20 MG; Start 11/04/18 at 21:00 Heparin Sodium (Porcine) (Heparin (5000 Units/1ml)) 5,000 unit Q12 SC Last administered on 11/11/18 09:33; Admin Dose 5,000 UNIT; Start 11/04/18 at 21:00 Finasteride (Proscar) 5 mg DAILY PO Last administered on 11/11/18 09:26; Admin Dose 5 MG; Start 11/05/18 at 09:00 Losartan Potassium (Cozaar) 50 mg DAILY PO Last administered on 11/11/18 09:27; Admin Dose 50 MG; Start 11/05/18 at 09:00 Tamsulosin HCl (Flomax) 0.8 mg HS PO Last administered on 11/10/18 21:29; Admin Dose 0.8 MG; Start 11/04/18 at 21:00 Atorvastatin Calcium (Lipitor) 40 mg QHS PO Last administered on 11/10/18 21:29; Admin Dose 40 MG; Start 11/04/18 at 21:00 Montelukast Sodium (Singulair) 10 mg QHS PO Last administered on 11/10/18 21:29; Admin Dose 10 MG; Start 11/04/18 at 21:00 Fluticasone/ Vilanterol (Breo Ellipta 100-25 Mcg Inh) 1 inh DAILY INH Last administered on 11/11/18 09:43; Admin Dose 1 INH; Start 11/04/18 at 18:00 Miscellaneous Information Patients own medicat... BID@10,16 XX ; Start 11/05/18 at 10:00 Albuterol/ Ipratropium (Duoneb) 3 ml Q6H RESP THERAPY PRN HHN SHORTNESS OF BREATH Last administered on 11/09/18 20:03; Admin Dose 3 ML; Start 11/06/18 at 12:00 Levofloxacin (Levaquin) 500 mg DAILY@06 PO Last administered on 11/11/18 06:14; Admin Dose 500 MG; Start 11/07/18 at 06:00; Stop 11/14/18 at 05:59 Digoxin (Digoxin) 0.25 mg DAILY@13 PO Last administered on 11/11/18 12:29; Admin Dose 0.25 MG; Start 11/08/18 at 13:00 Rivaroxaban (Xarelto) 20 mg WITH DINNER PO Last administered on 11/11/18 18:17; Admin Dose 20 MG; Start 11/07/18 at 18:00 Diltiazem HCl (Cardizem Iv) 15 mg Q2H PRN IV sustained hr>130 Last administered on 11/09/18 12:17; Admin Dose 15 MG; Start 11/07/18 at 16:00 Lorazepam (Ativan) 1 mg Q6H PRN IV ANXIETY Last administered on 11/09/18at 10 :32; Admin Dose 1 MG; Start 11/09/18 at 10:30; Status Hold Clonidine HCl (Catapres-Tts 2 Patch) 1 patch Q7D TRANSDERM Last administered on 11/10/18at 23:05; Admin Dose 1 PATCH; Start 11/10/18 at 17:30 Quetiapine Fumarate (Seroquel) 50 mg PC DINNER PO Last administered on 11/11/18 18:17; Admin Dose 50 MG; Start 11/11/18 at 19:00 Quetiapine Fumarate (Seroquel) 12.5 mg Q8 PRN PO restlessness/agitation; Start 11/10/18 at 21:30 Diltiazem HCl (Cardizem Cd) 240 mg BID PO ; Start 11/11/18 at 21:00 Hal Pickett DO Nov 11, 2018 21:17
--- NOTE | 2018-11-11 21:23 | EEG ---
EEG NOTE Report Details DATE OF TEST: 11/11/18 HISTORY: The patient is a 73-year-old M who presents with altered mental status. This EEG is requested to evaluate for an epileptic disorder. SEDATION: None. CONDITIONS OF RECORDING: This EEG was recorded digitally on the [employer] Peer[employer] machine, using the International 10-20 System of electrodes plus anterior temporals and [place]. STATES SAMPLED: Lethargic. FINDINGS: The background is continuous, and grossly symmetric...predominated by polymorphic theta and delta activity. The normal [id number] frequency-amplitude gradient was absent. Photic stimulation does not elicit any definite driving responses or epileptiform discharges. Hyperventilation was not performed. No asymmetries, focal abnormalities or epileptiform discharges were seen. IMPRESSION: Abnormal electroencephalogram due to: diffuse slowing. COMMENT: The slowing of the background indicates diffuse cortical dysfunction of nonspecific etiology. KHADIJAH KU Nov 11, 2018 21:23
[2018-11-11] MEDS: ATORVASTATIN 40 MG TAB PO SCH (21:47)
[2018-11-11] MEDS: DILTIAZEM (CD) 240 MG CAP PO SCH (21:47)
[2018-11-11] MEDS: TAMSULOSIN (SR) 0.4 MG CAP PO SCH (21:47)
[2018-11-11] MEDS: MONTELUKAST 10 MG TAB PO SCH (21:48)
[2018-11-12] VITALS (17 sets, daily range): BP systolic 131–164; BP diastolic 60–97; PULSE 33–82; RESP 18–20
[2018-11-12] MEDS: LEVOFLOXACIN 500 MG TAB PO SCH (05:35)
--- NOTE | 2018-11-12 07:24 | CONS ---
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 for which neurology is consulted. Now in Afib w/ rvr.. The clinical picture suggests a mild dementia w/ superimposed acute toxic- metabolic encephalopathy.. Subclinical seizure is possible Encephalitis is unlikely. MRI brain on 11/04 was without acute intracranial pathology, though notable for generalized atrophy. EEG is nonfocal, notable only for diffuse slowing CXR c/f PNA NAZIA + B12, TSH nl, RPR neg P: Await Repeat HCT for further characterization Change Seroquel to 12.5 mg bid scheduled; OK to continue hs dosing as ordered Hold all other psychotropics for now Reorient as necessary PT/OT/ST as necessary Continue other medical management per primary Will follow clinically Consultation Date/Type/Reason Admit Date/Time Nov 04, 2018 at 17:03 Type of Consult Neurology Reason for Consultation ams Requesting Provider: CHRIS RUBIN MD Date/Time of Note DATE: 11/12/18 TIME: 07:23 24 HR Interval Summary Free Text/Dictation Continues acute care. Pt given seroquel this am for agitation. Awaiting HCT today. Exam Vital Signs Vitals Vital Signs Date Temp Pulse Resp B/P (MAP) Pulse Ox O2 O2 Flow FiO2 Time Delivery Rate 11/12/18 98.0 58 20 153/78 95 06:00 (103) 11/11/18 2.0 21:33 11/11/18 Nasal 20:00 Cannula Intake and Output 11/11/18 11/11/18 11/12/18 1515:00 23:00 07:00 IntakeIntake Total 600 ml 120 ml OutputOutput Total 500 ml 700 ml BalanceBalance 100 ml -580 ml Exam PE: Gen Appearance: No Apparent Distress; In 2-pt wrist restraints HEENT: Normocephalic Cardiovascular: Regular rate Abdomen: Soft Extremities: Dry NE: The patient was lethargic, though easily arousable to voice. Oriented to self and birthday only. Conversant, with normal speech. Fund of knowledge poor. Cranial nerve examination was limited by mental status. Pupils were equal and reactive to light. There was no afferent pupillary defect. Funduscopic examination was limited. Face was grossly symmetric, w/ present corneal and cough reflexes. Tone was normal. Muscle bulk was normal. I did not see fasciculations. The patient moved his extremities spontaneously, symmetrically. Coordination and gait testing was limited by mental status. Arm and leg reflexes were within normal limits and symmetric. Almonte's sign was absent. Plantar responses were flexor. KHADIJAH KU Nov 12, 2018 07:23 VÍCTOR MARIE NP Nov 12, 2018 10:58
[2018-11-12] MEDS: ASPIRIN 81 MG TAB PO SCH (08:39)
[2018-11-12] MEDS: FLUTICASONE/VILANTEROL 100-25 INH SCH (08:40)
[2018-11-12] MEDS: LOSARTAN 50 MG TAB PO SCH (08:40)
[2018-11-12] MEDS: FINASTERIDE 5 MG TAB PO SCH (08:40)
[2018-11-12] MEDS: FAMOTIDINE 20 MG TAB PO SCH ×2 (08:40→20:30)
[2018-11-12] MEDS: DILTIAZEM (CD) 240 MG CAP PO SCH (08:41)
[2018-11-12] MEDS: HEPARIN 5,000 UNIT/1 ML VIAL SC SCH ×2 (08:47→21:13)
--- NOTE | 2018-11-12 12:27 | CONS ---
Consult Date/Type/Reason Admit Date/Time Nov 04, 2018 at 17:03 Initial Consult Date 11/05/18 Type of Consult Pulmonary Requesting Provider: CHRIS RUBIN MD Date/Time of Note DATE: 11/12/18 TIME: 12:26 Subjective Patient comfortable this morning less agitated Objective Vital Signs Date Temp Pulse Resp B/P (MAP) Pulse Ox O2 O2 Flow FiO2 Time Delivery Rate 11/12/18 98.0 58 19 136/97 95 10:00 (110) 11/12/18 Nasal 2.0 07:51 Cannula Intake and Output 11/11/18 11/11/18 11/12/18 1515:00 23:00 07:00 IntakeIntake Total 600 ml 120 ml OutputOutput Total 500 ml 700 ml BalanceBalance 100 ml -580 ml Exam GENERAL: VITAL SIGNS: per chart NECK: Supple. No JVD or lymphadenopathy. CARDIAC EXAM: S1, S2. No added sounds or murmurs. CHEST: clear bilaterally, No added sounds, rales or wheezes ABDOMEN: Soft, nontender. No guarding or rebound. EXTREMITIES: No cyanosis, clubbing or edema. NEUROLOGIC: Generalized weakness. No focal deficits. Results/Medications Result Diagram: 11/09/18 0525 11/10/18 0550 Medications Current Medications IV Flush (NS 3 ml) 3 ml PER PROTOCOL IV ; Start 11/04/18 at 17:30 Ondansetron HCl (Zofran Tab) 4 mg Q6H PRN PO NAUSEA/VOMITING; Start 11/04/18 at 17:30 Aspirin (Aspirin) 81 mg DAILY PO Last administered on 11/12/18at 08:39; Admin Dose 81 MG; Start 11/05/18 at 09:00 Acetaminophen (Tylenol Tab) 650 mg Q6H PRN PO .PAIN 1-3 OR TEMP; Start 11/04/18 at 17:30 Docusate Sodium (Colace) 100 mg Q12H PRN PO .CONSTIPATION; Start 11/04/18 at 17:30 Famotidine (Pepcid) 20 mg Q12 PO Last administered on 11/12/18at 08:40; Admin Dose 20 MG; Start 11/04/18 at 21:00 Heparin Sodium (Porcine) (Heparin (5000 Units/1ml)) 5,000 unit Q12 SC Last administered on 11/12/18 08:47; Admin Dose 5,000 UNIT; Start 11/04/18 at 21:00 Finasteride (Proscar) 5 mg DAILY PO Last administered on 11/12/18 08:40; Admin Dose 5 MG; Start 11/05/18 at 09:00 Losartan Potassium (Cozaar) 50 mg DAILY PO Last administered on 11/12/18 08:40; Admin Dose 50 MG; Start 11/05/18 at 09:00 Tamsulosin HCl (Flomax) 0.8 mg HS PO Last administered on 11/11/18 21:47; Admin Dose 0.8 MG; Start 11/04/18 at 21:00 Atorvastatin Calcium (Lipitor) 40 mg QHS PO Last administered on 11/11/18 21:47; Admin Dose 40 MG; Start 11/04/18 at 21:00 Montelukast Sodium (Singulair) 10 mg QHS PO Last administered on 11/11/18 21:48; Admin Dose 10 MG; Start 11/04/18 at 21:00 Fluticasone/ Vilanterol (Breo Ellipta 100-25 Mcg Inh) 1 inh DAILY INH Last administered on 11/11/18 09:43; Admin Dose 1 INH; Start 11/04/18 at 18:00 Miscellaneous Information Patients own medicat... BID@10,16 XX ; Start 11/05/18 at 10:00 Albuterol/ Ipratropium (Duoneb) 3 ml Q6H RESP THERAPY PRN HHN SHORTNESS OF BREATH Last administered on 11/09/18 20:03; Admin Dose 3 ML; Start 11/06/18 at 12:00 Levofloxacin (Levaquin) 500 mg DAILY@06 PO Last administered on 11/12/18 05:35; Admin Dose 500 MG; Start 11/07/18 at 06:00; Stop 11/14/18 at 05:59 Rivaroxaban (Xarelto) 20 mg WITH DINNER PO Last administered on 11/11/18 18:17; Admin Dose 20 MG; Start 11/07/18 at 18:00 Diltiazem HCl (Cardizem Iv) 15 mg Q2H PRN IV sustained hr>130 Last administered on 11/09/18 12:17; Admin Dose 15 MG; Start 11/07/18 at 16:00 Lorazepam (Ativan) 1 mg Q6H PRN IV ANXIETY Last administered on 11/09/18at 10:32; Admin Dose 1 MG; Start 11/09/18 at 10:30; Status Hold Clonidine HCl (Catapres-Tts 2 Patch) 1 patch Q7D TRANSDERM Last administered on 11/10/18at 23:05; Admin Dose 1 PATCH; Start 11/10/18 at 17:30 Diltiazem HCl (Cardizem Cd) 240 mg BID PO Last administered on 11/12/18at 08:41; Admin Dose 240 MG; Start 11/11/18 at 21:00 Quetiapine Fumarate (Seroquel) 12.5 mg 0900,1500 PO ; Start 11/12/18 at 15:00 Quetiapine Fumarate (Seroquel) 25 mg HS PO ; Start 11/12/18 at 21:00 Assessment/Plan Hospital Course (Demo Recall) Assessment 1. Aspiration versus community acquired pneumonia 2. Encephalopathy toxic metabolic, questionable underlying history of dementia 3. Atrial fibrillation rapid ventricular rate Plan 1. Continue antibiotics 2. Aspiration fall precautions 3. Rate control per cardiology Continue management per PMD [facility]A [facility] Nov 12, 2018 12:27
--- NOTE | 2018-11-12 13:12 | CONS ---
Assessment/Plan Assessment/Plan Hospital Course (Demo Recall) Atrial fibrillation with rapid ventricular rates, improved Preserved ejection fraction Pneumonia Acute kidney injury Coronary artery disease with history of PCI Encephalopathy Hypertension Lower extremity edema -Mental status improved -HR trend better and slightly bradycardic, would decrease dose of p.o. Cardizem, DC digoxin, add as needed Cardizem -Hold any nephrotoxic medications -Antibiotics as per primary team Consultation Date/Type/Reason Admit Date/Time Nov 04, 2018 at 17:03 Initial Consult Date 11/05/18 Type of Consult Cardiology Requesting Provider: CHRIS RUBIN MD Date/Time of Note DATE: 11/12/18 TIME: 13:11 24 HR Interval Summary Free Text/Dictation Denies chest pain, palpitations or shortness of breath Exam/Review of Systems Vital Signs Vitals Vital Signs Date Temp Pulse Resp B/P (MAP) Pulse Ox O2 O2 Flow FiO2 Time Delivery Rate 11/12/18 98.0 58 19 136/97 95 10:00 (110) 11/12/18 Nasal 2.0 07:51 Cannula Intake and Output 11/11/18 11/11/18 11/12/18 1515:00 23:00 07:00 IntakeIntake Total 600 ml 120 ml OutputOutput Total 500 ml 700 ml BalanceBalance 100 ml -580 ml Exam Constitutional: alert (Following some basic commands, in restraints, no apparent distress) Head: normocephalic Respiratory: other (Coarse breath sounds bilaterally, no wheezing) Cardiovascular: irregular rhythm (S1-S2 heard) Gastrointestinal: soft, non-tender, bowel sounds Extremities: edema Labs Result Diagram: 11/09/18 0525 11/10/18 0550 Medications Medications Current Medications IV Flush (NS 3 ml) 3 ml PER PROTOCOL IV ; Start 11/04/18 at 17:30 Ondansetron HCl (Zofran Tab) 4 mg Q6H PRN PO NAUSEA/VOMITING; Start 11/04/18 at 17:30 Aspirin (Aspirin) 81 mg DAILY PO Last administered on 11/12/18at 08:39; Admin Dose 81 MG; Start 11/05/18 at 09:00 Acetaminophen (Tylenol Tab) 650 mg Q6H PRN PO .PAIN 1-3 OR TEMP; Start 11/04/18 at 17:30 Docusate Sodium (Colace) 100 mg Q12H PRN PO .CONSTIPATION; Start 11/04/18 at 17:30 Famotidine (Pepcid) 20 mg Q12 PO Last administered on 11/12/18 08:40; Admin Dose 20 MG; Start 11/04/18 at 21:00 Heparin Sodium (Porcine) (Heparin (5000 Units/1ml)) 5,000 unit Q12 SC Last administered on 11/12/18 08:47; Admin Dose 5,000 UNIT; Start 11/04/18 at 21:00 Finasteride (Proscar) 5 mg DAILY PO Last administered on 11/12/18 08:40; Admin Dose 5 MG; Start 11/05/18 at 09:00 Losartan Potassium (Cozaar) 50 mg DAILY PO Last administered on 11/12/18 08:40; Admin Dose 50 MG; Start 11/05/18 at 09:00 Tamsulosin HCl (Flomax) 0.8 mg HS PO Last administered on 11/11/18 21:47; Admin Dose 0.8 MG; Start 11/04/18 at 21:00 Atorvastatin Calcium (Lipitor) 40 mg QHS PO Last administered on 11/11/18 2 1:47; Admin Dose 40 MG; Start 11/04/18 at 21:00 Montelukast Sodium (Singulair) 10 mg QHS PO Last administered on 11/11/18 21:48; Admin Dose 10 MG; Start 11/04/18 at 21:00 Fluticasone/ Vilanterol (Breo Ellipta 100-25 Mcg Inh) 1 inh DAILY INH Last administered on 11/11/18 09:43; Admin Dose 1 INH; Start 11/04/18 at 18:00 Miscellaneous Information Patients own medicat... BID@10,16 XX ; Start 11/05/18 at 10:00 Albuterol/ Ipratropium (Duoneb) 3 ml Q6H RESP THERAPY PRN HHN SHORTNESS OF BREATH Last administered on 11/09/18 20:03; Admin Dose 3 ML; Start 11/06/18 at 12:00 Levofloxacin (Levaquin) 500 mg DAILY@06 PO Last administered on 11/12/18 05:35; Admin Dose 500 MG; Start 11/07/18 at 06:00; Stop 11/14/18 at 05:59 Rivaroxaban (Xarelto) 20 mg WITH DINNER PO Last administered on 11/11/18 18:17 ; Admin Dose 20 MG; Start 11/07/18 at 18:00 Diltiazem HCl (Cardizem Iv) 15 mg Q2H PRN IV sustained hr>130 Last administered on 11/09/18at 12:17; Admin Dose 15 MG; Start 11/07/18 at 16:00 Lorazepam (Ativan) 1 mg Q6H PRN IV ANXIETY Last administered on 11/09/18at 10:32; Admin Dose 1 MG; Start 11/09/18 at 10:30; Status Hold Clonidine HCl (Catapres-Tts 2 Patch) 1 patch Q7D TRANSDERM Last administered on 11/10/18at 23:05; Admin Dose 1 PATCH; Start 11/10/18 at 17:30 Diltiazem HCl (Cardizem Cd) 240 mg BID PO Last administered on 11/12/18at 08:41; Admin Dose 240 MG; Start 11/11/18 at 21:00 Quetiapine Fumarate (Seroquel) 12.5 mg 0900,1500 PO ; Start 11/12/18 at 15:00 Quetiapine Fumarate (Seroquel) 25 mg HS PO ; Start 11/12/18 at 21:00 Hal Pickett DO Nov 12, 2018 13:12
[2018-11-12] MEDS ORDERED: DILTIAZEM 60 MG TAB PO PRN (13:30)
--- NOTE | 2018-11-12 13:49 | PN ---
Date/Time of Note Date/Time of Note DATE: 11/12/18 TIME: 13:47 Assessment/Plan VTE Prophylaxis Risk score (from [facility] [place])>0 risk: 5 SCD applied (from [facility] [place]): Yes Pharmacological prophylaxis: heparin Lines/Catheters [facility] Saline Lock Urinary Cath still in place: No Assessment/Plan Problems: (1) Right lower lobe pneumonia Status: Acute Comment: Improving nicely with antibiotic therapy. Qualifiers: Pneumonia type: due to unspecified organism Qualified Codes: J18.1 - Lobar pneumonia, unspecified organism (2) Atrial fibrillation with RVR Status: Acute Comment: Rate is now well controlled (3) Altered mental status Status: Acute Comment: Large thank you to Dr. Holguin and neurology consult. Unusual reaction to the combination of the Aricept with Namenda. With holding that medication his mental status has corrected back to baseline rather nicely. He still has some issues and I believe he does have a chronic slowly progressive dementia starting from a very high functional status. Qualifiers: Altered mental status type: unspecified Qualified Codes: R41.82 - Altered mental status, unspecified (4) Essential hypertension Status: Chronic Comment: Adequate control (5) Diastolic dysfunction Status: Chronic Comment: Adequate control Result Diagram: 11/09/18 0525 11/10/18 0550 Subjective 24 Hr Interval Summary Free Text/Dictation Is much better today. Constitutional: no complaints (No fevers chills or sweats) Respiratory: cough (Cough is further diminished no shortness of breath) Cardiovascular: no complaints Gastrointestinal: no complaints Genitourinary: no complaints Musculoskeletal: no complaints Neurologic: no complaints Exam/Review of Systems Exam Vitals Vital Signs Date Temp Pulse Resp B/P (MAP) Pulse Ox O2 O2 Flow FiO2 Time Delivery Rate 11/12/18 98.0 58 19 136/97 95 10:00 (110) 11/12/18 Nasal 2.0 07:51 Cannula Intake and Output 11/11/18 11/11/18 11/12/18 1515:00 23:00 07:00 IntakeIntake Total 600 ml 120 ml OutputOutput Total 500 ml 700 ml BalanceBalance 100 ml -580 ml Exam Oriented to person place and time Constitutional: alert Neck: supple, non-tender Respiratory: clear to auscultation, normal air movement Cardiovascular: regular rate and rhythm, nl pulses Gastrointestinal: soft, nl liver, spleen, non-tender Medications Medication Current Medications IV Flush (NS 3 ml) 3 ml PER PROTOCOL IV ; Start 11/04/18 at 17:30 Ondansetron HCl (Zofran Tab) 4 mg Q6H PRN PO NAUSEA/VOMITING; Start 11/04/18 at 17:30 Aspirin (Aspirin) 81 mg DAILY PO Last administered on 11/12/18 08:39; Admin Dose 81 MG; Start 11/05/18 at 09:00 Acetaminophen (Tylenol Tab) 650 mg Q6H PRN PO .PAIN 1-3 OR TEMP; Start 11/04/18 at 17:30 Docusate Sodium (Colace) 100 mg Q12H PRN PO .CONSTIPATION; Start 11/04/18 at 17:30 Famotidine (Pepcid) 20 mg Q12 PO Last administered on 11/12/18 08:40; Admin Dose 20 MG; Start 11/04/18 at 21:00 Heparin Sodium (Porcine) (Heparin (5000 Units/1ml)) 5,000 unit Q12 SC Last administered on 11/12/18 08:47; Admin Dose 5,000 UNIT; Start 11/04/18 at 21:00 Finasteride (Proscar) 5 mg DAILY PO Last administered on 11/12/18 08:40; Admin Dose 5 MG; Start 11/05/18 at 09:00 Losartan Potassium (Cozaar) 50 mg DAILY PO Last administered on 11/12/18 08:40; Admin Dose 50 MG; Start 11/05/18 at 09:00 Tamsulosin HCl (Flomax) 0.8 mg HS PO Last administered on 11/11/18 21:47; Admin Dose 0.8 MG; Start 11/04/18 at 21:00 Atorvastatin Calcium (Lipitor) 40 mg QHS PO Last administered on 11/11/18 21:47; Admin Dose 40 MG; Start 11/04/18 at 21:00 Montelukast Sodium (Singulair) 10 mg QHS PO Last administered on 11/11/18 21:48; Admin Dose 10 MG; Start 11/04/18 at 21:00 Fluticasone/ Vilanterol (Breo Ellipta 100-25 Mcg Inh) 1 inh DAILY INH Last administered on 4/2/19at 09:43; Admin Dose 1 INH; Start 11/04/18 at 18:00 Miscellaneous Information Patients own medicat... BID@10,16 XX ; Start 11/05/18 at 10:00 Albuterol/ Ipratropium (Duoneb) 3 ml Q6H RESP THERAPY PRN HHN SHORTNESS OF BREATH Last administered on 11/09/18 20:03; Admin Dose 3 ML; Start 11/06/18 at 12:00 Levofloxacin (Levaquin) 500 mg DAILY@06 PO Last administered on 11/12/18 05:35; Admin Dose 500 MG; Start 11/07/18 at 06:00; Stop 11/14/18 at 05:59 Rivaroxaban (Xarelto) 20 mg WITH DINNER PO Last administered on 11/11/18 18:17; Admin Dose 20 MG; Start 11/07/18 at 18:00 Diltiazem HCl (Cardizem Iv) 15 mg Q2H PRN IV sustained hr>130 Last administered on 11/09/18at 12:17; Admin Dose 15 MG; Start 11/07/18 at 16:00 Lorazepam (Ativan) 1 mg Q6H PRN IV ANXIETY Last administered on 11/09/18 10:32; Admin Dose 1 MG; Start 11/09/18 at 10:30; Status Hold Clonidine HCl (Catapres-Tts 2 Patch) 1 patch Q7D TRANSDERM Last administered on 11/10/18at 23:05; Admin Dose 1 PATCH; Start 11/10/18 at 17:30 Quetiapine Fumarate (Seroquel) 12.5 mg 0900,1500 PO ; Start 11/12/18 at 15:00 Quetiapine Fumarate (Seroquel) 25 mg HS PO ; Start 11/12/18 at 21:00 Diltiazem HCl (Cardizem Cd) 120 mg BID PO ; Start 11/12/18 at 14:00 Diltiazem HCl (Cardizem) 60 mg Q6 PRN PO sustained hr>130; Start 11/12/18 at 13:30 CHRIS RUBIN MD Nov 12, 2018 13:49
[2018-11-12] MEDS: DILTIAZEM (CD) 120 MG CAP PO SCH ×2 (14:44→20:30)
[2018-11-12] MEDS: QUETIAPINE 25 MG TAB PO SCH ×2 (14:46→20:29)
[2018-11-12] MEDS: RIVAROXABAN 20 MG TABLET PO SCH (17:07)
[2018-11-12] MEDS: ATORVASTATIN 40 MG TAB PO SCH (20:29)
[2018-11-12] MEDS: TAMSULOSIN (SR) 0.4 MG CAP PO SCH (20:30)
[2018-11-12] MEDS: MONTELUKAST 10 MG TAB PO SCH (20:30)
[2018-11-12] MEDS ORDERED: QUETIAPINE 25 MG TAB PO SCH (21:00)
[2018-11-13] VITALS (16 sets, daily range): BP systolic 129–170; BP diastolic 77–101; PULSE 55–88; RESP 17–20
[2018-11-13] MEDS: LEVOFLOXACIN 500 MG TAB PO SCH (05:04)
--- NOTE | 2018-11-13 07:12 | CONS ---
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 for which neurology is consulted. Now in Afib w/ rvr.. The clinical picture suggests a mild dementia w/ superimposed acute toxic- metabolic encephalopathy.. He appears to be improving clinically w/ discontinuation of polypharmacy.. Subclinical seizure is unlikely; EEG was without epileptiform activity.. Encephalitis is unlikely. MRI brain on 11/04 was without acute intracranial pathology, though notable for generalized atrophy. CXR c/f PNA NAZIA + B12, TSH nl, RPR neg P: Cont Seroquel 12.5 mg bid scheduled. with 25mg hs for now.. Continue to hold all other psychotropics for now Reorient as necessary PT/OT/ST as necessary Other medical management per primary Will follow clinically Consultation Date/Type/Reason Admit Date/Time Nov 04, 2018 at 17:03 Type of Consult Neurology Reason for Consultation ams Requesting Provider: CHRIS RUBIN MD Date/Time of Note DATE: 11/13/18 TIME: 07:09 24 HR Interval Summary Free Text/Dictation Continues acute care Exam Vital Signs Vitals Vital Signs Date Temp Pulse Resp B/P (MAP) Pulse Ox O2 O2 Flow FiO2 Time Delivery Rate 11/13/18 98.2 76 18 135/82 95 06:00 (99) 11/13/18 2.0 02:24 11/12/18 Nasal 20:00 Cannula Intake and Output 11/12/18 11/12/18 11/13/18 1515:00 23:00 07:00 IntakeIntake Total 200 ml OutputOutput Total 400 ml BalanceBalance -200 ml Exam PE: Gen Appearance: No Apparent Distress; In 2-pt wrist restraints HEENT: Normocephalic Cardiovascular: Regular rate Abdomen: Soft Extremities: Dry NE: The patient was awake, alert, though somewhat disoriented. Oriented to self, states that we are in a medical center, and birthday. Conversant, with normal speech. Fund of knowledge poor. Cranial nerve examination was limited by mental status. Pupils were equal and reactive to light. There was no afferent pupillary defect. Funduscopic examination was limited. Face was grossly symmetric, w/ present corneal and cough reflexes. Tone was normal. Muscle bulk was normal. I did not see fasciculations. The patient moved his extremities spontaneously, symmetrically. Coordination and gait testing was limited by mental status. Arm and leg reflexes were within normal limits and symmetric. Almonte's sign was absent. Plantar responses were flexor. KHADIJAH KU Nov 13, 2018 07:12 VÍCTOR MARIE NP Nov 13, 2018 15:05
[2018-11-13] MEDS: FLUTICASONE/VILANTEROL 100-25 INH SCH (09:08)
[2018-11-13] MEDS: FINASTERIDE 5 MG TAB PO SCH (09:08)
[2018-11-13] MEDS: ASPIRIN 81 MG TAB PO SCH (09:09)
[2018-11-13] MEDS: LOSARTAN 50 MG TAB PO SCH (09:09)
[2018-11-13] MEDS: FAMOTIDINE 20 MG TAB PO SCH ×2 (09:09→20:08)
[2018-11-13] MEDS: DILTIAZEM (CD) 120 MG CAP PO SCH ×2 (09:09→20:10)
[2018-11-13] MEDS: QUETIAPINE 25 MG TAB PO SCH ×3 (09:11→20:08)
[2018-11-13] MEDS: HEPARIN 5,000 UNIT/1 ML VIAL SC SCH ×2 (09:18→21:01)
--- NOTE | 2018-11-13 11:08 | CONS ---
Consult Date/Type/Reason Admit Date/Time Nov 04, 2018 at 17:03 Initial Consult Date 11/05/18 Type of Consult Pulmonary Requesting Provider: CHRIS RUBIN MD Date/Time of Note DATE: 11/13/18 TIME: 11:08 Subjective Patient comfortable no respiratory distress. Objective Vital Signs Date Temp Pulse Resp B/P (MAP) Pulse Ox O2 O2 Flow FiO2 Time Delivery Rate 11/13/18 98.2 83 18 158/95 95 10:16 (116) 11/13/18 Nasal 2.0 08:01 Cannula Intake and Output 11/12/18 11/12/18 11/13/18 1515:00 23:00 07:00 IntakeIntake Total 200 ml OutputOutput Total 400 ml BalanceBalance -200 ml Exam GENERAL: VITAL SIGNS: per chart NECK: Supple. No JVD or lymphadenopathy. CARDIAC EXAM: S1, S2. No added sounds or murmurs. CHEST: clear bilaterally, No added sounds, rales or wheezes ABDOMEN: Soft, nontender. No guarding or rebound. EXTREMITIES: No cyanosis, clubbing or edema. NEUROLOGIC: Generalized weakness. No focal deficits. Results/Medications Result Diagram: 11/09/18 0525 11/10/18 0550 Medications Current Medications IV Flush (NS 3 ml) 3 ml PER PROTOCOL IV ; Start 11/04/18 at 17:30 Ondansetron HCl (Zofran Tab) 4 mg Q6H PRN PO NAUSEA/VOMITING; Start 11/04/18 at 17:30 Aspirin (Aspirin) 81 mg DAILY PO Last administered on 11/13/18at 09:09; Admin Dose 81 MG; Start 11/05/18 at 09:00 Acetaminophen (Tylenol Tab) 650 mg Q6H PRN PO .PAIN 1-3 OR TEMP; Start 11/04/18 at 17:30 Docusate Sodium (Colace) 100 mg Q12H PRN PO .CONSTIPATION; Start 11/04/18 at 17:30 Famotidine (Pepcid) 20 mg Q12 PO Last administered on 11/13/18at 09:09; Admin Dose 20 MG; Start 11/04/18 at 21:00 Heparin Sodium (Porcine) (Heparin (5000 Units/1ml)) 5,000 unit Q12 SC Last administered on 11/13/18at 09:18; Admin Dose 5,000 UNIT; Start 11/04/18 at 21:00 Finasteride (Proscar) 5 mg DAILY PO Last administered on 11/13/18 09:08; Admin Dose 5 MG; Start 11/05/18 at 09:00 Losartan Potassium (Cozaar) 50 mg DAILY PO Last administered on 11/13/18 09:09; Admin Dose 50 MG; Start 11/05/18 at 09:00 Tamsulosin HCl (Flomax) 0.8 mg HS PO Last administered on 11/12/18 20:30; Admin Dose 0.8 MG; Start 11/04/18 at 21:00 Atorvastatin Calcium (Lipitor) 40 mg QHS PO Last administered on 11/12/18 20:29; Admin Dose 40 MG; Start 11/04/18 at 21:00 Montelukast Sodium (Singulair) 10 mg QHS PO Last administered on 11/12/18 20:30; Admin Dose 10 MG; Start 11/04/18 at 21:00 Fluticasone/ Vilanterol (Breo Ellipta 100-25 Mcg Inh) 1 inh DAILY INH Last administered on 11/13/18 09:08; Admin Dose 1 INH; Start 11/04/18 at 18:00 Miscellaneous Information Patients own medicat... BID@10,16 XX ; Start 11/05/18 at 10:00 Albuterol/ Ipratropium (Duoneb) 3 ml Q6H RESP THERAPY PRN HHN SHORTNESS OF BREATH Last administered on 11/09/18 20:03; Admin Dose 3 ML; Start 11/06/18 at 12:00 Levofloxacin (Levaquin) 500 mg DAILY@06 PO Last administered on 11/13/18 05:04; Admin Dose 500 MG; Start 11/07/18 at 06:00; Stop 11/14/18 at 05:59 Rivaroxaban (Xarelto) 20 mg WITH DINNER PO Last administered on 11/12/18 17:07; Admin Dose 20 MG; Start 11/07/18 at 18:00 Diltiazem HCl (Cardizem Iv) 15 mg Q2H PRN IV sustained hr>130 Last administered on 11/09/18 12:17; Admin Dose 15 MG; Start 11/07/18 at 16:00 Lorazepam (Ativan) 1 mg Q6H PRN IV ANXIETY Last administered on 11/09/18at 10:32; Admin Dose 1 MG; Start 11/09/18 at 10:30; Status Hold Clonidine HCl (Catapres-Tts 2 Patch) 1 patch Q7D TRANSDERM Last administered on 11/10/18at 23:05; Admin Dose 1 PATCH; Start 11/10/18 at 17:30 Quetiapine Fumarate (Seroquel) 12.5 mg 0900,1500 PO Last administered on 9at 09:11; Admin Dose 12.5 MG; Start 11/12/18 at 15:00 Quetiapine Fumarate (Seroquel) 25 mg HS PO Last administered on 11/12/18at 20:29; Admin Dose 25 MG; Start 11/12/18 at 21:00 Diltiazem HCl (Cardizem Cd) 120 mg BID PO Last administered on 11/13/18 09:09; Admin Dose 120 MG; Start 11/12/18 at 14:00 Diltiazem HCl (Cardizem) 60 mg Q6 PRN PO sustained hr>130; Start 11/12/18 at 13:30 Assessment/Plan Hospital Course (Demo Recall) Assessment 1. Aspiration versus community acquired pneumonia 2. Delirium with underlying history of dementia 3. Atrial fibrillation rapid ventricular rate Plan 1. Continue antibiotics 2. Aspiration fall precautions 3. Rate control per cardiology Continue management per PMD CORBIN HERRERA MD, [facility] Nov 13, 2018 11:08
--- NOTE | 2018-11-13 13:27 | PN ---
Date/Time of Note Date/Time of Note DATE: 11/13/18 TIME: 13:25 Assessment/Plan VTE Prophylaxis Risk score (from [facility])>0 risk: 5 SCD applied (from [facility]): Yes Pharmacological prophylaxis: heparin Lines/Catheters IV Catheter Type (from [facility] Saline Lock Urinary Cath still in place: No Assessment/Plan Problems: (1) Altered mental status Status: Acute Comment: He has improved with less medication. Neurology lowered the bedtime dosage of the Seroquel. I think that if we reduce the bakelite molder dose Seroquel to be more awake during the day which allow us the opportunity to try and get him moving a bit. Again I have asked psychiatry to visit the patient Qualifiers: Altered mental status type: unspecified Qualified Codes: R41.82 - Altered mental status, unspecified (2) Atrial fibrillation with RVR Status: Acute Comment: Adequate rate control at this time (3) Right lower lobe pneumonia Status: Acute Comment: Responding nicely to medical therapy Qualifiers: Pneumonia type: due to unspecified organism Qualified Codes: J18.1 - Lobar pneumonia, unspecified organism (4) Essential hypertension Status: Chronic Comment: Adequate control (5) Hyperlipidemia Status: Chronic Comment: Adequate control Qualifiers: Hyperlipidemia type: pure hypercholesterolemia Qualified Codes: E78.00 - Pure hypercholesterolemia, unspecified (6) Benign prostatic hyperplasia Status: Chronic Comment: Stable on medicine Qualifiers: Lower urinary tract symptom presence: symptoms present Lower urinary tract symptom detail: urinary hesitancy Qualified Codes: N40.1 - Benign prostatic hyperplasia with lower urinary tract symptoms; R39.11 - Hesitancy of micturition Result Diagram: 11/09/18 0525 11/10/18 0550 Subjective 24 Hr Interval Summary Free Text/Dictation Patient is somnolent and sleeping but easily awakened. He is oriented to person place and time Constitutional: no complaints Respiratory: no complaints Cardiovascular: no complaints Gastrointestinal: no complaints Genitourinary: no complaints Exam/Review of Systems Exam Vitals Vital Signs Date Temp Pulse Resp B/P (MAP) Pulse Ox O2 O2 Flow FiO2 Time Delivery Rate 11/13/18 77 12:58 11/13/18 98.1 19 166/89 95 12:00 (114) 11/13/18 Nasal 2.0 08:01 Cannula Intake and Output 11/12/18 11/12/18 11/13/18 1515:00 23:00 07:00 IntakeIntake Total 200 ml OutputOutput Total 400 ml BalanceBalance -200 ml Exam Slow to arouse but fully awake able to converse Constitutional: alert, oriented Respiratory: clear to auscultation, normal air movement Cardiovascular: nl pulses, irregular rhythm Medications Medication Current Medications IV Flush (NS 3 ml) 3 ml PER PROTOCOL IV ; Start 11/04/18 at 17:30 Ondansetron HCl (Zofran Tab) 4 mg Q6H PRN PO NAUSEA/VOMITING; Start 11/04/18 at 17:30 Aspirin (Aspirin) 81 mg DAILY PO Last administered on 11/13/18 09:09; Admin Dose 81 MG; Start 11/05/18 at 09:00 Acetaminophen (Tylenol Tab) 650 mg Q6H PRN PO .PAIN 1-3 OR TEMP; Start 11/04/18 at 17:30 Docusate Sodium (Colace) 100 mg Q12H PRN PO .CONSTIPATION; Start 11/04/18 at 17:30 Famotidine (Pepcid) 20 mg Q12 PO Last administered on 11/13/18 09:09; Admin Dose 20 MG; Start 11/04/18 at 21:00 Heparin Sodium (Porcine) (Heparin (5000 Units/1ml)) 5,000 unit Q12 SC Last administered on 11/13/18 09:18; Admin Dose 5,000 UNIT; Start 11/04/18 at 21:00 Finasteride (Proscar) 5 mg DAILY PO Last administered on 11/13/18 09:08; Admin Dose 5 MG; Start 11/05/18 at 09:00 Losartan Potassium (Cozaar) 50 mg DAILY PO Last administered on 11/13/18 09:09; Admin Dose 50 MG; Start 11/05/18 at 09:00 Tamsulosin HCl (Flomax) 0.8 mg HS PO Last administered on 11/12/18 20:30; Admin Dose 0.8 MG; Start 11/04/18 at 21:00 Atorvastatin Calcium (Lipitor) 40 mg QHS PO Last administered on 11/12/18 20:29; Admin Dose 40 MG; Start 11/04/18 at 21:00 Montelukast Sodium (Singulair) 10 mg QHS PO Last administered on 11/12/18 20:30; Admin Dose 10 MG; Start 11/04/18 at 21:00 Fluticasone/ Vilanterol (Breo Ellipta 100-25 Mcg Inh) 1 inh DAILY INH Last administered on 11/13/18 09:08; Admin Dose 1 INH; Start 11/04/18 at 18:00 Miscellaneous Information Patients own medicat... BID@10,16 XX ; Start 11/05/18 at 10:00 Albuterol/ Ipratropium (Duoneb) 3 ml Q6H RESP THERAPY PRN HHN SHORTNESS OF BREATH Last administered on 11/09/18 20:03; Admin Dose 3 ML; Start 11/06/18 at 12:00 Levofloxacin (Levaquin) 500 mg DAILY@06 PO Last administered on 11/13/18 05:04; Admin Dose 500 MG; Start 11/07/18 at 06:00; Stop 11/14/18 at 05:59 Rivaroxaban (Xarelto) 20 mg WITH DINNER PO Last administered on 11/12/18 17:07; Admin Dose 20 MG; Start 11/07/18 at 18:00 Diltiazem HCl (Cardizem Iv) 15 mg Q2H PRN IV sustained hr>130 Last administered on 11/09/18 12:17; Admin Dose 15 MG; Start 11/07/18 at 16:00 Lorazepam (Ativan) 1 mg Q6H PRN IV ANXIETY Last administered on 11/09/18 10:32; Admin Dose 1 MG; Start 11/09/18 at 10:30; Status Hold Clonidine HCl (Catapres-Tts 2 Patch) 1 patch Q7D TRANSDERM Last administered on 11/10/18 23:05; Admin Dose 1 PATCH; Start 11/10/18 at 17:30 Quetiapine Fumarate (Seroquel) 25 mg HS PO Last administered on 11/12/18 20:29; Admin Dose 25 MG; Start 11/12/18 at 21:00 Diltiazem HCl (Cardizem Cd) 120 mg BID PO Last administered on 11/13/18 09:09; Admin Dose 120 MG; Start 11/12/18 at 14:00 Diltiazem HCl (Cardizem) 60 mg Q6 PRN PO sustained hr>130; Start 11/12/18 at 13:30 Quetiapine Fumarate (Seroquel) 12.5 mg 1500 PO ; Start 11/13/18 at 15:00; Status UNV CHRIS RUBIN MD Nov 13, 2018 13:27
--- NOTE | 2018-11-13 15:51 | CONS ---
Assessment/Plan Assessment/Plan Hospital Course (Demo Recall) Atrial fibrillation with rapid ventricular rates, improved Preserved ejection fraction Pneumonia Acute kidney injury Coronary artery disease with history of PCI Encephalopathy Hypertension Lower extremity edema -Mental status improved -HR trend better and tolerating lower dose of Cardizem. Would continue. -Antibiotics as per primary team -Continue anticoagulation as tolerated Consultation Date/Type/Reason Admit Date/Time Nov 04, 2018 at 17:03 Initial Consult Date 11/05/18 Type of Consult Cardiology Requesting Provider: CHRIS RUBIN MD Date/Time of Note DATE: 11/13/18 TIME: 15:50 24 HR Interval Summary Free Text/Dictation Sleeping, no apparent distress Exam/Review of Systems Vital Signs Vitals Vital Signs Date Temp Pulse Resp B/P (MAP) Pulse Ox O2 O2 Flow FiO2 Time Delivery Rate 11/13/18 98.3 73 19 135/87 94 14:12 (103) 11/13/18 Nasal 2.0 08:01 Cannula Intake and Output 11/12/18 11/12/18 11/13/18 1515:00 23:00 07:00 IntakeIntake Total 200 ml OutputOutput Total 400 ml BalanceBalance -200 ml Exam Exam Sleeping but arousable, no apparent distress Head: normocephalic Respiratory: other (Coarse breath sounds bilaterally, no wheezing) Cardiovascular: irregular rhythm (S1-S2 heard) Gastrointestinal: soft, non-tender, bowel sounds Extremities: edema Labs Result Diagram: 11/09/18 0525 11/10/18 0550 Medications Medications Current Medications IV Flush (NS 3 ml) 3 ml PER PROTOCOL IV ; Start 11/04/18 at 17:30 Ondansetron HCl (Zofran Tab) 4 mg Q6H PRN PO NAUSEA/VOMITING; Start 11/04/18 at 17:30 Aspirin (Aspirin) 81 mg DAILY PO Last administered on 11/13/18at 09:09; Admin Dose 81 MG; Start 11/05/18 at 09:00 Acetaminophen (Tylenol Tab) 650 mg Q6H PRN PO .PAIN 1-3 OR TEMP; Start 11/04/18 at 17:30 Docusate Sodium (Colace) 100 mg Q12H PRN PO .CONSTIPATION; Start 11/04/18 at 17:30 Famotidine (Pepcid) 20 mg Q12 PO Last administered on 11/13/18 09:09; Admin Dose 20 MG; Start 11/04/18 at 21:00 Heparin Sodium (Porcine) (Heparin (5000 Units/1ml)) 5,000 unit Q12 SC Last administered on 11/13/18 09:18; Admin Dose 5,000 UNIT; Start 11/04/18 at 21:00 Finasteride (Proscar) 5 mg DAILY PO Last administered on 11/13/18 09:08; Admin Dose 5 MG; Start 11/05/18 at 09:00 Losartan Potassium (Cozaar) 50 mg DAILY PO Last administered on 11/13/18 09:09; Admin Dose 50 MG; Start 11/05/18 at 09:00 Tamsulosin HCl (Flomax) 0.8 mg HS PO Last administered on 11/12/18 20:30; Admin Dose 0.8 MG; Start 11/04/18 at 21:00 Atorvastatin Calcium (Lipitor) 40 mg QHS PO Last administered on 11/12/18 20:29; Admin Dose 40 MG; Start 11/04/18 at 21:00 Montelukast Sodium (Singulair) 10 mg QHS PO Last administered on 11/12/18 20:30; Admin Dose 10 MG; Start 11/04/18 at 21:00 Fluticasone/ Vilanterol (Breo Ellipta 100-25 Mcg Inh) 1 inh DAILY INH Last administered on 11/13/18 09:08; Admin Dose 1 INH; Start 11/04/18 at 18:00 Miscellaneous Information Patients own medicat... BID@10,16 XX ; Start 11/05/18 at 10:00 Albuterol/ Ipratropium (Duoneb) 3 ml Q6H RESP THERAPY PRN HHN SHORTNESS OF BREATH Last administered on 11/09/18 20:03; Admin Dose 3 ML; Start 11/06/18 at 12:00 Levofloxacin (Levaquin) 500 mg DAILY@06 PO Last administered on 11/13/18 05:04; Admin Dose 500 MG; Start 11/07/18 at 06:00; Stop 11/14/18 at 05:59 Rivaroxaban (Xarelto) 20 mg WITH DINNER PO Last administered on 11/12/18 17:07; Admin Dose 20 MG; Start 11/07/18 at 18:00 Diltiazem HCl (Cardizem Iv) 15 mg Q2H PRN IV sustained hr>130 Last administered on 11/09/18at 12:17; Admin Dose 15 MG; Start 11/07/18 at 16:00 Lorazepam (Ativan) 1 mg Q6H PRN IV ANXIETY Last administered on 11/09/18at 10:32; Admin Dose 1 MG; Start 11/09/18 at 10:30; Status Hold Clonidine HCl (Catapres-Tts 2 Patch) 1 patch Q7D TRANSDERM Last administered on 11/10/18at 23:05; Admin Dose 1 PATCH; Start 11/10/18 at 17:30 Quetiapine Fumarate (Seroquel) 25 mg HS PO Last administered on 11/12/18at 20:29; Admin Dose 25 MG; Start 11/12/18 at 21:00 Diltiazem HCl (Cardizem Cd) 120 mg BID PO Last administered on 11/13/18 09:09; Admin Dose 120 MG; Start 11/12/18 at 14:00 Diltiazem HCl (Cardizem) 60 mg Q6 PRN PO sustained hr>130; Start 11/12/18 at 13:30 Quetiapine Fumarate (Seroquel) 12.5 mg 1500 PO ; Start 11/13/18 at 15:00 Hal Picktet DO Nov 13, 2018 15:51
[2018-11-13] MEDS: RIVAROXABAN 20 MG TABLET PO SCH (17:21)
[2018-11-13] MEDS: ATORVASTATIN 40 MG TAB PO SCH (20:08)
[2018-11-13] MEDS: MONTELUKAST 10 MG TAB PO SCH (20:08)
[2018-11-13] MEDS: TAMSULOSIN (SR) 0.4 MG CAP PO SCH (20:08)
[2018-11-14] VITALS (18 sets, daily range): BP systolic 124–168; BP diastolic 73–99; PULSE 41–88; RESP 12–22
--- NOTE | 2018-11-14 08:06 | CONS ---
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 for which neurology is consulted. Now in Afib w/ rvr.. The clinical picture suggests a mild dementia w/ superimposed acute toxic- metabolic encephalopathy.. He appears to be improving clinically w/ discontinuation of polypharmacy.. Subclinical seizure is unlikely; EEG was without epileptiform activity.. Encephalitis is unlikely. MRI brain on 11/04 was without acute intracranial pathology, though notable for generalized atrophy. CXR c/f PNA NAZIA + B12, TSH nl, RPR neg P: Short-term Seroquel hs and prn.. Continue to hold all other psychotropics Encourage wakefulness in a pattern consistent w/ the usual circadian rhythm Limit physical restraints where possible Reorient as necessary PT/OT/ST as tolerated Other medical management per primary Will sign off for now; please call w/ ?s Consultation Date/Type/Reason Admit Date/Time Nov 04, 2018 at 17:03 Type of Consult Neurology Reason for Consultation ams Requesting Provider: CHRIS RUBIN MD Date/Time of Note DATE: 11/14/18 TIME: 08:06 24 HR Interval Summary Free Text/Dictation Continues acute care. 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 Exam Vital Signs Vitals Vital Signs Date Temp Pulse Resp B/P (MAP) Pulse Ox O2 O2 Flow FiO2 Time Delivery Rate 11/14/18 97.4 82 12 168/98 99 Room Air 07:49 (121) 11/13/18 2.0 08:01 Intake and Output 11/13/18 11/13/18 11/14/18 1515:00 23:00 07:00 IntakeIntake Total 500 ml 200 ml OutputOutput Total 400 ml BalanceBalance 100 ml 200 ml Exam PE: Gen Appearance: No Apparent Distress; In 2-pt wrist restraints HEENT: Normocephalic Cardiovascular: Regular rate Abdomen: Soft Extremities: Dry NE: The patient was asleep, though arousable to voice. Somewhat disoriented. Able to follow simple axial and appendicular commands. Cranial nerve examination was limited by mental status. Pupils were equal and reactive to light. There was no afferent pupillary defect. Funduscopic examination was limited. Face was grossly symmetric, w/ present corneal and cou gh reflexes. Tone was normal. Muscle bulk was normal. I did not see fasciculations. The patient moved his extremities spontaneously, symmetrically. Coordination and gait testing was limited by mental status. Arm and leg reflexes were within normal limits and symmetric. Almonte's sign was absent. Plantar responses were flexor. KHADIJAH KU Nov 14, 2018 08:06 VÍCTOR MARIE NP Nov 14, 2018 13:22
[2018-11-14] MEDS: FLUTICASONE/VILANTEROL 100-25 INH SCH (09:04)
[2018-11-14] MEDS: FAMOTIDINE 20 MG TAB PO SCH ×2 (09:05→21:56)
[2018-11-14] MEDS: DOCUSATE SODIUM 100 MG CAP PO PRN (09:05)
[2018-11-14] MEDS: ASPIRIN 81 MG TAB PO SCH (09:05)
[2018-11-14] MEDS: DILTIAZEM (CD) 120 MG CAP PO SCH ×2 (09:05→21:57)
[2018-11-14] MEDS: FINASTERIDE 5 MG TAB PO SCH (09:05)
[2018-11-14] MEDS: LOSARTAN 50 MG TAB PO SCH ×2 (09:06→21:57)
[2018-11-14] MEDS: HEPARIN 5,000 UNIT/1 ML VIAL SC SCH ×2 (09:21→22:06)
--- NOTE | 2018-11-14 10:41 | PSY ---
Date/Time of Note Date/Time of Note DATE: 11/14/18 TIME: 10: Psychiatric Subjective Eval Consent Pt consented to telemedicine: No Subjective Evaluation Patient location: inpatient Chief Complaint: PT MORE CONFUSED THAN NORMAL, A0X2, BILATERAL 2+ PITTING LLE History of present illness Patient is a 73-year-old male with history of atrial fibrillation . On a [id number] evaluation, patient is disorganized and confused he goes off on tangents cannot process information. Patient is in poor contact with reality [place]. He has poor impulse control poor safety awareness. He gets easily irritable at times to get up from bed and reports his restraint. The one-to-one caregiver at bedside to prevent patient from hurting himself. Spoke to the patient's at length to get a picture of whether he has prior psychiatric history, patient's denied any previous psychiatric history. Patient however patient's states he has an underlying issues of depression from being laid off 5 years ago, also was a war and possibly has posttraumatic stress disorder. At this time this interview I was looking at to rule out delirium. Will continue on Seroquel as ordered already and Ativan for anxiety. Past psychiatric history No psychiatric history per . Hospitalization: no Medical history Problems Medical Problems: (1) Abnormal chest CT Status: Chronic (2) Altered mental status Status: Acute (3) Asthma, moderate persistent Status: Chronic (4) Atrial fibrillation with RVR Status: Acute (5) B12 deficiency Status: Chronic (6) Benign prostatic hyperplasia Status: Chronic (7) Diastolic dysfunction Status: Chronic (8) Essential hypertension Status: Chronic (9) History of concussion Status: Chronic (10) History of subdural hematoma (post traumatic) Status: Chronic (11) Hyperlipidemia Status: Chronic (12) Paroxysmal atrial fibrillation Status: Chronic (13) Right lower lobe pneumonia Status: Acute Allergies: Coded Allergies: Sulfa (Sulfonamide Antibiotics) (Verified Allergy, Mild, 11/04/18) tetracycline (Verified Allergy, Mild, 11/04/18) Substance Abuse Substance abuse history: No Prior substance abuse treatmen: No Social History Marital status: DPA/Conservatorship: No Psychiatric Objective Eval Review of Systems: Review of Systems: Not Applicable Physical Examination: Physical Examination: Not Applicable Mental Status Examination: Eye Contact: Poor Psychomotor Activity: Agitated Behavior: Guarded Speech: Soft AFFECT: Constricted Mood: Irritable Though Process: Tangential Thought Content: Delusions Suicidal: No Homicidal: No On 72 hour hold: No Insight: Moderate Judgement: Mild Attention Span: Distractible Laboratory Results Laboratory Tests Test 11/14/18 05:23 White Blood Count 9.7 10^3/ul Red Blood Count 4.66 10^6/ul Hemoglobin 14.0 g/dl Hematocrit 41.7 % Mean Corpuscular Volume 89.5 fl Mean Corpuscular Hemoglobin 30.0 pg Mean Corpuscular Hemoglobin Concent 33.6 g/dl Red Cell Distribution Width 14.1 % Platelet Count 207 10^3/UL Mean Platelet Volume 10.7 fl Immature Granulocytes % 0.500 % Neutrophils % 83.0 % Lymphocytes % 6.1 % Monocytes % 9.4 % Eosinophils % 0.7 % Basophils % 0.3 % Nucleated Red Blood Cells % 0.0 /100WBC Immature Granulocytes # 0.050 10^3/ul Neutrophils # 8.1 10^3/ul Lymphocytes # 0.6 10^3/ul Monocytes # 0.9 10^3/ul Eosinophils # 0.1 10^3/ul Basophils # 0.0 10^3/ul Nucleated Red Blood Cells # 0.0 10^3/ul Sodium Level 140 mmol/L Potassium Level 3.7 mmol/L Chloride Level 103 mmol/L Carbon Dioxide Level 29 mmol/L Anion Gap 8 Blood Urea Nitrogen 17 mg/dl Creatinine 0.89 mg/dl Est Glomerular Filtrat Rate mL/min mL/min Glucose Level 94 mg/dl Calcium Level 8.8 mg/dl Total Bilirubin 1.6 mg/dl Direct Bilirubin 0.00 mg/dl Indirect Bilirubin 1.6 mg/dl Aspartate Amino Transf (AST/SGOT) 34 IU/L Alanine Aminotransferase (ALT/SGPT) 27 IU/L Alkaline Phosphatase 70 IU/L Total Protein 5.6 g/dl Albumin 3.2 g/dl Globulin 2.40 g/dl Albumin/Globulin Ratio 1.33 Assessment and Plan Assessment/Diagnosis Diagnosis 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
--- NOTE | 2018-11-14 12:14 | CONS ---
Assessment/Plan Assessment/Plan Hospital Course (Demo Recall) Atrial fibrillation with rapid ventricular rates, improved Preserved ejection fraction Pneumonia Acute kidney injury Coronary artery disease with history of PCI Encephalopathy Hypertension Lower extremity edema -Mental status improved -HR trend better and tolerating lower dose of Cardizem. Titrate as needed -Antibiotics as per primary team -Continue anticoagulation as tolerated Consultation Date/Type/Reason Admit Date/Time Nov 04, 2018 at 17:03 Initial Consult Date 11/05/18 Type of Consult Cardiology Requesting Provider: CHRIS RUBIN MD Date/Time of Note DATE: 11/14/18 TIME: 12:13 24 HR Interval Summary Free Text/Dictation Sleeping, no apparent distress Exam/Review of Systems Vital Signs Vitals Vital Signs Date Temp Pulse Resp B/P (MAP) Pulse Ox O2 O2 Flow FiO2 Time Delivery Rate 11/14/18 98.0 56 19 133/84 99 10:00 (100) 11/14/18 Room Air 07:49 11/13/18 2.0 08:01 Intake and Output 11/13/18 11/13/18 11/14/18 1515:00 23:00 07:00 IntakeIntake Total 500 ml 200 ml OutputOutput Total 400 ml BalanceBalance 100 ml 200 ml Exam Exam Sleeping, no apparent distress, not responding to verbal stimuli Head: normocephalic Respiratory: other (Coarse breath sounds bilaterally, no wheezing) Cardiovascular: irregular rhythm (S1-S2 heard) Gastrointestinal: soft, non-tender, bowel sounds Extremities: edema Labs Result Diagram: 11/14/18 0523 11/14/18 0523 Results 24hrs Laboratory Tests Test 11/14/18 05:23 White Blood Count 9.7 Red Blood Count 4.66 L Hemoglobin 14.0 Hematocrit 41.7 L Mean Corpuscular Volume 89.5 Mean Corpuscular Hemoglobin 30.0 Mean Corpuscular Hemoglobin Concent 33.6 Red Cell Distribution Width 14.1 Platelet Count 207 Mean Platelet Volume 10.7 H Immature Granulocytes % 0.500 H Neutrophils % 83.0 H Lymphocytes % 6.1 L Monocytes % 9.4 Eosinophils % 0.7 Basophils % 0.3 Nucleated Red Blood Cells % 0.0 Immature Granulocytes # 0.050 H Neutrophils # 8.1 H Lymphocytes # 0.6 L Monocytes # 0.9 Eosinophils # 0.1 Basophils # 0.0 Nucleated Red Blood Cells # 0.0 Sodium Level 140 Potassium Level 3.7 Chloride Level 103 Carbon Dioxide Level 29 Anion Gap 8 Blood Urea Nitrogen 17 Creatinine 0.89 Est Glomerular Filtrat Rate mL/min Glucose Level 94 Calcium Level 8.8 Total Bilirubin 1.6 H Direct Bilirubin 0.00 Indirect Bilirubin 1.6 H Aspartate Amino Transf (AST/SGOT) 34 Alanine Aminotransferase (ALT/SGPT) 27 Alkaline Phosphatase 70 Total Protein 5.6 L Albumin 3.2 L Globulin 2.40 Albumin/Globulin Ratio 1.33 Medications Medications Current Medications IV Flush (NS 3 ml) 3 ml PER PROTOCOL IV ; Start 11/04/18 at 17:30 Ondansetron HCl (Zofran Tab) 4 mg Q6H PRN PO NAUSEA/VOMITING; Start 11/04/18 at 17:30 Aspirin (Aspirin) 81 mg DAILY PO Last administered on 11/14/18 09:05; Admin D ose 81 MG; Start 11/05/18 at 09:00 Acetaminophen (Tylenol Tab) 650 mg Q6H PRN PO .PAIN 1-3 OR TEMP; Start 11/04/18 at 17:30 Docusate Sodium (Colace) 100 mg Q12H PRN PO .CONSTIPATION Last administered on 11/14/18 09:05; Admin Dose 100 MG; Start 11/04/18 at 17:30 Famotidine (Pepcid) 20 mg Q12 PO Last administered on 11/14/18 09:05; Admin Dose 20 MG; Start 11/04/18 at 21:00 Heparin Sodium (Porcine) (Heparin (5000 Units/1ml)) 5,000 unit Q12 SC Last administered on 11/14/18 09:21; Admin Dose 5,000 UNIT; Start 11/04/18 at 21:00 Finasteride (Proscar) 5 mg DAILY PO Last administered on 11/14/18 09:05; Admin Dose 5 MG; Start 11/05/18 at 09:00 Losartan Potassium (Cozaar) 50 mg DAILY PO Last administered on 11/14/18 09:06; Admin Dose 50 MG; Start 11/05/18 at 09:00 Tamsulosin HCl (Flomax) 0.8 mg HS PO Last administered on 11/13/18 20:08; Admin Dose 0.8 MG; Start 11/04/18 at 21:00 Atorvastatin Calcium (Lipitor) 40 mg QHS PO Last administered on 11/13/18 20:08; Admin Dose 40 MG; Start 11/04/18 at 21:00 Montelukast Sodium (Singulair) 10 mg QHS PO Last administered on 11/13/18 20:08; Admin Dose 10 MG; Start 11/04/18 at 21:00 Fluticasone/ Vilanterol (Breo Ellipta 100-25 Mcg Inh) 1 inh DAILY INH Last administered on 11/14/18 09:04; Admin Dose 1 INH; Start 11/04/18 at 18:00 Miscellaneous Information Patients own medicat... BID@10,16 XX ; Start 11/05/18 at 10:00 Albuterol/ Ipratropium (Duoneb) 3 ml Q6H RESP THERAPY PRN HHN SHORTNESS OF BREATH Last administered on 11/09/18 20:03; Admin Dose 3 ML; Start 11/06/18 at 12:00 Rivaroxaban (Xarelto) 20 mg WITH DINNER PO Last administered on 11/13/18 17:21; Admin Dose 20 MG; Start 11/07/18 at 18:00 Diltiazem HCl (Cardizem Iv) 15 mg Q2H PRN IV sustained hr>130 Last administered on 11/09/18 12:17; Admin Dose 15 MG; Start 11/07/18 at 16:00 Lorazepam (Ativan) 1 mg Q6H PRN IV ANXIETY Last administered on 11/09/18 10:32; Admin Dose 1 MG; Start 11/09/18 at 10:30; Status Hold Clonidine HCl (Catapres-Tts 2 Patch) 1 patch Q7D TRANSDERM Last administered on 11/10/18 23:05; Admin Dose 1 PATCH; Start 11/10/18 at 17:30 Quetiapine Fumarate (Seroquel) 25 mg HS PO Last administered on 11/13/18 20:08; Admin Dose 25 MG; Start 11/12/18 at 21:00 Diltiazem HCl (Cardizem Cd) 120 mg BID PO Last administered on 11/14/18 09:05; Admin Dose 120 MG; Start 11/12/18 at 14:00 Diltiazem HCl (Cardizem) 60 mg Q6 PRN PO sustained hr>130; Start 11/12/18 at 13:30 Quetiapine Fumarate (Seroquel) 12.5 mg 1500 PO Last administered on 11/13/18at 17:21; Admin Dose 12.5 MG; Start 11/13/18 at 15:00 Hal Pickett DO Nov 14, 2018 12:14
--- NOTE | 2018-11-14 13:03 | CONS ---
Consult Date/Type/Reason Admit Date/Time Nov 04, 2018 at 17:03 Initial Consult Date 11/05/18 Type of Consult Pulmonary Requesting Provider: CHRIS RUBIN MD Date/Time of Note DATE: 11/14/18 TIME: 13:02 Subjective Patient comfortable this morning no respiratory distress Objective Vital Signs Date Temp Pulse Resp B/P (MAP) Pulse Ox O2 O2 Flow FiO2 Time Delivery Rate 11/14/18 98.2 77 18 154/99 96 12:16 (117) 11/14/18 Room Air 07:49 11/13/18 2.0 08:01 Intake and Output 11/13/18 11/13/18 11/14/18 1414:59 22:59 06:59 IntakeIntake Total 500 ml 200 ml OutputOutput Total 400 ml BalanceBalance 100 ml 200 ml Exam GENERAL: VITAL SIGNS: per chart NECK: Supple. No JVD or lymphadenopathy. CARDIAC EXAM: S1, S2. No added sounds or murmurs. CHEST: clear bilaterally, No added sounds, rales or wheezes ABDOMEN: Soft, nontender. No guarding or rebound. EXTREMITIES: No cyanosis, clubbing or edema. NEUROLOGIC: Generalized weakness. No focal deficits. Results/Medications Result Diagram: 11/14/18 0511/14/18 05 Results 24 hrs Laboratory Tests Test 11/14/18 05:23 White Blood Count 9.7 Red Blood Count 4.66 L Hemoglobin 14.0 Hematocrit 41.7 L Mean Corpuscular Volume 89.5 Mean Corpuscular Hemoglobin 30.0 Mean Corpuscular Hemoglobin Concent 33.6 Red Cell Distribution Width 14.1 Platelet Count 207 Mean Platelet Volume 10.7 H Immature Granulocytes % 0.500 H Neutrophils % 83.0 H Lymphocytes % 6.1 L Monocytes % 9.4 Eosinophils % 0.7 Basophils % 0.3 Nucleated Red Blood Cells % 0.0 Immature Granulocytes # 0.050 H Neutrophils # 8.1 H Lymphocytes # 0.6 L Monocytes # 0.9 Eosinophils # 0.1 Basophils # 0.0 Nucleated Red Blood Cells # 0.0 Sodium Level 140 Potassium Level 3.7 Chloride Level 103 Carbon Dioxide Level 29 Anion Gap 8 Blood Urea Nitrogen 17 Creatinine 0.89 Est Glomerular Filtrat Rate mL/min Glucose Level 94 Calcium Level 8.8 Total Bilirubin 1.6 H Direct Bilirubin 0.00 Indirect Bilirubin 1.6 H Aspartate Amino Transf (AST/SGOT) 34 Alanine Aminotransferase (ALT/SGPT) 27 Alkaline Phosphatase 70 Total Protein 5.6 L Albumin 3.2 L Globulin 2.40 Albumin/Globulin Ratio 1.33 Medications Current Medications IV Flush (NS 3 ml) 3 ml PER PROTOCOL IV ; Start 11/04/18 at 17:30 Ondansetron HCl (Zofran Tab) 4 mg Q6H PRN PO NAUSEA/VOMITING; Start 11/04/18 at 17:30 Aspirin (Aspirin) 81 mg DAILY PO Last administered on 11/14/18 09:05; Admin Dose 81 MG; Start 11/05/18 at 09:00 Acetaminophen (Tylenol Tab) 650 mg Q6H PRN PO .PAIN 1-3 OR TEMP; Start 11/04/18 at 17:30 Docusate Sodium (Colace) 100 mg Q12H PRN PO .CONSTIPATION Last administered on 11/14/18 09:05; Admin Dose 100 MG; Start 11/04/18 at 17:30 Famotidine (Pepcid) 20 mg Q12 PO Last administered on 11/14/18 09:05; Admin Dose 20 MG; Start 11/04/18 at 21:00 Heparin Sodium (Porcine) (Heparin (5000 Units/1ml)) 5,000 unit Q12 SC Last administered on 11/14/18 09:21; Admin Dose 5,000 UNIT; Start 11/04/18 at 21:00 Finasteride (Proscar) 5 mg DAILY PO Last administered on 11/14/18 09:05; Admin Dose 5 MG; Start 11/05/18 at 09:00 Losartan Potassium (Cozaar) 50 mg DAILY PO Last administered on 11/14/18 09:06; Admin Dose 50 MG; Start 11/05/18 at 09:00 Tamsulosin HCl (Flomax) 0.8 mg HS PO Last administered on 11/13/18 20:08; Admin Dose 0.8 MG; Start 11/04/18 at 21:00 Atorvastatin Calcium (Lipitor) 40 mg QHS PO Last administered on 11/13/18 20:08; Admin Dose 40 MG; Start 11/04/18 at 21:00 Montelukast Sodium (Singulair) 10 mg QHS PO Last administered on 11/13/18 20:08; Admin Dose 10 MG; Start 11/04/18 at 21:00 Fluticasone/ Vilanterol (Breo Ellipta 100-25 Mcg Inh) 1 inh DAILY INH Last administered on 11/14/18 09:04; Admin Dose 1 INH; Start 11/04/18 at 18:00 Miscellaneous Information Patients own medicat... BID@10,16 XX ; Start 11/05/18 at 10:00 Albuterol/ Ipratropium (Duoneb) 3 ml Q6H RESP THERAPY PRN HHN SHORTNESS OF BREATH Last administered on 11/09/18 20:03; Admin Dose 3 ML; Start 11/06/18 at 12:00 Rivaroxaban (Xarelto) 20 mg WITH DINNER PO Last administered on 11/13/18 17:21; Admin Dose 20 MG; Start 11/07/18 at 18:00 Diltiazem HCl (Cardizem Iv) 15 mg Q2H PRN IV sustained hr>130 Last administered on 11/09/18 12:17; Admin Dose 15 MG; Start 11/07/18 at 16:00 Lorazepam (Ativan) 1 mg Q6H PRN IV ANXIETY Last administered on 11/09/18 10:32; Admin Dose 1 MG; Start 11/09/18 at 10:30; Status Hold Clonidine HCl (Catapres-Tts 2 Patch) 1 patch Q7D TRANSDERM Last administered on 11/10/18 23:05; Admin Dose 1 PATCH; Start 11/10/18 at 17:30 Quetiapine Fumarate (Seroquel) 25 mg HS PO Last administered on 11/13/18 20:08; Admin Dose 25 MG; Start 11/12/18 at 21:00 Diltiazem HCl (Cardizem Cd) 120 mg BID PO Last administered on 11/14/18 09:05; Admin Dose 120 MG; Start 11/12/18 at 14:00 Diltiazem HCl (Cardizem) 60 mg Q6 PRN PO sustained hr>130; Start 11/12/18 at 13:30 Quetiapine Fumarate (Seroquel) 12.5 mg 1500 PO Last administered on 11/13/18 17:21; Admin Dose 12.5 MG; Start 11/13/18 at 15:00 Assessment/Plan Hospital Course (Demo Recall) Assessment 1. Aspiration versus community acquired pneumonia 2. Delirium with underlying history of dementia 3. Atrial fibrillation rapid ventricular rate Plan 1. Continue antibiotics 2. Aspiration fall precautions 3. Rate control per cardiology 4. Psych recommendations Continue management per PMD COR[facility]ERRERA [facility] Nov 14, 2018 13:03
[2018-11-14] MEDS: QUETIAPINE 25 MG TAB PO SCH ×2 (15:00→21:57)
--- NOTE | 2018-11-14 15:28 | PN ---
Date/Time of Note Date/Time of Note DATE: 11/14/18 TIME: 15:25 Assessment/Plan VTE Prophylaxis Risk score (from [facility])>0 risk: 6 SCD applied (from [facility]): Yes SCD contraindicated: low risk/ambulating Pharmacological prophylaxis: heparin Pharm contraindication: low risk/ambulating Lines/Catheters IV C[facility]ter Type (from [facility] Saline Lock Urinary Cath still in place: No Assessment/Plan Problems: (1) Altered mental status Status: Acute Comment: Coming back to baseline. This gentleman had an exquisitely sensitive reaction to Namenda, Aricept, Seroquel and other medications including benzodiazepines. As we backed away from the medications he is come back to his baseline although this also corresponds with treating the underlying metabolic disturbances. Approaching time for discharge Qualifiers: Altered mental status type: unspecified Qualified Codes: R41.82 - Altered mental status, unspecified (2) Atrial fibrillation with RVR Status: Acute Comment: Adequate rate control. Please note again to try move away from the clonidine for blood pressure using full dose losartan as placed (3) Right lower lobe pneumonia Status: Acute Comment: Completed treatment Qualifiers: Pneumonia type: due to unspecified organism Qualified Codes: J18.1 - Lobar pneumonia, unspecified organism (4) Essential hypertension Status: Chronic Comment: Remove clonidine due to potential side effects use more losartan (5) Hyperlipidemia Status: Chronic Comment: Adequate control Qualifiers: Hyperlipidemia type: pure hypercholesterolemia Qualified Codes: E78.00 - Pure hypercholesterolemia, unspecified Result Diagram: 11/14/18 0523 11/14/18 0523 Results 24hrs Laboratory Tests Test 11/14/18 05:23 White Blood Count 9.7 Red Blood Count 4.66 L Hemoglobin 14.0 Hematocrit 41.7 L Mean Corpuscular Volume 89.5 Mean Corpuscular Hemoglobin 30.0 Mean Corpuscular Hemoglobin Concent 33.6 Red Cell Distribution Width 14.1 Platelet Count 207 Mean Platelet Volume 10.7 H Immature Granulocytes % 0.500 H Neutrophils % 83.0 H Lymphocytes % 6.1 L Monocytes % 9.4 Eosinophils % 0.7 Basophils % 0.3 Nucleated Red Blood Cells % 0.0 Immature Granulocytes # 0.050 H Neutrophils # 8.1 H Lymphocytes # 0.6 L Monocytes # 0.9 Eosinophils # 0.1 Basophils # 0.0 Nucleated Red Blood Cells # 0.0 Sodium Level 140 Potassium Level 3.7 Chloride Level 103 Carbon Dioxide Level 29 Anion Gap 8 Blood Urea Nitrogen 17 Creatinine 0.89 Est Glomerular Filtrat Rate mL/min Glucose Level 94 Calcium Level 8.8 Total Bilirubin 1.6 H Direct Bilirubin 0.00 Indirect Bilirubin 1.6 H Aspartate Amino Transf (AST/SGOT) 34 Alanine Aminotransferase (ALT/SGPT) 27 Alkaline Phosphatase 70 Total Protein 5.6 L Albumin 3.2 L Globulin 2.40 Albumin/Globulin Ratio 1.33 Subjective 24 Hr Interval Summary Free Text/Dictation Much more alert and appropriate today. This actually is post to what his baseline status looks like Constitutional: no complaints Respiratory: no complaints Cardiovascular: no complaints Gastrointestinal: no complaints Genitourinary: no complaints Musculoskeletal: no complaints Exam/Review of Systems Exam Vitals Vital Signs Date Temp Pulse Resp B/P (MAP) Pulse Ox O2 O2 Flow FiO2 Time Delivery Rate 11/14/18 98.2 75 19 144/88 96 13:56 (106) 11/14/18 Room Air 07:49 11/13/18 2.0 08:01 Intake and Output 11/13/18 11/13/18 11/14/18 1414:59 22:59 06:59 IntakeIntake Total 500 ml 200 ml OutputOutput Total 400 ml BalanceBalance 100 ml 200 ml Constitutional: alert, oriented Respiratory: clear to auscultation, normal air movement Cardiovascular: regular rate and rhythm, nl pulses Gastrointestinal: soft, nl liver, spleen, non-tender Results Results 24hrs Laboratory Tests Test 11/14/18 05:23 White Blood Count 9.7 Red Blood Count 4.66 L Hemoglobin 14.0 Hematocrit 41.7 L Mean Corpuscular Volume 89.5 Mean Corpuscular Hemoglobin 30.0 Mean Corpuscular Hemoglobin Concent 33.6 Red Cell Distribution Width 14.1 Platelet Count 207 Mean Platelet Volume 10.7 H Immature Granulocytes % 0.500 H Neutrophils % 83.0 H Lymphocytes % 6.1 L Monocytes % 9.4 Eosinophils % 0.7 Basophils % 0.3 Nucleated Red Blood Cells % 0.0 Immature Granulocytes # 0.050 H Neutrophils # 8.1 H Lymphocytes # 0.6 L Monocytes # 0.9 Eosinophils # 0.1 Basophils # 0.0 Nucleated Red Blood Cells # 0.0 Sodium Level 140 Potassium Level 3.7 Chloride Level 103 Carbon Dioxide Level 29 Anion Gap 8 Blood Urea Nitrogen 17 Creatinine 0.89 Est Glomerular Filtrat Rate mL/min Glucose Level 94 Calcium Level 8.8 Total Bilirubin 1.6 H Direct Bilirubin 0.00 Indirect Bilirubin 1.6 H Aspartate Amino Transf (AST/SGOT) 34 Alanine Aminotransferase (ALT/SGPT) 27 Alkaline Phosphatase 70 Total Protein 5.6 L Albumin 3.2 L Globulin 2.40 Albumin/Globulin Ratio 1.33 Medications Medication Current Medications IV Flush (NS 3 ml) 3 ml PER PROTOCOL IV ; Start 11/04/18 at 17:30 Ondansetron HCl (Zofran Tab) 4 mg Q6H PRN PO NAUSEA/VOMITING; Start 11/04/18 at 17:30 Aspirin (Aspirin) 81 mg DAILY PO Last administered on 11/14/18 09:05; Admin Dose 81 MG; Start 11/05/18 at 09:00 Acetaminophen (Tylenol Tab) 650 mg Q6H PRN PO .PAIN 1-3 OR TEMP; Start 11/04/18 at 17:30 Docusate Sodium (Colace) 100 mg Q12H PRN PO .CONSTIPATION Last administered on 11/14/18 09:05; Admin Dose 100 MG; Start 11/04/18 at 17:30 Famotidine (Pepcid) 20 mg Q12 PO Last administered on 11/14/18 09:05; Admin Dose 20 MG; Start 11/04/18 at 21:00 Heparin Sodium (Porcine) (Heparin (5000 Units/1ml)) 5,000 unit Q12 SC Last administered on 11/14/18 09:21; Admin Dose 5,000 UNIT; Start 11/04/18 at 21:00 Finasteride (Proscar) 5 mg DAILY PO Last administered on 11/14/18 09:05; Admin Dose 5 MG; Start 11/05/18 at 09:00 Losartan Potassium (Cozaar) 50 mg DAILY PO Last administered on 11/14/18 09:06; Admin Dose 50 MG; Start 11/05/18 at 09:00 Tamsulosin HCl (Flomax) 0.8 mg HS PO Last administered on 11/13/18 20:08; Admin Dose 0.8 MG; Start 11/04/18 at 21:00 Atorvastatin Calcium (Lipitor) 40 mg QHS PO Last administered on 11/13/18 20:08; Admin Dose 40 MG; Start 11/04/18 at 21:00 Montelukast Sodium (Singulair) 10 mg QHS PO Last administered on 11/13/18 20:08; Admin Dose 10 MG; Start 11/04/18 at 21:00 Fluticasone/ Vilanterol (Breo Ellipta 100-25 Mcg Inh) 1 inh DAILY INH Last administered on 11/14/18 09:04; Admin Dose 1 INH; Start 11/04/18 at 18:00 Miscellaneous Information Patients own medicat... BID@10, XX ; Start 11/05/18 at 10:00 Albuterol/ Ipratropium (Duoneb) 3 ml Q6H RESP THERAPY PRN HHN SHORTNESS OF BREATH Last administered on 11/09/18 20:03; Admin Dose 3 ML; Start 11/06/18 at 12:00 Rivaroxaban (Xarelto) 20 mg WITH DINNER PO Last administered on 11/13/18 17:21; Admin Dose 20 MG; Start 11/07/18 at 18:00 Diltiazem HCl (Cardizem Iv) 15 mg Q2H PRN IV sustained hr>130 Last administered on 11/09/18 12:17; Admin Dose 15 MG; Start 11/07/18 at 16:00 Lorazepam (Ativan) 1 mg Q6H PRN IV ANXIETY Last administered on 11/09/18 10:32; Admin Dose 1 MG; Start 11/09/18 at 10:30; Status Hold Clonidine HCl (Catapres-Tts 2 Patch) 1 patch Q7D TRANSDERM Last administered on 11/10/18 23:05; Admin Dose 1 PATCH; Start 11/10/18 at 17:30 Quetiapine Fumarate (Seroquel) 25 mg HS PO Last administered on 11/13/18 20:08; Admin Dose 25 MG; Start 11/12/18 at 21:00 Diltiazem HCl (Cardizem Cd) 120 mg BID PO Last administered on 11/14/18 09:05; Admin Dose 120 MG; Start 11/12/18 at 14:00 Diltiazem HCl (Cardizem) 60 mg Q6 PRN PO sustained hr>130; Start 11/12/18 at 1 3:30 Quetiapine Fumarate (Seroquel) 12.5 mg Q8H PRN PO agitation; Start 11/14/18 at 23:00 CHRIS RUBIN MD Nov 14, 2018 15:28
[2018-11-14] MEDS ORDERED: CEPASTAT LOZENGE MT SCH (16:00)
[2018-11-14] MEDS ORDERED: CEPASTAT LOZENGE MT PRN (16:00)
[2018-11-14] MEDS: RIVAROXABAN 20 MG TABLET PO SCH (17:29)
[2018-11-14] MEDS: MONTELUKAST 10 MG TAB PO SCH (21:56)
[2018-11-14] MEDS: ATORVASTATIN 40 MG TAB PO SCH (21:56)
[2018-11-14] MEDS: TAMSULOSIN (SR) 0.4 MG CAP PO SCH (21:57)
[2018-11-15] VITALS (16 sets, daily range): BP systolic 100–139; BP diastolic 60–85; PULSE 36–88; RESP 17–19
[2018-11-15] MEDS: QUETIAPINE 25 MG TAB PO PRN (04:03)
[2018-11-15] MEDS: FLUTICASONE/VILANTEROL 100-25 INH SCH (09:13)
[2018-11-15] MEDS: ASPIRIN 81 MG TAB PO SCH (09:14)
[2018-11-15] MEDS: FAMOTIDINE 20 MG TAB PO SCH ×2 (09:14→20:52)
[2018-11-15] MEDS: FINASTERIDE 5 MG TAB PO SCH (09:14)
[2018-11-15] MEDS: HEPARIN 5,000 UNIT/1 ML VIAL SC SCH ×2 (09:20→21:04)
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
--- NOTE | 2018-11-15 15:14 | CONS ---
Consult Date/Type/Reason Admit Date/Time Nov 04, 2018 at 17:03 Initial Consult Date 11/05/18 Type of Consultation: Pulm Requesting Provider: CHRIS RUBIN MD Date/Time of Note DATE: 11/15/18 TIME: 15:12 Subjective No events. More alert. Objective Vitals Vital Signs Date Temp Pulse Resp B/P (MAP) Pulse Ox O2 O2 Flow FiO2 Time Delivery Rate 11/15/18 98.1 77 19 131/85 96 15:08 (100) 11/14/18 Room Air 07:49 11/13/18 2.0 08:01 Intake and Output 11/14/18 11/14/18 11/15/18 1515:00 23:00 07:00 IntakeIntake Total 500 ml 150 ml OutputOutput Total 600 ml BalanceBalance -100 ml 150 ml Exam HEENT: Neck supple; no JVD; no LAD CVS: Irreg irreg, S1 and S2 CHEST: Clear ABD: Soft, NT, + BS EXT: No c/c/e Results/Medications Result Diagram: 11/14/18 0511/14/18522 Results 24 hrs Laboratory Tests Test 11/15/18 10:24 Lab Scanned Report REFERENCE LAB Home Meds Reported Medications [Vitamin B12 Inj] No Conflict Check, 1 ML INJ DAILY INJECT 1ML-FOR 7 DAYS DAILY (LAST INJECTION 11/04/18-FOR 7 DAYS), THEN INJECT Q7D- FOR 3 WEEKS(START DAY 11/05/18),THEN ONCE A MONTH. 11/04/18 Simvastatin* (Zocor*) 40 Mg Tablet, 40 MG PO DAILY, #30 TAB 11/04/18 Finasteride* (Finasteride*) 5 Mg Tablet, 5 MG PO DAILY, TAB 11/04/18 Gabapentin* (Gabapentin*) 400 Mg Capsule, 400 MG PO QHS, #90 CAP 11/04/18 Lansoprazole* (Lansoprazole*) 30 Mg Capsule.dr, 30 MG PO DAILY, CAP 11/04/18 Losartan Potassium* (Losartan Potassium*) 50 Mg Tablet, 50 MG PO DAILY, TAB 11/04/18 Tamsulosin Hcl* (Tamsulosin Hcl*) 0.4 Mg Cap.er.24h, 0.8 MG PO HS, CAP 11/04/18 Medications Current Medications IV Flush (NS 3 ml) 3 ml PER PROTOCOL IV ; Start 11/04/18 at 17:30 Ondansetron HCl (Zofran Tab) 4 mg Q6H PRN PO NAUSEA/VOMITING; Start 11/04/18 at 17:30 Aspirin (Aspirin) 81 mg DAILY PO Last administered on 11/15/18 09:14; Admin Dose 81 MG; Start 11/05/18 at 09:00 Acetaminophen (Tylenol Tab) 650 mg Q6H PRN PO .PAIN 1-3 OR TEMP; Start 11/04/18 at 17:30 Docusate Sodium (Colace) 100 mg Q12H PRN PO .CONSTIPATION Last administered on 11/14/18 09:05; Admin Dose 100 MG; Start 11/04/18 at 17:30 Famotidine (Pepcid) 20 mg Q12 PO Last administered on 11/15/18 09:14; Admin Dose 20 MG; Start 11/04/18 at 21:00 Heparin Sodium (Porcine) (Heparin (5000 Units/1ml)) 5,000 unit Q12 SC Last administered on 11/15/18 09:20; Admin Dose 5,000 UNIT; Start 11/04/18 at 21:00 Finasteride (Proscar) 5 mg DAILY PO Last administered on 11/15/18 09:14; Admin Dose 5 MG; Start 11/05/18 at 09:00 Tamsulosin HCl (Flomax) 0.8 mg HS PO Last administered on 11/14/18 21:57; Admin Dose 0.8 MG; Start 11/04/18 at 21:00 Atorvastatin Calcium (Lipitor) 40 mg QHS PO Last administered on 11/14/18 21:56; Admin Dose 40 MG; Start 11/04/18 at 21:00 Montelukast Sodium (Singulair) 10 mg QHS PO Last administered on 11/14/18 21:56; Admin Dose 10 MG; Start 11/04/18 at 21:00 Fluticasone/ Vilanterol (Breo Ellipta 100-25 Mcg Inh) 1 inh DAILY INH Last administered on 11/15/18 09:13; Admin Dose 1 INH; Start 11/04/18 at 18:00 Miscellaneous Information Patients own medicat... BID@10,16 XX Last administered on 11/15/18 10:26; Admin Dose 1 EA; Start 11/05/18 at 10:00 Albuterol/ Ipratropium (Duoneb) 3 ml Q6H RESP THERAPY PRN HHN SHORTNESS OF BREATH Last administered on 11/09/18 20:03; Admin Dose 3 ML; Start 11/06/18 at 12:00 Rivaroxaban (Xarelto) 20 mg WITH DINNER PO Last administered on 11/14/18 17:29; Admin Dose 20 MG; Start 11/07/18 at 18:00 Diltiazem HCl (Cardizem Iv) 15 mg Q2H PRN IV sustained hr>130 Last administered on 11/09/18 12:17; Admin Dose 15 MG; Start 11/07/18 at 16:00 Lorazepam (Ativan) 1 mg Q6H PRN IV ANXIETY Last administered on 11/09/18 10:32; Admin Dose 1 MG; Start 11/09/18 at 10:30; Status Hold Quetiapine Fumarate (Seroquel) 25 mg HS PO Last administered on 11/14/18 21:57; Admin Dose 25 MG; Start 11/12/18 at 21:00 Diltiazem HCl (Cardizem Cd) 120 mg BID PO Last administered on 11/14/18 21:57; Admin Dose 120 MG; Start 11/12/18 at 14:00 Diltiazem HCl (Cardizem) 60 mg Q6 PRN PO sustained hr>130; Start 11/12/18 at 13 :30 Quetiapine Fumarate (Seroquel) 12.5 mg Q8H PRN PO agitation Last administered on 11/15/18 04:03; Admin Dose 12.5 MG; Start 11/14/18 at 23:00 Losartan Potassium (Cozaar) 50 mg BID PO Last administered on 11/14/18 21:57; Admin Dose 50 MG; Start 11/14/18 at 21:00 Phenol (Cepastat Lozenge) 1 lozenge Q1H PRN MT DRY MOUTH; Start 11/14/18 at 16:00 Assessment/Plan Assessment/Plan (Daily) IMP: 1. Aspiration versus community acquired pneumonia 2. Delirium--improved 3. Atrial fibrillation rapid ventricular rate RECS: 1. Continue antibiotics 2. Aspiration fall precautions 3. Rate control per cardiology SAMIRA SHIRLEY MD Nov 15, 2018 15:14
[2018-11-15] MEDS: LOSARTAN 50 MG TAB PO SCH ×2 (16:34→20:51)
[2018-11-15] MEDS: DILTIAZEM (CD) 120 MG CAP PO SCH ×2 (16:34→20:52)
[2018-11-15] MEDS: RIVAROXABAN 20 MG TABLET PO SCH (17:29)
[2018-11-15] MEDS: MONTELUKAST 10 MG TAB PO SCH (20:51)
[2018-11-15] MEDS: TAMSULOSIN (SR) 0.4 MG CAP PO SCH (20:51)
[2018-11-15] MEDS: ATORVASTATIN 40 MG TAB PO SCH (20:51)
[2018-11-15] MEDS: QUETIAPINE 25 MG TAB PO SCH (20:52)
[2018-11-16] VITALS (13 sets, daily range): BP systolic 118–149; BP diastolic 70–91; PULSE 41–93; RESP 17–21
[2018-11-16] MEDS: DOCUSATE SODIUM 100 MG CAP PO PRN ×2 (06:00→20:29)
[2018-11-16] MEDS: FINASTERIDE 5 MG TAB PO SCH (09:21)
[2018-11-16] MEDS: FAMOTIDINE 20 MG TAB PO SCH ×2 (09:21→20:29)
[2018-11-16] MEDS: ASPIRIN 81 MG TAB PO SCH (09:21)
[2018-11-16] MEDS: LOSARTAN 50 MG TAB PO SCH ×2 (09:21→20:29)
[2018-11-16] MEDS: DILTIAZEM (CD) 120 MG CAP PO SCH (09:22)
[2018-11-16] MEDS: FLUTICASONE/VILANTEROL 100-25 INH SCH (09:22)
[2018-11-16] MEDS: HEPARIN 5,000 UNIT/1 ML VIAL SC SCH ×2 (09:29→20:37)
[2018-11-16] MEDS ORDERED: POTASSIUM CHLORIDE (SR) 20 MEQ TAB PO STA (11:21)
--- NOTE | 2018-11-16 12:13 | PN ---
Date/Time of Note Date/Time of Note DATE: 11/16/18 TIME: 12:09 Assessment/Plan VTE Prophylaxis Risk score (from Ns)>0 risk: 6 SCD applied (from Ns): Yes Pharmacological prophylaxis: rivaroxaban Lines/Catheters IV [facility]ter [facility]from [facility] Urinary Cath still in place: No Assessment/Plan Problems: (1) Altered mental status Status: Acute Comment: Improving but not at baseline. Consider ARU vs. placement. ARU eval in progress. If not, plan placement, possibly the [facility]. Will monitor and cont. quetiapine prn. Qualifiers: Altered mental status type: unspecified Qualified Codes: R41.82 - Altered mental status, unspecified (2) Paroxysmal atrial fibrillation Status: Chronic Comment: Rate controlled. Cont. diltiazem and xarelto (3) Asthma, moderate persistent Status: Chronic Comment: Doing well. Cont. breo and montelukast. Qualifiers: Asthma complication type: with acute exacerbation Qualified Codes: J45.41 - Moderate persistent asthma with (acute) exacerbation (4) Benign prostatic hyperplasia Status: Chronic Comment: Cont. tamsulosin and finasteride Qualifiers: Lower urinary tract symptom presence: symptoms present Lower urinary tract symptom detail: urinary hesitancy Qualified Codes: N40.1 - Benign prostatic hyperplasia with lower urinary tract symptoms; R39.11 - Hesitancy of micturition (5) Hyperlipidemia Status: Chronic Comment: Cont. atorvastatin Qualifiers: Hyperlipidemia type: pure hypercholesterolemia Qualified Codes: E78.00 - Pure hypercholesterolemia, unspecified (6) Essential hypertension Status: Chronic Comment: BP controlled. Cont. losartan (7) Diastolic dysfunction Status: Chronic Comment: Cont. diltiazem and losartan (8) Right lower lobe pneumonia Status: Resolved Comment: S/p treatment. Cont. PT and rehab to improve physical symptoms. Qualifiers: Pneumonia type: due to unspecified organism Qualified Codes: J18.1 - Lobar pneumonia, unspecified organism Result Diagram: 11/16/18 0531 11/16/18 0531 Results 24hrs Laboratory Tests Test 11/16/18 05:31 White Blood Count 8.0 Red Blood Count 4.53 L Hemoglobin 13.4 L Hematocrit 40.9 L Mean Corpuscular Volume 90.3 Mean Corpuscular Hemoglobin 29.6 Mean Corpuscular Hemoglobin Concent 32.8 Red Cell Distribution Width 14.6 H Platelet Count 220 Mean Platelet Volume 10.8 H Immature Granulocytes % 0.500 H Neutrophils % 72.0 Lymphocytes % 14.3 L Monocytes % 9.9 Eosinophils % 2.5 Basophils % 0.8 Nucleated Red Blood Cells % 0.0 Immature Granulocytes # 0.040 H Neutrophils # 5.8 Lymphocytes # 1.1 Monocytes # 0.8 Eosinophils # 0.2 Basophils # 0.1 Nucleated Red Blood Cells # 0.0 Sodium Level 140 Potassium Level 3.2 L Chloride Level 106 Carbon Dioxide Level 28 Anion Gap 6 Blood Urea Nitrogen 21 H Creatinine 1.29 H Est Glomerular Filtrat Rate mL/min Glucose Level 98 Calcium Level 8.5 Subjective 24 Hr Interval Summary Constitutional: no complaints, improved Respiratory: no complaints Cardiovascular: no complaints Gastrointestinal: no complaints Genitourinary: no complaints Musculoskeletal: no complaints Neurologic: confusion (but better than yesterday) Exam/Review of Systems Exam Vitals VS - Last 72 Hours, by Label Date Temp Pulse Resp B/P (MAP) Pulse Ox O2 O2 Flow FiO2 Time Delivery Rate 11/16/18 41 08:01 11/16/18 98.1 56 19 149/90 97 07:19 (109) 11/16/18 61 04:00 11/16/18 97.9 55 19 134/89 94 03:52 (104) 11/16/18 78 00:00 11/15/18 98.3 71 17 133/81 99 23:34 (98) 11/15/18 63 20:00 11/15/18 98.1 56 18 139/83 98 19:37 (101) 11/15/18 70 16:01 11/15/18 98.1 77 19 131/85 96 15:08 (100) 11/15/18 80 12:01 11/15/18 98.2 79 19 110/70 96 11:03 (83) 11/15/18 88 08:01 11/15/18 98.2 79 19 100/60 96 07:18 (73) 11/15/18 36 04:58 11/15/18 86 04:00 11/15/18 98.3 71 18 127/73 96 03:49 (91) 11/15/18 38 03:12 11/15/18 98.3 65 17 110/70 95 01:08 (83) 11/15/18 74 00:00 11/14/18 41 22:59 11/14/18 44 22:40 11/14/18 42 22:40 11/14/18 74 20:00 11/14/18 98.1 77 18 124/73 97 19:35 (90) 11/14/18 69 16:00 11/14/18 98.2 88 19 144/91 94 15:52 (108) 11/14/18 98.2 75 19 144/88 96 13:56 (106) 11/14/18 98.2 77 18 154/99 96 12:16 (117) 11/14/18 73 12:00 11/14/18 98.0 56 19 133/84 99 10:00 (100) 11/14/18 72 08:00 11/14/18 97.4 82 12 168/98 99 Room Air 07:49 (121) 11/14/18 98.0 81 18 144/81 96 06:00 (102) 11/14/18 73 04:38 11/14/18 98.1 83 21 151/87 94 04:00 (108) 11/14/18 98.0 84 22 141/77 95 02:00 (98) 11/14/18 85 00:29 11/14/18 98.2 83 19 159/95 96 00:00 (116) 11/13/18 98.1 55 18 143/93 95 22:00 (110) 11/13/18 80 20:26 11/13/18 98.1 86 20 170/101 96 20:00 (124) 11/13/18 98.4 71 19 129/89 94 18:29 (102) 11/13/18 98.4 76 17 140/93 96 16:40 (109) 11/13/18 75 16:30 11/13/18 98.3 73 19 135/87 94 14:12 (103) 11/13/18 77 12:58 Vital Signs Date Temp Pulse Resp B/P (MAP) Pulse Ox O2 O2 Flow FiO2 Time Delivery Rate 11/16/18 41 08:01 11/16/18 98.1 19 149/90 97 07:19 (109) 11/14/18 Room Air 07:49 11/13/18 2.0 08:01 Intake and Output 11/15/18 11/15/1811/16/19 1515:00 23:00 07:00 IntakeIntake Total 600 ml 250 ml OutputOutput Total 400 ml BalanceBalance 600 ml -150 ml Constitutional: alert, well developed; No oriented Psych: no complaints, nl mood/affect Respiratory: clear to auscultation, normal air movement Cardiovascular: nl pulses, edema (1+ BLE), irregular rhythm; No regular rate and rhythm, No murmurs/extra sounds, No rub Gastrointestinal: soft, nl liver, spleen, non-tender, bowel sounds; No mass, No rebound or guarding Musculoskeletal: nl extremities to inspection Extremities: normal pulses; No cyanosis, No clubbing, No edema Neurological: [employer] II-XII intact, nl mental status, nl speech, nl strength Results Results 24hrs Laboratory Tests Test 11/16/18 05:31 White Blood Count 8.0 Red Blood Count 4.53 L Hemoglobin 13.4 L Hematocrit 40.9 L Mean Corpuscular Volume 90.3 Mean Corpuscular Hemoglobin 29.6 Mean Corpuscular Hemoglobin Concent 32.8 Red Cell Distribution Width 14.6 H Platelet Count 220 Mean Platelet Volume 10.8 H Immature Granulocytes % 0.500 H Neutrophils % 72.0 Lymphocytes % 14.3 L Monocytes % 9.9 Eosinophils % 2.5 Basophils % 0.8 Nucleated Red Blood Cells % 0.0 Immature Granulocytes # 0.040 H Neutrophils # 5.8 Lymphocytes # 1.1 Monocytes # 0.8 Eosinophils # 0.2 Basophils # 0.1 Nucleated Red Blood Cells # 0.0 Sodium Level 140 Potassium Level 3.2 L Chloride Level 106 Carbon Dioxide Level 28 Anion Gap 6 Blood Urea Nitrogen 21 H Creatinine 1.29 H Est Glomerular Filtrat Rate mL/min Glucose Level 98 Calcium Level 8.5 Medications Medication Current Medications IV Flush (NS 3 ml) 3 ml PER PROTOCOL IV ; Start 11/04/18 at 17:30 Ondansetron HCl (Zofran Tab) 4 mg Q6H PRN PO NAUSEA/VOMITING; Start 11/04/18 at 17:30 Aspirin (Aspirin) 81 mg DAILY PO Last administered on 11/16/18at 09:21; Admin Dose 81 MG; Start 11/05/18 at 09:00 Acetaminophen (Tylenol Tab) 650 mg Q6H PRN PO .PAIN 1-3 OR TEMP; Start 11/04/18 at 17:30 Docusate Sodium (Colace) 100 mg Q12H PRN PO .CONSTIPATION Last administered on 11/16/18 06:00; Admin Dose 100 MG; Start 11/04/18 at 17:30 Famotidine (Pepcid) 20 mg Q12 PO Last administered on 11/16/18 09:21; Admin Dose 20 MG; Start 11/04/18 at 21:00 Heparin Sodium (Porcine) (Heparin (5000 Units/1ml)) 5,000 unit Q12 SC Last administered on 11/16/18 09:29; Admin Dose 5,000 UNIT; Start 11/04/18 at 21:00 Finasteride (Proscar) 5 mg DAILY PO Last administered on 11/16/18 09:21; Admin Dose 5 MG; Start 11/05/18 at 09:00 Tamsulosin HCl (Flomax) 0.8 mg HS PO Last administered on 11/15/18 20:51; Admin Dose 0.8 MG; Start 11/04/18 at 21:00 Atorvastatin Calcium (Lipitor) 40 mg QHS PO Last administered on 11/15/18 20:51; Admin Dose 40 MG; Start 11/04/18 at 21:00 Montelukast Sodium (Singulair) 10 mg QHS PO Last administered on 11/15/18 20:51; Admin Dose 10 MG; Start 11/04/18 at 21:00 Fluticasone/ Vilanterol (Breo Ellipta 100-25 Mcg Inh) 1 inh DAILY INH Last administered on 11/16/18 09:22; Admin Dose 1 INH; Start 11/04/18 at 18:00 Miscellaneous Information Patients own medicat... BID@10,16 XX Last administered on 11/16/18 09:29; Admin Dose 1 EA; Start 11/05/18 at 10:00 Albuterol/ Ipratropium (Duoneb) 3 ml Q6H RESP THERAPY PRN HHN SHORTNESS OF BREATH Last administered on 11/09/18 20:03; Admin Dose 3 ML; Start 11/06/18 at 12:00 Rivaroxaban (Xarelto) 20 mg WITH DINNER PO Last administered on 11/15/18 17:29; Admin Dose 20 MG; Start 11/07/18 at 18:00 Diltiazem HCl (Cardizem Iv) 15 mg Q2H PRN IV sustained hr>130 Last administered on 11/09/18 12:17; Admin Dose 15 MG; Start 11/07/18 at 16:00 Lorazepam (Ativan) 1 mg Q6H PRN IV ANXIETY Last administered on 11/09/18 10:32; Admin Dose 1 MG; Start 11/09/18 at 10:30; Status Hold Quetiapine Fumarate (Seroquel) 25 mg HS PO Last administered on 11/15/18 20:52; Admin Dose 25 MG; Start 11/12/18 at 21:00 Diltiazem HCl (Cardizem Cd) 120 mg BID PO Last administered on 11/16/18 09:22; Admin Dose 120 MG; Start 11/12/18 at 14:00 Diltiazem HCl (Cardizem) 60 mg Q6 PRN PO sustained hr>130; Start 11/12/18 at 13:30 Quetiapine Fumarate (Seroquel) 12.5 mg Q8H PRN PO agitation Last administered on 11/15/18 04:03; Admin Dose 12.5 MG; Start 11/14/18 at 23:00 Losartan Potassium (Cozaar) 50 mg BID PO Last administered on 11/16/18 09:21; Admin Dose 50 MG; Start 11/14/18 at 21:00 Phenol (Cepastat Lozenge) 1 lozenge Q1H PRN MT DRY MOUTH; Start 11/14/18 at 16:00 HELEN FRANK MD Nov 16, 2018 12:13
[2018-11-16] MEDS ORDERED: THIAMINE 200 MG INJ IM ONE (13:00)
--- NOTE | 2018-11-16 13:36 | CONS ---
Consult Date/Type/Reason Admit Date/Time Nov 04, 2018 at 17:03 Initial Consult Date 11/05/18 Type of Consultation: Pulm Requesting Provider: CHRIS RUBIN MD Date/Time of Note DATE: 11/16/18 TIME: 13:35 Subjective Overall improved and less confused. Objective Vitals Vital Signs Date Temp Pulse Resp B/P (MAP) Pulse Ox O2 O2 Flow FiO2 Time Delivery Rate 11/16/18 41 08:01 11/16/18 98.1 19 149/90 97 07:19 (109) 11/14/18 Room Air 07:49 11/13/18 2.0 08:01 Intake and Output 11/15/18 11/15/18 11/16/18 1515:00 23:00 07:00 IntakeIntake Total 600 ml 250 ml OutputOutput Total 400 ml BalanceBalance 600 ml -150 ml Exam HEENT: Neck supple; no JVD; no LAD CVS: Irreg irreg, S1 and S2 CHEST: Clear ABD: Soft, NT, + BS EXT: No c/c/e Results/Medications Result Diagram: 11/16/1831 11/16/18 0531 Results 24 hrs Laboratory Tests Test 11/16/18 05:31 White Blood Count 8.0 Red Blood Count 4.53 L Hemoglobin 13.4 L Hematocrit 40.9 L Mean Corpuscular Volume 90.3 Mean Corpuscular Hemoglobin 29.6 Mean Corpuscular Hemoglobin Concent 32.8 Red Cell Distribution Width 14.6 H Platelet Count 220 Mean Platelet Volume 10.8 H Immature Granulocytes % 0.500 H Neutrophils % 72.0 Lymphocytes % 14.3 L Monocytes % 9.9 Eosinophils % 2.5 Basophils % 0.8 Nucleated Red Blood Cells % 0.0 Immature Granulocytes # 0.040 H Neutrophils # 5.8 Lymphocytes # 1.1 Monocytes # 0.8 Eosinophils # 0.2 Basophils # 0.1 Nucleated Red Blood Cells # 0.0 Sodium Level 140 Potassium Level 3.2 L Chloride Level 106 Carbon Dioxide Level 28 Anion Gap 6 Blood Urea Nitrogen 21 H Creatinine 1.29 H Est Glomerular Filtrat Rate mL/min Glucose Level 98 Calcium Level 8.5 Home Meds Reported Medications [Vitamin B12 Inj] No Conflict Check, 1 ML INJ DAILY INJECT 1ML-FOR 7 DAYS DAILY (LAST INJECTION 3/26/19-FOR 7 DAYS), THEN INJECT Q7D- FOR 3 WEEKS(START DAY 11/05/18),THEN ONCE A MONTH. 11/04/18 Simvastatin* (Zocor*) 40 Mg Tablet, 40 MG PO DAILY, #30 TAB 11/04/18 Finasteride* (Finasteride*) 5 Mg Tablet, 5 MG PO DAILY, TAB 11/04/18 Gabapentin* (Gabapentin*) 400 Mg Capsule, 400 MG PO QHS, #90 CAP 11/04/18 Lansoprazole* (Lansoprazole*) 30 Mg Capsule.dr, 30 MG PO DAILY, CAP 11/04/18 Losartan Potassium* (Losartan Potassium*) 50 Mg Tablet, 50 MG PO DAILY, TAB 11/04/18 Tamsulosin Hcl* (Tamsulosin Hcl*) 0.4 Mg Cap.er.24h, 0.8 MG PO HS, CAP 11/04/18 Medications Current Medications IV Flush (NS 3 ml) 3 ml PER PROTOCOL IV ; Start 11/04/18 at 17:30 Ondansetron HCl (Zofran Tab) 4 mg Q6H PRN PO NAUSEA/VOMITING; Start 11/04/18 at 17:30 Aspirin (Aspirin) 81 mg DAILY PO Last administered on 11/16/18at 09:21; Admin Dose 81 MG; Start 11/05/18 at 09:00 Acetaminophen (Tylenol Tab) 650 mg Q6H PRN PO .PAIN 1-3 OR TEMP; Start 11/04/18 at 17:30 Docusate Sodium (Colace) 100 mg Q12H PRN PO .CONSTIPATION Last administered on 11/16/18at 06:00; Admin Dose 100 MG; Start 11/04/18 at 17:30 Famotidine (Pepcid) 20 mg Q12 PO Last administered on 11/16/18 09:21; Admin Dose 20 MG; Start 11/04/18 at 21:00 Heparin Sodium (Porcine) (Heparin (5000 Units/1ml)) 5,000 unit Q12 SC Last administered on 11/16/18at 09:29; Admin Dose 5,000 UNIT; Start 11/04/18 at 21:00 Finasteride (Proscar) 5 mg DAILY PO Last administered on 11/16/18 09:21; Admin Dose 5 MG; Start 11/05/18 at 09:00 Tamsulosin HCl (Flomax) 0.8 mg HS PO Last administered on 11/15/18 20:51; Admin Dose 0.8 MG; Start 11/04/18 at 21:00 Atorvastatin Calcium (Lipitor) 40 mg QHS PO Last administered on 11/15/18 20:51; Admin Dose 40 MG; Start 11/04/18 at 21:00 Montelukast Sodium (Singulair) 10 mg QHS PO Last administered on 11/15/18 20:51; Admin Dose 10 MG; Start 11/04/18 at 21:00 Fluticasone/ Vilanterol (Breo Ellipta 100-25 Mcg Inh) 1 inh DAILY INH Last a dministered on 11/16/18 09:22; Admin Dose 1 INH; Start 11/04/18 at 18:00 Miscellaneous Information Patients own medicat... BID@10,16 XX Last administered on 11/16/18 09:29; Admin Dose 1 EA; Start 11/05/18 at 10:00 Albuterol/ Ipratropium (Duoneb) 3 ml Q6H RESP THERAPY PRN HHN SHORTNESS OF BREATH Last administered on 11/09/18 20:03; Admin Dose 3 ML; Start 11/06/18 at 12:00 Rivaroxaban (Xarelto) 20 mg WITH DINNER PO Last administered on 11/15/18 17:29; Admin Dose 20 MG; Start 11/07/18 at 18:00 Diltiazem HCl (Cardizem Iv) 15 mg Q2H PRN IV sustained hr>130 Last administered on 11/09/18 12:17; Admin Dose 15 MG; Start 11/07/18 at 16:00 Lorazepam (Ativan) 1 mg Q6H PRN IV ANXIETY Last administered on 11/09/18 10:32; Admin Dose 1 MG; Start 11/09/18 at 10:30; Status Hold Quetiapine Fumarate (Seroquel) 25 mg HS PO Last administered on 11/15/18 20:52; Admin Dose 25 MG; Start 11/12/18 at 21:00 Diltiazem HCl (Cardizem Cd) 120 mg BID PO Last administered on 11/16/18 09:22; Admin Dose 120 MG; Start 11/12/18 at 14:00 Diltiazem HCl (Cardizem) 60 mg Q6 PRN PO sustained hr>130; Start 11/12/18 at 13:30 Quetiapine Fumarate (Seroquel) 12.5 mg Q8H PRN PO agitation Last administered on 11/15/18at 04:03; Admin Dose 12.5 MG; Start 11/14/18 at 23:00 Losartan Potassium (Cozaar) 50 mg BID PO Last administered on 11/16/18at 09:21; Admin Dose 50 MG; Start 11/14/18 at 21:00 Phenol (Cepastat Lozenge) 1 lozenge Q1H PRN MT DRY MOUTH; Start 11/14/18 at 16:00 Thiamine HCl (Vitamin B1) 100 mg DAILY PO ; Start 11/17/18 at 09:00 Assessment/Plan Assessment/Plan (Daily) IMP: 1. Aspiration versus community acquired pneumonia 2. Delirium--improved 3. Atrial fibrillation rapid ventricular rate RECS: 1. Continue antibiotics 2. Aspiration fall precautions 3. PT/OT SAMIRA SHIRLEY MD Nov 16, 2018 13:36
--- NOTE | 2018-11-16 13:56 | CONS ---
Assessment/Plan Assessment/Plan Hospital Course (Demo Recall) Atrial fibrillation with rapid ventricular rates, improved Preserved ejection fraction Pneumonia Acute kidney injury Coronary artery disease with history of PCI Encephalopathy Hypertension Lower extremity edema -Mental status continues to improve -HR trend on the lower side, would adjust dose of Cardizem -Antibiotics as per primary team -Continue anticoagulation as tolerated Consultation Date/Type/Reason Admit Date/Time Nov 04, 2018 at 17:03 Initial Consult Date 11/05/18 Type of Consult Cardiology Requesting Provider: CHRIS RUBIN MD Date/Time of Note DATE: 11/16/18 TIME: 13:55 24 HR Interval Summary Free Text/Dictation No shortness of breath, palpitations, chest pain Exam/Review of Systems Vital Signs Vitals Vital Signs Date Temp Pulse Resp B/P (MAP) Pulse Ox O2 O2 Flow FiO2 Time Delivery Rate 11/16/18 41 08:01 11/16/18 98.1 19 149/90 97 07:19 (109) 11/14/18 Room Air 07:49 11/13/18 2.0 08:01 Intake and Output 11/15/18 11/15/18 11/16/18 1515:00 23:00 07:00 IntakeIntake Total 600 ml 250 ml OutputOutput Total 400 ml BalanceBalance 600 ml -150 ml Exam Constitutional: alert, oriented (Person and place) Head: normocephalic Respiratory: other (Coarse breath sounds bilaterally, no wheezing) Cardiovascular: irregular rhythm (S1-S2 heard) Gastrointestinal: soft, non-tender, bowel sounds Extremities: edema Labs Result Diagram: 11/16/18 0531 11/16/18 0531 Results 24hrs Laboratory Tests Test 11/16/18 05:31 White Blood Count 8.0 Red Blood Count 4.53 L Hemoglobin 13.4 L Hematocrit 40.9 L Mean Corpuscular Volume 90.3 Mean Corpuscular Hemoglobin 29.6 Mean Corpuscular Hemoglobin Concent 32.8 Red Cell Distribution Width 14.6 H Platelet Count 220 Mean Platelet Volume 10.8 H Immature Granulocytes % 0.500 H Neutrophils % 72.0 Lymphocytes % 14.3 L Monocytes % 9.9 Eosinophils % 2.5 Basophils % 0.8 Nucleated Red Blood Cells % 0.0 Immature Granulocytes # 0.040 H Neutrophils # 5.8 Lymphocytes # 1.1 Monocytes # 0.8 Eosinophils # 0.2 Basophils # 0.1 Nucleated Red Blood Cells # 0.0 Sodium Level 140 Potassium Level 3.2 L Chloride Level 106 Carbon Dioxide Level 28 Anion Gap 6 Blood Urea Nitrogen 21 H Creatinine 1.29 H Est Glomerular Filtrat Rate mL/min Glucose Level 98 Calcium Level 8.5 Medications Medications Current Medications IV Flush (NS 3 ml) 3 ml PER PROTOCOL IV ; Start 11/04/18 at 17:30 Ondansetron HCl (Zofran Tab) 4 mg Q6H PRN PO NAUSEA/VOMITING; Start 11/04/18 at 17:30 Aspirin (Aspirin) 81 mg DAILY PO Last administered on 11/16/18 09:21; Admin Dose 81 MG; Start 11/05/18 at 09:00 Acetaminophen (Tylenol Tab) 650 mg Q6H PRN PO .PAIN 1-3 OR TEMP; Start 11/04/18 at 17:30 Docusate Sodium (Colace) 100 mg Q12H PRN PO .CONSTIPATION Last administered on 11/16/18 06:00; Admin Dose 100 MG; Start 11/04/18 at 17:30 Famotidine (Pepcid) 20 mg Q12 PO Last administered on 11/16/18 09:21; Admin Dose 20 MG; Start 11/04/18 at 21:00 Heparin Sodium (Porcine) (Heparin (5000 Units/1ml)) 5,000 unit Q12 SC Last administered on 11/16/18 09:29; Admin Dose 5,000 UNIT; Start 11/04/18 at 21:00 Finasteride (Proscar) 5 mg DAILY PO Last administered on 11/16/18 09:21; Admin Dose 5 MG; Start 11/05/18 at 09:00 Tamsulosin HCl (Flomax) 0.8 mg HS PO Last administered on 11/15/18 20:51; Admin Dose 0.8 MG; Start 11/04/18 at 21:00 Atorvastatin Calcium (Lipitor) 40 mg QHS PO Last administered on 11/15/18 20:51; Admin Dose 40 MG; Start 11/04/18 at 21:00 Montelukast Sodium (Singulair) 10 mg QHS PO Last administered on 11/15/18 20:51; Admin Dose 10 MG; Start 11/04/18 at 21:00 Fluticasone/ Vilanterol (Breo Ellipta 100-25 Mcg Inh) 1 inh DAILY INH Last administered on 11/16/18 09:22; Admin Dose 1 INH; Start 11/04/18 at 18:00 Miscellaneous Information Patients own medicat... BID@10,16 XX Last administered on 11/16/18 09:29; Admin Dose 1 EA; Start 11/05/18 at 10:00 Albuterol/ Ipratropium (Duoneb) 3 ml Q6H RESP THERAPY PRN HHN SHORTNESS OF BREATH Last administered on 11/09/18 20:03; Admin Dose 3 ML; Start 11/06/18 at 12:00 Rivaroxaban (Xarelto) 20 mg WITH DINNER PO Last administered on 11/15/18 17:29; Admin Dose 20 MG; Start 11/07/18 at 18:00 Diltiazem HCl (Cardizem Iv) 15 mg Q2H PRN IV sustained hr>130 Last administered on 11/09/18 12:17; Admin Dose 15 MG; Start 11/07/18 at 16:00 Lorazepam (Ativan) 1 mg Q6H PRN IV ANXIETY Last administered on 11/09/18 10:32; Admin Dose 1 MG; Start 11/09/18 at 10:30; Status Hold Quetiapine Fumarate (Seroquel) 25 mg HS PO Last administered on 11/15/18 20:52; Admin Dose 25 MG; Start 11/12/18 at 21:00 Diltiazem HCl (Cardizem Cd) 120 mg BID PO Last administered on 11/16/18 09:22; Admin Dose 120 MG; Start 11/12/18 at 14:00 Diltiazem HCl (Cardizem) 60 mg Q6 PRN PO sustained hr>130; Start 11/12/18 at 13:30 Quetiapine Fumarate (Seroquel) 12.5 mg Q8H PRN PO agitation Last administered on 11/15/18 04:03; Admin Dose 12.5 MG; Start 11/14/18 at 23:00 Losartan Potassium (Cozaar) 50 mg BID PO Last administered on 11/16/18 09:21; Admin Dose 50 MG; Start 11/14/18 at 21:00 Phenol (Cepastat Lozenge) 1 lozenge Q1H PRN MT DRY MOUTH; Start 11/14/18 at 16:00 Thiamine HCl (Vitamin B1) 100 mg DAILY PO ; Start 11/17/18 at 09:00 Hal Pickett DO Nov 16, 2018 13:56
[2018-11-16] MEDS: RIVAROXABAN 20 MG TABLET PO SCH (17:04)
[2018-11-16] MEDS: QUETIAPINE 25 MG TAB PO PRN (19:39)
[2018-11-16] MEDS: QUETIAPINE 25 MG TAB PO SCH (20:29)
[2018-11-16] MEDS: ATORVASTATIN 40 MG TAB PO SCH (20:29)
[2018-11-16] MEDS: TAMSULOSIN (SR) 0.4 MG CAP PO SCH (20:29)
[2018-11-16] MEDS: MONTELUKAST 10 MG TAB PO SCH (20:29)
[2018-11-17] VITALS (11 sets, daily range): BP systolic 126–156; BP diastolic 81–100; PULSE 36–79; RESP 16–19
[2018-11-17] MEDS ORDERED: THIAMINE 100 MG TAB PO SCH (09:00)
[2018-11-17] MEDS ORDERED: DILTIAZEM (CD) 180 MG CAP PO SCH (09:00)
[2018-11-17] MEDS: FINASTERIDE 5 MG TAB PO SCH (09:16)
[2018-11-17] MEDS: FAMOTIDINE 20 MG TAB PO SCH (09:17)
[2018-11-17] MEDS: LOSARTAN 50 MG TAB PO SCH (09:17)
[2018-11-17] MEDS: ASPIRIN 81 MG TAB PO SCH (09:18)
[2018-11-17] MEDS: FLUTICASONE/VILANTEROL 100-25 INH SCH (09:18)
[2018-11-17] MEDS: HEPARIN 5,000 UNIT/1 ML VIAL SC SCH (09:33)
--- NOTE | 2018-11-17 10:53 | CONS ---
Consult Date/Type/Reason Admit Date/Time Nov 04, 2018 at 17:03 Initial Consult Date 11/05/18 Type of Consult Pulmonary Requesting Provider: CHRIS RUBIN MD Date/Time of Note DATE: 11/17/18 TIME: 10:52 Subjective Comfortable this morning. No agitation respiratory distress Objective Vital Signs Date Temp Pulse Resp B/P (MAP) Pulse Ox O2 O2 Flow FiO2 Time Delivery Rate 11/17/18 73 08:01 11/17/18 97.8 16 156/100 96 07:43 (118) 11/17/18 21 05:48 11/14/18 Room Air 07:49 11/13/18 2.0 08:01 Intake and Output 11/16/18 11/16/18 11/17/18 1515:00 23:00 07:00 IntakeIntake Total 600 ml 250 ml OutputOutput Total 600 ml BalanceBalance 600 ml -350 ml Exam GENERAL: Well-nourished well-developed gentleman VITAL SIGNS: per chart NECK: Supple. No JVD or lymphadenopathy. CARDIAC EXAM: S1, S2. No added sounds or murmurs. CHEST: clear bilaterally, No added sounds, rales or wheezes ABDOMEN: Soft, nontender. No guarding or rebound. EXTREMITIES: No cyanosis, clubbing or edema. NEUROLOGIC: Generalized weakness. No focal deficits. Vent Setting Fraction of Inspired Oxygen pe: 21 Results/Medications Result Diagram: 11/16/18 0531 11/17/18 0452 Results 24 hrs Laboratory Tests Test 11/17/18 04:52 Sodium Level 140 Potassium Level 3.7 Chloride Level 108 Carbon Dioxide Level 28 Anion Gap 4 L Blood Urea Nitrogen 26 H Creatinine 1.04 Est Glomerular Filtrat Rate mL/min Glucose Level 98 Calcium Level 8.7 Medications Current Medications IV Flush (NS 3 ml) 3 ml PER PROTOCOL IV ; Start 11/04/18 at 17:30 Ondansetron HCl (Zofran Tab) 4 mg Q6H PRN PO NAUSEA/VOMITING; Start 11/04/18 at 17:30 Aspirin (Aspirin) 81 mg DAILY PO Last administered on 11/17/18at 09:18; Admin Dose 81 MG; Start 11/05/18 at 09:00 Acetaminophen (Tylenol Tab) 650 mg Q6H PRN PO .PAIN 1-3 OR TEMP; Start 11/04/18 at 17:30 Docusate Sodium (Colace) 100 mg Q12H PRN PO .CONSTIPATION Last administered on 11/16/18 20:29; Admin Dose 100 MG; Start 11/04/18 at 17:30 Famotidine (Pepcid) 20 mg Q12 PO Last administered on 11/17/18 09:17; Admin Dose 20 MG; Start 11/04/18 at 21:00 Heparin Sodium (Porcine) (Heparin (5000 Units/1ml)) 5,000 unit Q12 SC Last administered on 11/17/18 09:33; Admin Dose 5,000 UNIT; Start 11/04/18 at 21:00 Finasteride (Proscar) 5 mg DAILY PO Last administered on 11/17/18 09:16; Admin Dose 5 MG; Start 11/05/18 at 09:00 Tamsulosin HCl (Flomax) 0.8 mg HS PO Last administered on 11/16/18 20:29; Admin Dose 0.8 MG; Start 11/04/18 at 21:00 Atorvastatin Calcium (Lipitor) 40 mg QHS PO Last administered on 11/16/18 20:29; Admin Dose 40 MG; Start 11/04/18 at 21:00 Montelukast Sodium (Singulair) 10 mg QHS PO Last administered on 11/16/18 20:29; Admin Dose 10 MG; Start 11/04/18 at 21:00 Fluticasone/ Vilanterol (Breo Ellipta 100-25 Mcg Inh) 1 inh DAILY INH Last administered on 11/17/18 09:18; Admin Dose 1 INH; Start 11/04/18 at 18:00 Miscellaneous Information Patients own medicat... BID@10,16 XX Last administered on 11/16/18 16:42; Admin Dose 1 EA; Start 11/05/18 at 10:00 Albuterol/ Ipratropium (Duoneb) 3 ml Q6H RESP THERAPY PRN HHN SHORTNESS OF BREATH Last administered on 11/09/18 20:03; Admin Dose 3 ML; Start 11/06/18 at 12:00 Rivaroxaban (Xarelto) 20 mg WITH DINNER PO Last administered on 11/16/18 17:04; Admin Dose 20 MG; Start 11/07/18 at 18:00 Diltiazem HCl (Cardizem Iv) 15 mg Q2H PRN IV sustained hr>130 Last administered on 11/09/18 12:17; Admin Dose 15 MG; Start 11/07/18 at 16:00 Lorazepam (Ativan) 1 mg Q6H PRN IV ANXIETY Last administered on 11/09/18 10:32; Admin Dose 1 MG; Start 11/09/18 at 10:30; Status Hold Quetiapine Fumarate (Seroquel) 25 mg HS PO Last administered on 11/16/18 20:29; Admin Dose 25 MG; Start 11/12/18 at 21:00 Diltiazem HCl (Cardizem) 60 mg Q6 PRN PO sustained hr>130; Start 11/12/18 at 13:30 Quetiapine Fumarate (Seroquel) 12.5 mg Q8H PRN PO agitation Last administered on 11/16/18 19:39; Admin Dose 12.5 MG; Start 11/14/18 at 23:00 Losartan Potassium (Cozaar) 50 mg BID PO Last administered on 11/17/18 09:17; Admin Dose 50 MG; Start 11/14/18 at 21:00 Phenol (Cepastat Lozenge) 1 lozenge Q1H PRN MT DRY MOUTH; Start 11/14/18 at 16:00 Thiamine HCl (Vitamin B1) 100 mg DAILY PO Last administered on 11/17/18 09:18; Admin Dose 100 MG; Start 11/17/18 at 09:00 Diltiazem HCl (Cardizem Cd) 180 mg DAILY PO Last administered on 11/17/18 09:16; Admin Dose 180 MG; Start 11/17/18 at 09:00 Assessment/Plan Hospital Course (Demo Recall) Assessment/Plan (Daily) IMP: 1. Aspiration versus community acquired pneumonia 2. Delirium--improved 3. Atrial fibrillation rapid ventricular rate RECS: 1. Continue antibiotics 2. Aspiration fall precautions 3. PT/OT DC planning okay from pulmonary standpoint CORBIN HERRERA MD, [facility] Nov 17, 2018 10:53
--- NOTE | 2018-11-17 12:27 | CONS ---
Assessment/Plan Assessment/Plan Hospital Course (Demo Recall) Atrial fibrillation with rapid ventricular rates, improved Preserved ejection fraction Pneumonia Acute kidney injury Coronary artery disease with history of PCI Encephalopathy Hypertension Lower extremity edema -Mental status continues to improve -HR trend stable on current dose of Cardizem -Blood pressure on the higher side, would add amlodipine -Antibiotics as per primary team -Continue anticoagulation as tolerated Consultation Date/Type/Reason Admit Date/Time Nov 04, 2018 at 17:03 Initial Consult Date 11/05/18 Type of Consult Cardiology Requesting Provider: CHRIS RUBIN MD Date/Time of Note DATE: 11/17/18 TIME: 12:26 24 HR Interval Summary Free Text/Dictation No shortness of breath, palpitations, chest pain Exam/Review of Systems Vital Signs Vitals Vital Signs Date Temp Pulse Resp B/P (MAP) Pulse Ox O2 O2 Flow FiO2 Time Delivery Rate 11/17/18 77 12:01 11/17/18 97.9 16 149/100 95 11:24 (116) 11/17/18 21 05:48 11/14/18 Room Air 07:49 11/13/18 2.0 08:01 Intake and Output 11/16/18 11/16/18 11/17/18 1414:59 22:59 06:59 IntakeIntake Total 600 ml 250 ml OutputOutput Total 600 ml BalanceBalance 600 ml -350 ml Exam Constitutional: alert (Following commands, no apparent distress) Respiratory: other (Coarse breath sounds bilaterally, no wheezing) Cardiovascular: irregular rhythm (S1-S2 heard) Gastrointestinal: soft, non-tender, bowel sounds Extremities: other (Trace edema) Labs Result Diagram: 11/16/18 0531 11/17/18 0452 Results 24hrs Laboratory Tests Test 11/17/18 04:52 Sodium Level 140 Potassium Level 3.7 Chloride Level 108 Carbon Dioxide Level 28 Anion Gap 4 L Blood Urea Nitrogen 26 H Creatinine 1.04 Est Glomerular Filtrat Rate mL/min Glucose Level 98 Calcium Level 8.7 Medications Medications Current Medications IV Flush (NS 3 ml) 3 ml PER PROTOCOL IV ; Start 11/04/18 at 17:30 Ondansetron HCl (Zofran Tab) 4 mg Q6H PRN PO NAUSEA/VOMITING; Start 11/04/18 at 17:30 Aspirin (Aspirin) 81 mg DAILY PO Last administered on 11/17/18 09:18; Admin Dose 81 MG; Start 11/05/18 at 09:00 Acetaminophen (Tylenol Tab) 650 mg Q6H PRN PO .PAIN 1-3 OR TEMP; Start 11/04/18 at 17:30 Docusate Sodium (Colace) 100 mg Q12H PRN PO .CONSTIPATION Last administered on 11/16/18 20:29; Admin Dose 100 MG; Start 11/04/18 at 17:30 Famotidine (Pepcid) 20 mg Q12 PO Last administered on 11/17/18 09:17; Admin Dose 20 MG; Start 11/04/18 at 21:00 Heparin Sodium (Porcine) (Heparin (5000 Units/1ml)) 5,000 unit Q12 SC Last administered on 11/17/18 09:33; Admin Dose 5,000 UNIT; Start 11/04/18 at 21:00 Finasteride (Proscar) 5 mg DAILY PO Last administered on 11/17/18 09:16; Admin Dose 5 MG; Start 11/05/18 at 09:00 Tamsulosin HCl (Flomax) 0.8 mg HS PO Last administered on 11/16/18 20:29; Admin Dose 0.8 MG; Start 11/04/18 at 21:00 Atorvastatin Calcium (Lipitor) 40 mg QHS PO Last administered on 11/16/18 20:29; Admin Dose 40 MG; Start 11/04/18 at 21:00 Montelukast Sodium (Singulair) 10 mg QHS PO Last administered on 11/16/18 20:29; Admin Dose 10 MG; Start 11/04/18 at 21:00 Fluticasone/ Vilanterol (Breo Ellipta 100-25 Mcg Inh) 1 inh DAILY INH Last administered on 11/17/18 09:18; Admin Dose 1 INH; Start 11/04/18 at 18:00 Miscellaneous Information Patients own medicat... BID@10,16 XX Last administered on 11/16/18 16:42; Admin Dose 1 EA; Start 11/05/18 at 10:00 Albuterol/ Ipratropium (Duoneb) 3 ml Q6H RESP THERAPY PRN HHN SHORTNESS OF BREATH Last administered on 11/09/18 20:03; Admin Dose 3 ML; Start 11/06/18 at 12:00 Rivaroxaban (Xarelto) 20 mg WITH DINNER PO Last administered on 11/16/18 17:04; Admin Dose 20 MG; Start 11/07/18 at 18:00 Diltiazem HCl (Cardizem Iv) 15 mg Q2H PRN IV sustained hr>130 Last administered on 11/09/18 12:17; Admin Dose 15 MG; Start 11/07/18 at 16:00 Lorazepam (Ativan) 1 mg Q6H PRN IV ANXIETY Last administered on 11/09/18 10:32; Admin Dose 1 MG; Start 11/09/18 at 10:30; Status Hold Quetiapine Fumarate (Seroquel) 25 mg HS PO Last administered on 11/16/18 20:29; Admin Dose 25 MG; Start 11/12/18 at 21:00 Diltiazem HCl (Cardizem) 60 mg Q6 PRN PO sustained hr>130; Start 11/12/18 at 13:30 Quetiapine Fumarate (Seroquel) 12.5 mg Q8H PRN PO agitation Last administered on 11/16/18 19:39; Admin Dose 12.5 MG; Start 11/14/18 at 23:00 Losartan Potassium (Cozaar) 50 mg BID PO Last administered on 11/17/18 09:17; Admin Dose 50 MG; Start 11/14/18 at 21:00 Phenol (Cepastat Lozenge) 1 lozenge Q1H PRN MT DRY MOUTH; Start 11/14/18 at 16:00 Thiamine HCl (Vitamin B1) 100 mg DAILY PO Last administered on 11/17/18 09:18; Admin Dose 100 MG; Start 11/17/18 at 09:00 Diltiazem HCl (Cardizem Cd) 180 mg DAILY PO Last administered on 11/17/18 09:16; Admin Dose 180 MG; Start 11/17/18 at 09:00 Hal Pickett DO Nov 17, 2018 12:27
[2018-11-17] MEDS ORDERED: AMLODIPINE 5 MG TAB PO SCH (12:30)
[2018-11-17] MEDS ORDERED: POTASSIUM CHLORIDE (SR) 20 MEQ TAB PO STA (13:36)
--- NOTE | 2018-11-17 13:50 | DS ---
Date/Time of Note Date/Time of Note DATE: 11/17/18 TIME: 13:43 Discharge Summary Admission/Discharge Info Admit Date/Time Nov 04, 2018 at 17:03 Discharge Date/Time November 17, 2018 Discharge Diagnosis Right lower lobe pneumonia; acute delirium; mild organic brain syndrome; atrial fibrillation with rapid ventricular response and normal ejection fraction, and diastolic dysfunction grade 1, coronary artery disease with history of cardiac stent; vitamin B12 deficiency; asthma persistent mild; essential hypertension; hyperlipidemia; benign prostatic hypertrophy; psoriasis; diverticulosis coli; acute kidney injury at the time of admission fully resolved Patient Condition: Good Consults Neurology-Dr. Holguin; cardiology-Dr. Pickett; pulmonary-Dr. Whitmore Procedures MRI scan brain; CT scan brain x2; CT scan of chest; echocardiogram; Hx of Present Illness This is the first recent [facility] admission for this 73-year-old right-handed male. He had a history of atrial fibrillation was actually advised of this after emergency room visit at [facility] [place] last year. This was short lived and spontaneously resolved. In addition to this he has had persistent cough and was actually referred for pulmonary evaluation due to left lower lobe pleural thickening and subpleural nodularity with a nodular infiltrate in the right middle lobe inferior performed at [facility]. In addition to this he has had a slowly progressive decline in intellectual function and had actually been seen by [address] of our neurology colleagues [address]. 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 These note he did have a remote history of a modest B12 deficiency in the past which has been on regular replacement therapy. Since he is coming in with atrial fibrillation with rapid ventricular response, I am going to cease the opportunity to take care of that and trying progress with the workups of the other issues as well and is efficiently as possible Hospital Course 23-year-old male admitted with cough, pneumonia, abnormal chest x-ray and alteration in mental status. Because of the history provided by family of a slow decline in his faculties he was treated for dementia as well as for the metabolic issues. The pneumonia actually responded nicely. However the patient's mental status went severely downhill and only improved with cessation of Aricept and Namenda. He has very slowly come off of this. Please note related in the hospital course his did inform me that he has 1 drink per day. This is generally not enough to account for some of the issues he has been placed on to thiamine as a precaution. He has debility and was actually having some problems before he came to the hospital but now is deconditioned enough that he needs an acute rehabilitation. He has improved his mental status where he will be able to cooperate with this as such she is going to go to the acute rehab unit here at this facility. Home Meds Reported Medications [Vitamin B12 Inj] No Conflict Check, 1 ML INJ DAILY INJECT 1ML-FOR 7 DAYS DAILY (LAST INJECTION 11/04/18-FOR 7 DAYS), THEN INJECT Q7D- FOR 3 WEEKS(START DAY 11/05/18),THEN ONCE A MONTH. 11/04/18 Simvastatin* (Zocor*) 40 Mg Tablet, 40 MG PO DAILY, #30 TAB 11/04/18 Finasteride* (Finasteride*) 5 Mg Tablet, 5 MG PO DAILY, TAB 11/04/18 Gabapentin* (Gabapentin*) 400 Mg Capsule, 400 MG PO QHS, #90 CAP 11/04/18 Lansoprazole* (Lansoprazole*) 30 Mg Capsule.dr, 30 MG PO DAILY, CAP 11/04/18 Losartan Potassium* (Losartan Potassium*) 50 Mg Tablet, 50 MG PO DAILY, TAB 11/04/18 Tamsulosin Hcl* (Tamsulosin Hcl*) 0.4 Mg Cap.er.24h, 0.8 MG PO HS, CAP 11/04/18 Follow-up Plan Transfer to acute rehab we will continue to follow him there. Primary Care Provider Loco Rock MD Time spent on discharge: > 30 minutes Pending Labs Laboratory Tests Test 11/17/18 04:52 Sodium Level 140 mmol/L (135-144) Potassium Level 3.7 mmol/L (3.5-5.1) Chloride Level 108 mmol/L (97-110) Carbon Dioxide Level 28 mmol/L (21-31) Anion Gap 4 (5-13) Blood Urea Nitrogen 26 mg/dl (7-20) Creatinine 1.04 mg/dl (0.61-1.24) Est Glomerular Filtrat Rate mL/min mL/min (>60) Glucose Level 98 mg/dl (70-220) Calcium Level 8.7 mg/dl (8.4-10.2) Copies To: CC: JULY AG MD; Hal Pickett DO; KHADIJAH HOLGUIN; CORBIN HERRERA MD, [facility] ; LOCO ROCK MD Nov 17, 2018 13:50
--- NOTE | 2018-11-17 13:51 | PDOCDIS ---
Discharge Instructions DIAGNOSIS Discharge Diagnosis Right lower lobe pneumonia; acute delirium; mild organic brain syndrome; atrial fibrillation with rapid ventricular response and normal ejection fraction, and diastolic dysfunction grade 1, coronary artery disease with history of cardiac stent; vitamin B12 deficiency; asthma persistent mild; essential hypertension; hyperlipidemia; benign prostatic hypertrophy; psoriasis; diverticulosis coli; acute kidney injury at the time of admission fully resolved CONDITION [id number] Patient Condition: [id number] Fair HOME CARE INSTRUCTIONS: [id number] Diet Instructions: [id number] Regular ACTIVITY: [id number] Activity Restrictions: [id number] Slowly Increase Activity FOLLOW UP/APPOINTMENTS Follow-up Plan Transfer to acute rehab we will continue to follow him there. CHRIS RUBIN MD Nov 17, 2018 13:51
[2018-11-17] MEDS ORDERED: ATOR40TA68 PO (13:52)
[2018-11-17] MEDS ORDERED: LOSA50TA2 PO (13:52)
== END 2018-11-17 17:13 | DRG 193 ==
LOC: E/R 13:15 → TEL 17:03 → 6WM 11-07 09:06
PROVIDERS: ADMIT Internal Medicine; ATTEND Internal Medicine
DX: J18.1 Lobar pneumonia, unspecified organism (principal); G92 Toxic encephalopathy; N17.9 Acute kidney failure, unspecified; I48.0 Paroxysmal atrial fibrillation; F09 Unspecified mental disorder due to known physiological condition; F03.90 Unspecified dementia, unspecified severity, without behavioral disturbance, psychotic disturbance, mood disturbance, and anxiety; R41.0 Disorientation, unspecified; E78.5 Hyperlipidemia, unspecified; E53.8 Deficiency of other specified B group vitamins; I25.10 Atherosclerotic heart disease of native coronary artery without angina pectoris; I12.9 Hypertensive chronic kidney disease with stage 1 through stage 4 chronic kidney disease, or unspecified chronic kidney disease; J45.40 Moderate persistent asthma, uncomplicated; K21.9 Gastro-esophageal reflux disease without esophagitis; N40.0 Benign prostatic hyperplasia without lower urinary tract symptoms; N18.9 Chronic kidney disease, unspecified; R60.0 Localized edema; Z95.5 Presence of coronary angioplasty implant and graft; Z86.79 Personal history of other diseases of the circulatory system
CPT/HCPCS: 36415; 70450; 70553; 71045; 71250; 80048; 80053; 80162; 81001; 82550; 82553; 82607; 83036; 83735; 83880; 84443; 84484; 85025; 85610; 85651; 85730; 86480; 86592; 93005; 93306; 94664; 95819; 96361; 96365; 96372; 96375; 97110; 97116; 97164; 97530; J1630; J1644; J2060; J2930; J3411; J3420; J7040; J7120

== ENCOUNTER 2018-11-17 11:56 | Inpatient (IN) | payer MEDICARE ==
[~2018-11-17] VITALS: Ht 185.4 cm; Wt 80.0 kg
[~2018-11-17 11:56] MED LIST: FINA5TAB4 PO; GABA400C14 PO; LANS30CA PO; LOSA50TA14 PO; SIMV40TA2 PO; TAMS0.4C2 PO; VITAMIN B12 INJ INJ
[2018-11-17] MEDS ORDERED: LOSA50TA2 PO (13:52)
[2018-11-17] MEDS ORDERED: ATOR40TA68 PO (13:52)
[2018-11-17 18:06] VITALS: Ht 185.4 cm; Wt 80.0 kg
[2018-11-17 18:22] VITALS: BP 139/80; PULSE 67; RESP 18
[2018-11-17] MEDS ORDERED: LACTULOSE 30ML CUP PO PRN (18:30)
[2018-11-17] MEDS ORDERED: PENDING SANTYL ORDER FOR WOUND CARE XX PRN (18:30)
[2018-11-17] MEDS ORDERED: BISACODYL 10 MG SUPP PR PRN (18:30)
[2018-11-17] MEDS ORDERED: MAGNESIUM HYDROXIDE 30ML CUP PO PRN (18:30)
[2018-11-17] MEDS ORDERED: ACETAMINOPHEN 325 MG TAB PO PRN (20:30)
[2018-11-17] MEDS ORDERED: DILTIAZEM 60 MG TAB PO PRN (20:30)
[2018-11-17] MEDS ORDERED: DOCUSATE SODIUM 100 MG CAP PO PRN (20:30)
[2018-11-17] MEDS ORDERED: ALBUTEROL/IPRATROPIUM (NEB) 3 ML AMP HHN PRN (20:30)
[2018-11-17 20:31] VITALS: BP 120/86; PULSE 61; RESP 18
[2018-11-17] MEDS: DOCUSATE SODIUM 100 MG CAP PO SCH ×2 (21:00→23:48)
[2018-11-17] MEDS ORDERED: CEPASTAT LOZENGE MT PRN (21:00)
[2018-11-17] MEDS: SENNA TAB PO SCH ×2 (21:00→23:48)
[2018-11-17] MEDS ORDERED: ONDANSETRON 4 MG TAB PO PRN (21:00)
[2018-11-17] MEDS: LOSARTAN 50 MG TAB PO SCH (21:19)
[2018-11-17] MEDS: HEPARIN 5,000 UNIT/1 ML VIAL SC SCH (21:20)
[2018-11-17] MEDS: TAMSULOSIN (SR) 0.4 MG CAP PO SCH (21:21)
[2018-11-17] MEDS: FAMOTIDINE 20 MG TAB PO SCH (21:21)
[2018-11-17] MEDS: QUETIAPINE 25 MG TAB PO SCH (21:21)
[2018-11-17] MEDS: MONTELUKAST 10 MG TAB PO SCH (21:21)
[2018-11-17] MEDS: ATORVASTATIN 40 MG TAB PO SCH (21:21)
[2018-11-17] MEDS: RIVAROXABAN 20 MG TABLET PO SCH (21:26)
[2018-11-18 02:00] VITALS: BP 145/85; PULSE 71; RESP 18
[2018-11-18 07:30] VITALS: BP 160/92; PULSE 71; RESP 18
[2018-11-18] MEDS: FLUTICASONE/VILANTEROL 100-25 INH SCH (09:46)
[2018-11-18] MEDS: DOCUSATE SODIUM 100 MG CAP PO SCH ×2 (09:46→20:04)
[2018-11-18] MEDS: ASPIRIN 81 MG TAB PO SCH (09:46)
[2018-11-18] MEDS: FINASTERIDE 5 MG TAB PO SCH (09:46)
[2018-11-18] MEDS: LOSARTAN 50 MG TAB PO SCH ×2 (09:46→20:04)
[2018-11-18] MEDS: THIAMINE 100 MG TAB PO SCH (09:46)
[2018-11-18] MEDS: FAMOTIDINE 20 MG TAB PO SCH ×2 (09:47→20:04)
[2018-11-18] MEDS: DILTIAZEM (CD) 180 MG CAP PO SCH (09:47)
[2018-11-18] MEDS: AMLODIPINE 5 MG TAB PO SCH (09:47)
[2018-11-18] MEDS: HEPARIN 5,000 UNIT/1 ML VIAL SC SCH ×2 (09:48→20:10)
[2018-11-18 14:00] VITALS: BP 111/68; PULSE 65; RESP 20
--- NOTE | 2018-11-18 15:41 | CONS ---
DATE OF ADMISSION: 11/17/2018 DATE OF CONSULTATION: 11/18/2018 REHABILITATION POST-ADMISSION PHYSICIAN EVALUATION REHABILITATION IMPAIRMENT CATEGORY: Toxic metabolic encephalopathy. ACTIVE COMORBIDITIES: 1. Right lower lobe pneumonia. 2. Atrial fibrillation. 3. Coronary artery disease with history of stent. 4. Asthma. 5. Hypertension. 6. Hyperlipidemia. 7. Benign prostatic hypertrophy. 8. Psoriasis. 9. Status-post acute kidney injury. 10. Impairments in self-care, mobility and cognition as compared to baseline. HISTORY OF PRESENT ILLNESS: The patient is a 73-year-old gentleman who was admitted with increased shortness of breath, cough and confusion. Workup revealed right lower lobe pneumonia in addition to atrial fibrillation. The patient felt likely to have toxic metabolic encephalopathy. The patient's hospital course is also notable for acute kidney injury, which has improved. Patient noted to have significant impairments in self-care and mobility as compared to baseline, and has been cleared to transfer to the rehabilitation unit for comprehensive interdisciplinary rehab care. FUNCTIONAL HISTORY: Prior to recent events, the patient was independent in self-care tasks and mobility. Currently, the patient requires moderate assist for self-care and mobility tasks. I have reviewed the preadmission screen and the patient's current functional status is consistent with the preadmission screen. FAMILY AND SOCIAL HISTORY: The patient lives at home with his in a single story home with a few steps to entryway and hopes to return there upon discharge. PAST MEDICAL HISTORY: 1. Coronary artery disease with history of stent. 2. Asthma. 3. Hypertension. 4. Hyperlipidemia. 5. Benign prostatic hypertrophy. 6. Psoriasis. 7. Gastroesophageal reflux disease. 8. History of subdural hematoma and head injury. 9. History of hemicolectomy. CURRENT MEDICATIONS: 1. Norvasc 5 mg p.o. daily. 2. Aspirin 81 mg p.o. daily. 3. Lipitor 40 mg p.o. at bedtime. 4. Cardizem 180 mg p.o. daily. 5. Pepcid 20 mg p.o. q.12. 6. Proscar 5 mg p.o. daily. 7. Heparin subcutaneously. 8. Cozaar 50 mg p.o. b.i.d. 9. Singulair 10 mg p.o. at bedtime. 10. Zofran p.r.n. 11. Seroquel 25 mg p.o. at bedtime. 12. Xarelto 20 mg p.o. with dinner. 13. Flomax 0.8 mg p.o. at bedtime. 14. Vitamin B. ALLERGIES: 1. SULFA. 2. TETRACYCLINE. PHYSICAL EXAMINATION: VITAL SIGNS: He is currently afebrile with stable vital signs. HEENT: Extraocular motions are intact. Oropharynx clear. NECK: Supple. LUNGS: Clear anteriorly. CARDIAC: S1, S2. ABDOMEN: Soft, nontender, positive bowel sounds. NEUROLOGIC: He is awake and alert. He is oriented to person only. He will follow simple 1-step commands. He demonstrates antigravity strength in bilateral upper extremity and lower extremity. PLAN: The patient has been admitted for comprehensive interdisciplinary acute rehab and is anticipated to tolerate 3 hours of daily therapy in divided doses for at least 5/7 days a week. The treatment plan will include: 1. Physical therapy to focus on bed mobility, transfers, and household ambulation with the goal of having the patient reach a standby assist level. 2. Occupational therapy to focus on hygiene, grooming, dressing, bathing, and toileting activities with goal of having the patient reach standby assist level. 3. Speech therapy for full cognitive assessment with the goal of having patient return to baseline cognition. 4. Rehabilitation nursing for carryover of therapeutic interventions, the goal of continent of bowel and bladder, and the goal of patient and family education with regard to the aforementioned issues. 5. Neuropsychology for full cognitive assessment and oversight of cognitive program. ESTIMATED LENGTH OF STAY: 10 days. DISPOSITION GOAL: Home with supervision REHABILITATION BARRIER: Cognition. INTERVENTION FOR BARRIER: Interdisciplinary rehabilitation. I acknowledge that I performed a full physical examination on this patient within 24 hours of admission to the rehabilitation unit. I believe the patient is a good candidate for comprehensive interdisciplinary rehab care and is anticipated to make reasonable goals in a reasonable period of time as outlined above. Dictated By: JULY MORALES/LOULOU Conf#: [id number] DID#: [id number] CC: JULY AG MD;*EndCC* MTDD
--- NOTE | 2018-11-18 17:35 | CONS ---
Assessment/Plan Assessment/Plan Hospital Course (Demo Recall) Atrial fibrillation with controlled ventricular rates Preserved ejection fraction Pneumonia Acute kidney injury Coronary artery disease with history of PCI Encephalopathy-improving Hypertension Lower extremity edema -Patient with dyspnea with extensively speaking, will order chest x-ray -Mental status continues to improve -HR trend stable on current dose of Cardizem -Blood pressure better on addition of amlodipine -Antibiotics as per primary team -Continue anticoagulation as tolerated Consultation Date/Type/Reason Admit Date/Time Nov 17, 2018 at 17:15 Initial Consult Date Type of Consult Cardiology Date/Time of Note DATE: 11/18/18 TIME: 17:34 24 HR Interval Summary Free Text/Dictation Denies chest pain, shortness of breath, palpitations Exam/Review of Systems Vital Signs Vitals Vital Signs Date Temp Pulse Resp B/P (MAP) Pulse Ox O2 O2 Flow FiO2 Time Delivery Rate 11/18/18 97.9 65 20 111/68 96 Room Air 14:00 (82) Intake and Output 11/17/18 11/17/18 11/18/18 1515:00 23:00 07:00 IntakeIntake Total 240 ml OutputOutput Total 700 ml BalanceBalance -460 ml Exam Constitutional: alert, oriented (To person and place, no apparent distress) Head: normocephalic Respiratory: other (Coarse breath sounds bilaterally, no wheezing) Cardiovascular: irregular rhythm (S1-S2 heard) Gastrointestinal: soft, non-tender, bowel sounds Extremities: edema (Trace) Labs Result Diagram: 11/18/18 0657 11/18/18 0657 Results 24hrs Laboratory Tests Test 11/17/18 19:23 11/18/18 06:57 Urine Color YELLOW Urine Clarity CLEAR Urine pH 7.0 Urine Specific [place] 1.018 Urine Ketones NEGATIVE Urine Nitrite NEGATIVE Urine Bilirubin NEGATIVE Urine Urobilinogen 2+ H Urine Leukocyte Esterase NEGATIVE Urine Microscopic RBC 87 H Urine Microscopic WBC 3 Urine Hemoglobin 2+ H Urine Glucose NEGATIVE Urine Total Protein NEGATIVE White Blood Count 6.3 # Red Blood Count 4.46 L Hemoglobin 13.4 L Hematocrit 40.8 L Mean Corpuscular Volume 91.5 Mean Corpuscular Hemoglobin 30.0 Mean Corpuscular Hemoglobin Concent 32.8 Red Cell Distribution Width 14.6 H Platelet Count 206 Mean Platelet Volume 9.8 Immature Granulocytes % 0.300 Neutrophils % 67.0 Lymphocytes % 20.0 Monocytes % 9.5 Eosinophils % 2.7 Basophils % 0.5 Nucleated Red Blood Cells % 0.0 Immature Granulocytes # 0.020 Neutrophils # 4.3 Lymphocytes # 1.3 Monocytes # 0.6 Eosinophils # 0.2 Basophils # 0.0 Nucleated Red Blood Cells # 0.0 Sodium Level 141 Potassium Level 3.9 Chloride Level 107 Carbon Dioxide Level 28 Anion Gap 6 Blood Urea Nitrogen 21 H Creatinine 0.95 Est Glomerular Filtrat Rate mL/min Glucose Level 96 Calcium Level 8.8 Total Bilirubin 1.1 Direct Bilirubin 0.00 Indirect Bilirubin 1.1 Aspartate Amino Transf (AST/SGOT) 33 Alanine Aminotransferase (ALT/SGPT) 25 Alkaline Phosphatase 70 Total Protein 5.7 L Albumin 3.2 L Globulin 2.50 Albumin/Globulin Ratio 1.28 Medications Medications Current Medications Docusate Sodium (Colace) 100 mg BID PO Last administered on 11/18/18at 09:46; Admin Dose 100 MG; Start 11/17/18 at 21:00 Senna (Senokot) 1 tab HS PO Last administered on 11/17/18at 23:48; Admin Dose 1 TAB; Start 11/17/18 at 21:00 Magnesium Hydroxide (Milk Of Mag) 30 ml BID PRN PO CONSTIPATION; Start 11/17/18 at 18:30 Lactulose (Enulose) 20 gm DAILY PRN PO CONSTIPATION; Start 11/17/18 at 18:30 Bisacodyl (Dulcolax Supp) 10 mg DAILY PRN [place] CONSTIPATION; Start 11/17/18 at 18:30 Acetaminophen (Tylenol Tab) 650 mg Q4H PRN PO MILD PAIN 1-3; Start 11/17/18 at 18:30 [facility] This patient trevino... PRN PRN XX WOUND CARE; Start 11/17/18 at 18:30 Acetaminophen (Tylenol Tab) 650 mg Q6H PRN PO .PAIN 1-3 OR TEMP; Start 11/17/18 at 20:30 Albuterol/ Ipratropium (Duoneb) 3 ml Q6H RESP THERAPY PRN HHN SHORTNESS OF CATY ATH; Start 11/17/18 at 20:30 Amlodipine Besylate (Norvasc) 5 mg DAILY PO Last administered on 11/18/18at 09:47; Admin Dose 5 MG; Start 11/18/18 at 09:00 Aspirin (Aspirin) 81 mg DAILY PO Last administered on 11/18/18 09:46; Admin Dose 81 MG; Start 11/18/18 at 09:00 Atorvastatin Calcium (Lipitor) 40 mg QHS PO Last administered on 11/17/18 21:21; Admin Dose 40 MG; Start 11/17/18 at 21:00 Diltiazem HCl (Cardizem) 60 mg Q6H PRN PO sustained hr>130; Start 11/17/18 at 20:30 Diltiazem HCl (Cardizem Cd) 180 mg DAILY PO Last administered on 11/18/18 09:47; Admin Dose 180 MG; Start 11/18/18 at 09:00 Docusate Sodium (Colace) 100 mg Q12H PRN PO .CONSTIPATION; Start 11/17/18 at 20:30 Famotidine (Pepcid) 20 mg Q12 PO Last administered on 11/18/18 09:47; Admin Dose 20 MG; Start 11/17/18 at 21:00 Finasteride (Proscar) 5 mg DAILY PO Last administered on 11/18/18 09:46; Admin Dose 5 MG; Start 11/18/18 at 09:00 Fluticasone/ Vilanterol (Breo Ellipta 100-25 Mcg Inh) 1 inh DAILY INH Last administered on 11/18/18 09:46; Admin Dose 1 INH; Start 11/18/18 at 09:00 Heparin Sodium (Porcine) (Heparin (5000 Units/1ml)) 5,000 unit Q12 SC Last administered on 11/18/18 09:48; Admin Dose 5,000 UNIT; Start 11/17/18 at 21:00 Losartan Potassium (Cozaar) 50 mg BID PO Last administered on 11/18/18 09:46; Admin Dose 50 MG; Start 11/17/18 at 21:00 Miscellaneous Information Patients own medicat... BID@10,16 XX ; Start 11/18/18 at 10:00 Montelukast Sodium (Singulair) 10 mg QHS PO Last administered on 11/17/18 21:21; Admin Dose 10 MG; Start 11/17/18 at 21:00 Ondansetron HCl (Zofran Tab) 4 mg Q6H PRN PO NAUSEA/VOMITING; Start 11/17/18 at 21:00 Phenol (Cepastat Lozenge) 1 lozenge Q1H PRN [place] DRY MOUTH; Start 11/17/18 at 2 1:00 Quetiapine Fumarate (Seroquel) 25 mg HS PO Last administered on 11/17/18at 21:21; Admin Dose 25 MG; Start 11/17/18 at 21:00 Quetiapine Fumarate (Seroquel) 12.5 mg Q8H PRN PO agitation; Start 11/17/18 at 21:00 Rivaroxaban (Xarelto) 20 mg WITH DINNER PO Last administered on 11/17/18at 21:26; Admin Dose 20 MG; Start 11/17/18 at 21:00 Tamsulosin HCl (Flomax) 0.8 mg HS PO Last administered on 11/17/18at 21:21; Admin Dose 0.8 MG; Start 11/17/18 at 21:00 Thiamine HCl (Vitamin B1) 100 mg DAILY PO Last administered on 11/18/18at 09:46; Admin Dose 100 MG; Start 11/18/18 at 09:00 Betamethasone/ Clotrimazole (Lotrisone Cr) 1 applic BID TOP ; Start 11/18/18 at 21:00 Multivitamins Therapeutic (Theragran) 1 tab DAILY PO ; Start 11/19/18 at 09:00 Hal Pickett DO Nov 18, 2018 17:35
[2018-11-18] MEDS: RIVAROXABAN 20 MG TABLET PO SCH (17:44)
[2018-11-18 20:00] VITALS: BP 127/79; PULSE 61; RESP 18
[2018-11-18] MEDS: ATORVASTATIN 40 MG TAB PO SCH (20:04)
[2018-11-18] MEDS: TAMSULOSIN (SR) 0.4 MG CAP PO SCH (20:04)
[2018-11-18] MEDS: QUETIAPINE 25 MG TAB PO SCH (20:04)
[2018-11-18] MEDS: MONTELUKAST 10 MG TAB PO SCH (20:04)
[2018-11-18] MEDS: SENNA TAB PO SCH (20:04)
[2018-11-18] MEDS: QUETIAPINE 25 MG TAB PO PRN (22:23)
[2018-11-18] MEDS: ACETAMINOPHEN 325 MG TAB PO PRN (22:23)
[2018-11-18] MEDS: BETAMETHASONE/CLOTRIMAZOLE 15 GM CR TOP SCH (22:25)
[2018-11-19 07:30] VITALS: BP 160/92; PULSE 77; RESP 18
[2018-11-19] MEDS: FLUTICASONE/VILANTEROL 100-25 INH SCH (08:53)
[2018-11-19] MEDS: BETAMETHASONE/CLOTRIMAZOLE 15 GM CR TOP SCH ×2 (08:53→20:39)
[2018-11-19] MEDS: DOCUSATE SODIUM 100 MG CAP PO SCH ×2 (08:53→20:38)
[2018-11-19] MEDS: THIAMINE 100 MG TAB PO SCH (08:54)
[2018-11-19] MEDS: ASPIRIN 81 MG TAB PO SCH (08:54)
[2018-11-19] MEDS: LOSARTAN 50 MG TAB PO SCH ×2 (08:54→20:45)
[2018-11-19] MEDS: FAMOTIDINE 20 MG TAB PO SCH ×2 (08:54→20:39)
[2018-11-19] MEDS: MULTIVITAMINS THERAPEUTIC TAB PO SCH (08:54)
[2018-11-19] MEDS: DILTIAZEM (CD) 180 MG CAP PO SCH (08:54)
[2018-11-19] MEDS: FINASTERIDE 5 MG TAB PO SCH (08:54)
[2018-11-19] MEDS: AMLODIPINE 5 MG TAB PO SCH (08:54)
[2018-11-19] MEDS: HEPARIN 5,000 UNIT/1 ML VIAL SC SCH ×2 (08:55→20:44)
--- NOTE | 2018-11-19 12:54 | CONS ---
Assessment/Plan Assessment/Plan Hospital Course (Demo Recall) Atrial fibrillation with controlled ventricular rates Preserved ejection fraction Pneumonia-improving Acute kidney injury-resolved Coronary artery disease with history of PCI Encephalopathy-improving Hypertension -Chest x-ray performed today with improvement in infiltrates. Antibiotics as p er primary team -HR trend stable on current dose of Cardizem -Blood pressure trend overall better with occasional elevations in blood pressure. We will continue to monitor before further increase in doses of medications -Continue anticoagulation as tolerated Consultation Date/Type/Reason Admit Date/Time Nov 17, 2018 at 17:15 Initial Consult Date Type of Consult Cardiology Date/Time of Note DATE: 11/19/18 TIME: 12:52 24 HR Interval Summary Free Text/Dictation no palp, cp. tolerating PT Exam/Review of Systems Vital Signs Vitals Vital Signs Date Temp Pulse Resp B/P (MAP) Pulse Ox O2 O2 Flow FiO2 Time Delivery Rate 11/19/18 97.5 77 18 160/92 96 Room Air 07:30 (114) Intake and Output 11/18/18 11/18/18 11/19/18 1515:00 23:00 07:00 IntakeIntake Total 200 ml 640 ml OutputOutput Total 1100 ml BalanceBalance 200 ml 640 ml -1100 ml Exam Exam following commands Constitutional: alert, oriented Head: normocephalic Respiratory: other (course bs, no wheeze) Cardiovascular: irregular rhythm, other (s1s2) Gastrointestinal: soft, non-tender, bowel sounds Extremities: edema (trace) Labs Result Diagram: 11/18/18 0657 11/18/18 0657 Medications Medications Current Medications Docusate Sodium (Colace) 100 mg BID PO Last administered on 11/19/18at 08:53; Admin Dose 100 MG; Start 11/17/18 at 21:00 Senna (Senokot) 1 tab HS PO Last administered on 11/18/18at 20:04; Admin Dose 1 TAB; Start 11/17/18 at 21:00 Magnesium Hydroxide (Milk Of Mag) 30 ml BID PRN PO CONSTIPATION; Start 11/17/18 at 18:30 Lactulose (Enulose) 20 gm DAILY PRN PO CONSTIPATION; Start 11/17/18 at 18:30 Bisacodyl (Dulcolax Supp) 10 mg DAILY PRN [place] CONSTIPATION; Start 11/17/18 at 18:30 Acetaminophen (Tylenol Tab) 650 mg Q4H PRN PO MILD PAIN 1-3 Last administered on 11/18/18 22:23; Admin Dose 650 MG; Start 11/17/18 at 18:30 Miscellaneous Information [facility] This patient trevino... PRN PRN XX WOUND CARE; Start 11/17/18 at 18:30 Acetaminophen (Tylenol Tab) 650 mg Q6H PRN PO .PAIN 1-3 OR TEMP; Start 11/17/18 at 20:30 Albuterol/ Ipratropium (Duoneb) 3 ml Q6H RESP THERAPY PRN HHN SHORTNESS OF BREATH; Start 11/17/18 at 20:30 Amlodipine Besylate (Norvasc) 5 mg DAILY PO Last administered on 11/19/18 08:54; Admin Dose 5 MG; Start 11/18/18 at 09:00 Aspirin (Aspirin) 81 mg DAILY PO Last administered on 11/19/18 08:54; Admin Dose 81 MG; Start 11/18/18 at 09:00 Atorvastatin Calcium (Lipitor) 40 mg QHS PO Last administered on 11/18/18 20:04; Admin Dose 40 MG; Start 11/17/18 at 21:00 Diltiazem HCl (Cardizem) 60 mg Q6H PRN PO sustained hr>130; Start 11/17/18 at 20:30 Diltiazem HCl (Cardizem Cd) 180 mg DAILY PO Last administered on 11/19/18 0 8:54; Admin Dose 180 MG; Start 11/18/18 at 09:00 Docusate Sodium (Colace) 100 mg Q12H PRN PO .CONSTIPATION; Start 11/17/18 at 20:30 Famotidine (Pepcid) 20 mg Q12 PO Last administered on 11/19/18 08:54; Admin Dose 20 MG; Start 11/17/18 at 21:00 Finasteride (Proscar) 5 mg DAILY PO Last administered on 11/19/18 08:54; Admin Dose 5 MG; Start 11/18/18 at 09:00 Fluticasone/ Vilanterol (Breo Ellipta 100-25 Mcg Inh) 1 inh DAILY INH Last administered on 11/19/18 08:53; Admin Dose 1 INH; Start 11/18/18 at 09:00 Heparin Sodium (Porcine) (Heparin (5000 Units/1ml)) 5,000 unit Q12 SC Last administered on 11/19/18 08:55; Admin Dose 5,000 UNIT; Start 11/17/18 at 21:00 Losartan Potassium (Cozaar) 50 mg BID PO Last administered on 11/19/18 08:54; Admin Dose 50 MG; Start 11/17/18 at 21:00 Miscellaneous Information Patients own medicat... BID@10,16 XX ; Start 11/18/18 at 10:00 Montelukast Sodium (Singulair) 10 mg QHS PO Last administered on 11/18/18 20:04; Admin Dose 10 MG; Start 11/17/18 at 21:00 Ondansetron HCl (Zofran Tab) 4 mg Q6H PRN PO NAUSEA/VOMITING; Start 11/17/18 at 21:00 Phenol (Cepastat Lozenge) 1 lozenge Q1H PRN [place] DRY MOUTH; Start 11/17/18 at 21:00 Quetiapine Fumarate (Seroquel) 25 mg HS PO Last administered on 11/18/18 20:04; Admin Dose 25 MG; Start 11/17/18 at 21:00 Quetiapine Fumarate (Seroquel) 12.5 mg Q8H PRN PO agitation Last administered on 11/18/18 22:23; Admin Dose 12.5 MG; Start 11/17/18 at 21:00 Rivaroxaban (Xarelto) 20 mg WITH DINNER PO Last administered on 11/18/18 17:44; Admin Dose 20 MG; Start 11/17/18 at 21:00 Tamsulosin HCl (Flomax) 0.8 mg HS PO Last administered on 11/18/18 20:04; Admin Dose 0.8 MG; Start 11/17/18 at 21:00 Thiamine HCl (Vitamin B1) 100 mg DAILY PO Last administered on 11/19/18 08:54; Admin Dose 100 MG; Start 11/18/18 at 09:00 Betamethasone/ Clotrimazole (Lotrisone Cr) 1 applic BID TOP Last administered on 11/19/18 08:53; Admin Dose 1 APPLIC; Start 11/18/18 at 21:00 Multivitamins Therapeutic (Theragran) 1 tab DAILY PO Last administered on 11/19/18at 08:54; Admin Dose 1 TAB; Start 11/19/18 at 09:00 Hal Pickett DO Nov 19, 2018 12:54
--- NOTE | 2018-11-19 13:50 | HP ---
Date/Time of Note Date/Time of Note DATE: 11/19/18 TIME: 13:35 Assessment/Plan VTE [place] [facility] [place]: 3 [place] [facility] [place]CD contraindicated: low risk/ambulating Pharmacological prophylaxis: heparin Pharm contraindication: low risk/ambulating Assessment/Plan Problems: (1) Altered mental status Status: Acute Comment: Had a delirium both due to the pneumonia he had on admission, as well as reaction to medications. There is undoubtedly an underlying mild dementia going on but he is this time coming along very nicely. As noted he had a paradoxically very unpleasant reaction to the usage of Namenda and Aricept Qualifiers: Altered mental status type: delirium Qualified Codes: R41.0 - Disorientation, unspecified (2) Atrial fibrillation Status: Acute Comment: He is remained in atrial fibrillation is anticoagulated and has adequate rate control. Continue current therapeutics (3) Essential hypertension Status: Chronic Comment: His blood pressure control has had some lability. He can give us another day to see how he balances out before adding in more medications (4) Hyperlipidemia Status: Chronic Comment: Continue statin therapy Qualifiers: Hyperlipidemia type: pure hypercholesterolemia Qualified Codes: E78.00 - Pure hypercholesterolemia, unspecified (5) Benign prostatic hyperplasia Status: Chronic Comment: Controlled Qualifiers: Lower urinary tract symptom presence: symptoms absent Qualified Codes: N40.0 - Benign prostatic hyperplasia without lower urinary tract symptoms (6) Diastolic dysfunction Status: Chronic Comment: Control of blood pressure (7) Coronary artery disease Status: Chronic Comment: Quiescent Qualifiers: Coronary Disease-Associated Artery/Lesion type: ch[place]kat artery [place] vs. transplanted heart: chilkat heart Associated angina: without angina Qualified Codes: I25.10 - Atherosclerotic heart disease of chilkat coronary artery without angina pectoris (8) Psoriasis Status: Chronic Comment: Noted. Result Diagram: 11/18/18 0657 11/18/18 0657 HPI/ROS Admit Date/Time Admit Date/Time Nov 17, 2018 at 17:15 Hx of Present Illness 73-year-old male who was admitted to [facility] for pneumonia with severely altered mental status. He is improved slowly and was brought over to the acute rehabilitation unit for further rehabilitation of debility. ROS Patient is much more positive and in a good mood Constitutional: no complaints (Fevers chills or sweats) Respiratory: no complaints Cardiovascular: no complaints (Eyes palpitations chest pain) Gastrointestinal: no complaints Genitourinary: no complaints Musculoskeletal: no complaints Skin: no complaints Neurologic: no complaints Endocrine: no complaints PMH/Family/Social Past Medical History Medical History: coronary artery disease (Status post PCI with stenting; new onset atrial fibrillation with rapid ventricular response; prior history of paroxysmal atrial fibrillation), high cholesterol, hypertension, other (Benign prostatic hypertrophy; recent delirium; 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; asthma intermittent mild; cervical spine stenosis; status post closed head trauma with concussion and subdural hematoma; diverticulosis coli;) Medications Current Medications Docusate Sodium (Colace) 100 mg BID PO Last administered on 11/19/18 08:53; Admin Dose 100 MG; Start 11/17/18 at 21:00 Senna (Senokot) 1 tab HS PO Last administered on 11/18/18 20:04; Admin Dose 1 TAB; Start 11/17/18 at 21:00 Magnesium Hydroxide (Milk Of Mag) 30 ml BID PRN PO CONSTIPATION; Start 11/17/18 at 18:30 Lactulose (Enulose) 20 gm DAILY PRN PO CONSTIPATION; Start 11/17/18 at 18:30 Bisacodyl (Dulcolax Supp) 10 mg DAILY PRN [place] CONSTIPATION; Start 11/17/18 at 18:30 Acetaminophen (Tylenol Tab) 650 mg Q4H PRN PO MILD PAIN 1-3 Last administered on 11/18/18 22:23; Admin Dose 650 MG; Start 11/17/18 at 18:30 Miscellaneous [facility] This patient trevino... PRN PRN XX WOUND CARE; Start 11/17/18 at 18:30 Acetaminophen (Tylenol Tab) 650 mg Q6H PRN PO .PAIN 1-3 OR TEMP; Start 11/17/18 at 20:30 Albuterol/ Ipratropium (Duoneb) 3 ml Q6H RESP THERAPY PRN HHN SHORTNESS OF BREATH; Start 11/17/18 at 20:30 Amlodipine Besylate (Norvasc) 5 mg DAILY PO Last administered on 11/19/18 08:54; Admin Dose 5 MG; Start 11/18/18 at 09:00 Aspirin (Aspirin) 81 mg DAILY PO Last administered on 11/19/18 08:54; Admin Dose 81 MG; Start 11/18/18 at 09:00 Atorvastatin Calcium (Lipitor) 40 mg QHS PO Last administered on 11/18/18 20:04; Admin Dose 40 MG; Start 11/17/18 at 21:00 Diltiazem HCl (Cardizem) 60 mg Q6H PRN PO sustained hr>130; Start 11/17/18 at 20:30 Diltiazem HCl (Cardizem Cd) 180 mg DAILY PO Last administered on 11/19/18 08:54; Admin Dose 180 MG; Start 11/18/18 at 09:00 Docusate Sodium (Colace) 100 mg Q12H PRN PO .CONSTIPATION; Start 11/17/18 at 20:30 Famotidine (Pepcid) 20 mg Q12 PO Last administered on 11/19/18 08:54; Admin Dose 20 MG; Start 11/17/18 at 21:00 Finasteride (Proscar) 5 mg DAILY PO Last administered on 11/19/18 08:54; Admin Dose 5 MG; Start 11/18/18 at 09:00 Fluticasone/ Vilanterol (Breo Ellipta 100-25 Mcg Inh) 1 inh DAILY INH Last administered on 11/19/18 08:53; Admin Dose 1 INH; Start 11/18/18 at 09:00 Heparin Sodium (Porcine) (Heparin (5000 Units/1ml)) 5,000 unit Q12 SC Last administered on 11/19/18 08:55; Admin Dose 5,000 UNIT; Start 11/17/18 at 21:00 Losartan Potassium (Cozaar) 50 mg BID PO Last administered on 11/19/18 08:54; Admin Dose 50 MG; Start 11/17/18 at 21:00 Miscellaneous Information Patients own medicat... BID@10,16 XX ; Start 11/18/18 at 10:00 Montelukast Sodium (Singulair) 10 mg QHS PO Last administered on 11/18/18 20:04; Admin Dose 10 MG; Start 11/17/18 at 21:00 Ondansetron HCl (Zofran Tab) 4 mg Q6H PRN PO NAUSEA/VOMITING; Start 11/17/18 at 21:00 Phenol (Cepastat Lozenge) 1 lozenge Q1H PRN [place] DRY MOUTH; Start 11/17/18 at 21:00 Quetiapine Fumarate (Seroquel) 25 mg HS PO Last administered on 11/18/18 20:04; Admin Dose 25 MG; Start 11/17/18 at 21:00 Quetiapine Fumarate (Seroquel) 12.5 mg Q8H PRN PO agitation Last administered on 11/18/18 22:23; Admin Dose 12.5 MG; Start 11/17/18 at 21:00 Rivaroxaban (Xarelto) 20 mg WITH DINNER PO Last administered on 11/18/18 17:44; Admin Dose 20 MG; Start 11/17/18 at 21:00 Tamsulosin HCl (Flomax) 0.8 mg HS PO Last administered on 11/18/18 20:04; Admin Dose 0.8 MG; Start 11/17/18 at 21:00 Thiamine HCl (Vitamin B1) 100 mg DAILY PO Last administered on 11/19/18 08:54; Admin Dose 100 MG; Start 11/18/18 at 09:00 Betamethasone/ Clotrimazole (Lotrisone Cr) 1 applic BID TOP Last administered on 11/19/18 08:53; Admin Dose 1 APPLIC; Start 11/18/18 at 21:00 Multivitamins Therapeutic (Theragran) 1 tab DAILY PO Last administered on 11/19/18 08:54; Admin Dose 1 TAB; Start 11/19/18 at 09:00 Coded Allergies: Sulfa (Sulfonamide Antibiotics) (Verified Allergy, Mild, 11/04/18) tetracycline (Verified Allergy, Mild, 11/04/18) Past Surgical History Past Surgical Hx: other Family History Significant Family History: heart disease, cancer, diabetes Social History Alcohol Use: occasionally (At least one drink a night) Smoking Status: Never smoker Drug Use: none Exam/Review of Systems Vital Signs Vitals Vital Signs Date Temp Pulse Resp B/P (MAP) Pulse Ox O2 O2 Flow FiO2 Time Delivery Rate 11/19/18 97.5 77 18 160/92 96 Room Air 07:30 (114) Intake and Output 11/18/18 11/18/18 11/19/18 1515:00 23:00 07:00 IntakeIntake Total 200 ml 640 ml OutputOutput Total 1100 ml BalanceBalance 200 ml 640 ml -1100 ml Exam Constitutional: alert (Please note he is oriented to person place and time and situation.) Psych: no complaints Head: normocephalic, atraumatic Neck: supple, non-tender Respiratory: clear to auscultation, normal air movement Cardiovascular: nl pulses, irregular rhythm Gastrointestinal: soft, nl liver, spleen, non-tender Musculoskeletal: nl extremities to inspection, nl gait and stance Extremities: normal pulses Neurological: PROGRAM CLINICIAN II-XII intact, nl mental status, nl speech, nl strength, other (MMSE 26 out of 30) Skin: nl CHRIS Glez MD Nov 19, 2018 13:46
[2018-11-19 14:00] VITALS: BP 113/59; PULSE 90; RESP 18
[2018-11-19] MEDS: RIVAROXABAN 20 MG TABLET PO SCH (17:54)
[2018-11-19 19:47] VITALS: BP 140/87; PULSE 84; RESP 18
[2018-11-19] MEDS: ATORVASTATIN 40 MG TAB PO SCH (20:38)
[2018-11-19] MEDS: SENNA TAB PO SCH (20:38)
[2018-11-19] MEDS: TAMSULOSIN (SR) 0.4 MG CAP PO SCH (20:39)
[2018-11-19] MEDS: QUETIAPINE 25 MG TAB PO SCH (20:39)
[2018-11-19] MEDS: MONTELUKAST 10 MG TAB PO SCH (20:39)
--- NOTE | 2018-11-19 22:43 | CONS ---
DATE OF ADMISSION: 11/17/2018 DATE OF CONSULTATION: 11/19/2018 TYPE OF CONSULTATION: Psychological. REFERRING PHYSICIAN: Fabian Soto MD CONSULTING PSYCHOLOGIST: Luma Ivey, PhD. REASON FOR CONSULTATION: Consultation was requested by Dr. Emily Soto in order to evaluate the cognitive and emotional functioning of this patient related to his present medical condition. HISTORY OF PRESENT ILLNESS: The patient is a 73-year-old male. The patient was admitted to the hospital with increased shortness of breath, cough and confusion. The workup revealed right lower lobe pneumonia in addition to atrial fibrillation. The patient likely had a toxic metabolic encephalopathy. The patient does appear to be slowly clearing. The patient's was present during the consultation with the patient. The patient did state that he has been having cognitive confusion for over the last couple of years. The patient's said that it was notable during the last year that he was having some confusion and memory loss. The patient is motivated to get better and does want to return to his previous level of functioning. FAMILY AND SOCIAL HISTORY: The patient lives with his in a home in [place]. The patient's adult son lives with them. The patient does want to return there after discharge. MEDICATIONS: The patient is currently on Seroquel 25 mg at bedtime,12.5 mg q.8 hours p.r.n. SUBSTANCE USE: The patient reports that he does not smoke. The patient reports that he does not use alcohol or other drugs. MENTAL STATUS EXAMINATION: APPEARANCE: The patient was seen up in his wheelchair. He was of average height and weight. The patient wears glasses and is right-handed. BEHAVIOR: The patient was cooperative during the consultation. The patient did attempt to answer all questions presented to him by the interviewer. The patient was very aware that he did have some confusion and was a little frustrated by the fact that he could not answer some of the questions. MOOD AND AFFECT: The patient's mood appears to be slightly depressed. Affect does appear to be slightly anxious. The patient does report anxiety regarding his memory loss and confusion. PERCEPTION: The patient reports no hallucinations or delusions. The patient was alert to person, place, situation, but not exactly to time. MEMORY AND COGNITION: The patient's memory and cognition appear to be impaired. He was able to remember recent and remote events and he was able to remember the name of the hospital. He was able to name the month, but the year was 2012. The patient was able to name the anthropologist physical, but could not the governor of the state [facility], or the mayor of the [facility]. The patient was unable to spell "world" backwards, "derow". He was able to do 1 serial 7 subtraction from 100 and then could not go any further. Next answer was 4 and he could not come up with anything else. Overall, given the patient's present medical condition and the likely toxic metabolic encephalopathy, he is beginning to improve. INTELLIGENCE: Intelligence would appear to fall in the average to above-average range when he was functioning adequately. INSIGHT: Fair. JUDGMENT: Fair. THOUGHT CONTENT: The patient is concerned about his present medical condition. The patient is very frustrated about his memory loss. The patient is willing to try to do things to help with his memory. The patient also has some anxiety and depression and is aware of this. DISCUSSION: The patient can likely benefit from some cognitive/behavioral psychotherapy while he is on the unit. Psychotherapy would focus on his cognition as well as his mood. The patient also may be able to benefit from some cognitive rehabilitation using a memory book. The patient did already have the book present and his was going to help him with it. DIAGNOSTIC IMPRESSION: 1. 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 2. F06.8, cognitive disorder, not otherwise specified. Thank you very much, Dr. Emily Soto, for referring this individual. Please do not hesitate to call if you have additional questions. Dictated By: LUMA IVEY PHD JAIR/LOULOU Conf#: [id number] DID#: [id number]
[2018-11-20 02:00] VITALS: BP 128/72; PULSE 79; RESP 18
[2018-11-20 07:00] VITALS: BP 127/75; PULSE 58; RESP 18
[2018-11-20] MEDS: DILTIAZEM (CD) 180 MG CAP PO SCH (09:00)
[2018-11-20] MEDS: FLUTICASONE/VILANTEROL 100-25 INH SCH (09:41)
[2018-11-20] MEDS: BETAMETHASONE/CLOTRIMAZOLE 15 GM CR TOP SCH ×2 (09:41→21:12)
[2018-11-20] MEDS: ASPIRIN 81 MG TAB PO SCH (09:42)
[2018-11-20] MEDS: FINASTERIDE 5 MG TAB PO SCH (09:43)
[2018-11-20] MEDS: FAMOTIDINE 20 MG TAB PO SCH ×2 (09:43→20:59)
[2018-11-20] MEDS: MULTIVITAMINS THERAPEUTIC TAB PO SCH (09:43)
[2018-11-20] MEDS: AMLODIPINE 5 MG TAB PO SCH (09:43)
[2018-11-20] MEDS: LOSARTAN 50 MG TAB PO SCH ×2 (09:44→20:59)
[2018-11-20] MEDS: DOCUSATE SODIUM 100 MG CAP PO SCH ×2 (09:44→20:58)
[2018-11-20] MEDS: THIAMINE 100 MG TAB PO SCH (09:44)
[2018-11-20] MEDS: HEPARIN 5,000 UNIT/1 ML VIAL SC SCH ×2 (09:49→20:57)
--- NOTE | 2018-11-20 10:53 | PN ---
Date/Time of Note Date/Time of Note DATE: 11/20/18 TIME: 10:53 Subjective No new complaints Objective Vital Signs Date Temp Pulse Resp B/P (MAP) Pulse Ox O2 O2 Flow FiO2 Time Delivery Rate 11/20/18 97.6 58 18 127/75 97 Room Air 07:00 (92) Intake and Output 11/19/18 11/19/18 11/20/18 1515:00 23:00 07:00 IntakeIntake Total 150 ml 980 ml BalanceBalance 150 ml 980 ml Exam pulm-cta min ambulation 100 feet Results/Medications Result Diagram: 11/18/18 0657 11/18/1857 Medications Current Medications Docusate Sodium (Colace) 100 mg BID PO Last administered on 11/20/18at 09:44; Admin Dose 100 MG; Start 11/17/18 at 21:00 Senna (Senokot) 1 tab HS PO Last administered on 11/19/18at 20:38; Admin Dose 1 TAB; Start 11/17/18 at 21:00 Magnesium Hydroxide (Milk Of Mag) 30 ml BID PRN PO CONSTIPATION; Start 11/17/18 at 18:30 Lactulose (Enulose) 20 gm DAILY PRN PO CONSTIPATION; Start 11/17/18 at 18:30 Bisacodyl (Dulcolax Supp) 10 mg DAILY PRN [place] CONSTIPATION; Start 11/17/18 at 18:30 Acetaminophen (Tylenol Tab) 650 mg Q4H PRN PO MILD PAIN 1-3 Last administered on 11/18/18at 22:23; Admin Dose 650 MG; Start 11/17/18 at 18:30 Miscellaneous Information [facility] This patient trevino... PRN PRN XX WOUND CARE; Start 11/17/18 at 18:30 Acetaminophen (Tylenol Tab) 650 mg Q6H PRN PO .PAIN 1-3 OR TEMP; Start 11/17/18 at 20:30 Albuterol/ Ipratropium (Duoneb) 3 ml Q6H RESP THERAPY PRN HHN SHORTNESS OF BREATH; Start 11/17/18 at 20:30 Amlodipine Besylate (Norvasc) 5 mg DAILY PO Last administered on 11/20/18at 09:43; Admin Dose 5 MG; Start 11/18/18 at 09:00 Aspirin (Aspirin) 81 mg DAILY PO Last administered on 11/20/18 09:42; Admin Dose 81 MG; Start 11/18/18 at 09:00 Atorvastatin Calcium (Lipitor) 40 mg QHS PO Last administered on 11/19/18 20:38; Admin Dose 40 MG; Start 11/17/18 at 21:00 Diltiazem HCl (Cardizem) 60 mg Q6H PRN PO sustained hr>130; Start 11/17/18 at 20:30 Diltiazem HCl (Cardizem Cd) 180 mg DAILY PO Last administered on 11/19/18 08:54; Admin Dose 180 MG; Start 11/18/18 at 09:00 Docusate Sodium (Colace) 100 mg Q12H PRN PO .CONSTIPATION; Start 11/17/18 at 20:30 Famotidine (Pepcid) 20 mg Q12 PO Last administered on 11/20/18 09:43; Admin Dose 20 MG; Start 11/17/18 at 21:00 Finasteride (Proscar) 5 mg DAILY PO Last administered on 11/20/18 09:43; Admin Dose 5 MG; Start 11/18/18 at 09:00 Fluticasone/ Vilanterol (Breo Ellipta 100-25 Mcg Inh) 1 inh DAILY INH Last administered on 11/20/18 09:41; Admin Dose 1 INH; Start 11/18/18 at 09:00 Heparin Sodium (Porcine) (Heparin (5000 Units/1ml)) 5,000 unit Q12 SC Last administered on 11/20/18 09:49; Admin Dose 5,000 UNIT; Start 11/17/18 at 21:00 Losartan Potassium (Cozaar) 50 mg BID PO Last administered on 11/20/18 09:44; Admin Dose 50 MG; Start 11/17/18 at 21:00 Miscellaneous Information Patients own medicat... BID@10,16 XX Last administered on 11/20/18 09:50; Admin Dose 1 EA; Start 11/18/18 at 10:00 Montelukast Sodium (Singulair) 10 mg QHS PO Last administered on 11/19/18 20:39; Admin Dose 10 MG; Start 11/17/18 at 21:00 Ondansetron HCl (Zofran Tab) 4 mg Q6H PRN PO NAUSEA/VOMITING; Start 11/17/18 at 21:00 Phenol (Cepastat Lozenge) 1 lozenge Q1H PRN [place] DRY MOUTH; Start 11/17/18 at 21:00 Quetiapine Fumarate (Seroquel) 25 mg HS PO Last administered on 11/19/18 20:39; Admin Dose 25 MG; Start 11/17/18 at 21:00 Quetiapine Fumarate (Seroquel) 12.5 mg Q8H PRN PO agitation Last administered on 11/18/18 22:23; Admin Dose 12.5 MG; Start 11/17/18 at 21:00 Rivaroxaban (Xarelto) 20 mg WITH DINNER PO Last administered on 11/19/18 17:54; Admin Dose 20 MG; Start 11/17/18 at 21:00 Tamsulosin HCl (Flomax) 0.8 mg HS PO Last administered on 11/19/18 20:39; Admin Dose 0.8 MG; Start 11/17/18 at 21:00 Thiamine HCl (Vitamin B1) 100 mg DAILY PO Last administered on 11/20/18 09:44; Admin Dose 100 MG; Start 11/18/18 at 09:00 Betamethasone/ Clotrimazole (Lotrisone Cr) 1 applic BID TOP Last administered on 11/20/18 09:41; Admin Dose 1 APPLIC; Start 11/18/18 at 21:00 Multivitamins Therapeutic (Theragran) 1 tab DAILY PO Last administered on 11/20/18 09:43; Admin Dose 1 TAB; Start 11/19/18 at 09:00 Assessment/Plan Additional Assessment/Plan Rehab- Toxic metabolic encephalopathy. Continue rehab activities Right lower lobe pneumonia. Atrial fibrillation. Coronary artery disease with history of stent. Asthma. Hypertension. Hyperlipidemia. Benign prostatic hypertrophy. Psoriasis. Status-post acute kidney injury. JULY AG MD Nov 20, 2018 10:53
--- NOTE | 2018-11-20 13:27 | PN ---
Date/Time of Note Date/Time of Note DATE: 11/20/18 TIME: 13:25 Assessment/Plan VTE Prophylaxis Risk score (from Ns)>0 risk: 3 SCD applied (from [facility] [place]): No SCD contraindicated: low risk/ambulating Pharmacological prophylaxis: heparin Pharm contraindication: low risk/ambulating Lines/Catheters Urinary Cath still in place: No Assessment/Plan Problems: (1) Atrial fibrillation Status: Acute Comment: Rate controlled at this time. Continue current therapy Qualifiers: Atrial fibrillation type: chronic Qualified Codes: I48.2 - Chronic atrial fibrillation (2) Essential hypertension Status: Chronic Comment: Adequate control (3) Hyperlipidemia Status: Chronic Comment: Continue with statin therapy Qualifiers: Hyperlipidemia type: pure hypercholesterolemia Qualified Codes: E78.00 - Pure hypercholesterolemia, unspecified (4) Benign prostatic hyperplasia Status: Chronic Comment: Stable and compensated at this time Qualifiers: Lower urinary tract symptom presence: symptoms absent Qualified Codes: N4 0.0 - Benign prostatic hyperplasia without lower urinary tract symptoms (5) B12 deficiency Status: Chronic Comment: We will give initial dose I am (6) Altered mental status Status: Resolved Comment: Improved. 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 however he is now back to baseline state Qualifiers: Altered mental status type: delirium Qualified Codes: R41.0 - Disorientation, unspecified Result Diagram: 11/18/18 0657 11/18/18 0657 Results 24hrs Laboratory Tests Test 11/20/18 06:10 Urine Color RED Urine Clarity CLOUDY A Urine pH 6.0 Urine Specific [place] 1.021 Urine Ketones NEGATIVE Urine Nitrite NEGATIVE Urine Bilirubin NEGATIVE Urine Urobilinogen NEGATIVE Urine Leukocyte Esterase NEGATIVE Urine Microscopic RBC > 182 H Urine Microscopic WBC > 182 H Urine Bacteria FEW A Urine Hemoglobin 3+ H Urine Glucose NEGATIVE Urine Total Protein 2+ H Subjective 24 Hr Interval Summary Free Text/Dictation Patient vibrant and alert today although his noted hematuria Constitutional: no complaints Respiratory: no complaints Cardiovascular: no complaints Gastrointestinal: no complaints Exam/Review of Systems Exam Vitals Vital Signs Date Temp Pulse Resp B/P (MAP) Pulse Ox O2 O2 Flow FiO2 Time Delivery Rate 11/20/18 97.6 58 18 127/75 97 Room Air 07:00 (92) Intake and Output 11/19/18 11/19/18 11/20/18 1515:00 23:00 07:00 IntakeIntake Total 150 ml 980 ml BalanceBalance 150 ml 980 ml Constitutional: alert, oriented (To person place time and situation) Respiratory: clear to auscultation, normal air movement Cardiovascular: nl pulses, irregular rhythm Results Results 24hrs Laboratory Tests Test 11/20/18 06:10 Urine Color RED Urine Clarity CLOUDY A Urine pH 6.0 Urine Specific [place] 1.021 Urine Ketones NEGATIVE Urine Nitrite NEGATIVE Urine Bilirubin NEGATIVE Urine Urobilinogen NEGATIVE Urine Leukocyte Esterase NEGATIVE Urine Microscopic RBC > 182 H Urine Microscopic WBC > 182 H Urine Bacteria FEW A Urine Hemoglobin 3+ H Urine Glucose NEGATIVE Urine Total Protein 2+ H Medications Medication Current Medications Docusate Sodium (Colace) 100 mg BID PO Last administered on 11/20/18 09:44; Admin Dose 100 MG; Start 11/17/18 at 21:00 Senna (Senokot) 1 tab HS PO Last administered on 11/19/18 20:38; Admin Dose 1 TAB; Start 11/17/18 at 21:00 Magnesium Hydroxide (Milk Of Mag) 30 ml BID PRN PO CONSTIPATION; Start 11/17/18 at 18:30 Lactulose (Enulose) 20 gm DAILY PRN PO CONSTIPATION; Start 11/17/18 at 18:30 Bisacodyl (Dulcolax Supp) 10 mg DAILY PRN [place] CONSTIPATION; Start 11/17/18 at 18:30 Acetaminophen (Tylenol Tab) 650 mg Q4H PRN PO MILD PAIN 1-3 Last administered on 11/18/18 22:23; Admin Dose 650 MG; Start 11/17/18 at 18:30 Miscellaneous Information (Pending [facility] Order For Wound Care) This patient trevino... PRN PRN XX WOUND CARE; Start 11/17/18 at 18:30 Acetaminophen (Tylenol Tab) 650 mg Q6H PRN PO .PAIN 1-3 OR TEMP; Start 11/17/18 at 20:30 Albuterol/ Ipratropium (Duoneb) 3 ml Q6H RESP THERAPY PRN HHN SHORTNESS OF BREATH; Start 11/17/18 at 20:30 Amlodipine Besylate (Norvasc) 5 mg DAILY PO Last administered on 11/20/18at 09:43; Admin Dose 5 MG; Start 11/18/18 at 09:00 Aspirin (Aspirin) 81 mg DAILY PO Last administered on 11/20/18 09:42; Admin Dose 81 MG; Start 11/18/18 at 09:00 Atorvastatin Calcium (Lipitor) 40 mg QHS PO Last administered on 11/19/18 20:38; Admin Dose 40 MG; Start 11/17/18 at 21:00 Diltiazem HCl (Cardizem) 60 mg Q6H PRN PO sustained hr>130; Start 11/17/18 at 20:30 Diltiazem HCl (Cardizem Cd) 180 mg DAILY PO Last administered on 11/19/18 08:54; Admin Dose 180 MG; Start 11/18/18 at 09:00 Docusate Sodium (Colace) 100 mg Q12H PRN PO .CONSTIPATION; Start 11/17/18 at 20:30 Famotidine (Pepcid) 20 mg Q12 PO Last administered on 11/20/18 09:43; Admin Dose 20 MG; Start 11/17/18 at 21:00 Finasteride (Proscar) 5 mg DAILY PO Last administered on 11/20/18 09:43; Admin Dose 5 MG; Start 11/18/18 at 09:00 Fluticasone/ Vilanterol (Breo Ellipta 100-25 Mcg Inh) 1 inh DAILY INH Last administered on 11/20/18 09:41; Admin Dose 1 INH; Start 11/18/18 at 09:00 Heparin Sodium (Porcine) (Heparin (5000 Units/1ml)) 5,000 unit Q12 SC Last administered on 11/20/18 09:49; Admin Dose 5,000 UNIT; Start 11/17/18 at 21:00 Losartan Potassium (Cozaar) 50 mg BID PO Last administered on 11/20/18 09:44; Admin Dose 50 MG; Start 11/17/18 at 21:00 Miscellaneous Information Patients own medicat... BID@10,16 XX Last administered on 11/20/18 09:50; Admin Dose 1 EA; Start 11/18/18 at 10:00 Montelukast Sodium (Singulair) 10 mg QHS PO Last administered on 11/19/18 20:39; Admin Dose 10 MG; Start 11/17/18 at 21:00 Ondansetron HCl (Zofran Tab) 4 mg Q6H PRN PO NAUSEA/VOMITING; Start 11/17/18 at 21:00 Phenol (Cepastat Lozenge) 1 lozenge Q1H PRN [place] DRY MOUTH; Start 11/17/18 at 21:00 Quetiapine Fumarate (Seroquel) 25 mg HS PO Last administered on 11/19/18 20:39; Admin Dose 25 MG; Start 11/17/18 at 21:00 Quetiapine Fumarate (Seroquel) 12.5 mg Q8H PRN PO agitation Last administered on 11/18/18 22:23; Admin Dose 12.5 MG; Start 11/17/18 at 21:00 Rivaroxaban (Xarelto) 20 mg WITH DINNER PO Last administered on 11/19/18 17:54; Admin Dose 20 MG; Start 11/17/18 at 21:00 Tamsulosin HCl (Flomax) 0.8 mg HS PO Last administered on 11/19/18 20:39; Admin Dose 0.8 MG; Start 11/17/18 at 21:00 Thiamine HCl (Vitamin B1) 100 mg DAILY PO Last administered on 11/20/18 09:44; Admin Dose 100 MG; Start 11/18/18 at 09:00 Betamethasone/ Clotrimazole (Lotrisone Cr) 1 applic BID TOP Last administered on 11/20/18 09:41; Admin Dose 1 APPLIC; Start 11/18/18 at 21:00 Multivitamins Therapeutic (Theragran) 1 tab DAILY PO Last administered on 11/20/18 09:43; Admin Dose 1 TAB; Start 11/19/18 at 09:00 Fosfomycin Tromethamine (Monurol) 3 gm ONCE ONCE PO ; Start 11/20/18 at 14:30; Stop 11/20/18 at 14:31 Levofloxacin/ Dextrose 150 ml @ 100 mls/hr ONCE ONCE IVPB ; Start 11/20/18 at 14:30; Stop 11/20/18 at 15:59 CHRIS RUBIN MD Nov 20, 2018 13:27
[2018-11-20] MEDS ORDERED: CYANOCOBALAMIN 1000 MCG INJ SC ONE (13:30)
[2018-11-20 14:00] VITALS: BP 125/73; PULSE 60; RESP 18
[2018-11-20] MEDS ORDERED: LEVOFLOXACIN 750MG/D5W (PMX) 150 ML IVPB ONE (14:30)
[2018-11-20] MEDS ORDERED: FOSFOMYCIN 3 GM PACKET PO ONE (14:30)
--- NOTE | 2018-11-20 16:57 | CONS ---
Assessment/Plan Assessment/Plan Hospital Course (Demo Recall) Atrial fibrillation with controlled ventricular rates Preserved ejection fraction Pneumonia-improving Acute kidney injury-resolved Coronary artery disease with history of PCI Encephalopathy-improving Hypertension -HR trend stable on current dose of Cardizem -Blood pressure trend overall stable on current regimen. Would continue at the current time -Continue anticoagulation as tolerated Consultation Date/Type/Reason Admit Date/Time Nov 17, 2018 at 17:15 Initial Consult Date Type of Consult Cardiology Date/Time of Note DATE: 11/20/18 TIME: 16:56 24 HR Interval Summary Free Text/Dictation Breathing is improving. Denies palpitations, chest pain Exam/Review of Systems Vital Signs Vitals Vital Signs Date Temp Pulse Resp B/P (MAP) Pulse Ox O2 O2 Flow FiO2 Time Delivery Rate 11/20/18 98.0 60 18 125/73 97 Room Air 14:00 (90) Intake and Output 11/19/18 11/19/18 11/20/18 1515:00 23:00 07:00 IntakeIntake Total 150 ml 980 ml BalanceBalance 150 ml 980 ml Exam Constitutional: alert (Following commands, no apparent distress), oriented Head: normocephalic Respiratory: other (Coarse breath sounds bilaterally, no wheezing) Cardiovascular: irregular rhythm (S1-S2 heard) Gastrointestinal: soft, non-tender, bowel sounds Extremities: edema Labs Result Diagram: 11/18/18 0657 11/18/18 0657 Results 24hrs Laboratory Tests Test 11/20/18 06:10 Urine Color RED Urine Clarity CLOUDY A Urine pH 6.0 Urine Specific [place] 1.021 Urine Ketones NEGATIVE Urine Nitrite NEGATIVE Urine Bilirubin NEGATIVE Urine Urobilinogen NEGATIVE Urine Leukocyte Esterase NEGATIVE Urine Microscopic RBC > 182 H Urine Microscopic WBC > 182 H Urine Bacteria FEW A Urine Hemoglobin 3+ H Urine Glucose NEGATIVE Urine Total Protein 2+ H Medications Medications Current Medications Docusate Sodium (Colace) 100 mg BID PO Last administered on 11/20/18at 09:44; Admin Dose 100 MG; Start 11/17/18 at 21:00 Senna (Senokot) 1 tab HS PO Last administered on 11/19/18at 20:38; Admin Dose 1 TAB; Start 11/17/18 at 21:00 Magnesium Hydroxide (Milk Of Mag) 30 ml BID PRN PO CONSTIPATION; Start 11/17/18 at 18:30 Lactulose (Enulose) 20 gm DAILY PRN PO CONSTIPATION; Start 11/17/18 at 18:30 Bisacodyl (Dulcolax Supp) 10 mg DAILY PRN [place] CONSTIPATION; Start 11/17/18 at 18:30 Acetaminophen (Tylenol Tab) 650 mg Q4H PRN PO MILD PAIN 1-3 Last administered on 11/18/18 22:23; Admin Dose 650 MG; Start 11/17/18 at 18:30 Miscellaneous Information ([facility] This patient trevino... PRN PRN XX WOUND CARE; Start 11/17/18 at 18:30 Acetaminophen (Tylenol Tab) 650 mg Q6H PRN PO .PAIN 1-3 OR TEMP; Start 11/17/18 at 20:30 Albuterol/ Ipratropium (Duoneb) 3 ml Q6H RESP THERAPY PRN HHN SHORTNESS OF BREATH; Start 11/17/18 at 20:30 Amlodipine Besylate (Norvasc) 5 mg DAILY PO Last administered on 11/20/18 09:43; Admin Dose 5 MG; Start 11/18/18 at 09:00 Aspirin (Aspirin) 81 mg DAILY PO Last administered on 11/20/18 09:42; Admin Dose 81 MG; Start 11/18/18 at 09:00 Atorvastatin Calcium (Lipitor) 40 mg QHS PO Last administered on 11/19/18 20:38; Admin Dose 40 MG; Start 11/17/18 at 21:00 Diltiazem HCl (Cardizem) 60 mg Q6H PRN PO sustained hr>130; Start 11/17/18 at 20:30 Diltiazem HCl (Cardizem Cd) 180 mg DAILY PO Last administered on 11/19/18 08:54; Admin Dose 180 MG; Start 11/18/18 at 09:00 Docusate Sodium (Colace) 100 mg Q12H PRN PO .CONSTIPATION; Start 11/17/18 at 20:30 Famotidine (Pepcid) 20 mg Q12 PO Last administered on 11/20/18 09:43; Admin Dose 20 MG; Start 11/17/18 at 21:00 Finasteride (Proscar) 5 mg DAILY PO Last administered on 11/20/18 09:43; Admin Dose 5 MG; Start 11/18/18 at 09:00 Fluticasone/ Vilanterol (Breo Ellipta 100-25 Mcg Inh) 1 inh DAILY INH Last administered on 11/20/18 09:41; Admin Dose 1 INH; Start 11/18/18 at 09:00 Heparin Sodium (Porcine) (Heparin (5000 Units/1ml)) 5,000 unit Q12 SC Last administered on 11/20/18 09:49; Admin Dose 5,000 UNIT; Start 11/17/18 at 21:00 Losartan Potassium (Cozaar) 50 mg BID PO Last administered on 11/20/18 09:44; Admin Dose 50 MG; Start 11/17/18 at 21:00 Miscellaneous Information Patients own medicat... BID@10,16 XX Last administered on 11/20/18 16:42; Admin Dose 1 EA; Start 11/18/18 at 10:00 Montelukast Sodium (Singulair) 10 mg QHS PO Last administered on 11/19/18 20:39; Admin Dose 10 MG; Start 11/17/18 at 21:00 Ondansetron HCl (Zofran Tab) 4 mg Q6H PRN PO NAUSEA/VOMITING; Start 11/17/18 at 21:00 Phenol (Cepastat Lozenge) 1 lozenge Q1H PRN [place] DRY MOUTH; Start 11/17/18 at 21:00 Quetiapine Fumarate (Seroquel) 25 mg HS PO Last administered on 11/19/18 20:39; Admin Dose 25 MG; Start 11/17/18 at 21:00 Quetiapine Fumarate (Seroquel) 12.5 mg Q8H PRN PO agitation Last administered on 11/18/18 22:23; Admin Dose 12.5 MG; Start 11/17/18 at 21:00 Rivaroxaban (Xarelto) 20 mg WITH DINNER PO Last administered on 11/19/18 17:54; Admin Dose 20 MG; Start 11/17/18 at 21:00 Tamsulosin HCl (Flomax) 0.8 mg HS PO Last administered on 11/19/18 20:39; Admin Dose 0.8 MG; Start 11/17/18 at 21:00 Thiamine HCl (Vitamin B1) 100 mg DAILY PO Last administered on 4/11/19at 09:44; Admin Dose 100 MG; Start 11/18/18 at 09:00 Betamethasone/ Clotrimazole (Lotrisone Cr) 1 applic BID TOP Last administered on 11/20/18at 09:41; Admin Dose 1 APPLIC; Start 11/18/18 at 21:00 Multivitamins Therapeutic (Theragran) 1 tab DAILY PO Last administered on 11/20/18at 09:43; Admin Dose 1 TAB; Start 11/19/18 at 09:00 Hal Pickett DO Nov 20, 2018 16:57
[2018-11-20] MEDS: RIVAROXABAN 20 MG TABLET PO SCH (17:51)
[2018-11-20] MEDS ORDERED: LEVOFLOXACIN 750 MG TABLET PO ONE (19:00)
[2018-11-20 20:38] VITALS: BP 134/92; PULSE 77; RESP 18
[2018-11-20] MEDS: QUETIAPINE 25 MG TAB PO SCH (20:56)
[2018-11-20] MEDS: ACETAMINOPHEN 325 MG TAB PO PRN (20:56)
[2018-11-20] MEDS: MONTELUKAST 10 MG TAB PO SCH (20:56)
[2018-11-20] MEDS: ATORVASTATIN 40 MG TAB PO SCH (20:58)
[2018-11-20] MEDS: TAMSULOSIN (SR) 0.4 MG CAP PO SCH (20:58)
[2018-11-20] MEDS: SENNA TAB PO SCH (20:59)
[2018-11-21] VITALS (7 sets, daily range): BP systolic 102–191; BP diastolic 66–118; PULSE 59–99; RESP 18
[2018-11-21] MEDS: FAMOTIDINE 20 MG TAB PO SCH ×2 (09:00→20:27)
[2018-11-21] MEDS: BETAMETHASONE/CLOTRIMAZOLE 15 GM CR TOP SCH ×2 (09:00→20:28)
[2018-11-21] MEDS: LOSARTAN 50 MG TAB PO SCH ×2 (09:00→20:27)
[2018-11-21] MEDS: AMLODIPINE 5 MG TAB PO SCH ×2 (09:00→16:00)
[2018-11-21] MEDS: THIAMINE 100 MG TAB PO SCH ×2 (09:00→21:00)
[2018-11-21] MEDS: DILTIAZEM (CD) 180 MG CAP PO SCH (09:00)
[2018-11-21] MEDS: HEPARIN 5,000 UNIT/1 ML VIAL SC SCH ×2 (09:00→20:40)
[2018-11-21] MEDS: FINASTERIDE 5 MG TAB PO SCH (09:12)
[2018-11-21] MEDS: FLUTICASONE/VILANTEROL 100-25 INH SCH (09:12)
[2018-11-21] MEDS: MULTIVITAMINS THERAPEUTIC TAB PO SCH (09:13)
[2018-11-21] MEDS: ASPIRIN 81 MG TAB PO SCH (09:13)
[2018-11-21] MEDS: DOCUSATE SODIUM 100 MG CAP PO SCH ×2 (09:13→20:25)
--- NOTE | 2018-11-21 10:55 | PN ---
Date/Time of Note Date/Time of Note DATE: 11/21/18 TIME: 10:54 Subjective Up for activities Objective Vital Signs Date Temp Pulse Resp B/P (MAP) Pulse Ox O2 O2 Flow FiO2 Time Delivery Rate 11/21/18 70 116/70 09:11 (85) 11/21/18 97.7 18 97 Room Air 07:00 Intake and Output 11/20/18 11/20/18 11/21/18 1414:59 22:59 06:59 IntakeIntake Total 1200 ml 200 ml OutputOutput Total 800 ml 850 ml BalanceBalance 400 ml -650 ml Exam pulm-cta abd-soft min assist ambulation Results/Medications Result Diagram: 11/18/1865611/18/18656 Medications Current Medications Docusate Sodium (Colace) 100 mg BID PO Last administered on 11/21/18at 09:13; Admin Dose 100 MG; Start 11/17/18 at 21:00 Senna (Senokot) 1 tab HS PO Last administered on 11/20/18at 20:59; Admin Dose 1 TAB; Start 11/17/18 at 21:00 Magnesium Hydroxide (Milk Of Mag) 30 ml BID PRN PO CONSTIPATION; Start 11/17/18 at 18:30 Lactulose (Enulose) 20 gm DAILY PRN PO CONSTIPATION; Start 11/17/18 at 18:30 Bisacodyl (Dulcolax Supp) 10 mg DAILY PRN [place] CONSTIPATION; Start 11/17/18 at 18:30 Acetaminophen (Tylenol Tab) 650 mg Q4H PRN PO MILD PAIN 1-3 Last administered on 11/20/18at 20:56; Admin Dose 650 MG; Start 11/17/18 at 18:30 Miscellaneous Information (Pending [facility] Order For Wound Care) This patient trevino... PRN PRN XX WOUND CARE; Start 11/17/18 at 18:30 Acetaminophen (Tylenol Tab) 650 mg Q6H PRN PO .PAIN 1-3 OR TEMP; Start 11/17/18 at 20:30 Albuterol/ Ipratropium (Duoneb) 3 ml Q6H RESP THERAPY PRN HHN SHORTNESS OF BREATH; Start 11/17/18 at 20:30 Amlodipine Besylate (Norvasc) 5 mg DAILY PO Last administered on 11/20/18at 09 :43; Admin Dose 5 MG; Start 11/18/18 at 09:00 Aspirin (Aspirin) 81 mg DAILY PO Last administered on 11/21/18 09:13; Admin Dose 81 MG; Start 11/18/18 at 09:00 Atorvastatin Calcium (Lipitor) 40 mg QHS PO Last administered on 11/20/18 20:58; Admin Dose 40 MG; Start 11/17/18 at 21:00 Diltiazem HCl (Cardizem) 60 mg Q6H PRN PO sustained hr>130; Start 11/17/18 at 20:30 Diltiazem HCl (Cardizem Cd) 180 mg DAILY PO Last administered on 11/19/18 08:54; Admin Dose 180 MG; Start 11/18/18 at 09:00 Docusate Sodium (Colace) 100 mg Q12H PRN PO .CONSTIPATION; Start 11/17/18 at 20:30 Famotidine (Pepcid) 20 mg Q12 PO Last administered on 11/20/18 20:59; Admin Dose 20 MG; Start 11/17/18 at 21:00 Finasteride (Proscar) 5 mg DAILY PO Last administered on 11/21/18 09:12; Admin Dose 5 MG; Start 11/18/18 at 09:00 Fluticasone/ Vilanterol (Breo Ellipta 100-25 Mcg Inh) 1 inh DAILY INH Last administered on 11/21/18 09:12; Admin Dose 1 INH; Start 11/18/18 at 09:00 Heparin Sodium (Porcine) (Heparin (5000 Units/1ml)) 5,000 unit Q12 SC Last administered on 11/20/18 20:57; Admin Dose 5,000 UNIT; Start 11/17/18 at 21:00 Losartan Potassium (Cozaar) 50 mg BID PO Last administered on 11/20/18 20:59; Admin Dose 50 MG; Start 11/17/18 at 21:00 Miscellaneous Information Patients own medicat... BID@ XX Last ad ministered on 11/20/18 16:42; Admin Dose 1 EA; Start 11/18/18 at 10:00 Montelukast Sodium (Singulair) 10 mg QHS PO Last administered on 11/20/18 20:56; Admin Dose 10 MG; Start 11/17/18 at 21:00 Ondansetron HCl (Zofran Tab) 4 mg Q6H PRN PO NAUSEA/VOMITING; Start 11/17/18 at 21:00 Phenol (Cepastat Lozenge) 1 lozenge Q1H PRN [place] DRY MOUTH; Start 11/17/18 at 21:00 Quetiapine Fumarate (Seroquel) 25 mg HS PO Last administered on 11/20/18 20:56; Admin Dose 25 MG; Start 11/17/18 at 21:00 Quetiapine Fumarate (Seroquel) 12.5 mg Q8H PRN PO agitation Last administered on 11/18/18 22:23; Admin Dose 12.5 MG; Start 11/17/18 at 21:00 Rivaroxaban (Xarelto) 20 mg WITH DINNER PO Last administered on 11/20/18 17:51; Admin Dose 20 MG; Start 11/17/18 at 21:00 Tamsulosin HCl (Flomax) 0.8 mg HS PO Last administered on 11/20/18 20:58; Admin Dose 0.8 MG; Start 11/17/18 at 21:00 Thiamine HCl (Vitamin B1) 100 mg DAILY PO Last administered on 11/20/18 09:44; Admin Dose 100 MG; Start 11/18/18 at 09:00 Betamethasone/ Clotrimazole (Lotrisone Cr) 1 applic BID TOP Last administered on 11/20/18 21:12; Admin Dose 1 APPLIC; Start 11/18/18 at 21:00 Multivitamins Therapeutic (Theragran) 1 tab DAILY PO Last administered on 11/21/18 09:13; Admin Dose 1 TAB; Start 11/19/18 at 09:00 Assessment/Plan Additional Assessment/Plan Rehab- Toxic metabolic encephalopathy. Good progress, continue treatment plan Right lower lobe pneumonia. Atrial fibrillation. Coronary artery disease with history of stent. Asthma. Hypertension. Hyperlipidemia. Benign prostatic hypertrophy. Psoriasis. Status-post acute kidney injury. JULY AG MD Nov 21, 2018 10:55
--- NOTE | 2018-11-21 13:08 | CONS ---
Assessment/Plan Assessment/Plan Hospital Course (Demo Recall) Atrial fibrillation with controlled ventricular rates Preserved ejection fraction Pneumonia-improving Acute kidney injury-resolved Coronary artery disease with history of PCI Encephalopathy-improving Hypertension -Blood pressure labile, slightly on the lower side this morning. Holding mary eters for antihypertensives. Based on blood pressure trend, would decide further titration of medications -HR trend stable on current dose of Cardizem, continue as tolerated -Continue anticoagulation as tolerated Consultation Date/Type/Reason Admit Date/Time Nov 17, 2018 at 17:15 Initial Consult Date Type of Consult Cardiology Date/Time of Note DATE: 11/21/18 TIME: 13:06 24 HR Interval Summary Free Text/Dictation Denies shortness of breath, palpitations Exam/Review of Systems Vital Signs Vitals Vital Signs Date Temp Pulse Resp B/P (MAP) Pulse Ox O2 O2 Flow FiO2 Time Delivery Rate 11/21/18 70 116/70 09:11 (85) 11/21/18 97.7 18 97 Room Air 07:00 Intake and Output 11/20/18 11/20/18 11/21/18 1515:00 23:00 07:00 IntakeIntake Total 1200 ml 200 ml OutputOutput Total 800 ml 850 ml BalanceBalance 400 ml -650 ml Exam Constitutional: alert, oriented (No apparent distress) Head: normocephalic Respiratory: other (Coarse breath sounds bilaterally, no wheezing) Cardiovascular: irregular rhythm (S1-S2 heard) Gastrointestinal: soft, non-tender, bowel sounds Extremities: edema (Trace) Labs Result Diagram: 11/18/18 0657 11/18/18 0657 Medications Medications Current Medications Docusate Sodium (Colace) 100 mg BID PO Last administered on 11/21/18at 09:13; Admin Dose 100 MG; Start 11/17/18 at 21:00 Senna (Senokot) 1 tab HS PO Last administered on 11/20/18at 20:59; Admin Dose 1 TAB; Start 11/17/18 at 21:00 Magnesium Hydroxide (Milk Of Mag) 30 ml BID PRN PO CONSTIPATION; Start 11/17/18 at 18:30 Lactulose (Enulose) 20 gm DAILY PRN PO CONSTIPATION; Start 11/17/18 at 18:30 Bisacodyl (Dulcolax Supp) 10 mg DAILY PRN [place] CONSTIPATION; Start 11/17/18 at 18:30 Acetaminophen (Tylenol Tab) 650 mg Q4H PRN PO MILD PAIN 1-3 Last administered on 11/20/18 20:56; Admin Dose 650 MG; Start 11/17/18 at 18:30 Miscellaneous Information (Pending Santyl Order For Wound Care) This patient trevino... PRN PRN XX WOUND CARE; Start 11/17/18 at 18:30 Acetaminophen (Tylenol Tab) 650 mg Q6H PRN PO .PAIN 1-3 OR TEMP; Start 11/17/18 at 20:30 Albuterol/ Ipratropium (Duoneb) 3 ml Q6H RESP THERAPY PRN HHN SHORTNESS OF BREATH; Start 11/17/18 at 20:30 Amlodipine Besylate (Norvasc) 5 mg DAILY PO Last administered on 11/20/18 09:43; Admin Dose 5 MG; Start 11/18/18 at 09:00 Aspirin (Aspirin) 81 mg DAILY PO Last administered on 11/21/18 09:13; Admin Dose 81 MG; Start 11/18/18 at 09:00 Atorvastatin Calcium (Lipitor) 40 mg QHS PO Last administered on 11/20/18 20:58; Admin Dose 40 MG; Start 11/17/18 at 21:00 Diltiazem HCl (Cardizem) 60 mg Q6H PRN PO sustained hr>130; Start 11/17/18 at 20:30 Diltiazem HCl (Cardizem Cd) 180 mg DAILY PO Last administered on 11/19/18 08: 54; Admin Dose 180 MG; Start 11/18/18 at 09:00 Docusate Sodium (Colace) 100 mg Q12H PRN PO .CONSTIPATION; Start 11/17/18 at 20:30 Famotidine (Pepcid) 20 mg Q12 PO Last administered on 11/20/18 20:59; Admin Dose 20 MG; Start 11/17/18 at 21:00 Finasteride (Proscar) 5 mg DAILY PO Last administered on 11/21/18 09:12; Admin Dose 5 MG; Start 11/18/18 at 09:00 Fluticasone/ Vilanterol (Breo Ellipta 100-25 Mcg Inh) 1 inh DAILY INH Last administered on 11/21/18 09:12; Admin Dose 1 INH; Start 11/18/18 at 09:00 Heparin Sodium (Porcine) (Heparin (5000 Units/1ml)) 5,000 unit Q12 SC Last administered on 11/20/18 20:57; Admin Dose 5,000 UNIT; Start 11/17/18 at 21:00 Losartan Potassium (Cozaar) 50 mg BID PO Last administered on 11/20/18 20:59; Admin Dose 50 MG; Start 11/17/18 at 21:00 Miscellaneous Information Patients own medicat... BID@10,16 XX Last administered on 11/20/18 16:42; Admin Dose 1 EA; Start 11/18/18 at 10:00 Montelukast Sodium (Singulair) 10 mg QHS PO Last administered on 11/20/18 20:56; Admin Dose 10 MG; Start 11/17/18 at 21:00 Ondansetron HCl (Zofran Tab) 4 mg Q6H PRN PO NAUSEA/VOMITING; Start 11/17/18 at 21:00 Phenol (Cepastat Lozenge) 1 lozenge Q1H PRN [place] DRY MOUTH; Start 11/17/18 at 21:00 Quetiapine Fumarate (Seroquel) 25 mg HS PO Last administered on 11/20/18 20:56; Admin Dose 25 MG; Start 11/17/18 at 21:00 Quetiapine Fumarate (Seroquel) 12.5 mg Q8H PRN PO agitation Last administered on 11/18/18 22:23; Admin Dose 12.5 MG; Start 11/17/18 at 21:00 Rivaroxaban (Xarelto) 20 mg WITH DINNER PO Last administered on 11/20/18 17:51; Admin Dose 20 MG; Start 11/17/18 at 21:00 Tamsulosin HCl (Flomax) 0.8 mg HS PO Last administered on 11/20/18 20:58; Admin Dose 0.8 MG; Start 11/17/18 at 21:00 Thiamine HCl (Vitamin B1) 100 mg DAILY PO Last administered on 11/20/18 09:44; Admin Dose 100 MG; Start 11/18/18 at 09:00 Betamethasone/ Clotrimazole (Lotrisone Cr) 1 applic BID TOP Last administered on 4/11/19at 21:12; Admin Dose 1 APPLIC; Start 11/18/18 at 21:00 Multivitamins Therapeutic (Theragran) 1 tab DAILY PO Last administered on 11/21/18at 09:13; Admin Dose 1 TAB; Start 11/19/18 at 09:00 Hal Pickett DO Nov 21, 2018 13:08
[2018-11-21] MEDS ORDERED: LEVOFLOXACIN 500 MG TAB PO ONE (14:00)
[2018-11-21] MEDS: RIVAROXABAN 20 MG TABLET PO SCH (17:55)
[2018-11-21] MEDS: TAMSULOSIN (SR) 0.4 MG CAP PO SCH (20:24)
[2018-11-21] MEDS: MONTELUKAST 10 MG TAB PO SCH (20:25)
[2018-11-21] MEDS: SENNA TAB PO SCH (20:25)
[2018-11-21] MEDS: QUETIAPINE 25 MG TAB PO SCH (20:25)
[2018-11-21] MEDS: ATORVASTATIN 40 MG TAB PO SCH (20:27)
[2018-11-21] MEDS: RANITIDINE 150 MG TAB PO SCH (22:18)
[2018-11-22 02:00] VITALS: BP_SYST 128; BP_SYST 157; BP_DIAS 88; PULSE 75; PULSE 85; RESP 18
[2018-11-22] MEDS: LEVOFLOXACIN 500 MG TAB PO SCH (06:32)
[2018-11-22 07:49] VITALS: BP 139/85; PULSE 74; RESP 18
[2018-11-22] MEDS: THIAMINE 100 MG TAB PO SCH (09:00)
--- NOTE | 2018-11-22 09:07 | CONS ---
Assessment/Plan Assessment/Plan Assessment/Plan (Daily) Atrial fibrillation with controlled ventricular rates Preserved ejection fraction Pneumonia-improving Acute kidney injury-resolved Coronary artery disease with history of PCI Encephalopathy-improving Hypertension -Blood pressure labile, slightly on the lower side this morning. Holding parameters for antihypertensives. Based on blood pressure trend, would decide further titration of medications -HR trend stable on current dose of Cardizem, continue as tolerated -Continue anticoagulation as tolerated Consultation Date/Type/Reason Admit Date/Time Nov 17, 2018 at 17:15 Initial Consult Date Type of Consult Cardiology Date/Time of Note DATE: 11/22/18 TIME: 09:06 24 HR Interval Summary Free Text/Dictation The patient with no change Exam/Review of Systems Vital Signs Vitals Vital Signs Date Temp Pulse Resp B/P (MAP) Pulse Ox O2 O2 Flow FiO2 Time Delivery Rate 11/22/18 98.0 74 18 139/85 98 Room Air 07:49 (103) Intake and Output 11/21/18 11/21/18 11/22/18 1515:00 23:00 07:00 IntakeIntake Total 1400 ml 450 ml OutputOutput Total 800 ml 950 ml BalanceBalance 600 ml -500 ml Labs Result Diagram: 11/18/18 0657 11/18/18 0657 Results 24hrs Laboratory Tests Test 11/21/18 18:30 11/21/18 20:27 Urine Color YELLOW Urine Clarity CLEAR Urine pH 6.0 Urine Specific [place] 1.011 Urine Ketones NEGATIVE Urine Nitrite NEGATIVE Urine Bilirubin NEGATIVE Urine Urobilinogen 1+ H Urine Leukocyte Esterase NEGATIVE Urine Microscopic RBC > 182 H Urine Microscopic WBC 0 Urine Hemoglobin 3+ H Urine Glucose NEGATIVE Urine Total Protein NEGATIVE Troponin I < 0.012 Medications Medications Current Medications Docusate Sodium (Colace) 100 mg BID PO Last administered on 11/21/18at 20:25; Admin Dose 100 MG; Start 11/17/18 at 21:00 Senna (Senokot) 1 tab HS PO Last administered on 11/21/18at 20:25; Admin Dose 1 TAB; Start 11/17/18 at 21:00 Magnesium Hydroxide (Milk Of Mag) 30 ml BID PRN PO CONSTIPATION; Start 11/17/18 at 18:30 Lactulose (Enulose) 20 gm DAILY PRN PO CONSTIPATION; Start 11/17/18 at 18:30 Bisacodyl (Dulcolax Supp) 10 mg DAILY PRN [place] CONSTIPATION; Start 11/17/18 at 18:30 Acetaminophen (Tylenol Tab) 650 mg Q4H PRN PO MILD PAIN 1-3 Last administered on 11/20/18 20:56; Admin Dose 650 MG; Start 11/17/18 at 18:30 Miscellaneous Information (Pending Santyl Order For Wound Care) This patient trevino... PRN PRN XX WOUND CARE; Start 11/17/18 at 18:30 Acetaminophen (Tylenol Tab) 650 mg Q6H PRN PO .PAIN 1-3 OR TEMP; Start 11/17/18 at 20:30 Albuterol/ Ipratropium (Duoneb) 3 ml Q6H RESP THERAPY PRN HHN SHORTNESS OF BREATH; Start 11/17/18 at 20:30 Amlodipine Besylate (Norvasc) 5 mg DAILY PO Last administered on 11/21/18 16:00; Admin Dose 5 MG; Start 11/18/18 at 09:00 Aspirin (Aspirin) 81 mg DAILY PO Last administered on 11/21/18 09:13; Admin Dose 81 MG; Start 11/18/18 at 09:00 Atorvastatin Calcium (Lipitor) 40 mg QHS PO Last administered on 11/21/18 20:27; Admin Dose 40 MG; Start 11/17/18 at 21:00 Diltiazem HCl (Cardizem) 60 mg Q6H PRN PO sustained hr>130 Last administered on 11/21/18 16:00; Admin Dose 60 MG; Start 11/17/18 at 20:30 Diltiazem HCl (Cardizem Cd) 180 mg DAILY PO Last administered on 11/19/18 08:54; Admin Dose 180 MG; Start 11/18/18 at 09:00 Docusate Sodium (Colace) 100 mg Q12H PRN PO .CONSTIPATION; Start 11/17/18 at 20:30 Finasteride (Proscar) 5 mg DAILY PO Last administered on 11/21/18 09:12; Admin Dose 5 MG; Start 11/18/18 at 09:00 Fluticasone/ Vilanterol (Breo Ellipta 100-25 Mcg Inh) 1 inh DAILY INH Last administered on 11/21/18 09:12; Admin Dose 1 INH; Start 11/18/18 at 09:00 Heparin Sodium (Porcine) (Heparin (5000 Units/1ml)) 5,000 unit Q12 SC Last administered on 11/21/18 20:40; Admin Dose 5,000 UNIT; Start 11/17/18 at 21:00 Losartan Potassium (Cozaar) 50 mg BID PO Last administered on 11/21/18 20:27; Admin Dose 50 MG; Start 11/17/18 at 21:00 Miscellaneous Information Patients own medicat... BID@10,16 XX Last administered on 11/21/18 16:47; Admin Dose 1 EA; Start 11/18/18 at 10:00 Montelukast Sodium (Singulair) 10 mg QHS PO Last administered on 11/21/18 20:25; Admin Dose 10 MG; Start 11/17/18 at 21:00 Ondansetron HCl (Zofran Tab) 4 mg Q6H PRN PO NAUSEA/VOMITING; Start 11/17/18 at 21:00 Phenol (Cepastat Lozenge) 1 lozenge Q1H PRN [place] DRY MOUTH; Start 11/17/18 at 21:00 Quetiapine Fumarate (Seroquel) 25 mg HS PO Last administered on 11/21/18 20:25; Admin Dose 25 MG; Start 11/17/18 at 21:00 Quetiapine Fumarate (Seroquel) 12.5 mg Q8H PRN PO agitation Last administered on 11/18/18 22:23; Admin Dose 12.5 MG; Start 11/17/18 at 21:00 Rivaroxaban (Xarelto) 20 mg WITH DINNER PO Last administered on 11/21/18 17:55; Admin Dose 20 MG; Start 11/17/18 at 21:00 Tamsulosin HCl (Flomax) 0.8 mg HS PO Last administered on 11/21/18 20:24; Admin Dose 0.8 MG; Start 11/17/18 at 21:00 Thiamine HCl (Vitamin B1) 100 mg DAILY PO Last administered on 11/20/18 09:44; Admin Dose 100 MG; Start 11/18/18 at 09:00 Betamethasone/ Clotrimazole (Lotrisone Cr) 1 applic BID TOP Last administered on 11/21/18 20:28; Admin Dose 1 APPLIC; Start 11/18/18 at 21:00 Multivitamins Therapeutic (Theragran) 1 tab DAILY PO Last administered on 11/21/18at 09:13; Admin Dose 1 TAB; Start 11/19/18 at 09:00 Levofloxacin (Levaquin) 500 mg DAILY@06 PO Last administered on 11/22/18at 06:32; Admin Dose 500 MG; Start 11/22/18 at 06:00; Stop 11/26/18 at 05:59 Ranitidine HCl (Zantac) 150 mg BID PO Last administered on 11/21/18at 22:18; Admin Dose 150 MG; Start 11/21/18 at 21:00 MAYO GRUBBS MD Nov 22, 2018 09:07
[2018-11-22] MEDS: FLUTICASONE/VILANTEROL 100-25 INH SCH (09:10)
[2018-11-22] MEDS: ASPIRIN 81 MG TAB PO SCH (09:10)
[2018-11-22] MEDS: DILTIAZEM (CD) 180 MG CAP PO SCH (09:12)
[2018-11-22] MEDS: DOCUSATE SODIUM 100 MG CAP PO SCH ×2 (09:13→19:54)
[2018-11-22] MEDS: FINASTERIDE 5 MG TAB PO SCH (09:14)
[2018-11-22] MEDS: AMLODIPINE 5 MG TAB PO SCH (09:14)
[2018-11-22] MEDS: MULTIVITAMINS THERAPEUTIC TAB PO SCH (09:15)
[2018-11-22] MEDS: LOSARTAN 50 MG TAB PO SCH ×2 (09:15→19:41)
[2018-11-22] MEDS: RANITIDINE 150 MG TAB PO SCH ×2 (09:16→19:40)
[2018-11-22] MEDS: HEPARIN 5,000 UNIT/1 ML VIAL SC SCH ×2 (09:20→19:43)
[2018-11-22] MEDS: BETAMETHASONE/CLOTRIMAZOLE 15 GM CR TOP SCH ×2 (09:21→19:40)
--- NOTE | 2018-11-22 10:40 | PN ---
Date/Time of Note Date/Time of Note DATE: 11/22/18 TIME: 10:40 Subjective Comfortable Objective Vital Signs Date Temp Pulse Resp B/P (MAP) Pulse Ox O2 O2 Flow FiO2 Time Delivery Rate 11/22/18 98.0 74 18 139/85 98 Room Air 07:49 (103) Intake and Output 11/21/18 11/21/18 11/22/18 1515:00 23:00 07:00 IntakeIntake Total 1400 ml 450 ml OutputOutput Total 800 ml 950 ml BalanceBalance 600 ml -500 ml Exam [id number] sba ambulation 150 feet Results/Medications Result Diagram: 11/18/18 0657 11/18/18 0657 Results 24 hrs Laboratory Tests Test 11/21/18 18:30 11/21/18 20:27 Urine Color YELLOW Urine Clarity CLEAR Urine pH 6.0 Urine Specific [place] 1.011 Urine Ketones NEGATIVE Urine Nitrite NEGATIVE Urine Bilirubin NEGATIVE Urine Urobilinogen 1+ H Urine Leukocyte Esterase NEGATIVE Urine Microscopic RBC > 182 H Urine Microscopic WBC 0 Urine Hemoglobin 3+ H Urine Glucose NEGATIVE Urine Total Protein NEGATIVE Troponin I < 0.012 Medications Current Medications Docusate Sodium (Colace) 100 mg BID PO Last administered on 11/22/18at 09:13; Admin Dose 100 MG; Start 11/17/18 at 21:00 Senna (Senokot) 1 tab HS PO Last administered on 11/21/18at 20:25; Admin Dose 1 TAB; Start 11/17/18 at 21:00 Magnesium Hydroxide (Milk Of Mag) 30 ml BID PRN PO CONSTIPATION; Start 11/17/18 at 18:30 Lactulose (Enulose) 20 gm DAILY PRN PO CONSTIPATION; Start 11/17/18 at 18:30 Bisacodyl (Dulcolax Supp) 10 mg DAILY PRN [place] CONSTIPATION; Start 11/17/18 at 18:30 Acetaminophen (Tylenol Tab) 650 mg Q4H PRN PO MILD PAIN 1-3 Last administered on 11/20/18at 20:56; Admin Dose 650 MG; Start 11/17/18 at 18:30 Miscellaneous Information (Pending Santyl Order For Wound Care) This patient trevino... PRN PRN XX WOUND CARE; Start 11/17/18 at 18:30 Acetaminophen (Tylenol Tab) 650 mg Q6H PRN PO .PAIN 1-3 OR TEMP; Start 11/17/18 at 20:30 Albuterol/ Ipratropium (Duoneb) 3 ml Q6H RESP THERAPY PRN HHN SHORTNESS OF CAT[place] ATH; Start 11/17/18 at 20:30 Amlodipine Besylate (Norvasc) 5 mg DAILY PO Last administered on 11/22/18 09:14; Admin Dose 5 MG; Start 11/18/18 at 09:00 Aspirin (Aspirin) 81 mg DAILY PO Last administered on 11/22/18 09:10; Admin Dose 81 MG; Start 11/18/18 at 09:00 Atorvastatin Calcium (Lipitor) 40 mg QHS PO Last administered on 11/21/18 20:27; Admin Dose 40 MG; Start 11/17/18 at 21:00 Diltiazem HCl (Cardizem) 60 mg Q6H PRN PO sustained hr>130 Last administered on 11/21/18 16:00; Admin Dose 60 MG; Start 11/17/18 at 20:30 Diltiazem HCl (Cardizem Cd) 180 mg DAILY PO Last administered on 11/22/18 09:12; Admin Dose 180 MG; Start 11/18/18 at 09:00 Docusate Sodium (Colace) 100 mg Q12H PRN PO .CONSTIPATION; Start 11/17/18 at 20:30 Finasteride (Proscar) 5 mg DAILY PO Last administered on 11/22/18 09:14; Admin Dose 5 MG; Start 11/18/18 at 09:00 Fluticasone/ Vilanterol (Breo Ellipta 100-25 Mcg Inh) 1 inh DAILY INH Last administered on 11/22/18 09:10; Admin Dose 1 INH; Start 11/18/18 at 09:00 Heparin Sodium (Porcine) (Heparin (5000 Units/1ml)) 5,000 unit Q12 SC Last administered on 11/22/18 09:20; Admin Dose 5,000 UNIT; Start 11/17/18 at 21:00 Losartan Potassium (Cozaar) 50 mg BID PO Last administered on 11/22/18 09:15; Admin Dose 50 MG; Start 11/17/18 at 21:00 Miscellaneous Information Patients own medicat... BID@10,16 XX Last administered on 11/21/18 16:47; Admin Dose 1 EA; Start 11/18/18 at 10:00 Montelukast Sodium (Singulair) 10 mg QHS PO Last administered on 11/21/18 20:25; Admin Dose 10 MG; Start 11/17/18 at 21:00 Ondansetron HCl (Zofran Tab) 4 mg Q6H PRN PO NAUSEA/VOMITING; Start 11/17/18 at 21:00 Phenol (Cepastat Lozenge) 1 lozenge Q1H PRN [place] DRY MOUTH; Start 11/17/18 at 21:00 Quetiapine Fumarate (Seroquel) 25 mg HS PO Last administered on 11/21/18 20:25; Admin Dose 25 MG; Start 11/17/18 at 21:00 Quetiapine Fumarate (Seroquel) 12.5 mg Q8H PRN PO agitation Last administered on 11/18/18 22:23; Admin Dose 12.5 MG; Start 11/17/18 at 21:00 Rivaroxaban (Xarelto) 20 mg WITH DINNER PO Last administered on 11/21/18 17:55; Admin Dose 20 MG; Start 11/17/18 at 21:00 Tamsulosin HCl (Flomax) 0.8 mg HS PO Last administered on 11/21/18 20:24; Admin Dose 0.8 MG; Start 11/17/18 at 21:00 Thiamine HCl (Vitamin B1) 100 mg DAILY PO Last administered on 11/20/18 09:44; Admin Dose 100 MG; Start 11/18/18 at 09:00 Betamethasone/ Clotrimazole (Lotrisone Cr) 1 applic BID TOP Last administered on 11/22/18 09:21; Admin Dose 1 APPLIC; Start 11/18/18 at 21:00 Multivitamins Therapeutic (Theragran) 1 tab DAILY PO Last administered on 11/22/18 09:15; Admin Dose 1 TAB; Start 11/19/18 at 09:00 Levofloxacin (Levaquin) 500 mg DAILY@06 PO Last administered on 11/22/18 06:32; Admin Dose 500 MG; Start 11/22/18 at 06:00; Stop 11/26/18 at 05:59 Ranitidine HCl (Zantac) 150 mg BID PO Last administered on 4/13/19at 09:16; Admin Dose 150 MG; Start 11/21/18 at 21:00 Assessment/Plan Additional Assessment/Plan Rehab- Toxic metabolic encephalopathy. Good gains, continue rehab plan Right lower lobe pneumonia. Atrial fibrillation. Coronary artery disease with history of stent. Asthma. Hypertension. Hyperlipidemia. Benign prostatic hypertrophy. Psoriasis. Status-post acute kidney injury. JULY AG MD Nov 22, 2018 10:40
[2018-11-22 14:00] VITALS: BP 117/77; PULSE 87; RESP 18
--- NOTE | 2018-11-22 14:35 | PN ---
Date/Time of Note Date/Time of Note DATE: 11/22/18 TIME: 14:28 Assessment/Plan VTE Prophylaxis Risk score (from [facility] [place])>0 risk: 4 SCD applied (from [facility] [place]): No SCD contraindicated: low risk/ambulating Pharmacological prophylaxis: NA/contraindicated Pharm contraindication: low risk/ambulating Lines/Catheters Urinary Cath still in place: No Assessment/Plan Problems: (1) Altered mental status Status: Resolved Comment: Mild dementia but otherwise resolved. Qualifiers: Altered mental status type: delirium Qualified Codes: R41.0 - Disorientation, unspecified (2) Essential hypertension Status: Chronic Comment: Better control today. Continue current antihypertensive agents (3) Atrial fibrillation Status: Acute Comment: Rate controlled Qualifiers: Atrial fibrillation type: chronic Qualified Codes: I48.2 - Chronic atrial fibrillation (4) Coronary artery disease Status: Chronic Comment: No new issues or events. Management per Cardiology service Qualifiers: Coronary Disease-Associated Artery/Lesion type: hoh artery [place] vs. transplanted heart: hoh heart Associated angina: without angina Qualified Codes: I25.10 - Atherosclerotic heart disease of hoh coronary artery without angina pectoris Assessment/Plan Continue physical therapy as per ARU Result Diagram: 11/18/18 0657 11/18/18 0657 Results 24hrs Laboratory Tests Test 11/21/18 18:30 11/21/18 20:27 Urine Color YELLOW Urine Clarity CLEAR Urine pH 6.0 Urine Specific [place] 1.011 Urine Ketones NEGATIVE Urine Nitrite NEGATIVE Urine Bilirubin NEGATIVE Urine Urobilinogen 1+ H Urine Leukocyte Esterase NEGATIVE Urine Microscopic RBC > 182 H Urine Microscopic WBC 0 Urine Hemoglobin 3+ H Urine Glucose NEGATIVE Urine Total Protein NEGATIVE Troponin I < 0.012 Subjective 24 Hr Interval Summary Free Text/Dictation Last night with upper extremity numbness and gastric upset. Blood pressure high at the time. ECG and tropinin ordered no evidence of acute findings. Patient feeling much better today. Constitutional: no complaints Eyes: no complaints ENT: no complaints Respiratory: no complaints Cardiovascular: no complaints Gastrointestinal: no complaints Genitourinary: no complaints Musculoskeletal: no complaints Skin: no complaints Neurologic: no complaints Endocrine: no complaints Lymphatic: no complaints Psychological: no complaints Immunologic: no complaints Exam/Review of Systems Exam Vitals Vital Signs Date Temp Pulse Resp B/P (MAP) Pulse Ox O2 O2 Flow FiO2 Time Delivery Rate 11/22/18 98.0 74 18 139/85 98 Room Air 07:49 (103) Intake and Output 11/21/18 11/21/18 11/22/18 1515:00 23:00 07:00 IntakeIntake Total 1400 ml 450 ml OutputOutput Total 800 ml 950 ml BalanceBalance 600 ml -500 ml Constitutional: alert, oriented, well developed Neck: supple Respiratory: clear to auscultation Cardiovascular: irregular rhythm Musculoskeletal: nl extremities to inspection Extremities: edema (trace) Neurological: nl mental status, nl speech, nl strength Results Results 24hrs Laboratory Tests Test 11/21/18 18:30 11/21/18 20:27 Urine Color YELLOW Urine Clarity CLEAR Urine pH 6.0 Urine Specific [place] 1.011 Urine Ketones NEGATIVE Urine Nitrite NEGATIVE Urine Bilirubin NEGATIVE Urine Urobilinogen 1+ H Urine Leukocyte Esterase NEGATIVE Urine Microscopic RBC > 182 H Urine Microscopic WBC 0 Urine Hemoglobin 3+ H Urine Glucose NEGATIVE Urine Total Protein NEGATIVE Troponin I < 0.012 Medications Medication Current Medications Docusate Sodium (Colace) 100 mg BID PO Last administered on 11/22/18at 09:13; Admin Dose 100 MG; Start 11/17/18 at 21:00 Senna (Senokot) 1 tab HS PO Last administered on 11/21/18at 20:25; Admin Dose 1 TAB; Start 11/17/18 at 21:00 Magnesium Hydroxide (Milk Of Mag) 30 ml BID PRN PO CONSTIPATION; Start 11/17/18 at 18:30 Lactulose (Enulose) 20 gm DAILY PRN PO CONSTIPATION; Start 11/17/18 at 18:30 Bisacodyl (Dulcolax Supp) 10 mg DAILY PRN [place] CONSTIPATION; Start 11/17/18 at 18:30 Acetaminophen (Tylenol Tab) 650 mg Q4H PRN PO MILD PAIN 1-3 Last administered on 11/20/18at 20:56; Admin Dose 650 MG; Start 11/17/18 at 18:30 [facility] This patient trevino... PRN PRN XX WOUND CARE; Start 11/17/18 at 18:30 Acetaminophen (Tylenol Tab) 650 mg Q6H PRN PO .PAIN 1-3 OR TEMP; Start 11/17/18 at 20:30 Albuterol/ Ipratropium (Duoneb) 3 ml Q6H RESP THERAPY PRN HHN SHORTNESS OF BREATH; Start 11/17/18 at 20:30 Amlodipine Besylate (Norvasc) 5 mg DAILY PO Last administered on 11/22/18 09:1 4; Admin Dose 5 MG; Start 11/18/18 at 09:00 Aspirin (Aspirin) 81 mg DAILY PO Last administered on 11/22/18 09:10; Admin Dose 81 MG; Start 11/18/18 at 09:00 Atorvastatin Calcium (Lipitor) 40 mg QHS PO Last administered on 11/21/18 20:27; Admin Dose 40 MG; Start 11/17/18 at 21:00 Diltiazem HCl (Cardizem) 60 mg Q6H PRN PO sustained hr>130 Last administered on 11/21/18 16:00; Admin Dose 60 MG; Start 11/17/18 at 20:30 Diltiazem HCl (Cardizem Cd) 180 mg DAILY PO Last administered on 11/22/18 09:12; Admin Dose 180 MG; Start 11/18/18 at 09:00 Docusate Sodium (Colace) 100 mg Q12H PRN PO .CONSTIPATION; Start 11/17/18 at 20:30 Finasteride (Proscar) 5 mg DAILY PO Last administered on 11/22/18 09:14; Admin Dose 5 MG; Start 11/18/18 at 09:00 Fluticasone/ Vilanterol (Breo Ellipta 100-25 Mcg Inh) 1 inh DAILY INH Last administered on 11/22/18 09:10; Admin Dose 1 INH; Start 11/18/18 at 09:00 Heparin Sodium (Porcine) (Heparin (5000 Units/1ml)) 5,000 unit Q12 SC Last administered on 11/22/18 09:20; Admin Dose 5,000 UNIT; Start 11/17/18 at 21:00 Losartan Potassium (Cozaar) 50 mg BID PO Last administered on 11/22/18 09:15; Admin Dose 50 MG; Start 11/17/18 at 21:00 Miscellaneous Information Patients own medicat... BID@10,16 XX Last administered on 11/21/18 16:47; Admin Dose 1 EA; Start 11/18/18 at 10:00 Montelukast Sodium (Singulair) 10 mg QHS PO Last administered on 11/21/18 20:25; Admin Dose 10 MG; Start 11/17/18 at 21:00 Ondansetron HCl (Zofran Tab) 4 mg Q6H PRN PO NAUSEA/VOMITING; Start 11/17/18 at 21:00 Phenol (Cepastat Lozenge) 1 lozenge Q1H PRN [place] DRY MOUTH; Start 11/17/18 at 21: 00 Quetiapine Fumarate (Seroquel) 25 mg HS PO Last administered on 11/21/18 20:25; Admin Dose 25 MG; Start 11/17/18 at 21:00 Quetiapine Fumarate (Seroquel) 12.5 mg Q8H PRN PO agitation Last administered on 11/18/18 22:23; Admin Dose 12.5 MG; Start 11/17/18 at 21:00 Rivaroxaban (Xarelto) 20 mg WITH DINNER PO Last administered on 11/21/18 17:55; Admin Dose 20 MG; Start 11/17/18 at 21:00 Tamsulosin HCl (Flomax) 0.8 mg HS PO Last administered on 11/21/18 20:24; Admin Dose 0.8 MG; Start 11/17/18 at 21:00 Thiamine HCl (Vitamin B1) 100 mg DAILY PO Last administered on 11/20/18 09:44; Admin Dose 100 MG; Start 11/18/18 at 09:00 Betamethasone/ Clotrimazole (Lotrisone Cr) 1 applic BID TOP Last administered on 11/22/18 09:21; Admin Dose 1 APPLIC; Start 11/18/18 at 21:00 Multivitamins Therapeutic (Theragran) 1 tab DAILY PO Last administered on 11/22/18 09:15; Admin Dose 1 TAB; Start 11/19/18 at 09:00 Levofloxacin (Levaquin) 500 mg DAILY@06 PO Last administered on 11/22/18 06:32; Admin Dose 500 MG; Start 11/22/18 at 06:00; Stop 11/26/18 at 05:59 Ranitidine HCl (Zantac) 150 mg BID PO Last administered on 11/22/18 09:16; Admin Dose 150 MG; Start 11/21/18 at 21:00 CHRISTIANO DICKERSON MD Nov 22, 2018 14:35
[2018-11-22] MEDS: RIVAROXABAN 20 MG TABLET PO SCH (17:59)
[2018-11-22 19:31] VITALS: BP 132/82; PULSE 83; RESP 18
[2018-11-22] MEDS: SENNA TAB PO SCH (19:40)
[2018-11-22] MEDS: MONTELUKAST 10 MG TAB PO SCH (19:40)
[2018-11-22] MEDS: QUETIAPINE 25 MG TAB PO SCH (19:40)
[2018-11-22] MEDS: ATORVASTATIN 40 MG TAB PO SCH (19:40)
[2018-11-22] MEDS: TAMSULOSIN (SR) 0.4 MG CAP PO SCH (19:41)
[2018-11-22] MEDS: ACETAMINOPHEN 325 MG TAB PO PRN (19:42)
[2018-11-23 02:00] VITALS: BP 125/76; PULSE 76; RESP 18
[2018-11-23] MEDS: LEVOFLOXACIN 500 MG TAB PO SCH (06:10)
[2018-11-23 07:00] VITALS: BP 168/98; PULSE 84; RESP 18
[2018-11-23] MEDS: DOCUSATE SODIUM 100 MG CAP PO SCH (09:00)
[2018-11-23] MEDS: FLUTICASONE/VILANTEROL 100-25 INH SCH (09:35)
[2018-11-23] MEDS: ASPIRIN 81 MG TAB PO SCH (09:35)
[2018-11-23] MEDS: DILTIAZEM (CD) 180 MG CAP PO SCH (09:40)
[2018-11-23] MEDS: AMLODIPINE 5 MG TAB PO SCH (09:41)
[2018-11-23] MEDS: LOSARTAN 50 MG TAB PO SCH ×2 (09:41→20:23)
[2018-11-23] MEDS: FINASTERIDE 5 MG TAB PO SCH (09:42)
[2018-11-23] MEDS: THIAMINE 100 MG TAB PO SCH (09:42)
[2018-11-23] MEDS: MULTIVITAMINS THERAPEUTIC TAB PO SCH (09:42)
[2018-11-23] MEDS: RANITIDINE 150 MG TAB PO SCH ×2 (09:42→20:22)
[2018-11-23] MEDS: BETAMETHASONE/CLOTRIMAZOLE 15 GM CR TOP SCH ×2 (09:44→20:24)
[2018-11-23] MEDS: HEPARIN 5,000 UNIT/1 ML VIAL SC SCH (09:53)
[2018-11-23 14:00] VITALS: BP 113/72; PULSE 80; RESP 18
[2018-11-23] MEDS: RIVAROXABAN 20 MG TABLET PO SCH (17:05)
[2018-11-23 20:00] VITALS: BP 159/87; PULSE 73; RESP 18
[2018-11-23] MEDS: ACETAMINOPHEN 325 MG TAB PO PRN (20:22)
[2018-11-23] MEDS: QUETIAPINE 25 MG TAB PO SCH (20:22)
[2018-11-23] MEDS: ATORVASTATIN 40 MG TAB PO SCH (20:22)
[2018-11-23] MEDS: MONTELUKAST 10 MG TAB PO SCH (20:22)
[2018-11-23] MEDS: TAMSULOSIN (SR) 0.4 MG CAP PO SCH (20:23)
[2018-11-23] MEDS: SENNA TAB PO SCH (20:33)
--- NOTE | 2018-11-23 21:30 | PN ---
Date/Time of Note Date/Time of Note DATE: 11/23/18 TIME: 21:25 Assessment/Plan VTE Prophylaxis Risk score (from Ns)>0 risk: 2 [place] [facility] [place] contraindicated: low risk/ambulating Pharmacological prophylaxis: heparin Lines/Catheters Urinary Cath still in place: No Assessment/Plan Problems: (1) Hematuria Status: Acute Comment: MICROBIOLOGY WITH [id number] COLONIES E. COLI RESISTANT TO LEVOFLOXACIN. WILL CHANGE TO CEFAZOLIN. WILL ALSO D/C HEPARIN AND ASPIRIN (2) Diarrhea Status: Acute Comment: WILL DISCONTINUE LAXATIVES AND STOOL SOFTENERS THAT PATIENT HAS BEEN RECEIVING AND SEND STOOL FOR CULTURE (3) Paroxysmal atrial fibrillation Status: Chronic Comment: NO ACUTE ISSUES (4) Essential hypertension Status: Chronic Comment: DECENT BP CONTROL (5) Altered mental status Status: Resolved Comment: MILD DEMENTIA Qualifiers: Altered mental status type: delirium Qualified Codes: R41.0 - Disorientation, unspecified Subjective 24 Hr Interval Summary Free Text/Dictation C/O DIARRHEA Exam/Review of Systems Exam Vitals Vital Signs Date Temp Pulse Resp B/P (MAP) Pulse Ox O2 O2 Flow FiO2 Time Delivery Rate 11/23/18 98.1 73 18 159/87 97 Room Air 20:00 (111) Intake and Output 11/22/18 11/22/18 11/23/18 1515:00 23:00 07:00 IntakeIntake Total 960 ml 400 ml 350 ml OutputOutput Total 500 ml 200 ml 500 ml BalanceBalance 460 ml 200 ml -150 ml Exam FAMILY AT BEDSIDE Constitutional: alert, oriented Respiratory: clear to auscultation Cardiovascular: regular rate and rhythm Gastrointestinal: soft Musculoskeletal: nl extremities to inspection Medications Medication Current Medications Senna (Senokot) 1 tab HS PO Last administered on 11/22/18at 19:40; Admin Dose 1 TAB; Start 11/17/18 at 21:00; Stop 11/24/19 at 16:38 Lactulose (Enulose) 20 gm DAILY PRN PO CONSTIPATION; Start 11/17/18 at 18:30 Bisacodyl (Dulcolax Supp) 10 mg DAILY PRN [place] CONSTIPATION; Start 11/17/18 at 18:30 Acetaminophen (Tylenol Tab) 650 mg Q4H PRN PO MILD PAIN 1-3 Last administered on 11/23/18at 20:22; Admin Dose 650 MG; Start 11/17/18 at 18:30 Miscellaneous Information (Pending Santyl Order For Wound Care) This patient trevino... PRN PRN XX WOUND CARE; Start 11/17/18 at 18:30 Acetaminophen (Tylenol Tab) 650 mg Q6H PRN PO .PAIN 1-3 OR TEMP; Start 11/17/18 at 20:30 Albuterol/ Ipratropium (Duoneb) 3 ml Q6H RESP THERAPY PRN HHN SHORTNESS OF BREATH; Start 11/17/18 at 20:30 Amlodipine Besylate (Norvasc) 5 mg DAILY PO Last administered on 11/23/18 09:41; Admin Dose 5 MG; Start 11/18/18 at 09:00 Atorvastatin Calcium (Lipitor) 40 mg QHS PO Last administered on 11/23/18 20: 22; Admin Dose 40 MG; Start 11/17/18 at 21:00 Diltiazem HCl (Cardizem) 60 mg Q6H PRN PO sustained hr>130 Last administered on 11/21/18 16:00; Admin Dose 60 MG; Start 11/17/18 at 20:30 Diltiazem HCl (Cardizem Cd) 180 mg DAILY PO Last administered on 11/23/18 09:40; Admin Dose 180 MG; Start 11/18/18 at 09:00 Docusate Sodium (Colace) 100 mg Q12H PRN PO .CONSTIPATION; Start 11/17/18 at 20:30 Finasteride (Proscar) 5 mg DAILY PO Last administered on 11/23/18 09:42; Admin Dose 5 MG; Start 11/18/18 at 09:00 Fluticasone/ Vilanterol (Breo Ellipta 100-25 Mcg Inh) 1 inh DAILY INH Last administered on 11/23/18 09:35; Admin Dose 1 INH; Start 11/18/18 at 09:00 Losartan Potassium (Cozaar) 50 mg BID PO Last administered on 11/23/18 20:23; Admin Dose 50 MG; Start 11/17/18 at 21:00 Miscellaneous Information Patients own medicat... BID@10,16 XX Last administered on 11/21/18 16:47; Admin Dose 1 EA; Start 11/18/18 at 10:00 Montelukast Sodium (Singulair) 10 mg QHS PO Last administered on 11/23/18 20:22; Admin Dose 10 MG; Start 11/17/18 at 21:00 Ondansetron HCl (Zofran Tab) 4 mg Q6H PRN PO NAUSEA/VOMITING; Start 11/17/18 at 21:00 Phenol (Cepastat Lozenge) 1 lozenge Q1H PRN [place] DRY MOUTH; Start 11/17/18 at 21:00 Quetiapine Fumarate (Seroquel) 25 mg HS PO Last administered on 11/23/18 20:22; Admin Dose 25 MG; Start 11/17/18 at 21:00 Quetiapine Fumarate (Seroquel) 12.5 mg Q8H PRN PO agitation Last administered on 11/18/18 22:23; Admin Dose 12.5 MG; Start 11/17/18 at 21:00 Rivaroxaban (Xarelto) 20 mg WITH DINNER PO Last administered on 11/23/18 17:05; Admin Dose 20 MG; Start 11/17/18 at 21:00 Tamsulosin HCl (Flomax) 0.8 mg HS PO Last administered on 11/23/18 20:23; Admin Dose 0.8 MG; Start 11/17/18 at 21:00 Thiamine HCl (Vitamin B1) 100 mg DAILY PO Last administered on 11/23/18 09:42; Admin Dose 100 MG; Start 11/18/18 at 09:00 Betamethasone/ Clotrimazole (Lotrisone Cr) 1 applic BID TOP Last administered on 11/23/18 20:24; Admin Dose 1 APPLIC; Start 11/18/18 at 21:00 Multivitamins Therapeutic (Theragran) 1 tab DAILY PO Last administered on 11/23/18 09:42; Admin Dose 1 TAB; Start 11/19/18 at 09:00 Ranitidine HCl (Zantac) 150 mg BID PO Last administered on 11/23/18 20:22; Admin Dose 150 MG; Start 11/21/18 at 21:00 Cefazolin Sodium 50 ml @ 100 mls/hr Q8 IVPB ; Start 11/23/18 at 22:00 CHRISTIANO DICKERSON MD Nov 23, 2018 21:30
[2018-11-23] MEDS: QUETIAPINE 25 MG TAB PO PRN (22:58)
[2018-11-23] MEDS: CEFAZOLIN 1 GM/50 ML (PMX) 50 ML IVPB SCH (23:02)
[2018-11-24 02:06] VITALS: BP 132/73; PULSE 69; RESP 18
[2018-11-24 07:00] VITALS: BP 159/87; PULSE 65; RESP 18
[2018-11-24] MEDS: CEFAZOLIN 1 GM/50 ML (PMX) 50 ML IVPB SCH ×3 (08:19→21:44)
[2018-11-24] MEDS: BETAMETHASONE/CLOTRIMAZOLE 15 GM CR TOP SCH ×2 (09:00→20:24)
[2018-11-24] MEDS: RANITIDINE 150 MG TAB PO SCH ×2 (09:31→20:23)
[2018-11-24] MEDS: THIAMINE 100 MG TAB PO SCH (09:31)
[2018-11-24] MEDS: FLUTICASONE/VILANTEROL 100-25 INH SCH (09:31)
[2018-11-24] MEDS: FINASTERIDE 5 MG TAB PO SCH (09:32)
[2018-11-24] MEDS: DILTIAZEM (CD) 180 MG CAP PO SCH (09:32)
[2018-11-24] MEDS: LOSARTAN 50 MG TAB PO SCH ×2 (09:32→20:24)
[2018-11-24] MEDS: MULTIVITAMINS THERAPEUTIC TAB PO SCH (09:33)
[2018-11-24] MEDS: AMLODIPINE 5 MG TAB PO SCH (09:33)
--- NOTE | 2018-11-24 12:06 | CONS ---
Assessment/Plan Assessment/Plan Hospital Course (Demo Recall) Atrial fibrillation with controlled ventricular rates Preserved ejection fraction Pneumonia-improving Acute kidney injury-resolved Coronary artery disease with history of PCI Encephalopathy-improving Hypertension -Blood pressure labile, slightly higher today, would follow trend before adjusting further -HR trend stable on current dose of Cardizem, continue as tolerated -Continue anticoagulation as tolerated Consultation Date/Type/Reason Admit Date/Time Nov 17, 2018 at 17:15 Initial Consult Date Type of Consult Cardiology Date/Time of Note DATE: 11/24/18 TIME: 12:04 24 HR Interval Summary Free Text/Dictation No shortness of breath, palpitations, chest pain Exam/Review of Systems Vital Signs Vitals Vital Signs Date Temp Pulse Resp B/P (MAP) Pulse Ox O2 O2 Flow FiO2 Time Delivery Rate 11/24/18 98.0 65 18 159/87 97 Room Air 07:00 (111) Intake and Output 11/23/18 11/23/18 11/24/18 1515:00 23:00 07:00 IntakeIntake Total 580 ml 50 ml OutputOutput Total 300 ml 100 ml BalanceBalance 280 ml -50 ml Exam Constitutional: alert, oriented (No apparent distress) Head: normocephalic Respiratory: other (Coarse breath sounds bilaterally, no wheezing) Cardiovascular: irregular rhythm (S1-S2 heard) Gastrointestinal: soft, non-tender, bowel sounds Extremities: edema Medications Medications Current Medications Senna (Senokot) 1 tab HS PO Last administered on 11/22/18at 19:40; Admin Dose 1 TAB; Start 11/17/18 at 21:00; Stop 11/24/19 at 16:38 Lactulose (Enulose) 20 gm DAILY PRN PO CONSTIPATION; Start 11/17/18 at 18:30 Bisacodyl (Dulcolax Supp) [address] CONSTIPATION; Start 11/17/18 at 18:30 Acetaminophen (Tylenol Tab) 650 mg Q4H PRN PO MILD PAIN 1-3 Last administered on 11/23/18at 20:22; Admin Dose 650 MG; Start 11/17/18 at 18:30 Miscellaneous Information (Pending Santyl Order For Wound Care) This patient trevino... PRN PRN XX WOUND CARE; Start 11/17/18 at 18:30 Acetaminophen (Tylenol Tab) 650 mg Q6H PRN PO .PAIN 1-3 OR TEMP; Start 11/17/18 at 20:30 Albuterol/ Ipratropium (Duoneb) 3 ml Q6H RESP THERAPY PRN HHN SHORTNESS OF BREATH; Start 11/17/18 at 20:30 Amlodipine Besylate (Norvasc) 5 mg DAILY PO Last administered on 11/24/18 0 9:33; Admin Dose 5 MG; Start 11/18/18 at 09:00 Atorvastatin Calcium (Lipitor) 40 mg QHS PO Last administered on 11/23/18 20:22; Admin Dose 40 MG; Start 11/17/18 at 21:00 Diltiazem HCl (Cardizem) 60 mg Q6H PRN PO sustained hr>130 Last administered on 11/21/18 16:00; Admin Dose 60 MG; Start 11/17/18 at 20:30 Diltiazem HCl (Cardizem Cd) 180 mg DAILY PO Last administered on 11/24/18 09:32; Admin Dose 180 MG; Start 11/18/18 at 09:00 Docusate Sodium (Colace) 100 mg Q12H PRN PO .CONSTIPATION; Start 11/17/18 at 2 0:30 Finasteride (Proscar) 5 mg DAILY PO Last administered on 11/24/18 09:32; Admin Dose 5 MG; Start 11/18/18 at 09:00 Fluticasone/ Vilanterol (Breo Ellipta 100-25 Mcg Inh) 1 inh DAILY INH Last administered on 11/24/18 09:31; Admin Dose 1 INH; Start 11/18/18 at 09:00 Losartan Potassium (Cozaar) 50 mg BID PO Last administered on 11/24/18 09:32; Admin Dose 50 MG; Start 11/17/18 at 21:00 Miscellaneous Information Patients own medicat... BID@10,16 XX Last administered on 11/21/18 16:47; Admin Dose 1 EA; Start 11/18/18 at 10:00 Montelukast Sodium (Singulair) 10 mg QHS PO Last administered on 11/23/18 20:22; Admin Dose 10 MG; Start 11/17/18 at 21:00 Ondansetron HCl (Zofran Tab) 4 mg Q6H PRN PO NAUSEA/VOMITING; Start 11/17/18 at 21:00 Phenol (Cepastat Lozenge) 1 lozenge Q1H PRN MT DRY MOUTH; Start 11/17/18 at 21:00 Quetiapine Fumarate (Seroquel) 25 mg HS PO Last administered on 11/23/18 20:22; Admin Dose 25 MG; Start 11/17/18 at 21:00 Quetiapine Fumarate (Seroquel) 12.5 mg Q8H PRN PO agitation Last administered on 11/23/18 22:58; Admin Dose 12.5 MG; Start 11/17/18 at 21:00 Rivaroxaban (Xarelto) 20 mg WITH DINNER PO Last administered on 11/23/18 17:05; Admin Dose 20 MG; Start 11/17/18 at 21:00 Tamsulosin HCl (Flomax) 0.8 mg HS PO Last administered on 11/23/18 20:23; Admin Dose 0.8 MG; Start 11/17/18 at 21:00 Thiamine HCl (Vitamin B1) 100 mg DAILY PO Last administered on 11/24/18 09:31; Admin Dose 100 MG; Start 11/18/18 at 09:00 Betamethasone/ Clotrimazole (Lotrisone Cr) 1 applic BID TOP Last administered on 11/23/18 20:24; Admin Dose 1 APPLIC; Start 11/18/18 at 21:00 Multivitamins Therapeutic (Theragran) 1 tab DAILY PO Last administered on 11/24/18 09:33; Admin Dose 1 TAB; Start 11/19/18 at 09:00 Ranitidine HCl (Zantac) 150 mg BID PO Last administered on 11/24/18 09:31; Admin Dose 150 MG; Start 11/21/18 at 21:00 Cefazolin Sodium 50 ml @ 100 mls/hr Q8 IVPB Last administered on 11/24/18 08:19; Admin Dose 100 MLS/HR; Start 11/23/18 at 22:00 Hal Pickett DO Nov 24, 2018 12:06
--- NOTE | 2018-11-24 12:54 | PN ---
Date/Time of Note Date/Time of Note DATE: 11/24/18 TIME: 12:54 Objective Vital Signs Date Temp Pulse Resp B/P (MAP) Pulse Ox O2 O2 Flow FiO2 Time Delivery Rate 11/24/18 98.0 65 18 159/87 97 Room Air 07:00 (111) Intake and Output 11/23/18 11/23/18 11/24/18 1515:00 23:00 07:00 IntakeIntake Total 580 ml 50 ml OutputOutput Total 300 ml 100 ml BalanceBalance 280 ml -50 ml Exam INTERDISCIPLINARY TEAM CONFERENCE Attended by PT, OT, ST, Registered Representative, Social Work, Rehabilitation Nursing, Small Engine Mechanic and Veterinary Technician InstructorProduction Supervisor Trainee Exam: Pulm- cta Abd-soft BOWEL- Cont BLADDER-Cont SKIN- improving OT- DRESSING-sba BATHING-sba/min TOILETING-sba/min PT- BED MOBILITY-sba TRANSFERS-cga AMBULATION-sba 150 feet SPEECH- COGNITION-mod Dysphagia- tolerating current diet A/P- Interdisciplinary team conference held today. Please see interdisciplinary sheet. Working toward d.c. on 11/28 with post discharge follow up of physical therapy, occupational therapy. Results/Medications Medications Current Medications Senna (Senokot) 1 tab HS PO Last administered on 11/22/18at 19:40; Admin Dose 1 TAB; Start 11/17/18 at 21:00; Stop 11/24/19 at 16:38 Lactulose (Enulose) 20 gm DAILY PRN PO CONSTIPATION; Start 11/17/18 at 18:30 Bisacodyl (Dulcolax Supp) 10 mg DAILY PRN [place] CONSTIPATION; Start 11/17/18 at 18:30 Acetaminophen (Tylenol Tab) 650 mg Q4H PRN PO MILD PAIN 1-3 Last administered on 11/23/18at 20:22; Admin Dose 650 MG; Start 11/17/18 at 18:30 Miscellaneous Information (Pending Santyl Order For Wound Care) This patient trevino... PRN PRN XX WOUND CARE; Start 11/17/18 at 18:30 Acetaminophen (Tylenol Tab) 650 mg Q6H PRN PO .PAIN 1-3 OR TEMP; Start 11/17/18 at 20:30 Albuterol/ Ipratropium (Duoneb) 3 ml Q6H RESP THERAPY PRN HHN SHORTNESS OF BREATH; Start 11/17/18 at 20:30 Amlodipine Besylate (Norvasc) 5 mg DAILY PO Last administered on 11/24/18 09:33; Admin Dose 5 MG; Start 11/18/18 at 09:00 Atorvastatin Calcium (Lipitor) 40 mg QHS PO Last administered on 11/23/18 20: 22; Admin Dose 40 MG; Start 11/17/18 at 21:00 Diltiazem HCl (Cardizem) 60 mg Q6H PRN PO sustained hr>130 Last administered on 11/21/18 16:00; Admin Dose 60 MG; Start 11/17/18 at 20:30 Diltiazem HCl (Cardizem Cd) 180 mg DAILY PO Last administered on 11/24/18 09:32; Admin Dose 180 MG; Start 11/18/18 at 09:00 Docusate Sodium (Colace) 100 mg Q12H PRN PO .CONSTIPATION; Start 11/17/18 at 20:30 Finasteride (Proscar) 5 mg DAILY PO Last administered on 11/24/18 09:32; Admin Dose 5 MG; Start 11/18/18 at 09:00 Fluticasone/ Vilanterol (Breo Ellipta 100-25 Mcg Inh) 1 inh DAILY INH Last administered on 11/24/18 09:31; Admin Dose 1 INH; Start 11/18/18 at 09:00 Losartan Potassium (Cozaar) 50 mg BID PO Last administered on 11/24/18 09:32; Admin Dose 50 MG; Start 11/17/18 at 21:00 Miscellaneous Information Patients own medicat... BID@10,16 XX Last administered on 11/21/18 16:47; Admin Dose 1 EA; Start 11/18/18 at 10:00 Montelukast Sodium (Singulair) 10 mg QHS PO Last administered on 11/23/18 20:22; Admin Dose 10 MG; Start 11/17/18 at 21:00 Ondansetron HCl (Zofran Tab) 4 mg Q6H PRN PO NAUSEA/VOMITING; Start 11/17/18 at 21:00 Phenol (Cepastat Lozenge) 1 lozenge Q1H PRN MT DRY MOUTH; Start 11/17/18 at 21:00 Quetiapine Fumarate (Seroquel) 25 mg HS PO Last administered on 11/23/18 20:22; Admin Dose 25 MG; Start 11/17/18 at 21:00 Quetiapine Fumarate (Seroquel) 12.5 mg Q8H PRN PO agitation Last administered on 11/23/18 22:58; Admin Dose 12.5 MG; Start 11/17/18 at 21:00 Rivaroxaban (Xarelto) 20 mg WITH DINNER PO Last administered on 11/23/18 17:05; Admin Dose 20 MG; Start 11/17/18 at 21:00 Tamsulosin HCl (Flomax) 0.8 mg HS PO Last administered on 11/23/18 20:23; Admin Dose 0.8 MG; Start 11/17/18 at 21:00 Thiamine HCl (Vitamin B1) 100 mg DAILY PO Last administered on 11/24/18 09:31; Admin Dose 100 MG; Start 11/18/18 at 09:00 Betamethasone/ Clotrimazole (Lotrisone Cr) 1 applic BID TOP Last administered on 11/23/18 20:24; Admin Dose 1 APPLIC; Start 11/18/18 at 21:00 Multivitamins Therapeutic (Theragran) 1 tab DAILY PO Last administered on 11/24/18 09:33; Admin Dose 1 TAB; Start 11/19/18 at 09:00 Ranitidine HCl (Zantac) 150 mg BID PO Last administered on 11/24/18 09:31; Admin Dose 150 MG; Start 11/21/18 at 21:00 Cefazolin Sodium 50 ml @ 100 mls/hr Q8 IVPB Last administered on 11/24/18 08:19; Admin Dose 100 MLS/HR; Start 11/23/18 at 22:00 JULY AG MD Nov 24, 2018 12:54
--- NOTE | 2018-11-24 13:48 | PN ---
Date/Time of Note Date/Time of Note DATE: 11/24/18 TIME: 13:46 Assessment/Plan VTE Prophylaxis Risk score (from Ns)>0 risk: 3 SCD applied [place] [facility] [place] SCD contraindicated: low risk/ambulating Pharmacological prophylaxis: heparin Pharm contraindication: low risk/ambulating Lines/Catheters IV Catheter Type (from [email or web address] Peripheral IV Urinary Cath still in place: No Assessment/Plan Problems: (1) E. coli UTI Status: Acute Comment: On antibiotics based on sensitivity. Continue with IV antibiotics with plan to transition over to orals at discharge. (2) Diastolic dysfunction Status: Chronic Comment: Adequate control with control of blood pressure (3) Essential hypertension Status: Chronic Comment: Blood pressure much better controlled (4) Benign prostatic hyperplasia Status: Chronic Comment: Controlled at this time Qualifiers: Lower urinary tract symptom presence: symptoms absent Qualified Codes: N40.0 - Benign prostatic hyperplasia without lower urinary tract symptoms (5) Atrial fibrillation Status: Acute Comment: Rate control is progressing nicely Qualifiers: Atrial fibrillation type: chronic Qualified Codes: I48.2 - Chronic atrial fibrillation (6) Altered mental status Status: Resolved Comment: Back to baseline status. Qualifiers: Altered mental status type: delirium Qualified Codes: R41.0 - Disorientation, unspecified Subjective 24 Hr Interval Summary Free Text/Dictation Ports he is feeling much better under the guidance of the acute rehabilitation protocol Constitutional: no complaints Respiratory: no complaints Cardiovascular: no complaints Gastrointestinal: no complaints Genitourinary: no complaints Exam/Review of Systems Exam Vitals Vital Signs Date Temp Pulse Resp B/P (MAP) Pulse Ox O2 O2 Flow FiO2 Time Delivery Rate 11/24/18 98.0 65 18 159/87 97 Room Air 07:00 (111) Intake and Output 11/23/18 11/23/18 11/24/18 1515:00 23:00 07:00 IntakeIntake Total 580 ml 50 ml OutputOutput Total 300 ml 100 ml BalanceBalance 280 ml -50 ml Constitutional: alert, oriented Respiratory: clear to auscultation, normal air movement Cardiovascular: regular rate and rhythm, nl pulses Gastrointestinal: soft, nl liver, spleen, non-tender Medications Medication Current Medications Senna (Senokot) 1 tab HS PO Last administered on 11/22/18at 19:40; Admin Dose 1 TAB; Start 11/17/18 at 21:00; Stop 11/24/19 at 16:38 Lactulose (Enulose) 20 gm DAILY PRN PO CONSTIPATION; Start 11/17/18 at 18:30 Bisacodyl (Dulcolax Supp) 10 mg DAILY PRN [place] CONSTIPATION; Start 11/17/18 at 18:30 Acetaminophen (Tylenol Tab) 650 mg Q4H PRN PO MILD PAIN 1-3 Last administered on 11/23/18 20:22; Admin Dose 650 MG; Start 11/17/18 at 18:30 Miscellaneous Information (Pending Santyl Order For Wound Care) This patient trevino... PRN PRN XX WOUND CARE; Start 11/17/18 at 18:30 Acetaminophen (Tylenol Tab) 650 mg Q6H PRN PO .PAIN 1-3 OR TEMP; Start 11/17/18 at 20:30 Albuterol/ Ipratropium (Duoneb) 3 ml Q6H RESP THERAPY PRN HHN SHORTNESS OF BREATH; Start 11/17/18 at 20:30 Amlodipine Besylate (Norvasc) 5 mg DAILY PO Last administered on 11/24/18 09:33; Admin Dose 5 MG; Start 11/18/18 at 09:00 Atorvastatin Calcium (Lipitor) 40 mg QHS PO Last administered on 11/23/18 20:22; Admin Dose 40 MG; Start 11/17/18 at 21:00 Diltiazem HCl (Cardizem) 60 mg Q6H PRN PO sustained hr>130 Last administered on 11/21/18 16:00; Admin Dose 60 MG; Start 11/17/18 at 20:30 Diltiazem HCl (Cardizem Cd) 180 mg DAILY PO Last administered on 11/24/18 09:32; Admin Dose 180 MG; Start 11/18/18 at 09:00 Docusate Sodium (Colace) 100 mg Q12H PRN PO .CONSTIPATION; Start 11/17/18 at 20:30 Finasteride (Proscar) 5 mg DAILY PO Last administered on 11/24/18 09:32; Admin Dose 5 MG; Start 11/18/18 at 09:00 Fluticasone/ Vilanterol (Breo Ellipta 100-25 Mcg Inh) 1 inh DAILY INH Last administered on 11/24/18 09:31; Admin Dose 1 INH; Start 11/18/18 at 09:00 Losartan Potassium (Cozaar) 50 mg BID PO Last administered on 11/24/18 09:32; Admin Dose 50 MG; Start 11/17/18 at 21:00 Miscellaneous Information Patients own medicat... BID@10,16 XX Last administered on 11/24/18 10:00; Admin Dose 1 EA; Start 11/18/18 at 10:00 Montelukast Sodium (Singulair) 10 mg QHS PO Last administered on 11/23/18 20:22; Admin Dose 10 MG; Start 11/17/18 at 21:00 Ondansetron HCl (Zofran Tab) 4 mg Q6H PRN PO NAUSEA/VOMITING; Start 11/17/18 at 21:00 Phenol (Cepastat Lozenge) 1 lozenge Q1H PRN MT DRY MOUTH; Start 11/17/18 at 21:00 Quetiapine Fumarate (Seroquel) 25 mg HS PO Last administered on 11/23/18 20:22; Admin Dose 25 MG; Start 11/17/18 at 21:00 Quetiapine Fumarate (Seroquel) 12.5 mg Q8H PRN PO agitation Last administered on 11/23/18 22:58; Admin Dose 12.5 MG; Start 11/17/18 at 21:00 Rivaroxaban (Xarelto) 20 mg WITH DINNER PO Last administered on 11/23/18 17:05; Admin Dose 20 MG; Start 11/17/18 at 21:00 Tamsulosin HCl (Flomax) 0.8 mg HS PO Last administered on 11/23/18 20:23; Admin Dose 0.8 MG; Start 11/17/18 at 21:00 Thiamine HCl (Vitamin B1) 100 mg DAILY PO Last administered on 11/24/18 09:31; Admin Dose 100 MG; Start 11/18/18 at 09:00 Betamethasone/ Clotrimazole (Lotrisone Cr) 1 applic BID TOP Last administered on 11/23/18 20:24; Admin Dose 1 APPLIC; Start 11/18/18 at 21:00 Multivitamins Therapeutic (Theragran) 1 tab DAILY PO Last administered on 4/15/19at 09:33; Admin Dose 1 TAB; Start 11/19/18 at 09:00 Ranitidine HCl (Zantac) 150 mg BID PO Last administered on 11/24/18at 09:31; Admin Dose 150 MG; Start 11/21/18 at 21:00 Cefazolin Sodium 50 ml @ 100 mls/hr Q8 IVPB Last administered on 11/24/18at 08:19; Admin Dose 100 MLS/HR; Start 11/23/18 at 22:00 CHRIS RUBIN MD Nov 24, 2018 13:48
[2018-11-24 14:00] VITALS: BP 95/69; PULSE 89; RESP 18
[2018-11-24] MEDS: RIVAROXABAN 20 MG TABLET PO SCH (17:18)
[2018-11-24 20:03] VITALS: BP 136/81; PULSE 77; RESP 18
[2018-11-24] MEDS: ATORVASTATIN 40 MG TAB PO SCH (20:22)
[2018-11-24] MEDS: TAMSULOSIN (SR) 0.4 MG CAP PO SCH (20:23)
[2018-11-24] MEDS: QUETIAPINE 25 MG TAB PO SCH (20:23)
[2018-11-24] MEDS: SENNA TAB PO SCH (20:23)
[2018-11-24] MEDS: MONTELUKAST 10 MG TAB PO SCH (20:23)
[2018-11-25 02:00] VITALS: BP 118/75; PULSE 75; RESP 18
[2018-11-25] MEDS: CEFAZOLIN 1 GM/50 ML (PMX) 50 ML IVPB SCH ×3 (06:06→21:39)
[2018-11-25 07:00] VITALS: BP 135/88; PULSE 79; RESP 18
[2018-11-25] MEDS: RANITIDINE 150 MG TAB PO SCH ×2 (08:26→20:34)
[2018-11-25] MEDS: LOSARTAN 50 MG TAB PO SCH ×2 (08:26→20:35)
[2018-11-25] MEDS: MULTIVITAMINS THERAPEUTIC TAB PO SCH (08:27)
[2018-11-25] MEDS: FINASTERIDE 5 MG TAB PO SCH (08:27)
[2018-11-25] MEDS: THIAMINE 100 MG TAB PO SCH (08:27)
[2018-11-25] MEDS: DILTIAZEM (CD) 180 MG CAP PO SCH (08:27)
[2018-11-25] MEDS: FLUTICASONE/VILANTEROL 100-25 INH SCH (08:27)
[2018-11-25] MEDS: AMLODIPINE 5 MG TAB PO SCH (08:27)
[2018-11-25] MEDS: BETAMETHASONE/CLOTRIMAZOLE 15 GM CR TOP SCH ×2 (08:28→20:35)
--- NOTE | 2018-11-25 10:41 | PN ---
Date/Time of Note Date/Time of Note DATE: 11/25/18 TIME: 10:41 Subjective Comfortable Objective Vital Signs Date Temp Pulse Resp B/P (MAP) Pulse Ox O2 O2 Flow FiO2 Time Delivery Rate 11/25/18 98.0 79 18 135/88 98 Room Air 07:00 (104) Intake and Output 11/24/18 11/24/18 11/25/18 1515:00 23:00 07:00 IntakeIntake Total 50 ml 1500 ml 1100 ml OutputOutput Total 900 ml 150 ml BalanceBalance 50 ml 600 ml 950 ml Exam pulm-cta abd-soft sba ambulation Results/Medications Results 24 hrs Laboratory Tests Test 11/24/18 16:05 Urine Color MARIANA Urine Clarity CLOUDY A Urine pH 5.0 Urine Specific [place] 1.024 Urine Ketones TRACE A Urine Nitrite NEGATIVE Urine Bilirubin NEGATIVE Urine Urobilinogen 1+ H Urine Leukocyte Esterase NEGATIVE Urine Microscopic RBC 49 H Urine Microscopic WBC 4 Urine Bacteria FEW A Urine Mucus MODERATE Urine Hemoglobin 2+ H Urine Glucose NEGATIVE Urine Total Protein NEGATIVE Medications Current Medications Senna (Senokot) 1 tab HS PO Last administered on 11/24/18at 20:23; Admin Dose 1 TAB; Start 11/17/18 at 21:00; Stop 11/24/19 at 16:38 Lactulose (Enulose) 20 gm DAILY PRN PO CONSTIPATION; Start 11/17/18 at 18:30 Bisacodyl (Dulcolax Supp) 10 mg DAILY PRN [place] CONSTIPATION; Start 11/17/18 at 18:30 Acetaminophen (Tylenol Tab) 650 mg Q4H PRN PO MILD PAIN 1-3 Last administered on 11/23/18at 20:22; Admin Dose 650 MG; Start 11/17/18 at 18:30 Miscellaneous Information (Pending [facility] Order For Wound Care) This patient trevino... PRN PRN XX WOUND CARE; Start 11/17/18 at 18:30 Acetaminophen (Tylenol Tab) 650 mg Q6H PRN PO .PAIN 1-3 OR TEMP; Start 11/17/18 at 20:30 Albuterol/ Ipratropium (Duoneb) 3 ml Q6H RESP THERAPY PRN HHN SHORTNESS OF BREATH; Start 11/17/18 at 20:30 Amlodipine Besylate (Norvasc) 5 mg DAILY PO Last administered on 11/25/18 08:27; Admin Dose 5 MG; Start 11/18/18 at 09:00 Atorvastatin Calcium (Lipitor) 40 mg QHS PO Last administered on 11/24/18 20:22; Admin Dose 40 MG; Start 11/17/18 at 21:00 Diltiazem HCl (Cardizem) 60 mg Q6H PRN PO sustained hr>130 Last administered on 11/21/18 16:00; Admin Dose 60 MG; Start 11/17/18 at 20:30 Diltiazem HCl (Cardizem Cd) 180 mg DAILY PO Last administered on 11/25/18 08:27; Admin Dose 180 MG; Start 11/18/18 at 09:00 Docusate Sodium (Colace) 100 mg Q12H PRN PO .CONSTIPATION; Start 11/17/18 at 20:30 Finasteride (Proscar) 5 mg DAILY PO Last administered on 11/25/18 08:27; Admin Dose 5 MG; Start 11/18/18 at 09:00 Fluticasone/ Vilanterol (Breo Ellipta 100-25 Mcg Inh) 1 inh DAILY INH Last administered on 11/25/18 08:27; Admin Dose 1 INH; Start 11/18/18 at 09:00 Losartan Potassium (Cozaar) 50 mg BID PO Last administered on 11/25/18 08:26; Admin Dose 50 MG; Start 11/17/18 at 21:00 Miscellaneous Information Patients own medicat... BID@10,16 XX Last administered on 11/24/18 16:14; Admin Dose 1 EA; Start 11/18/18 at 10:00 Montelukast Sodium (Singulair) 10 mg QHS PO Last administered on 11/24/18 20:23; Admin Dose 10 MG; Start 11/17/18 at 21:00 Ondansetron HCl (Zofran Tab) 4 mg Q6H PRN PO NAUSEA/VOMITING; Start 11/17/18 at 21:00 Phenol (Cepastat Lozenge) 1 lozenge Q1H PRN [place] DRY MOUTH; Start 11/17/18 at 21:00 Quetiapine Fumarate (Seroquel) 25 mg HS PO Last administered on 11/24/18 20:23; Admin Dose 25 MG; Start 11/17/18 at 21:00 Quetiapine Fumarate (Seroquel) 12.5 mg Q8H PRN PO agitation Last administered on 11/23/18 22:58; Admin Dose 12.5 MG; Start 11/17/18 at 21:00 Rivaroxaban (Xarelto) 20 mg WITH DINNER PO Last administered on 11/24/18 17:18; Admin Dose 20 MG; Start 11/17/18 at 21:00 Tamsulosin HCl (Flomax) 0.8 mg HS PO Last administered on 11/24/18 20:23; Admin Dose 0.8 MG; Start 11/17/18 at 21:00 Thiamine HCl (Vitamin B1) 100 mg DAILY PO Last administered on 11/25/18 08:27; Admin Dose 100 MG; Start 11/18/18 at 09:00 Betamethasone/ Clotrimazole (Lotrisone Cr) 1 applic BID TOP Last administered on 11/25/18 08:28; Admin Dose 1 APPLIC; Start 11/18/18 at 21:00 Multivitamins Therapeutic (Theragran) 1 tab DAILY PO Last administered on 11/25/18 08:27; Admin Dose 1 TAB; Start 11/19/18 at 09:00 Ranitidine HCl (Zantac) 150 mg BID PO Last administered on 11/25/18 08:26; Admin Dose 150 MG; Start 11/21/18 at 21:00 Cefazolin Sodium 50 ml @ 100 mls/hr Q8 IVPB Last administered on 11/25/18 06:06; Admin Dose 100 MLS/HR; Start 11/23/18 at 22:00 Assessment/Plan Additional Assessment/Plan Rehab- Toxic metabolic encephalopathy. Family training ongoing. Working towards home this week Right lower lobe pneumonia. Atrial fibrillation. Coronary artery disease with history of stent. Asthma. Hypertension. Hyperlipidemia. Benign prostatic hypertrophy. Psoriasis. Status-post acute kidney injury. JULY AG MD Nov 25, 2018 10:41
[2018-11-25 14:00] VITALS: BP 109/60; PULSE 75; RESP 18
--- NOTE | 2018-11-25 17:23 | PN ---
Date/Time of Note Date/Time of Note DATE: 11/25/18 TIME: 17:21 Assessment/Plan VTE Prophylaxis Risk score (from [facility] [place])>0 risk: 3 SCD applied (from [facility] [place]): No SCD contraindicated: low risk/ambulating Pharmacological prophylaxis: heparin Pharm contraindication: low risk/ambulating Lines/Catheters IV Catheter Type (from [facility] Saline Lock Urinary Cath still in place: No Assessment/Plan Problems: (1) E. coli UTI Status: Acute Comment: On antibiotics. At discharge transition over to oral Keflex for another additional 3 days (2) Hematuria Status: Resolved Comment: Clearing with treatment of UTI Qualifiers: Hematuria type: gross Qualified Codes: R31.0 - Gross hematuria (3) Benign prostatic hyperplasia Status: Chronic Comment: Stable at this time Qualifiers: Lower urinary tract symptom presence: symptoms absent Qualified Codes: N40.0 - Benign prostatic hyperplasia without lower urinary tract symptoms (4) Hyperlipidemia Status: Chronic Comment: On statin therapy Qualifiers: Hyperlipidemia type: pure hypercholesterolemia Qualified Codes: E78.00 - Pure hypercholesterolemia, unspecified (5) Essential hypertension Status: Chronic Comment: Adequate control (6) Atrial fibrillation Status: Acute Comment: Adequate rate control Qualifiers: Atrial fibrillation type: chronic Qualified Codes: I48.2 - Chronic atrial fibrillation (7) Diastolic dysfunction Status: Chronic Comment: Control of blood pressure is affecting this positively Subjective 24 Hr Interval Summary Free Text/Dictation Patient reports that the question about hallucinations has been raised. He reports he is thought that he was seeing a rapid what on careful looking with the lights be turned up he recognized it was another person's foot Constitutional: no complaints Cardiovascular: no complaints Gastrointestinal: no complaints Genitourinary: no complaints Exam/Review of Systems Exam Vitals Vital Signs Date Temp Pulse Resp B/P (MAP) Pulse Ox O2 O2 Flow FiO2 Time Delivery Rate 11/25/18 98.0 75 18 109/60 98 Room Air 14:00 (76) Intake and Output 11/24/18 11/24/18 11/25/18 1515:00 23:00 07:00 IntakeIntake Total 50 ml 1500 ml 1100 ml OutputOutput Total 900 ml 150 ml BalanceBalance 50 ml 600 ml 950 ml Constitutional: alert, oriented Respiratory: clear to auscultation, normal air movement Cardiovascular: regular rate and rhythm, nl pulses Gastrointestinal: soft, nl liver, spleen, non-tender Medications Medication Current Medications Senna (Senokot) 1 tab HS PO Last administered on 11/24/18 20:23; Admin Dose 1 TAB; Start 11/17/18 at 21:00; Stop 11/24/19 at 16:38 Lactulose (Enulose) 20 gm DAILY PRN PO CONSTIPATION; Start 11/17/18 at 18:30 Bisacodyl (Dulcolax Supp) 10 mg DAILY PRN [place] CONSTIPATION; Start 11/17/18 at 18:30 Acetaminophen (Tylenol Tab) 650 mg Q4H PRN PO MILD PAIN 1-3 Last administered on 11/23/18at 20:22; Admin Dose 650 MG; Start 11/17/18 at 18:30 Miscellaneous Information (Pending [facility] Order For Wound Care) This patient trevino... PRN PRN XX WOUND CARE; Start 11/17/18 at 18:30 Acetaminophen (Tylenol Tab) 650 mg Q6H PRN PO .PAIN 1-3 OR TEMP; Start 11/17/18 at 20:30 Albuterol/ Ipratropium (Duoneb) 3 ml Q6H RESP THERAPY PRN HHN SHORTNESS OF BREATH; Start 11/17/18 at 20:30 Amlodipine Besylate (Norvasc) 5 mg DAILY PO Last administered on 11/25/18 08:27; Admin Dose 5 MG; Start 11/18/18 at 09:00 Atorvastatin Calcium (Lipitor) 40 mg QHS PO Last administered on 11/24/18 20:2 2; Admin Dose 40 MG; Start 11/17/18 at 21:00 Diltiazem HCl (Cardizem) 60 mg Q6H PRN PO sustained hr>130 Last administered on 11/21/18 16:00; Admin Dose 60 MG; Start 11/17/18 at 20:30 Diltiazem HCl (Cardizem Cd) 180 mg DAILY PO Last administered on 11/25/18 08:27; Admin Dose 180 MG; Start 11/18/18 at 09:00 Docusate Sodium (Colace) 100 mg Q12H PRN PO .CONSTIPATION; Start 11/17/18 at 20:30 Finasteride (Proscar) 5 mg DAILY PO Last administered on 11/25/18 08:27; Admin Dose 5 MG; Start 11/18/18 at 09:00 Fluticasone/ Vilanterol (Breo Ellipta 100-25 Mcg Inh) 1 inh DAILY INH Last administered on 11/25/18 08:27; Admin Dose 1 INH; Start 11/18/18 at 09:00 Losartan Potassium (Cozaar) 50 mg BID PO Last administered on 11/25/18 08:26; Admin Dose 50 MG; Start 11/17/18 at 21:00 Miscellaneous Information Patients own medicat... BID@10,16 XX Last administered on 11/25/18 10:00; Admin Dose 1 EA; Start 11/18/18 at 10:00 Montelukast Sodium (Singulair) 10 mg QHS PO Last administered on 11/24/18 20:23; Admin Dose 10 MG; Start 11/17/18 at 21:00 Ondansetron HCl (Zofran Tab) 4 mg Q6H PRN PO NAUSEA/VOMITING; Start 11/17/18 at 21:00 Phenol (Cepastat Lozenge) 1 lozenge Q1H PRN MT DRY MOUTH; Start 11/17/18 at 21:00 Quetiapine Fumarate (Seroquel) 25 mg HS PO Last administered on 11/24/18 20:23; Admin Dose 25 MG; Start 11/17/18 at 21:00 Quetiapine Fumarate (Seroquel) 12.5 mg Q8H PRN PO agitation Last administered on 11/23/18 22:58; Admin Dose 12.5 MG; Start 11/17/18 at 21:00 Rivaroxaban (Xarelto) 20 mg WITH DINNER PO Last administered on 11/24/18 17:18; Admin Dose 20 MG; Start 11/17/18 at 21:00 Tamsulosin HCl (Flomax) 0.8 mg HS PO Last administered on 11/24/18 20:23; Admin Dose 0.8 MG; Start 11/17/18 at 21:00 Thiamine HCl (Vitamin B1) 100 mg DAILY PO Last administered on 11/25/18 08:27; Admin Dose 100 MG; Start 11/18/18 at 09:00 Betamethasone/ Clotrimazole (Lotrisone Cr) 1 applic BID TOP Last administered on 11/25/18 08:28; Admin Dose 1 APPLIC; Start 11/18/18 at 21:00 Multivitamins Therapeutic (Theragran) 1 tab DAILY PO Last administered on 11/25/18at 08:27; Admin Dose 1 TAB; Start 11/19/18 at 09:00 Ranitidine HCl (Zantac) 150 mg BID PO Last administered on 11/25/18at 08:26; Admin Dose 150 MG; Start 11/21/18 at 21:00 Cefazolin Sodium 50 ml @ 100 mls/hr Q8 IVPB Last administered on 11/25/18at 13:51; Admin Dose 100 MLS/HR; Start 11/23/18 at 22:00 CHRIS RUBIN MD Nov 25, 2018 17:23
--- NOTE | 2018-11-25 17:35 | CONS ---
Assessment/Plan Assessment/Plan Hospital Course (Demo Recall) Atrial fibrillation with controlled ventricular rates Preserved ejection fraction Pneumonia-improving Acute kidney injury-resolved Coronary artery disease with history of PCI Encephalopathy-improving Hypertension -Blood pressure labile, overall stable, titrate as needed -HR trend stable on current dose of Cardizem, continue as tolerated -Continue anticoagulation as tolerated -Having increased lower extremity edema when sitting up for long periods of time. Would recommend compression stockings Consultation Date/Type/Reason Admit Date/Time Nov 17, 2018 at 17:15 Initial Consult Date Type of Consult Cardiology Date/Time of Note DATE: 11/25/18 TIME: 17:33 24 HR Interval Summary Free Text/Dictation No shortness of breath, palpitations or chest pain Exam/Review of Systems Vital Signs Vitals Vital Signs Date Temp Pulse Resp B/P (MAP) Pulse Ox O2 O2 Flow FiO2 Time Delivery Rate 11/25/18 98.0 75 18 109/60 98 Room Air 14:00 (76) Intake and Output 11/24/18 11/24/18 11/25/18 1515:00 23:00 07:00 IntakeIntake Total 50 ml 1500 ml 1100 ml OutputOutput Total 900 ml 150 ml BalanceBalance 50 ml 600 ml 950 ml Exam Constitutional: alert (Following commands, no apparent distress) Respiratory: other (Coarse breath sounds bilaterally, no wheezing) Cardiovascular: irregular rhythm (S1-S2 heard) Gastrointestinal: soft, non-tender, bowel sounds Extremities: edema Medications Medications Current Medications Senna (Senokot) 1 tab HS PO Last administered on 11/24/18at 20:23; Admin Dose 1 TAB; Start 11/17/18 at 21:00; Stop 11/24/19 at 16:38 Lactulose (Enulose) 20 gm DAILY PRN PO CONSTIPATION; Start 11/17/18 at 18:30 Bisacodyl (Dulcolax Supp) 10 mg DAILY PRN [place] CONSTIPATION; Start 11/17/18 at 18:30 Acetaminophen (Tylenol Tab) 650 mg Q4H PRN PO MILD PAIN 1-3 Last administered on 11/23/18at 20:22; Admin Dose 650 MG; Start 11/17/18 at 18:30 Miscellaneous Information (Pending [facility] Order For Wound Care) This patient trevino... PRN PRN XX WOUND CARE; Start 11/17/18 at 18:30 Acetaminophen (Tylenol Tab) 650 mg Q6H PRN PO .PAIN 1-3 OR TEMP; Start 11/17/18 at 20:30 Albuterol/ Ipratropium (Duoneb) 3 ml Q6H RESP THERAPY PRN HHN SHORTNESS OF BREATH; Start 11/17/18 at 20:30 Amlodipine Besylate (Norvasc) 5 mg DAILY PO Last administered on 11/25/18 08:27; Admin Dose 5 MG; Start 11/18/18 at 09:00 Atorvastatin Calcium (Lipitor) 40 mg QHS PO Last administered on 11/24/18 20:22; Admin Dose 40 MG; Start 11/17/18 at 21:00 Diltiazem HCl (Cardizem) 60 mg Q6H PRN PO sustained hr>130 Last administered on 11/21/18 16:00; Admin Dose 60 MG; Start 11/17/18 at 20:30 Diltiazem HCl (Cardizem Cd) 180 mg DAILY PO Last administered on 11/25/18 08:27; Admin Dose 180 MG; Start 11/18/18 at 09:00 Docusate Sodium (Colace) 100 mg Q12H PRN PO .CONSTIPATION; Start 11/17/18 at 20:30 Finasteride (Proscar) 5 mg DAILY PO Last administered on 11/25/18 08:27; Admin Dose 5 MG; Start 11/18/18 at 09:00 Fluticasone/ Vilanterol (Breo Ellipta 100-25 Mcg Inh) 1 inh DAILY INH Last administered on 11/25/18 08:27; Admin Dose 1 INH; Start 11/18/18 at 09:00 Losartan Potassium (Cozaar) 50 mg BID PO Last administered on 11/25/18 08:26; Admin Dose 50 MG; Start 11/17/18 at 21:00 Miscellaneous Information Patients own medicat... BID@10,16 XX Last administered on 11/25/18 10:00; Admin Dose 1 EA; Start 11/18/18 at 10:00 Montelukast Sodium (Singulair) 10 mg QHS PO Last administered on 11/24/18 20:23; Admin Dose 10 MG; Start 11/17/18 at 21:00 Ondansetron HCl (Zofran Tab) 4 mg Q6H PRN PO NAUSEA/VOMITING; Start 11/17/18 at 21:00 Phenol (Cepastat Lozenge) 1 lozenge Q1H PRN MT DRY MOUTH; Start 11/17/18 at 21:00 Quetiapine Fumarate (Seroquel) 25 mg HS PO Last administered on 11/24/18 20:23; Admin Dose 25 MG; Start 11/17/18 at 21:00 Quetiapine Fumarate (Seroquel) 12.5 mg Q8H PRN PO agitation Last administered on 11/23/18 22:58; Admin Dose 12.5 MG; Start 11/17/18 at 21:00 Rivaroxaban (Xarelto) 20 mg WITH DINNER PO Last administered on 11/24/18 17:18; Admin Dose 20 MG; Start 11/17/18 at 21:00 Tamsulosin HCl (Flomax) 0.8 mg HS PO Last administered on 11/24/18 20:23; Admin Dose 0.8 MG; Start 11/17/18 at 21:00 Thiamine HCl (Vitamin B1) 100 mg DAILY PO Last administered on 11/25/18 08:27; Admin Dose 100 MG; Start 11/18/18 at 09:00 Betamethasone/ Clotrimazole (Lotrisone Cr) 1 applic BID TOP Last administered on 11/25/18 08:28; Admin Dose 1 APPLIC; Start 11/18/18 at 21:00 Multivitamins Therapeutic (Theragran) 1 tab DAILY PO Last administered on 11/25/18 08:27; Admin Dose 1 TAB; Start 11/19/18 at 09:00 Ranitidine HCl (Zantac) 150 mg BID PO Last administered on 11/25/18 08:26; Admin Dose 150 MG; Start 11/21/18 at 21:00 Cefazolin Sodium 50 ml @ 100 mls/hr Q8 IVPB Last administered on 11/25/18 13:51; Admin Dose 100 MLS/HR; Start 11/23/18 at 22:00 Hal Pickett DO Nov 25, 2018 17:35
[2018-11-25] MEDS: RIVAROXABAN 20 MG TABLET PO SCH (17:50)
[2018-11-25 20:31] VITALS: BP 113/74; PULSE 71; RESP 18
[2018-11-25] MEDS: SENNA TAB PO SCH (20:34)
[2018-11-25] MEDS: ATORVASTATIN 40 MG TAB PO SCH (20:34)
[2018-11-25] MEDS: MONTELUKAST 10 MG TAB PO SCH (20:34)
[2018-11-25] MEDS: TAMSULOSIN (SR) 0.4 MG CAP PO SCH (20:34)
[2018-11-25] MEDS: QUETIAPINE 25 MG TAB PO SCH (20:35)
[2018-11-26 04:05] VITALS: BP 110/70; PULSE 70; RESP 18
[2018-11-26] MEDS: CEFAZOLIN 1 GM/50 ML (PMX) 50 ML IVPB SCH ×3 (06:10→21:38)
[2018-11-26 08:00] VITALS: BP 119/69; PULSE 66; RESP 18
[2018-11-26 08:13] VITALS: BP_SYST 119; BP_DIAS 44; BP_DIAS 66; PULSE 44; RESP 16
[2018-11-26] MEDS: DILTIAZEM (CD) 180 MG CAP PO SCH (09:00)
[2018-11-26] MEDS: MULTIVITAMINS THERAPEUTIC TAB PO SCH (09:00)
[2018-11-26] MEDS: AMLODIPINE 5 MG TAB PO SCH (09:00)
[2018-11-26] MEDS: LOSARTAN 50 MG TAB PO SCH ×2 (09:00→21:01)
[2018-11-26] MEDS: FINASTERIDE 5 MG TAB PO SCH (09:04)
[2018-11-26] MEDS: BETAMETHASONE/CLOTRIMAZOLE 15 GM CR TOP SCH ×2 (09:04→21:39)
[2018-11-26] MEDS: THIAMINE 100 MG TAB PO SCH (09:04)
[2018-11-26] MEDS: RANITIDINE 150 MG TAB PO SCH ×2 (09:04→21:01)
[2018-11-26] MEDS: FLUTICASONE/VILANTEROL 100-25 INH SCH (09:05)
--- NOTE | 2018-11-26 12:17 | PN ---
Date/Time of Note Date/Time of Note DATE: 11/26/18 TIME: 12:17 Subjective Comfortable Objective Vital Signs Date Temp Pulse Resp B/P (MAP) Pulse Ox O2 O2 Flow FiO2 Time Delivery Rate 11/26/18 98.7 44 16 119/44 98 Room Air 08:13 (69) Intake and Output 11/25/18 11/25/18 11/26/18 1515:00 23:00 07:00 IntakeIntake Total 50 ml 1250 ml 790 ml OutputOutput Total 800 ml 300 ml BalanceBalance 50 ml 450 ml 490 ml Exam pulm-cta abd-soft sba ambulation Results/Medications Medications Current Medications Senna (Senokot) 1 tab HS PO Last administered on 11/25/18at 20:34; Admin Dose 1 TAB; Start 11/17/18 at 21:00; Stop 11/24/19 at 16:38 Lactulose (Enulose) 20 gm DAILY PRN PO CONSTIPATION; Start 11/17/18 at 18:30 Bisacodyl (Dulcolax Supp) 10 mg DAILY PRN [place] CONSTIPATION; Start 11/17/18 at 18:30 Acetaminophen (Tylenol Tab) 650 mg Q4H PRN PO MILD PAIN 1-3 Last administered on 11/23/18at 20:22; Admin Dose 650 MG; Start 11/17/18 at 18:30 [facility] This patient trevino... PRN PRN XX WOUND CARE; Start 11/17/18 at 18:30 Acetaminophen (Tylenol Tab) 650 mg Q6H PRN PO .PAIN 1-3 OR TEMP; Start 11/17/18 at 20:30 Albuterol/ Ipratropium (Duoneb) 3 ml Q6H RESP THERAPY PRN HHN SHORTNESS OF BREATH; Start 11/17/18 at 20:30 Amlodipine Besylate (Norvasc) 5 mg DAILY PO Last administered on 11/25/18at 08:27; Admin Dose 5 MG; Start 11/18/18 at 09:00 Atorvastatin Calcium (Lipitor) 40 mg QHS PO Last administered on 11/25/18at 20:34; Admin Dose 40 MG; Start 11/17/18 at 21:00 Diltiazem HCl (Cardizem) 60 mg Q6H PRN PO sustained hr>130 Last administered on 11/21/18 16:00; Admin Dose 60 MG; Start 11/17/18 at 20:30 Diltiazem HCl (Cardizem Cd) 180 mg DAILY PO Last administered on 11/25/18 08:27; Admin Dose 180 MG; Start 11/18/18 at 09:00 Docusate Sodium (Colace) 100 mg Q12H PRN PO .CONSTIPATION; Start 11/17/18 at 20:30 Finasteride (Proscar) 5 mg DAILY PO Last administered on 11/26/18 09:04; Admin Dose 5 MG; Start 11/18/18 at 09:00 Fluticasone/ Vilanterol (Breo Ellipta 100-25 Mcg Inh) 1 inh DAILY INH Last administered on 11/26/18 09:05; Admin Dose 1 INH; Start 11/18/18 at 09:00 Losartan Potassium (Cozaar) 50 mg BID PO Last administered on 11/25/18 20:35; Admin Dose 50 MG; Start 11/17/18 at 21:00 Miscellaneous Information Patients own medicat... BID@10,16 XX Last administered on 11/25/18 10:00; Admin Dose 1 EA; Start 11/18/18 at 10:00 Montelukast Sodium (Singulair) 10 mg QHS PO Last administered on 11/25/18 20:34; Admin Dose 10 MG; Start 11/17/18 at 21:00 Ondansetron HCl (Zofran Tab) 4 mg Q6H PRN PO NAUSEA/VOMITING Last administered on 11/25/18 17:54; Admin Dose 4 MG; Start 11/17/18 at 21:00 Phenol (Cepastat Lozenge) 1 lozenge Q1H PRN MT DRY MOUTH; Start 11/17/18 at 21:00 Quetiapine Fumarate (Seroquel) 25 mg HS PO Last administered on 11/25/18 20:35; Admin Dose 25 MG; Start 11/17/18 at 21:00 Quetiapine Fumarate (Seroquel) 12.5 mg Q8H PRN PO agitation Last administered on 11/23/18 22:58; Admin Dose 12.5 MG; Start 11/17/18 at 21:00 Rivaroxaban (Xarelto) 20 mg WITH DINNER PO Last administered on 11/25/18 17:50; Admin Dose 20 MG; Start 11/17/18 at 21:00 Tamsulosin HCl (Flomax) 0.8 mg HS PO Last administered on 11/25/18 20:34; Admin Dose 0.8 MG; Start 11/17/18 at 21:00 Thiamine HCl (Vitamin B1) 100 mg DAILY PO Last administered on 11/26/18 09:04; Admin Dose 100 MG; Start 11/18/18 at 09:00 Betamethasone/ Clotrimazole (Lotrisone Cr) 1 applic BID TOP Last administered on 11/26/18 09:04; Admin Dose 1 APPLIC; Start 11/18/18 at 21:00 Multivitamins Therapeutic (Theragran) 1 tab DAILY PO Last administered on 11/26/18 09:00; Admin Dose 1 TAB; Start 11/19/18 at 09:00 Ranitidine HCl (Zantac) 150 mg BID PO Last administered on 11/26/18 09:04; Admin Dose 150 MG; Start 11/21/18 at 21:00 Cefazolin Sodium 50 ml @ 100 mls/hr Q8 IVPB Last administered on 11/26/18 06:10; Admin Dose 100 MLS/HR; Start 11/23/18 at 22:00 Assessment/Plan Additional Assessment/Plan Rehab- Toxic metabolic encephalopathy. Working towards home this week Right lower lobe pneumonia. Atrial fibrillation. Coronary artery disease with history of stent. Asthma. Hypertension. Hyperlipidemia. Benign prostatic hypertrophy. Psoriasis. Status-post acute kidney injury. JULY AG MD Nov 26, 2018 12:17
--- NOTE | 2018-11-26 12:43 | CONS ---
Assessment/Plan Assessment/Plan Hospital Course (Demo Recall) Atrial fibrillation with controlled ventricular rates Preserved ejection fraction Pneumonia-improving Acute kidney injury-resolved Coronary artery disease with history of PCI Encephalopathy-improving Hypertension -Blood pressure labile, holding parameters adjusted for amlodipine -HR trend stable on current dose of Cardizem, continue as tolerated -Continue anticoagulation as tolerated Consultation Date/Type/Reason Admit Date/Time Nov 17, 2018 at 17:15 Initial Consult Date Type of Consult Cardiology Date/Time of Note DATE: 11/26/18 TIME: 12:41 24 HR Interval Summary Free Text/Dictation Shortness of breath, chest pain or palpitations Exam/Review of Systems Vital Signs Vitals Vital Signs Date Temp Pulse Resp B/P (MAP) Pulse Ox O2 O2 Flow FiO2 Time Delivery Rate 11/26/18 98.7 44 16 119/44 98 Room Air 08:13 (69) Intake and Output 11/25/18 11/25/18 11/26/18 1515:00 23:00 07:00 IntakeIntake Total 50 ml 1250 ml 790 ml OutputOutput Total 800 ml 300 ml BalanceBalance 50 ml 450 ml 490 ml Exam Constitutional: alert, oriented (No apparent distress) Head: normocephalic Respiratory: other (Coarse breath sounds bilaterally, no wheezing) Cardiovascular: irregular rhythm (S1-S2 heard) Gastrointestinal: soft, non-tender, bowel sounds Extremities: other (Trace edema) Medications Medications Current Medications Senna (Senokot) 1 tab HS PO Last administered on 11/25/18at 20:34; Admin Dose 1 TAB; Start 11/17/18 at 21:00; Stop 11/24/19 at 16:38 Lactulose (Enulose) 20 gm DAILY PRN PO CONSTIPATION; Start 11/17/18 at 18:30 Bisacodyl (Dulcolax Supp) 10 mg DAILY PRN [place] CONSTIPATION; Start 11/17/18 at 18:30 Acetaminophen (Tylenol Tab) 650 mg Q4H PRN PO MILD PAIN 1-3 Last administered on 11/23/18at 20:22; Admin Dose 650 MG; Start 11/17/18 at 18:30 Miscellaneous Information (Pending [facility]yl Order For Wound Care) This patient trevino... PRN PRN XX WOUND CARE; Start 11/17/18 at 18:30 Acetaminophen (Tylenol Tab) 650 mg Q6H PRN PO .PAIN 1-3 OR TEMP; Start 11/17/18 at 20:30 Albuterol/ Ipratropium (Duoneb) 3 ml Q6H RESP THERAPY PRN HHN SHORTNESS OF BREATH; Start 11/17/18 at 20:30 Amlodipine Besylate (Norvasc) 5 mg DAILY PO Last administered on 11/25/18 0 8:27; Admin Dose 5 MG; Start 11/18/18 at 09:00 Atorvastatin Calcium (Lipitor) 40 mg QHS PO Last administered on 11/25/18 20:34; Admin Dose 40 MG; Start 11/17/18 at 21:00 Diltiazem HCl (Cardizem) 60 mg Q6H PRN PO sustained hr>130 Last administered on 11/21/18 16:00; Admin Dose 60 MG; Start 11/17/18 at 20:30 Diltiazem HCl (Cardizem Cd) 180 mg DAILY PO Last administered on 11/25/18 08:27; Admin Dose 180 MG; Start 11/18/18 at 09:00 Docusate Sodium (Colace) 100 mg Q12H PRN PO .CONSTIPATION; Start 11/17/18 at 2 0:30 Finasteride (Proscar) 5 mg DAILY PO Last administered on 11/26/18 09:04; Admin Dose 5 MG; Start 11/18/18 at 09:00 Fluticasone/ Vilanterol (Breo Ellipta 100-25 Mcg Inh) 1 inh DAILY INH Last administered on 11/26/18 09:05; Admin Dose 1 INH; Start 11/18/18 at 09:00 Losartan Potassium (Cozaar) 50 mg BID PO Last administered on 11/25/18 20:35; Admin Dose 50 MG; Start 11/17/18 at 21:00 Miscellaneous Information Patients own medicat... BID@10,16 XX Last administered on 11/25/18 10:00; Admin Dose 1 EA; Start 11/18/18 at 10:00 Montelukast Sodium (Singulair) 10 mg QHS PO Last administered on 11/25/18 20:34; Admin Dose 10 MG; Start 11/17/18 at 21:00 Ondansetron HCl (Zofran Tab) 4 mg Q6H PRN PO NAUSEA/VOMITING Last administered on 11/25/18 17:54; Admin Dose 4 MG; Start 11/17/18 at 21:00 Phenol (Cepastat Lozenge) 1 lozenge Q1H PRN [place] DRY MOUTH; Start 11/17/18 at 21:00 Quetiapine Fumarate (Seroquel) 25 mg HS PO Last administered on 11/25/18 20:35; Admin Dose 25 MG; Start 11/17/18 at 21:00 Quetiapine Fumarate (Seroquel) 12.5 mg Q8H PRN PO agitation Last administered on 11/23/18 22:58; Admin Dose 12.5 MG; Start 11/17/18 at 21:00 Rivaroxaban (Xarelto) 20 mg WITH DINNER PO Last administered on 11/25/18 17:50; Admin Dose 20 MG; Start 11/17/18 at 21:00 Tamsulosin HCl (Flomax) 0.8 mg HS PO Last administered on 11/25/18 20:34; Admin Dose 0.8 MG; Start 11/17/18 at 21:00 Thiamine HCl (Vitamin B1) 100 mg DAILY PO Last administered on 11/26/18 09:04; Admin Dose 100 MG; Start 11/18/18 at 09:00 Betamethasone/ Clotrimazole (Lotrisone Cr) 1 applic BID TOP Last administered on 11/26/18 09:04; Admin Dose 1 APPLIC; Start 11/18/18 at 21:00 Multivitamins Therapeutic (Theragran) 1 tab DAILY PO Last administered on 11/26/18 09:00; Admin Dose 1 TAB; Start 11/19/18 at 09:00 Ranitidine HCl (Zantac) 150 mg BID PO Last administered on 11/26/18 09:04; Admin Dose 150 MG; Start 11/21/18 at 21:00 Cefazolin Sodium 50 ml @ 100 mls/hr Q8 IVPB Last administered on 11/26/18 06:10; Admin Dose 100 MLS/HR; Start 11/23/18 at 22:00 Hal Pickett DO Nov 26, 2018 12:43
[2018-11-26 15:32] VITALS: BP 115/72; PULSE 72; RESP 16
[2018-11-26] MEDS: RIVAROXABAN 20 MG TABLET PO SCH (17:36)
[2018-11-26 19:37] VITALS: BP 138/80; PULSE 78; RESP 18
[2018-11-26] MEDS: ATORVASTATIN 40 MG TAB PO SCH (21:01)
[2018-11-26] MEDS: MONTELUKAST 10 MG TAB PO SCH (21:01)
[2018-11-26] MEDS: TAMSULOSIN (SR) 0.4 MG CAP PO SCH (21:01)
[2018-11-26] MEDS: QUETIAPINE 25 MG TAB PO SCH (21:01)
[2018-11-26] MEDS: SENNA TAB PO SCH (21:02)
[2018-11-27] MEDS: ACETAMINOPHEN 325 MG TAB PO PRN ×2 (00:53→20:39)
[2018-11-27] MEDS: QUETIAPINE 25 MG TAB PO PRN (01:09)
[2018-11-27] MEDS ORDERED: LORAZEPAM 2 MG INJ IV ONE (02:00)
[2018-11-27 02:09] VITALS: BP 111/72; PULSE 64; RESP 16
[2018-11-27] MEDS ORDERED: QUETIAPINE 25 MG TAB PO ONE (04:30)
[2018-11-27] MEDS: CEFAZOLIN 1 GM/50 ML (PMX) 50 ML IVPB SCH ×3 (06:15→22:54)
[2018-11-27 07:00] VITALS: BP 110/60; PULSE 80; RESP 18
[2018-11-27] MEDS: DILTIAZEM (CD) 180 MG CAP PO SCH (09:00)
[2018-11-27] MEDS: AMLODIPINE 5 MG TAB PO SCH (09:00)
[2018-11-27] MEDS: LOSARTAN 50 MG TAB PO SCH (09:00)
[2018-11-27] MEDS: FINASTERIDE 5 MG TAB PO SCH (09:21)
[2018-11-27] MEDS: MULTIVITAMINS THERAPEUTIC TAB PO SCH (09:21)
[2018-11-27] MEDS: BETAMETHASONE/CLOTRIMAZOLE 15 GM CR TOP SCH ×2 (09:26→20:35)
[2018-11-27] MEDS: THIAMINE 100 MG TAB PO SCH (09:26)
[2018-11-27] MEDS: RANITIDINE 150 MG TAB PO SCH ×2 (09:26→20:33)
[2018-11-27] MEDS: FLUTICASONE/VILANTEROL 100-25 INH SCH (09:27)
--- NOTE | 2018-11-27 13:13 | PN ---
Date/Time of Note Date/Time of Note DATE: 11/27/18 TIME: 12:18 Subjective Agitated last pm Objective Vital Signs Date Temp Pulse Resp B/P (MAP) Pulse Ox O2 O2 Flow FiO2 Time Delivery Rate 11/27/18 98.0 80 18 110/60 94 Room Air 07:00 (77) Intake and Output 11/26/18 11/26/18 11/27/18 1515:00 23:00 07:00 IntakeIntake Total 100 ml 700 ml 1000 ml OutputOutput Total 700 ml 700 ml BalanceBalance 100 ml 0 ml 300 ml Exam s/MO ambulation 200 feet Results/Medications Medications Current Medications Senna (Senokot) 1 tab HS PO Last administered on 11/26/18at 21:02; Admin Dose 1 TAB; Start 11/17/18 at 21:00; Stop 11/24/19 at 16:38 Lactulose (Enulose) 20 gm DAILY PRN PO CONSTIPATION; Start 11/17/18 at 18:30 Bisacodyl (Dulcolax Supp) 10 mg DAILY PRN [place] CONSTIPATION; Start 11/17/18 at 18:30 Acetaminophen (Tylenol Tab) 650 mg Q4H PRN PO MILD PAIN 1-3 Last administered on 11/27/18at 00:53; Admin Dose 650 MG; Start 11/17/18 at 18:30 Miscellaneous Information ([facility] This patient trevino... PRN PRN XX WOUND CARE; Start 11/17/18 at 18:30 Acetaminophen (Tylenol Tab) 650 mg Q6H PRN PO .PAIN 1-3 OR TEMP; Start 11/17/18 at 20:30 Albuterol/ Ipratropium (Duoneb) 3 ml Q6H RESP THERAPY PRN HHN SHORTNESS OF BREATH; Start 11/17/18 at 20:30 Amlodipine Besylate (Norvasc) 5 mg DAILY PO Last administered on 11/25/18at 08:27; Admin Dose 5 MG; Start 11/18/18 at 09:00 Atorvastatin Calcium (Lipitor) 40 mg QHS PO Last administered on 11/26/18at 21 :01; Admin Dose 40 MG; Start 11/17/18 at 21:00 Diltiazem HCl (Cardizem) 60 mg Q6H PRN PO sustained hr>130 Last administered on 11/21/18 16:00; Admin Dose 60 MG; Start 11/17/18 at 20:30 Diltiazem HCl (Cardizem Cd) 180 mg DAILY PO Last administered on 11/25/18 08:27; Admin Dose 180 MG; Start 11/18/18 at 09:00 Docusate Sodium (Colace) 100 mg Q12H PRN PO .CONSTIPATION; Start 11/17/18 at 20:30 Finasteride (Proscar) 5 mg DAILY PO Last administered on 11/27/18 09:21; Admin Dose 5 MG; Start 11/18/18 at 09:00 Fluticasone/ Vilanterol (Breo Ellipta 100-25 Mcg Inh) 1 inh DAILY INH Last administered on 11/27/18 09:27; Admin Dose 1 INH; Start 11/18/18 at 09:00 Losartan Potassium (Cozaar) 50 mg BID PO Last administered on 11/26/18 21:01; Admin Dose 50 MG; Start 11/17/18 at 21:00 Miscellaneous Information Patients own medicat... BID@10,16 XX Last administered on 11/25/18 10:00; Admin Dose 1 EA; Start 11/18/18 at 10:00 Montelukast Sodium (Singulair) 10 mg QHS PO Last administered on 11/26/18 21:01; Admin Dose 10 MG; Start 11/17/18 at 21:00 Ondansetron HCl (Zofran Tab) 4 mg Q6H PRN PO NAUSEA/VOMITING Last administered on 11/25/18 17:54; Admin Dose 4 MG; Start 11/17/18 at 21:00 Phenol (Cepastat Lozenge) 1 lozenge Q1H PRN [place] DRY MOUTH; Start 11/17/18 at 21:00 Quetiapine Fumarate (Seroquel) 12.5 mg Q8H PRN PO agitation Last administered on 11/27/18 01:09; Admin Dose 12.5 MG; Start 11/17/18 at 21:00 Rivaroxaban (Xarelto) 20 mg WITH DINNER PO Last administered on 11/26/18 17:36; Admin Dose 20 MG; Start 11/17/18 at 21:00 Tamsulosin HCl (Flomax) 0.8 mg HS PO Last administered on 11/26/18 21:01; Admin Dose 0.8 MG; Start 11/17/18 at 21:00 Thiamine HCl (Vitamin B1) 100 mg DAILY PO Last administered on 11/27/18 09:26; Admin Dose 100 MG; Start 11/18/18 at 09:00 Betamethasone/ Clotrimazole (Lotrisone Cr) 1 applic BID TOP Last administered on 11/27/18; Admin Dose 1 APPLIC; Start 11/18/18 at 21:00 Multivitamins Therapeutic (Theragran) 1 tab DAILY PO Last administered on 11/27/18 09:21; Admin Dose 1 TAB; Start 11/19/18 at 09:00 Ranitidine HCl (Zantac) 150 mg BID PO Last administered on 11/27/18:26; Admin Dose 150 MG; Start 11/21/18 at 21:00 Cefazolin Sodium 50 ml @ 100 mls/hr Q8 IVPB Last administered on 11/27/18 06:15; Admin Dose 100 MLS/HR; Start 11/23/18 at 22:00 Quetiapine Fumarate (Seroquel) 50 mg HS PO ; Start 11/27/18 at 21:00 Assessment/Plan Additional Assessment/Plan Rehab- Toxic metabolic encephalopathy. Functional status has improved, however patient still requiring cues for activities. pm dose of Seroquel increased due to the agitation Right lower lobe pneumonia. Atrial fibrillation. Coronary artery disease with history of stent. Asthma. Hypertension. Hyperlipidemia. Benign prostatic hypertrophy. Psoriasis. Status-post acute kidney injury. JULY AG MD Nov 27, 2018 13:13
[2018-11-27 14:00] VITALS: BP 130/60; PULSE 66; RESP 18
--- NOTE | 2018-11-27 16:40 | CONS ---
Assessment/Plan Assessment/Plan Hospital Course (Demo Recall) Atrial fibrillation with controlled ventricular rates Preserved ejection fraction Pneumonia-improving Acute kidney injury-resolved Coronary artery disease with history of PCI Encephalopathy-improving Hypertension -Blood pressure labile, will decrease losartan to daily, holding parameters on antihypertensives -HR trend stable on current dose of Cardizem, continue as tolerated -Continue anticoagulation as tolerated Consultation Date/Type/Reason Admit Date/Time Nov 17, 2018 at 17:15 Initial Consult Date Type of Consult Cardiology Date/Time of Note DATE: 11/27/18 TIME: 16:39 24 HR Interval Summary Free Text/Dictation Denies shortness of breath, palpitations, dizziness Exam/Review of Systems Vital Signs Vitals Vital Signs Date Temp Pulse Resp B/P (MAP) Pulse Ox O2 O2 Flow FiO2 Time Delivery Rate 11/27/18 98.0 66 18 130/60 97 Room Air 14:00 (83) Intake and Output 11/26/18 11/26/18 11/27/18 1515:00 23:00 07:00 IntakeIntake Total 100 ml 700 ml 1000 ml OutputOutput Total 700 ml 700 ml BalanceBalance 100 ml 0 ml 300 ml Exam Constitutional: alert (Following commands, no apparent distress) Head: normocephalic Respiratory: other (Coarse breath sounds bilaterally, no wheezing) Cardiovascular: irregular rhythm (S1-S2 heard) Gastrointestinal: soft, non-tender, bowel sounds Extremities: edema Medications Medications Current Medications Senna (Senokot) 1 tab HS PO Last administered on 11/26/18at 21:02; Admin Dose 1 TAB; Start 11/17/18 at 21:00; Stop 11/24/19 at 16:38 Lactulose (Enulose) 20 gm DAILY PRN PO CONSTIPATION; Start 11/17/18 at 18:30 Bisacodyl (Dulcolax Supp) 10 mg DAILY PRN [place] CONSTIPATION; Start 11/17/18 at 18:30 Acetaminophen (Tylenol Tab) 650 mg Q4H PRN PO MILD PAIN 1-3 Last administered on 11/27/18at 00:53; Admin Dose 650 MG; Start 11/17/18 at 18:30 Miscellaneous Information (Pending Santyl Order For Wound Care) This patient trevino... PRN PRN XX WOUND CARE; Start 11/17/18 at 18:30 Acetaminophen (Tylenol Tab) 650 mg Q6H PRN PO .PAIN 1-3 OR TEMP; Start 11/17/18 at 20:30 Albuterol/ Ipratropium (Duoneb) 3 ml Q6H RESP THERAPY PRN HHN SHORTNESS OF BREATH; Start 11/17/18 at 20:30 Amlodipine Besylate (Norvasc) 5 mg DAILY PO Last administered on 11/25/18 08:27; Admin Dose 5 MG; Start 11/18/18 at 09:00 Atorvastatin Calcium (Lipitor) 40 mg QHS PO Last administered on 11/26/18 21:01; Admin Dose 40 MG; Start 11/17/18 at 21:00 Diltiazem HCl (Cardizem) 60 mg Q6H PRN PO sustained hr>130 Last administered on 11/21/18 16:00; Admin Dose 60 MG; Start 11/17/18 at 20:30 Diltiazem HCl (Cardizem Cd) 180 mg DAILY PO Last administered on 11/25/18 08:27; Admin Dose 180 MG; Start 11/18/18 at 09:00 Docusate Sodium (Colace) 100 mg Q12H PRN PO .CONSTIPATION; Start 11/17/18 at 20:30 Finasteride (Proscar) 5 mg DAILY PO Last administered on 11/27/18 09:21; Admin Dose 5 MG; Start 11/18/18 at 09:00 Fluticasone/ Vilanterol (Breo Ellipta 100-25 Mcg Inh) 1 inh DAILY INH Last administered on 11/27/18 09:27; Admin Dose 1 INH; Start 11/18/18 at 09:00 Losartan Potassium (Cozaar) 50 mg BID PO Last administered on 11/26/18 21:01; Admin Dose 50 MG; Start 11/17/18 at 21:00 Miscellaneous Information Patients own medicat... BID@10,16 XX Last administered on 11/25/18 10:00; Admin Dose 1 EA; Start 11/18/18 at 10:00 Montelukast Sodium (Singulair) 10 mg QHS PO Last administered on 11/26/18 2 1:01; Admin Dose 10 MG; Start 11/17/18 at 21:00 Ondansetron HCl (Zofran Tab) 4 mg Q6H PRN PO NAUSEA/VOMITING Last administered on 11/25/18 17:54; Admin Dose 4 MG; Start 11/17/18 at 21:00 Phenol (Cepastat Lozenge) 1 lozenge Q1H PRN [place] DRY MOUTH; Start 11/17/18 at 21:00 Quetiapine Fumarate (Seroquel) 12.5 mg Q8H PRN PO agitation Last administered on 11/27/18 01:09; Admin Dose 12.5 MG; Start 11/17/18 at 21:00 Rivaroxaban (Xarelto) 20 mg WITH DINNER PO Last administered on 11/26/18 17:36; Admin Dose 20 MG; Start 11/17/18 at 21:00 Tamsulosin HCl (Flomax) 0.8 mg HS PO Last administered on 11/26/18 21:01; Admin Dose 0.8 MG; Start 11/17/18 at 21:00 Thiamine HCl (Vitamin B1) 100 mg DAILY PO Last administered on 11/27/18 09:26; Admin Dose 100 MG; Start 11/18/18 at 09:00 Betamethasone/ Clotrimazole (Lotrisone Cr) 1 applic BID TOP Last administered on 11/27/18 09:26; Admin Dose 1 APPLIC; Start 11/18/18 at 21:00 Multivitamins Therapeutic (Theragran) 1 tab DAILY PO Last administered on 11/27/18 09:21; Admin Dose 1 TAB; Start 11/19/18 at 09:00 Ranitidine HCl (Zantac) 150 mg BID PO Last administered on 11/27/18 09:26; Admin Dose 150 MG; Start 11/21/18 at 21:00 Cefazolin Sodium 50 ml @ 100 mls/hr Q8 IVPB Last administered on 11/27/18 15:06; Admin Dose 100 MLS/HR; Start 11/23/18 at 22:00 Quetiapine Fumarate (Seroquel) 50 mg HS PO ; Start 11/27/18 at 21:00 Hal Pickett DO Nov 27, 2018 16:40
[2018-11-27] MEDS: RIVAROXABAN 20 MG TABLET PO SCH (17:51)
[2018-11-27 19:58] VITALS: BP 128/71; PULSE 64; RESP 18
[2018-11-27] MEDS: TAMSULOSIN (SR) 0.4 MG CAP PO SCH (20:34)
[2018-11-27] MEDS: SENNA TAB PO SCH (20:35)
[2018-11-27] MEDS: ATORVASTATIN 40 MG TAB PO SCH (20:35)
[2018-11-27] MEDS: MONTELUKAST 10 MG TAB PO SCH (20:35)
[2018-11-27] MEDS ORDERED: QUETIAPINE 25 MG TAB PO SCH (21:00)
[2018-11-28 02:00] VITALS: BP_SYST 120; BP_SYST 122; BP_DIAS 67; PULSE 68; PULSE 69; RESP 18
[2018-11-28] MEDS: CEFAZOLIN 1 GM/50 ML (PMX) 50 ML IVPB SCH ×2 (06:10→12:24)
[2018-11-28 07:30] VITALS: BP 144/74; PULSE 55; RESP 20
--- NOTE | 2018-11-28 08:05 | CONS ---
Assessment/Plan Assessment/Plan Assessment/Plan (Daily) Assessment Atrial fibrillation with controlled ventricular rates Preserved ejection fraction Pneumonia-improving Acute kidney injury-resolved Coronary artery disease with history of PCI Encephalopathy-improving Hypertension Plan: continue current antihypertensives continue AC Consultation Date/Type/Reason Admit Date/Time Nov 17, 2018 at 17:15 Initial Consult Date Type of Consult Cardiology Date/Time of Note DATE: 11/28/18 TIME: 08:03 Detailed Summary Respiratory: no complaints Cardiovascular: no complaints Gastrointestinal: no complaints Musculoskeletal: no complaints Skin: no complaints Neurologic: no complaints Exam/Review of Systems Vital Signs Vitals Vital Signs Date Temp Pulse Resp B/P (MAP) Pulse Ox O2 O2 Flow FiO2 Time Delivery Rate 11/28/18 98.2 68 18 122/67 98 Room Air 02:00 (85) Intake and Output 11/27/18 11/27/18 11/28/18 1414:59 22:59 06:59 IntakeIntake Total 1250 ml 900 ml OutputOutput Total 800 ml BalanceBalance 450 ml 900 ml Exam Constitutional: alert Head: normocephalic, atraumatic Neck: supple Respiratory: clear to auscultation Cardiovascular: irregular rhythm Gastrointestinal: soft Musculoskeletal: nl extremities to inspection Extremities: normal pulses Medications Medications Current Medications Senna (Senokot) 1 tab HS PO Last administered on 11/27/18at 20:35; Admin Dose 1 TAB; Start 11/17/18 at 21:00; Stop 11/24/19 at 16:38 Lactulose (Enulose) 20 gm DAILY PRN PO CONSTIPATION; Start 11/17/18 at 18:30 Bisacodyl (Dulcolax Supp) 10 mg DAILY PRN [place] CONSTIPATION; Start 11/17/18 at 18:30 Acetaminophen (Tylenol Tab) 650 mg Q4H PRN PO MILD PAIN 1-3 Last administered on 11/27/18at 20:39; Admin Dose 650 MG; Start 11/17/18 at 18:30 [facility] This patient trevino... PRN PRN XX WOUND CARE; Start 11/17/18 at 18:30 Acetaminophen (Tylenol Tab) 650 mg Q6H PRN PO .PAIN 1-3 OR TEMP; Start 11/17/18 at 20:30 Albuterol/ Ipratropium (Duoneb) 3 ml Q6H RESP THERAPY PRN HHN SHORTNESS OF BREATH; Start 11/17/18 at 20:30 Amlodipine Besylate (Norvasc) 5 mg DAILY PO Last administered on 11/25/18 08:27; Admin Dose 5 MG; Start 11/18/18 at 09:00 Atorvastatin Calcium (Lipitor) 40 mg QHS PO Last administered on 11/27/18 20:35; Admin Dose 40 MG; Start 11/17/18 at 21:00 Diltiazem HCl (Cardizem) 60 mg Q6H PRN PO sustained hr>130 Last administered on 11/21/18 16:00; Admin Dose 60 MG; Start 11/17/18 at 20:30 Diltiazem HCl (Cardizem Cd) 180 mg DAILY PO Last administered on 11/25/18 08:27; Admin Dose 180 MG; Start 11/18/18 at 09:00 Docusate Sodium (Colace) 100 mg Q12H PRN PO .CONSTIPATION; Start 11/17/18 at 20:30 Finasteride (Proscar) 5 mg DAILY PO Last administered on 11/27/18 09:21; Admin Dose 5 MG; Start 11/18/18 at 09:00 Fluticasone/ Vilanterol (Breo Ellipta 100-25 Mcg Inh) 1 inh DAILY INH Last administered on 11/27/18 09:27; Admin Dose 1 INH; Start 11/18/18 at 09:00 Miscellaneous Information Patients own medicat... BID@10,16 XX Last administered on 11/25/18 10:00; Admin Dose 1 EA; Start 11/18/18 at 10:00 Montelukast Sodium (Singulair) 10 mg QHS PO Last administered on 11/27/18 20:35; Admin Dose 10 MG; Start 11/17/18 at 21:00 Ondansetron HCl (Zofran Tab) 4 mg Q6H PRN PO NAUSEA/VOMITING Last administered on 11/25/18 17:54; Admin Dose 4 MG; Start 11/17/18 at 21:00 Phenol (Cepastat Lozenge) 1 lozenge Q1H PRN [place] DRY MOUTH; Start 11/17/18 at 21:00 Quetiapine Fumarate (Seroquel) 12.5 mg Q8H PRN PO agitation Last administered on 11/27/18 01:09; Admin Dose 12.5 MG; Start 11/17/18 at 21:00 Rivaroxaban (Xarelto) 20 mg WITH DINNER PO Last administered on 11/27/18 17:51; Admin Dose 20 MG; Start 11/17/18 at 21:00 Tamsulosin HCl (Flomax) 0.8 mg HS PO Last administered on 11/27/18 20:34; Admin Dose 0.8 MG; Start 11/17/18 at 21:00 Thiamine HCl (Vitamin B1) 100 mg DAILY PO Last administered on 11/27/18 09:26; Admin Dose 100 MG; Start 11/18/18 at 09:00 Betamethasone/ Clotrimazole (Lotrisone Cr) 1 applic BID TOP Last administered on 11/27/18 20:35; Admin Dose 1 APPLIC; Start 11/18/18 at 21:00 Multivitamins Therapeutic (Theragran) 1 tab DAILY PO Last administered on 11/27/18 09:21; Admin Dose 1 TAB; Start 11/19/18 at 09:00 Ranitidine HCl (Zantac) 150 mg BID PO Last administered on 11/27/18 20:33; Admin Dose 150 MG; Start 11/21/18 at 21:00 Cefazolin Sodium 50 ml @ 100 mls/hr Q8 IVPB Last administered on 11/28/18 06:10; Admin Dose 100 MLS/HR; Start 11/23/18 at 22:00 Quetiapine Fumarate (Seroquel) 50 mg HS PO Last administered on 11/27/18 20:34; Admin Dose 50 MG; Start 11/27/18 at 21:00 Losartan Potassium (Cozaar) 50 mg DAILY PO ; Start 11/28/18 at 09:00 EYAL REHMAN MD Nov 28, 2018 08:05
[2018-11-28] MEDS: FINASTERIDE 5 MG TAB PO SCH (08:56)
[2018-11-28] MEDS: RANITIDINE 150 MG TAB PO SCH (08:56)
[2018-11-28] MEDS: MULTIVITAMINS THERAPEUTIC TAB PO SCH (08:57)
[2018-11-28] MEDS: DILTIAZEM (CD) 180 MG CAP PO SCH (08:57)
[2018-11-28] MEDS: AMLODIPINE 5 MG TAB PO SCH (08:57)
[2018-11-28] MEDS: THIAMINE 100 MG TAB PO SCH (08:57)
[2018-11-28] MEDS: FLUTICASONE/VILANTEROL 100-25 INH SCH (08:57)
[2018-11-28] MEDS: BETAMETHASONE/CLOTRIMAZOLE 15 GM CR TOP SCH (08:59)
[2018-11-28] MEDS ORDERED: LOSARTAN 50 MG TAB PO SCH (09:00)
[2018-11-28 14:00] VITALS: BP 109/64; PULSE 84; RESP 20
--- NOTE | 2018-11-28 14:36 | DS ---
Date/Time of Note Date/Time of Note DATE: 11/28/18 TIME: 14:35 Discharge Summary Admission/Discharge Info Admit Date/Time Nov 17, 2018 at 17:15 Discharge Date/Time Discharge Diagnosis 1. Toxic metabolic encephalopathy. 2. Right lower lobe pneumonia. 3. Atrial fibrillation, Coronary artery disease with history of stent. 4. Asthma. 5. Hypertension. 6. Hyperlipidemia. 7. Benign prostatic hypertrophy. 8. Psoriasis. 9. Status-post acute kidney injury. 10. Improvements in self-care, mobility. Patient Condition: Good Hospital Course The patient was admitted for comprehensive interdisciplinary rehabilitation and made steady functional gains from a Mod/max level to a S level for self care tasks and mobility including ambulating over 150 feet with the use of a FWW. Family received caregiver training and was able to demonstrate safe carryover of technique. Patient is being discharged home with the recommendation of home health PT, OT and RN follow up. The DC meds are per the medication reconciliation sheet. The discharge equipment recommendations include: FWW, BSC, shower chair. The patient will follow up with PMD upon DC. Home Meds Active Scripts Losartan Potassium* (Cozaar*) 50 Mg Tablet, 50 MG PO BID for 30 Days, #60 TAB Prov:CHRIS RUBIN MD 11/17/18 Atorvastatin* (Atorvastatin*) 40 Mg Tablet, 40 MG PO QHS for 30 Days, #30 TAB Prov:CHRIS RUBIN MD 11/17/18 Reported Medications [Vitamin B12 Inj] No Conflict Check, 1 ML INJ DAILY INJECT 1ML-FOR 7 DAYS DAILY (LAST INJECTION 11/04/18-FOR 7 DAYS), THEN INJECT Q7D- FOR 3 WEEKS(START DAY 11/05/18),THEN ONCE A MONTH. 11/04/18 Finasteride* (Finasteride*) 5 Mg Tablet, 5 MG PO DAILY, TAB 11/04/18 Tamsulosin Hcl* (Tamsulosin Hcl*) 0.4 Mg Cap.er.24h, 0.8 MG PO HS, CAP 11/04/18 Primary Care Provider MD ANCELMO Walden LIVA L. MD Nov 28, 2018 14:36
--- NOTE | 2018-11-28 20:27 | PN ---
DATE: 11/28/2018 PSYCHOLOGY - INDIVIDUAL SESSION -- [id number] This is a followup on a patient who was seen last week. The patient is now being discharged today. The patient is feeling positive about this. The patient feels like he has made a good deal of progre ss while he has been in the program. The patient is looking forward to going home and his mood was d efinitely improved. I worked with the patient to try and continue to encourage him to work on his mo od as well as his medical problems. Dictated By: LUMA ADAMS PHD RK/LOULOU Conf#: [id number] DID#: [id number] CC: JULY AG MD;*[facility]*
== END 2018-11-28 14:30 | disposition home or self-care (01) | DRG 91 ==
LOC: VRC 17:15
PROVIDERS: ADMIT Physical Medicine & Rehabilitation; ATTEND Internal Medicine
DX: G92 Toxic encephalopathy (principal); J18.9 Pneumonia, unspecified organism; N17.9 Acute kidney failure, unspecified; I25.10 Atherosclerotic heart disease of native coronary artery without angina pectoris; Z95.5 Presence of coronary angioplasty implant and graft; N40.0 Benign prostatic hyperplasia without lower urinary tract symptoms; J45.909 Unspecified asthma, uncomplicated; I10 Essential (primary) hypertension; E78.5 Hyperlipidemia, unspecified; I48.91 Unspecified atrial fibrillation; L40.9 Psoriasis, unspecified; E53.8 Deficiency of other specified B group vitamins; F06.31 Mood disorder due to known physiological condition with depressive features; F06.8 Other specified mental disorders due to known physiological condition
CPT/HCPCS: 71045; 80053; 81001; 84484; 85025; 87045; 87081; 87086; 92507; 92523; 93005; 97110; 97112; 97116; 97163; 97530; 97535; 97542; J0690; J1644; J1956; J2060; J3420